=== PATIENT | female | born 1970 | race Caucasian/White ===

== ENCOUNTER → 2017-06-28 | Outpatient (CLI) | payer BC ==
[~2017-06-28] MED LIST: ASPCH81X PO; CETI10TA84 PO; HYZ/50125 PO; IBUP1CAP9; METO50TA7 PO; MULT-506 PO; NICO21DI35 TD; POTA10CA28 PO
[2017-06-28 15:00] VITALS: BP 147/83; PULSE 77; TEMP 36.7; O2SAT 100
--- NOTE | 2017-06-28 15:57 | Radiation Oncology Follow-Up ---
Radiation Oncology Follow-Up Date of Visit Jun 28, 2017. Reason For Visit One-month follow-up and cancer survivorship care plan Radiation Completion Date 05/19/17 Diagnosis (1) Intraductal carcinoma of left breast Status: Resolved Onset Date: 04/04/2017 Stage: 0 Permanent Comment: Abnormal left breast mammogram Status post stereotactic core needle biopsy 02/02/2017 Intraductal carcinoma Estrogen receptor positive and progesterone receptor positive Status post breast MRI 03/02/2017 Status post stereotactic core needle biopsy 03/02/2017 Focal sclerosing adenosis Status post left needle localization lumpectomy 03/16/2017 No residual carcinoma BRCA1 and 2 testing negative Status post completion of radiation therapy 05/19/2017. She received 5130 cGy utilizing hypo-fractionation. Last Edited By: Francheska Cody on May 27, 2017 14:31 History of Present Illness Ms. Bennett presented with an abnormal mammogram on 01/12/2017 which revealed a new group of calcifications in the left breast at the 9 o'clock position that measured 7 mm x 3 mm. The patient was brought back for a unilateral diagnostic mammogram on 01/20/2017 with spot compression which confirmed the presence of a group of calcifications in the upper-inner quadrant of the left breast. The patient underwent a stereotactic core biopsy of the left breast calcifications on 02/02/2017 which confirmed low-grade ductal carcinoma in situ without necrosis that was estrogen receptor positive and progesterone receptor positive. The patient underwent an MRI of the bilateral breasts on 03/02/2017 which revealed a small hematoma and biopsy marker at the site of the recent biopsy; there was a second area of calcifications in the upper inner quadrant of the left breast which were biopsied on 03/02/2017 and both areas were negative for cancer. The patient underwent a left breast lumpectomy on 2016 which revealed no residual ductal carcinoma in situ. We are now seeing the patient in consultation to discuss the role of adjuvant radiation therapy. The patient will also see Dr. Jaiden Barahona from medical oncology. She underwent a CT simulation. She was found to be a candidate for hypo- fractionation. Radiation was completed 05/19/2017. She received 5130 cGy. Interim History She's been doing well over this past month. She had minimal skin irritation following the end of treatment. She stated that there were a few blisters under the arm that healed without difficulty. She is noted no masses or tenderness and no changes of the axilla. She's had no swelling of her arm. She is already scheduled for mammography in August. She was seen by medical oncology and antiestrogen therapy was recommended. She has adamantly declined antiestrogen therapy. She states that she is concerned about potential side effects. Allergies Coded Allergies: Lisinopril (Verified Allergy, Unknown, Coughing, 04/05/17) Home Medications Scheduled Aspirin (Aspirin Chewable), 81 MG PO DAILY Cetirizine (Zyrtec), 10 MG PO DAILY Hctz/Losartan (Hyzaar 12.5MG/50MG), 1 TAB PO DAILY Metoprolol Succ (Toprol Xl) (Toprol-Xl), 1 TAB PO DAILY Multivitamin (Multivitamin), 1 TAB PO DAILY Potassium Chloride (Micro-K Ext Rel), 20 MEQ PO DAILY Miscellaneous Medications Ibuprofen (Ibuprofen) Review of Systems Gastrointestinal: Symptoms: WNL Oral: Symptoms: No Problems Respiratory: Symptoms: WNL Urinary: Symptoms: WNL Skin: Symptoms: No Problems Breast: Right Upper Arm Measurement: 23.5 Right Mid Arm Measurement: 21.0 Right Wrist Measurement: 15.0 Left Upper Arm Measurement: 23.0 Left Mid Arm Measurement: 20.0 Left Wrist Measurement: 14.5 Arm Dominence: Right Physical Exam Vital Signs Date Time Temp Pulse Resp B/P (MAP) Pulse Ox O2 Delivery O2 Flow Rate FiO2 06/28/17 15:00 36.7 77 18 147/83 100 Fatigue: None General Appearance: + thin Eyes: normal inspection, EOMI ENT: normal ENT inspection, hearing grossly normal Neck: no adenopathy, thyroid normal Respiratory/Chest: lungs clear, no respiratory distress, no accessory muscle use Breast: Breast examination reveals a well-healed incision of the left breast. There are no masses or tenderness and no axillary adenopathy. She has no skin retractions or nipple changes. There is slight hyperpigmentation. Using the Alvarado score cosmesis she has a good outcome. The right pressure no masses or tenderness and no axillary adenopathy. Cardiovascular: regular rate, rhythm, no gallop, no murmur Extremities: no pedal edema Neurologic/Psychiatric: no motor/sensory deficits, alert, normal mood/affect Skin: warm/dry Pain Management Patient Reports Pain: No Pain Location: None Patient Preferred Pain Scale: 0 - 10 Initial Pain Intensity: 0.0 Pain Management Plan She denies pain therefore requires no pain management. Laboratory Laboratory Results: not applicable Pathology Pathology Results: were reviewed, and pertinent findings noted in HPI Imaging Imaging Studies: were reviewed, and pertinent findings noted in HPI Assessment & Plan Plan: Patient cells seen today by Dr. Cedeno. Mammography is scheduled for August. She has declined antiestrogen therapy. She is scheduled for mammogram 08/24/2017 at [facility]. Continue follow-up with her primary care physician. Today we discussed smoke cessation. We had previously talked about weaning off of cigarettes. She was also given 1 800 quit line. She has been offered to participate in the smoke cessation classes here at the hospital. Today we completed a cancer survivorship care plan. A copy the document was given to the patient. She was given a survivorship booklet. We asked her to return to our office in 6 months. She may call if she has any questions or concerns in the interim. Assessment & Plan (Attending) ADDENDUM: I agree with note created by Francheska Cody PA-C. I reviewed the patient's chart and information with her. I have examined and evaluated the patient. I reviewed relevant clinical information and answered the patient's and /or family's questions. [employer] Total Time In Follow-Up I spent 20 minutes speaking to the patient and performing examination. I spent 20 minutes reviewing information, preparing the survivorship document, and completing this note. [place] Total Time (Attending) In Follow-Up I spent 15 minutes examining and counseling the patient. [employer] Copy To Denia Silva MD; Jaiden Barahona MD; Chau Reyna M.D.
== END | disposition home or self-care (01) ==
LOC: C.ONC 14:38
PROVIDERS: ATTEND Physician Assistant Medical
DX: Z08 Encounter for follow-up examination after completed treatment for malignant neoplasm (principal); Z92.3 Personal history of irradiation; Z85.3 Personal history of malignant neoplasm of breast

== ENCOUNTER 2024-01-23 18:33 | Inpatient (IN) ==
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
[2024-01-23] MEDS: OPTIRAY 320 100ml IV ONE (19:20)
[2024-01-23 19:21] LABS: iSTAT Creatinine 0.7 mg/dl (0.6-1.3); iSTAT Hemoglobin 15.6 g/dl (12.0-16.0); iSTAT Ionized Calcium 1.16 mmol/l (1.12-1.32); iSTAT Potassium 2.2 mmol/L (3.3-5.0)
[2024-01-23 19:25] LABS: Base Excess VBG 8.3 mEq/L; HCO3 VBG 33 mmol/L; Oxygen Saturation VBG < 60.0 %; PCO2 VBG 47 mmHg (38-50); PO2 VBG 26 mmHg; pH VBG 7.46 (7.36-7.41)
[2024-01-23] MEDS: SODIUM CHLORIDE 0.9% 500 ML IV SCH (19:43)
[2024-01-23 19:52] LABS: Albumin Globulin Ratio 1.6 (0.9-2); Albumin Level 4.6 gm/dl (3.4-5.0); BUN Creatinine Ratio 9.4 (10-20); Bilirubin,Total 0.9 mg/dl (0.2-1.0); Calcium 10.3 mg/dl (8.6-10.3); Creatinine Clr Calc Pharmacy 69.5 ml/min; Est GFR (African American) 118.9 ml/min; Est GFR (Non-African American) 102.6 ml/min; Globulin 2.9 gm/dl (2.5-4.0); Potassium 2.3 mmol/L (3.5-5.1); Total Protein 7.5 gm/dl (6.0-8.3)
[2024-01-23 19:56] LABS: Appearance Urine Clear (Clear); Bacteria Urine Automated None Seen (None Seen); Bilirubin Urine Negative (Negative); Blood Urine Negative (Negative); Cast Urine Automated 0-2 /lpf (0-2); Color Urine Yellow; Epithelial Cell Urine Auto 0-2 /hpf (0-2); Glucose Urine UA Negative (Negative); Ketones Urine Negative (Negative); Leukocyte Esterase Urine Negative (Negative); Nitrite Urine Negative (Negative); Protein Urine 2+ (Negative); RBC Urine Automated 0-2 /hpf (0-2); Specific Gravity Urine 1.016 (1.000-1.030); Urobilinogen Urine Negative (Negative); WBC Urine Automated 0-5 /hpf (0-5); pH Urine 7.5 (4.5-7.5)
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
[2024-01-23 20:36] LABS: Amphetamines+Metham, Urine Neg (Neg); Barbiturates, Urine Neg (Neg); Benzodiazepine, Urine Neg (Neg); Cocaine, Urine Neg (Neg); Fentanyl, Urine Neg (Neg); MDMA (Ecstacy), Urine Neg (Neg); Marijuana, Urine Neg (Neg); Methadone, Urine Neg (Neg); Opiate, Urine Neg (Neg); Phencyclidine, Urine Neg (Neg)
[2024-01-23] MEDS: POTASSIUM CHLORIDE / WTR 10 MEQ/100 ML PLCT IV SCH (20:36)
[2024-01-23] MEDS: MAGNESIUM SULFATE / D5W 1 GM/100 ML BAG IV STA (20:36)
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
[2024-01-23 20:54] LABS: Basophils # (auto) 0.05 K/uL (0.00-0.20); Basophils % (auto) 0.4 %; Eosinophils # (auto) 0.11 K/uL (0.00-0.50); Hematocrit (blood only) 37.7 % (37.0-47.0); Hemoglobin 14.5 g/dl (12.0-16.0); Immature Granulocytes # (auto) 0.04 K/uL (0.01-0.20); Immature Granulocytes % (auto) 0.3 %; Lymphocytes # (auto) 1.11 K/uL (1.20-3.40); Lymphocytes % (auto) 9.6 %; Mean Corpuscular Hemoglobin 33.3 pg (25.0-34.0); Mean Corpuscular Hgb Conc 35.4 g/dL (32.0-36.0); Mean Corpuscular Volume 92.4 fL (80.0-100.0); Mean Platelet Volume 8.6 fL (9.4-12.4); Monocytes # (auto) 0.76 K/uL (0.11-0.59); Monocytes % (auto) 6.6 %; Neutrophils # (auto) 9.47 K/uL (1.40-6.50); Neutrophils % (auto) 82.1 %; Platelet Count 216 K/uL (130-400); RDW Coefficient of Variation 12.5 % (11.5-14.5); RDW Standard Deviation 42.5 fL (36.4-46.3); Red Blood Count 4.08 M/uL (4.20-5.40); White Blood Count 11.54 K/ul (4.8-10.8)
--- NOTE | 2024-01-23 20:56 | CT Scan Report ---
Exam(s): CT CHEST With Contrast IV Amt: 93 ml optiray 320 EXAM: CT Chest With Intravenous Contrast CLINICAL HISTORY: Reason for exam: Trauma. TECHNIQUE: Axial computed tomography images of the chest with intravenous contrast. CTDI is 6.47 mGy and DLP is 289.58 mGy-cm. Automated exposure control was utilized for the study. A dose lowering technique was utilized adhering to the principles of ALARA. Mild to moderate breathing motion artifact. CONTRAST: Patient received 93 ml optiray 320 of IV contrast COMPARISON: Chest CT 05/11/23. FINDINGS: Lungs: Grossly clear, Limited by breathing motion artifact. No consolidation. Pulmonary arteries: No engorgement. Aorta: Atherosclerosis, predominantly in the upper abdomen. No dissection, pseudoaneurysm or aneurysm. Pleural space: No effusion. No pneumothorax. Heart: Mild, stable cardiomegaly. No significant pericardial effusion. Bones/joints: Chronic, healed sternal fracture. No acute fracture. Soft tissues: Collapsed esophagus, wall thickening may be artifact, difficult to rule out esophagitis, correlate clinically. Fatty liver. Lymph nodes: No enlarged lymph nodes. IMPRESSION: 1. Equivocal esophagitis. 2. Lungs are clear. No pneumothorax. Electronically signed by: Manyd Smith M.D. 01/23/24 20:55 PM
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
[2024-01-23] MEDS ORDERED: POLYETHYLENE (MIRALAX) 17 GM PACK PO PRN (23:57)
[2024-01-23] MEDS ORDERED: STAT IV/IM STA (23:57)
[2024-01-23] MEDS ORDERED: LORazepam 1 MG in SYRINGE 0.5 ML IV PRN (23:57)
[2024-01-23] MEDS ORDERED: Ativan IV Alcohol Withdrawal--Active Protocol IV PRN (23:57)
[2024-01-23] MEDS ORDERED: LORazepam 3 MG in SYRINGE 1.5 ML IV PRN (23:57)
[2024-01-23] MEDS ORDERED: LORazepam 2 MG in SYRINGE 1 ML IV PRN (23:57)
[2024-01-23] MEDS ORDERED: ONDANSETRON INJ 2 MG/ML 2 ML VIAL IV PRN (23:57)
[2024-01-24] MEDS: SODIUM CHLORIDE 3 % 50 ML IV ONE ×2 (00:29→06:27)
[2024-01-24 00:45] LABS: BUN Creatinine Ratio 10.7 (10-20); Calcium 9.6 mg/dl (8.6-10.3); Creatinine Clr Calc Pharmacy 72.4 ml/min; Est GFR (African American) 124.2 ml/min; Est GFR (Non-African American) 107.2 ml/min; Potassium 2.9 mmol/L (3.5-5.1)
[2024-01-24] MEDS: MAGNESIUM SULFATE / D5W 1 GM/100 ML BAG IV SCH (00:48)
[2024-01-24] MEDS: POTASSIUM CHLORIDE / WTR 10 MEQ/100 ML PLCT IV SCH ×2 (02:22→06:15)
[2024-01-24 04:09] LABS: BUN Creatinine Ratio 11.1 (10-20); Calcium 9.2 mg/dl (8.6-10.3); Est GFR (African American) 125.7 ml/min; Est GFR (Non-African American) 108.5 ml/min; Magnesium 2.5 mg/dl (1.7-2.4); Potassium 2.9 mmol/L (3.5-5.1)
--- OUTSIDE RECORDS SUMMARY | 2024-01-24 05:56 | External Medical Summary | Summary of Care ---
Author Name Unknown Organization [facility] Address [address] [place] [address] Phone [phone] Care Team Providers Care Owner Oral Surgeon Name Role Phone Reyna Cowan MARIBELL Primary Care Provider [phone] Encounter Details Date Type Department Care Team (Late st Contact Info) Description 07/14/2023 Orders Only Vascular Surg [facility] [address], [place] [id number] Tunde Delgado MD [address], [place] [phone] Allergies Active Allergy Reactions Criticality Noted Date Comments Lisinopril 01/09/2004 cough documented as of this encounter (statuses as of 01/11/2024) Medications Medication Sig Dispensed Refills Start Date End Date Status ZYRTEC 10 MG PO TABSIndications:C hronic rhinitis 1 tab by mouth daily for allergies 30 12 03/10/2007 Active ASPIRIN EC 81 MG PO TBECIndications:H TN, goal to be determined Take one pill daily 100 Tab 3 01/19/2010 Active Multiple Vitamin Tablet Take 1 Tablet by mouth in the morning. 11/02/2017 Active methIMAzole 5 MG Oral Tablet (Tapazole)Indicat ions:Hyperthyroid ism Take by mouth 1 Tablet in the morning. 30 Tablet 11 01/29/2022 Active Additional Information Patient not taking.Reported on 07/08/2022 diphenhydrAMINE HCl 25 MG Oral Capsule (Benadryl Allergy) Take 1 Capsule by mouth every 6 hours as needed for Itching. Active Azelastine HCl 0.15 % Nasal SolutionIndicatio ns:Chronic rhinitis Administer 1 Cherry into nostril in the morning and 1 Cherry before bedtime. 30 mL 12 12/13/2022 Active Trelegy Ellipta 100-62.5-25 MCG/ACT Aerosol Powder Breath Activated (Fluticasone-Umec lidinium-Vilanter ol)Indications:CO PD, moderate (HCC) Inhale 1 Puff by mouth in the morning. 60 Blister Dosing Unit 5 01/10/2023 Active amLODIPine Besylate 2.5 MG Oral Tablet (Norvasc) Take 1 Tablet by mouth in the morning. 90 Tablet 3 01/28/2023 Active Losartan Potassium 100 MG Oral Tablet (Cozaar) Take 1 Tablet by mouth in the morning. 90 Tablet 3 03/31/2023 Active Fluticasone-Salme terol 100-50 MCG/ACT Inhalation Aerosol Powder Breath Activated (Advair Diskus)Indication s:COPD, moderate (HCC) Inhale 1 Puff by mouth in the morning and 1 Puff before bedtime. 180 Each 5 06/27/2023 12/17/2028 Active documented as of this encounter (statuses as of 01/11/2024) Active Problems Problem Noted Date Diagnosed Date Hyperthyroidism 12/11/2021 History of breast cancer 07/04/2017 Dyslipidemia, goal to be determined 01/25/2014 CHRONIC NONALLERGIC RHINITIS 05/31/2003 Menstruation, irregular 04/25/2003 HTN, goal below 140/90 11/05/1997 Tobacco use disorder 11/05/1997 documented as of this encounter (statuses as of 01/11/2024) Resolved Problems Problem Noted Date Diagnosed Date Resolved Date Malignant neoplasm of left female breast 03/04/2017 07/04/2017 Benign neoplasm of soft tissue of arm 01/12/2012 03/04/2017 Mass of elbow region 12/06/2011 012 Bursitis of elbow 09/14/2011 01/12/2012 Family history of diabetes mellitus 01/19/2010 03/04/2017 ADVANCE DIRECTIVE INFORMATION 01/08/2005 03/04/2017 Overview: No, Advance Directive brochure given to patient. documented as of this encounter (statuses as of 01/11/2024) Immunizations Name Administration Dates Next Due COVID-19 mRNA, LNP-s, No Pre serve, 2-Dose Series (Moderna) 10/21/2020,09/23/2020 TD, Preservative Free 11/28/2020 TDAP, Age 7 and older, IM (Adacel) 07/24/2010 07/24/2020 documented as of this encounter Social History Tobacco Use Types Packs/Day Years Used Date Smoking Tobacco: Every Day Cigarettes 1 15 Smokeless Tobacco: Never Alcohol Use Standard Drinks/Week Comments Yes 0 (1 standard drink = 0.6 oz pur e alcohol) 2 times weekly PHQ-2 Answer Date Recorded PHQ Adult Total Score 0 12/13/2022 Hunger Vital Sign Answer Date Recorded Within the past 12 months, y ou worried that your food would run out before you got the money to buy more. Never true 12/14/19 23 Within the past 12 months, t he food you bought just didn't last and you didn't have money to get more. Never true 12/13/2022 Sex and Gender Information Value Date Recorded Sex Assigned at Female 12/28/2019 9:25 AM EDT Gender Identity Female 12/28/2019 9:25 AM EDT Sexual Orientation Straight 12/28/2019 9: 25 AM EDT Job Start Date Occupation Industry Not on file Not on file Not on file documented as of this encounter Plan of Treatment Upcoming Encounters Date Type Department Care Team (Late st Contact Info) Description 01/18/2024 1:30 PM EDT Office Visit Vascular Surgery, [facility] [address] [place] [address] Sadiq Esteves MD [address] [place] [address] Scheduled Procedures Name Priority Associated Diagnoses Date/Ti me COLONOSCOPY FLEXIBLE PROXIMA L DIAGNOSTIC Recall Screening for colon cancer Health Maintenance Due Date Last Done Comments Pneumococcal Vaccine: Pediatrics (0 to 5 Years) and At-Risk Patients (6 to 64 Years) (1 of 2 - PCV) 09/05/1977 Hepatitis B Vaccine (1 of 3 - 19+ 3-dose series) 09/05/1990 HPV/Co-Test 09/05/2001 Fecal Occult Blood Test 09/05/2016 09/28/2000 Sigmoidoscopy 09/05/2016 Zoster Vaccines (1 of 2) 09/05/2021 Cervical Cancer Screening 12/27/2022 Pap Smear 12/27/2022 12/28/2019, 08/12, 09/02/2015, Additional history exists COVID-19 Vaccine ( season) 2023 10/21/2020, 09/23/2020 GFR 07/15/2023 07/15/2022, 07/0 06/2021, 11/28/2020, Additional history exists Albumin/Creatinine Ratio 11/29/2023 021, 08/23/2019, 09/19/2018, Additional history exists Depression Screening 12/14/2023 12/13/2022 Mammogram 02/10/2024 02/09/2023, 01/12, 02/03/2021, Additional history exists Influenza Vaccine (FLU shot) (#1) 2024 Cologuard 01/08/2025 01/08/2022, 12/12, 12/30/2021 Colonoscopy 03/30/2025 03/30/2022, 03/30/2022 Colorectal Cancer Screening 03/30/2025 Lipid Panel 12/11/2026 12/11/2021, 11/11, 08/23/2019, Additional history exists DTaP,Tdap,and Td Vaccines (8 - Td or Tdap) 11/28/2030 11/28/2020, 07/24/2010, 03/08/2002, Additional history exists HIV Screening Completed 12/11/2021 Hepatitis C Screening Completed 12/11/2021 , 12/11/2021, 12/11/2021 HPV (Gardasil) Vaccine Aged Out No lo nger eligible based on patient's age to complete this topic MENINGOCOCCAL (MENACTRA/MENVEO) Aged Out No longer eligible based on patient's age to complete this topic documented as of this encounter Medical Devices Not on filedocumented as of this encounter Procedures Procedure Name Priority Date/Time Associated Diagnosis Comments RADIOLOGY EXAM - US (IMAGES ONLY, NO REPORT) Routine 07/14/2023 3:05 PM EST documented in this encounter Results * RADIOLOGY EXAM - US (IMAGES ONLY, NO REPORT) (07/14/2023 3:05 PM EST) 07/14/2023 3:04 PM EST Narrative Scheduling, Silent - 01/11/2024 12:00 PM EDT This is an imaging study not interpreted or resulted by a [employer] or [employer] contracted radiologist. Tunde Delgado MD RAD ULTRASOUND documented in this encounter Care Teams Owner Oral Surgeon Relationship Specialty Start Date End Date Reyna Cowan CRNP [address] [place] [address] PCP - General Nurse Practitioner 01/05/24 documented as of this encounter
--- OUTSIDE RECORDS SUMMARY | 2024-01-24 05:56 | External Medical Summary | Summary of Care ---
Author Name Unknown Organization [facility] Address [address] [place] [address] Phone [phone] Care Team Providers Care Disaster Recovery Consultant Name Role Phone Reyna Cowan MARIBELL Primary Care Provider [phone] Encounter Details Date Type Department Care Team (Late st Contact Info) Description 07/14/2023 Orders Only Vascular Surg [facility] [address], [place] [phone] Tunde Delgado MD [address], [place] [phone] Allergies Active Allergy Reactions Criticality Noted Date Comments Lisinopril 01/09/2004 cough documented as of this encounter (statuses as of 01/10/2024) Medications Medication Sig Dispensed Refills Start Date [...] % Nasal SolutionIndicatio ns:Chronic rhinitis Administer 1 [place] into nostril in the morning and 1 [place] before bedtime. 30 mL 12 12/13/2022 Active [...] as of this encounter (statuses as of 01/10/2024) Active Problems Problem Noted Date Diagnosed Date Hyperthyroidism 12/11/2021 History of breast cancer 07/04/2017 Dyslipidemia, goal to be determined 01/25/2014 CHRONIC NONALLERGIC RHINITIS 05/31/2003 Menstruation, irregular 04/25/2003 HTN, goal below 140/90 11/05/1997 Tobacco use disorder 11/05/1997 documented as of this encounter (statuses as of 01/10/2024) Resolved Problems Problem Noted Date Diagnosed Date [...] as of this encounter (statuses as of 01/10/2024) Immunizations Name Administration Dates Next Due COVID-19 [...] 1:30 PM EDT Office Visit Vascular Surgery, [facility] [address] [place] [address] Sadiq Esteves MD [address] [place] [address] Scheduled Procedures Name Priority Associated [...] 11/28/2030 11/28/2020, 07/24/2010, 03/08/2002, Additional history exists HPV (Gardasil) Vaccine Aged Out No lo [...] US (IMAGES ONLY, NO REPORT) Routine 07/14/2023 3:00 PM EST documented in this encounter Results * RADIOLOGY EXAM - US (IMAGES ONLY, NO REPORT) (07/14/2023 3:00 PM EST) 07/14/2023 3:00 PM EST Narrative Scheduling, Silent - 01/10/2024 11:31 AM EDT This is an imaging study not interpreted or resulted by a [facility] or [facility] contracted radiologist. Tunde Delgado MD RAD ULTRASOUND documented in this encounter Care Teams Disaster Recovery Consultant Relationship Specialty Start Date End Date Reyna Cowan CRNP [address] [place] [address] PCP - General Nurse Practitioner 01/05/24 documented as of this encounter
--- OUTSIDE RECORDS SUMMARY | 2024-01-24 05:56 | External Medical Summary | Summary of Care ---
Author Name Unknown Organization [facility] Address [address] [place] [address] Phone [phone] Care Team Providers Care Kennel Technician Name Role Phone Chau Reyna MD Primary Care Provider Encounter Details Date Type Department Care Team (Latest Contact Info) Description 07/14/2023 3:05 PM EST - 07/14/2023 11:59 PM EST Hospital Encounter Radiology Film File [address] [place] [address] Discharge Disposition: Home - Self Care Allergies Active Allergy Reactions Criticality Noted Date Comments Lisinopril 01/09/2004 cough documented as of this encounter (statuses as of 01/12/2024) Medications Medication Sig Dispensed Refills Start Date [...] % Nasal SolutionIndicatio ns:Chronic rhinitis Administer 1 [place] into nostril in the morning and 1 [place] before bedtime. 30 mL 12 12/13/2022 Active [...] as of this encounter (statuses as of 01/12/2024) Active Problems Problem Noted Date Diagnosed Date Hyperthyroidism 12/11/2021 History of breast cancer 07/04/2017 Dyslipidemia, goal to be determined 01/25/2014 CHRONIC NONALLERGIC RHINITIS 05/31/2003 Menstruation, irregular 04/25/2003 HTN, goal below 140/90 11/05/1997 Tobacco use disorder 11/05/1997 documented as of this encounter (statuses as of 01/12/2024) Resolved Problems Problem Noted Date Diagnosed Date [...] as of this encounter (statuses as of 01/12/2024) Immunizations Name Administration Dates Next Due COVID-19 [...] 1:30 PM EDT Office Visit Vascular Surgery, [facility] [address] [facility] [place] [address] Sadiq Esteves MD [address] [place] [address] Scheduled Procedures Name Priority Associated [...] interpreted or resulted by a [facility] or [facility] radiologist. Tunde Delgado MD RAD ULTRASOUND documented in this encounter Care Teams Kennel Technician Relationship Specialty Start Date End Date Chau Reyna MD [address] [place] [address] PCP - General 09/27/02 01/04/24 documented as of this encounter
--- OUTSIDE RECORDS SUMMARY | 2024-01-24 05:56 | External Medical Summary | Summary of Care ---
Author Name Unknown Organization [facility] Address [address] [place] [address] Phone [phone] Care Team Providers Care In Home Sales Consultant Name Role Phone Reyna Cowan MARIBELL Primary Care Provider [phone] Reason for Visit * Reason Onset Date Comments NEW PATIENT 01/05/2024 Encounter Details Date Type Department Care Team (Late st Contact Info) Description 01/05/2024 Telephone Access Center, [place] [facility] [address] [facility] *DO NOT REMOVE THIS DEPARTMENT* [place] [address] Services, Scheduling [address] [place] [address] NEW PATIENT Allergies Active Allergy Reactions Criticality Noted Date Comments Lisinopril 01/09/2004 cough documented as of this encounter (statuses as of 01/09/2024) Medications Medication Sig Dispensed Refills Start Date [...] % Nasal SolutionIndicatio ns:Chronic rhinitis Administer 1 [place] into nostril in the morning and 1 [place] before bedtime. 30 mL 12 12/13/2022 Active [...] bedtime. 180 Each 5 06/27/2023 12/17/2028 Active Potassium Chloride Chuyita ER 10 MEQ Oral Tablet Extended ReleaseIndication s:Hypokalemia TAKE 2 TABLETS BY MOUTH EVERY MORNING 180 Tablet 10/12/2023 Active hydroCHLOROthiazi de 25 MG Oral Tablet (Hydrodiuril)Miri cations:HTN, goal below 140/90 Take 1 Tablet by mouth in the morning. 90 Tablet 3 12/26/2023 Active Metoprolol Succinate ER 25 MG Oral Tablet Extended Release 24 Hour (toPROL XL)Indications:HT N, goal below 140/90,Hyperthyro idism Take 1 Tablet by mouth in the morning and 1 Tablet before bedtime. 180 Tablet 3 12/26/2023 Active documented as of this encounter (statuses as of 01/09/2024) Active Problems Problem Noted Date Diagnosed Date Hyperthyroidism 12/11/2021 History of breast cancer 07/04/2017 Dyslipidemia, goal to be determined 01/25/2014 CHRONIC NONALLERGIC RHINITIS 05/31/2003 Menstruation, irregular 04/25/2003 HTN, goal below 140/90 11/05/1997 Tobacco use disorder 11/05/1997 documented as of this encounter (statuses as of 01/09/2024) Resolved Problems Problem Noted Date Diagnosed Date [...] as of this encounter (statuses as of 01/09/2024) Immunizations Name Administration Dates Next Due COVID-19 mRNA, LNP-s, No Pre serve, 2-Dose Series (Moderna) 10/21/2020,09/23/2020 DT - Diptheria/Tetanus (PEDS) 04/22/1988 DTWP - Dipth/Tet/Whole Cell Pertussis 08/21/1974,07/01/1974,04/26/1974 Measles Vaccine 05/13/1974 Mumps Vaccine 06/25/1982 OPV - Polio Virus Vaccine (Oral) 10/18/1974,08/11,06/21/1974 TB Marta Test 09/10/1991, 9,05/10/1984,05/13 TD - Tetanus/Diptheria (ADULT) 03/08/2002 TD, Preservative Free 11/28/2020 TDAP, Age 8 [...] on file documented as of this encounter Miscellaneous Notes * Telephone Encounter - Gloria Costello OSA - 01/09/2024 10:46 AM EDT Images received in [employer], nominated to PACs * Telephone Encounter - Gloria Costello OSA - 01/06/2024 12:[address] images in [employer], nominated to PACs. No Carotid or renal duplex images yet. I spoke to Jania in [facility] imaging and she said they do not have duplex images for this patient. After further review, patient had these studies done at [facility]. Images requested. * Telephone Encounter - Jose David Carl OSA - 01/05/2024 3:47 PM EDT Images requested * Telephone Encounter - Rafa Yeboah PA-C - 01/05/2024 3:43 PM EDT Noted, thank you for requesting images * Telephone Encounter - Perla Campoverde LPN - 01/05/2024 2:48 PM EDT Images from the original note were not included. [address] received from [facility]. 08/09/23 CTA abd/ pelvis IMPRESSION: There is hemodynamically significant stenosis in the aorta near the diaphragm. Renal artery stenosis is seen on the right and there is approximately 50% narrowing of the common right iliac artery. Remaining great vessels are patent and patent flow is seen in the bilateral lower extremities. 07/14/23 Carotid Duplex IMPRESSION: There is hemodynamically significant stenosis in the aorta near the diaphragm. Renal artery stenosis is seen on the right and there is approximately 50% narrowing of the common right iliac artery. Remaining great vessels are patent and patent flow is seen in the bilateral lower extremities. 06/09/23 Renal artery duplex Pt is scheduled with Dr. Delgado in [facility] on 01/25/24. Secretaries, Please obtain images from [facility] in [place]. Perla Campoverde LPN 01/05/2024 3:05 PM * Telephone Encounter - Steven Rondon OSA - 01/05/2024 2:43 PM EDT Self ref new pt Pt dx Arterial Stenosis Was under care with Vasc at [facility] Last saw Dr Davis 12/26. Wants to have care with us closer to home Pt scheduled Dr Delgado in January Will need records. Told pt she may have to request them Thanks SHIRLEY Lucio documented in this encounter Plan of Treatment Upcoming Encounters Date Type Department Care Team (Late st Contact Info) Description 01/18/2024 1:30 PM EDT Office Visit Vascular Surgery, [facility] [address] [facility] [place] [address] Sadiq Esteves MD [address] [facility] [address] Scheduled Procedures Name Priority Associated Diagnoses [...] Not on filedocumented as of this encounter Care Teams In Home Sales Consultant Relationship Specialty Start Date End Date Reyna Cowan CRNP [address] [place] [address], [place] [address] PCP - General Nurse Practitioner 01/05/24 documented as of this encounter
--- OUTSIDE RECORDS SUMMARY | 2024-01-24 05:56 | External Medical Summary | Summary of Care ---
Author Name Unknown Organization [facility] Address [address] [facility] [place] [address] Phone [phone] Care Team Providers Care Annual Giving Director Name Role Phone Chau Reyna MD Primary Care Provider [phone] Encounter Details Date Type Department Care Team (Latest Contact Info) Description 06/09/2023 9:00 AM EST - 06/09/2023 9:14 AM [facility] Hospital Encounter Radiology Film File [address] [place] [address] Discharge Disposition: Home - Self [...] % Nasal SolutionIndicatio ns:Chronic rhinitis Administer 1 [place] into nostril in the morning and 1 [place] before bedtime. 30 mL 12 12/13/2022 Active [...] the morning. 90 Tablet 3 03/31/2023 Active documented as of this encounter (statuses [...] 1:30 PM EDT Office Visit Vascular Surgery, [facility] [address] [place] [address] Sadiq Esteves [facility] [address] [facility] [id number] Scheduled Procedures Name Priority Associated Diagnoses Date/Ti [...] season) 2023 10/21/2020, 09/23/2020 GFR 07/15/2023 07/15/2022, 0706/2021, 11/28/2020, Additional history exists Albumin/Creatinine Ratio 11/29/2023 [...] - US (IMAGES ONLY, NO REPORT) Routine 06/09/2023 9:00 AM EST documented in this encounter Results * RADIOLOGY EXAM - US (IMAGES ONLY, NO REPORT) (06/09/2023 9:00 AM EST) 06/09/2023 9:00 AM EST Narrative Scheduling, Silent - 01/10/2024 11:34 AM EDT This is an imaging study not interpreted or resulted by a [facility] or [facility] contracted radiologist. Tunde Delgado MD RAD ULTRASOUND documented in this encounter Care Teams Annual Giving Director Relationship Specialty Start Date End Date Chau Reyna MD [address] [place] [address] PCP - General 09/27/02 01/04/24 documented as of this encounter
--- OUTSIDE RECORDS SUMMARY | 2024-01-24 05:56 | External Medical Summary | Summary of Care ---
Author Name Unknown Organization [facility] Address [address] [place] [address] Phone [phone] Care Team Providers Care Wedding Cake Designer Name Role Phone Chau Reyna MD Primary Care Provider [phone] Encounter Details Date Type Department Care Team (Latest Contact Info) Description 07/14/2023 3:00 PM EST - 07/14/2023 11:59 PM EST Hospital Encounter Radiology Film File [address] [place] [address] Discharge Disposition: Home - Self [...] % Nasal SolutionIndicatio ns:Chronic rhinitis Administer 1 [place] into nostril in the morning and 1 [place] before bedtime. 30 mL 12 12/13/2022 Active [...] 1:30 PM EDT Office Visit Vascular Surgery, [facility] [address] [facility] [place] [address] Sadiq Esteves MD [address] [place] [address] Scheduled Procedures Name Priority Associated [...] interpreted or resulted by a [facility]. Tunde Delgado MD RAD ULTRASOUND documented in this encounter Care Teams Wedding Cake Designer Relationship Specialty Start Date End Date Chau Reyna MD [address] [place] [address] PCP - General 09/27/02 01/04/24 documented as of this encounter
--- OUTSIDE RECORDS SUMMARY | 2024-01-24 05:56 | External Medical Summary | Summary of Care ---
Author Name Unknown Organization [facility] Address [address] [facility] [place] [address] Phone [phone] Care Team Providers Care Sql Server Dba Name Role Phone Reyna Cowan MARIBELL Primary Care Provider [phone] Encounter Details Date Type Department Care Team (Late st Contact Info) Description 01/13/2024 Population Health External Data Unspecified Department Allergies Active Allergy Reactions Criticality Noted Date Comments Lisinopril 01/09/2004 cough documented as of this encounter (statuses as of 01/13/2024) Medications Medication Sig Dispensed Refills Start Date [...] % Nasal SolutionIndicatio ns:Chronic rhinitis Administer 1 [place] into nostril in the morning and 1 [place] before bedtime. 30 mL 12 12/13/2022 Active [...] as of this encounter (statuses as of 01/13/2024) Active Problems Problem Noted Date Diagnosed Date Hyperthyroidism 12/11/2021 History of breast cancer 07/04/2017 Dyslipidemia, goal to be determined 01/25/2014 CHRONIC NONALLERGIC RHINITIS 05/31/2003 Menstruation, irregular 04/25/2003 HTN, goal below 140/90 11/05/1997 Tobacco use disorder 11/05/1997 documented as of this encounter (statuses as of 01/13/2024) Resolved Problems Problem Noted Date Diagnosed Date [...] as of this encounter (statuses as of 01/13/2024) Immunizations Name Administration Dates Next Due COVID-19 [...] 1:30 PM EDT Office Visit Vascular Surgery, [facility] [address] [facility] [place] [address] Sadiq Esteves MD [address] [facility] [place] [address] Scheduled Procedures Name Priority Associated Diagnoses [...] 08/12, 09/02/2015, Additional history exists COVID-19 Vaccine (2022- season) 2023 10/21/2020, 09/23/2020 GFR 07/15/2023 07/15/2022, [...] filedocumented as of this encounter Care Teams Sql Server Dba Relationship Specialty Start Date End Date Reyna Cowan CRNP [address] [place] [address] PCP - General Nurse Practitioner 01/05/24 documented as of this encounter
--- OUTSIDE RECORDS SUMMARY | 2024-01-24 05:56 | External Medical Summary | Summary of Care ---
Author Name Unknown Organization [facility] Address [address] [place] [address] Phone [phone] Care Team Providers Care Rear Load Truck Driver Name Role Phone Chau Reyna MD Primary Care Provider [phone] Encounter Details Date Type Department Care Team (Latest Contact Info) Description 06/09/2023 9:15 AM EST - 06/09/2023 11:59 PM EST Hospital Encounter Radiology Film File [address] [place] [address] Discharge Disposition: Home - Self [...] % Nasal SolutionIndicatio ns:Chronic rhinitis Administer 1 [place] into nostril in the morning and 1 [place] before bedtime. 30 mL 12 12/13/2022 Active [...] 1:30 PM EDT Office Visit Vascular Surgery, [facility] [address] [place] [address] Sadiq Esteves MD [address] [facility] [id number] Scheduled Procedures Name Priority Associated Diagnoses Date/Ti [...] US (IMAGES ONLY, NO REPORT) Routine 06/09/2023 9:15 AM EST documented in this encounter Results * RADIOLOGY EXAM - US (IMAGES ONLY, NO REPORT) (06/09/2023 9:15 AM EST) 06/09/2023 9:13 AM EST Narrative Scheduling, Silent - 01/10/2024 11:37 AM EDT This is an imaging study not interpreted or resulted by a [facility] or [facility] contracted radiologist. Tunde Delgado MD RAD ULTRASOUND documented in this encounter Care Teams Rear Load Truck Driver Relationship Specialty Start Date End Date Chau Reyna MD [address] [place] [address] PCP - General 09/27/02 01/04/24 documented as of this encounter
--- OUTSIDE RECORDS SUMMARY | 2024-01-24 05:57 | External Medical Summary | Summary of Care ---
Author Name Unknown Organization [facility] Address [address] [place] [address] Phone [phone] Care Team Providers Care Ui Developer Name Role Phone Chau Reyna MD Primary Care Provider [phone] Encounter Details Date Type Department Care Team (Latest Contact Info) Description 08/09/2023 8:25 AM EST - 08/09/2023 11:59 PM EST Hospital Encounter Radiology Film File [address] [place] [address] Discharge Disposition: Home - Self Care Allergies Active Allergy Reactions Criticality Noted Date Comments Lisinopril 01/09/2004 cough documented as of this encounter (statuses as of 01/07/2024) Medications Medication Sig Dispensed Refills Start Date [...] % Nasal SolutionIndicatio ns:Chronic rhinitis Administer 1 [place] into nostril in the morning and 1 [place] before bedtime. 30 mL 12 12/13/2022 Active [...] as of this encounter (statuses as of 01/07/2024) Active Problems Problem Noted Date Diagnosed Date Hyperthyroidism 12/11/2021 History of breast cancer 07/04/2017 Dyslipidemia, goal to be determined 01/25/2014 CHRONIC NONALLERGIC RHINITIS 05/31/2003 Menstruation, irregular 04/25/2003 HTN, goal below 140/90 11/05/1997 Tobacco use disorder 11/05/1997 documented as of this encounter (statuses as of 01/07/2024) Resolved Problems Problem Noted Date Diagnosed Date [...] as of this encounter (statuses as of 01/07/2024) Immunizations Name Administration Dates Next Due COVID-19 [...] 1:30 PM EDT Office Visit Vascular Surgery, [facility] [address] [facility] [place] [address] Sadiq Esteves MD [address] [place] [address] Scheduled Procedures Name Priority Associated [...] 08/12, 09/02/2015, Additional history exists COVID-19 Vaccine (3 - season) 2023 10/21/2020, 09/23/2020 GFR 07/15/2023 07/15/2022, [...] Date/Time Associated Diagnosis Comments RADIOLOGY EXAM - CT (IMAGES ONLY, NO REPORT) Routine 08/09/2023 8:25 AM EST documented in this encounter Results * RADIOLOGY EXAM - CT (IMAGES ONLY, NO REPORT) (08/09/2023 8:25 AM EST) 08/09/2023 8:22 AM EST Narrative Scheduling, Silent - 01/06/2024 2:17 PM EDT This is an imaging study not interpreted or resulted by a [facility] radiologist. Tunde Delgado MD RAD CT documented in this encounter Care Teams Ui Developer Relationship Specialty Start Date End Date Chau Reyan MD [address] [place] [address] PCP - General 09/27/02 01/04/24 documented as of this encounter
--- OUTSIDE RECORDS SUMMARY | 2024-01-24 05:57 | External Medical Summary | Summary of Care ---
Author Name Unknown Organization [facility] Address [address] [place] [address] Phone [phone] Care Team Providers Care Blood Collector Name Role Phone Chau Reyna MD Primary Care Provider Reason for Visit * Reason Comments eRx-Medication Refill Encounter Details Date Type Department Care Team (Late st Contact Info) Description 10/11/2023 Refill [facility] [address] [place] [id number] Edi Nicolas, [address] [place], [place] [id number] Encounter for long-term (current) use of medications*; Hypokalemia Allergies Active Allergy Reactions Criticality Noted Date Comments Lisinopril 01/09/2004 cough documented as of this encounter (statuses as of 10/13/2023) Medications Medication Sig Dispensed Refills Start Date End Date Status ZYRTEC 10 MG PO TABSIndications :Chronic rhinitis 1 tab by mouth daily for allergies 30 12 03/10/2007 Active ASPIRIN EC 81 MG PO TBECIndications :HTN, goal to be determined Take one pill daily 100 Tab 3 01/19/2010 Active Multiple Vitamin Tablet Take 1 Tablet by mouth in the morning. 0 11/02/2017 Active methIMAzole 5 MG Oral Tablet (Tapazole)Indic ations:Hyperthy roidism Take by mouth 1 Tablet in the morning. 30 Tablet 11 01/29/2022 Active Additional Information Patient not taking.Reported on 07/08/2022 hydroCHLOROthia zide 25 MG Oral Tablet (Hydrodiuril)In dications:HTN, goal below 140/90 Take 1 Tablet by mouth in the morning. 90 Tablet 3 11/24/2022 Active diphenhydrAMINE HCl 25 MG Oral Capsule (Benadryl Allergy) Take 1 Capsule by mouth every 6 hours as needed for Itching. 0 Active Azelastine HCl 0.15 % Nasal SolutionIndicat ions:Chronic rhinitis Administer 1 [place] into nostril in the morning and 1 [place] before bedtime. 30 mL 12 12/13/2022 Active Trelegy Ellipta 100-62.5-25 MCG/ACT Aerosol Powder Breath Activated (Fluticasone-Um eclidinium-Lou nterol)Indicati ons:COPD, moderate (HCC) Inhale 1 Puff by mouth in the morning. 60 Blister Dosing Unit 5 01/10/2023 Active amLODIPine Besylate 2.5 MG Oral Tablet (Norvasc) Take 1 Tablet by mouth in the morning. 90 Tablet 3 01/28/2023 Active Losartan Potassium 100 MG Oral Tablet (Cozaar) Take 1 Tablet by mouth in the morning. 90 Tablet 3 03/31/2023 Active Metoprolol Succinate ER 25 MG Oral Tablet Extended Release 24 Hour (toPROL XL)Indications: HTN, goal below 140/90,Hyperthy roidism Take 1 Tablet by mouth in the morning and 1 Tablet before bedtime. 60 Tablet 5 05/16/2023 Active Fluticasone-Yasir meterol 100-50 MCG/ACT Inhalation Aerosol Powder Breath Activated (Advair Diskus)Indicati ons:COPD, moderate (HCC) Inhale 1 Puff by mouth in the morning and 1 Puff before bedtime. 180 Each 5 06/27/2023 9 Active Potassium Chloride Chuyita ER 10 MEQ Oral Tablet Extended ReleaseIndicati ons:Hypokalemia TAKE 2 TABLETS BY MOUTH EVERY MORNING 180 Tablet 0 10/12/2023 Active Potassium Chloride Chuyita ER 10 MEQ Oral Tablet Extended ReleaseIndicati ons:Hypokalemia Take 2 Tablets by mouth in the morning. 180 Tablet 1 04/15/2023 4 Discontinued Hospital, Clinic, or Other Facility Administered Medication Ordered Dose Route Frequency Start Date End Date Status Albuterol Sulfate (Proventil) (2.5 MG/3ML) 0.083% inhalation solution 2.5 mgIndications:Tobacco use disorder 2.5 mg NEBULIZER ONCE PRN 12/13/2022 12/13/2023 Active documented as of this encounter (statuses as of 10/13/2023) Active Problems Problem Noted Date Diagnosed Date Hyperthyroidism 12/11/2021 History of breast cancer 07/04/2017 Dyslipidemia, goal to be determined 01/25/2014 CHRONIC NONALLERGIC RHINITIS 05/31/2003 Menstruation, irregular 04/25/2003 HTN, goal below 140/90 11/05/1997 Tobacco use disorder 11/05/1997 documented as of this encounter (statuses as of 10/13/2023) Resolved Problems Problem Noted Date Diagnosed Date [...] as of this encounter (statuses as of 10/13/2023) Immunizations Name Administration Dates Next Due COVID-19 mRNA, LNP-s, No Pre serve, 2-Dose Series (Moderna) 10/21/2020,09/23/2020 DT - Diptheria/Tetanus (PEDS) 04/22/1988 DTWP - Dipth/Tet/Whole Cell Pertussis 08/21/1974,07/01/1974,04/26/1974 Measles Vaccine 05/13/1974 Mumps Vaccine 06/25/1982 OPV - Polio Virus Vaccine (Oral) 10/18/1974,08/11,06/21/1974 TB Marta Test 09/10/1991, 9,05/10/1984,05/13 TD - Tetanus/Diptheria (ADULT) 03/08/2002 TD, Preservative Free 11/28/2020 TDAP (age 11 and older)(Adacel) 07/24/2010 07/24/2020 documented as of this encounter [...] encounter Miscellaneous Notes * Telephone Encounter - Victorino Nichole - 10/13/2023 7:50 PM EDT Received message from [facility] regarding patient needing labs. Patient was notified. Successfully contacted patient and provided [facility] message. * Telephone Encounter - Mack Flanagan PHARM Tech - 10/13/2023 3:04 PM EDT Received message from [facility] regarding patient needing labs. Call Placed, Left message on voicemail advising of required labs Thank you, Mack Flanagan Scientific Illustrator Spectral Edgenolberto [facility] 10/13/2023, 3:04 PM * Telephone Encounter - Wolf Maharaj [facility] - 10/12/2023 12:16 PM EDTSigned Prescriptions: Disp Refills Potassium Chloride Chuyita ER 10 MEQ Oral Tab*180 Ta*0 Sig: TAKE 2 TABLETS BY MOUTH EVERY MORNING Authorizing Provider: EDI NICOLAS Ordering User: WOLF MAHARAJ * Telephone Encounter - Wolf Maharaj [facility] - 10/12/2023 12:15 PM EDT Provided 90 days supply with 0 refill(s). Per refill protocol patient should have BMP and albumin/creatinine ratio on file within past year. Reviewed AMP report, Care Gaps/Health Maintenance, medications list, and for any routine labs typically ordered for this patient. Lab orders placed. Please contact patient to advise of labs ordered for blood draw AND URINE specimen (patient will have to be able to void to provide sample). Fasting is not required. Advise to obtain labs before requesting the next refill. Thanks, Wolf Maharaj Clinical Pharmacist [facility] ([facility]) [phone] 10/12/2023, 12:15 PM documented in this encounter Plan of Treatment Scheduled Orders Name Type Priority Associated Diagnoses Orde r Schedule BASIC METABOLIC PANEL Lab Routine Encounter for long-term (current) use of medications Expected: 10/19/2023 (Approximate), Expires: 10/11/2024 ALBUMIN / CREATININE RATIO, URINE Lab Routine Encounter for long-term (current) use of medications Expected: 10/19/2023, Expires: 10/11/2024 Scheduled Procedures Name Priority Associated Diagnoses Date/Ti me COLONOSCOPY FLEXIBLE PROXIMA L DIAGNOSTIC Recall Screening for colon cancer Health Maintenance Due Date Last Done Comments Pneumococcal Vaccine: Pediatrics (0 to 5 Years) and At-Risk Patients (6 to 64 Years) (1 of 2 - PCV) [birth year]1977 Hepatitis B (1 of 3 - 19+ 3-dose series) [...] Additional history exists Influenza Vaccine (FLU shot) (Season Ended) 2024 Cologuard 01/08/2025 01/08/2022, 12/12, 12/30/2021 Colonoscopy 03/30/2025 03/30/2022, 03/30/2022 Colorectal Cancer Screening 03/30/2025 Lipid Panel 12/11/2026 12/11/2021, 11/11, 08/23/2019, Additional history exists DTaP,Tdap,and Td Vaccines (8 - Td or Tdap) 11/28/2030 11/28/2020, 07/24/2010, 03/08/2002, Additional history exists GARDASIL-HPV IMMUNIZATION SERIES Aged Out No longer eligible based on patient's age to complete this topic MENINGOCOCCAL (MENACTRA/MENVEO) Aged Out No longer eligible based on patient's age to complete this topic documented as of this encounter Medical Devices Not on filedocumented as of this encounter Visit Diagnoses Diagnosis Encounter for long-term (current) use of medications- Primary Encounter for long-term (current) use of other medications Hypokalemia Hypopotassemia documented in this encounter Care Teams Blood Collector Relationship Specialty Start Date End Date Chau Reyna MD [address] [place] [address] PCP - General 09/27/02 documented as of this encounter
--- OUTSIDE RECORDS SUMMARY | 2024-01-24 05:57 | External Medical Summary | Summary of Care ---
Author Name Unknown Organization [facility] Address [address] [facility] [place] [address] Phone [phone] Care Team Providers Care Typing Section Chief Name Role Phone Reyna Cowan MARIBELL Primary Care Provider [phone] Reason for Visit * Reason Onset Date Comments NEW PATIENT 01/05/2024 Encounter Details Date Type Department Care Team (Late st Contact Info) Description 01/05/2024 Telephone Access Center, [place] [facility] [address] [facility] *DO NOT REMOVE THIS DEPARTMENT* [place] [address] Services, Scheduling [address] [place] [address] NEW PATIENT Allergies Active Allergy Reactions Criticality Noted Date Comments Lisinopril 01/09/2004 cough documented as of this encounter (statuses as of 01/05/2024) Medications Medication Sig Dispensed Refills Start Date [...] % Nasal SolutionIndicatio ns:Chronic rhinitis Administer 1 Dale into nostril in the morning and 1 Dale before bedtime. 30 mL 12 12/13/2022 Active [...] as of this encounter (statuses as of 01/05/2024) Active Problems Problem Noted Date Diagnosed Date Hyperthyroidism 12/11/2021 History of breast cancer 07/04/2017 Dyslipidemia, goal to be determined 01/25/2014 CHRONIC NONALLERGIC RHINITIS 05/31/2003 Menstruation, irregular 04/25/2003 HTN, goal below 140/90 11/05/1997 Tobacco use disorder 11/05/1997 documented as of this encounter (statuses as of 01/05/2024) Resolved Problems Problem Noted Date Diagnosed Date [...] as of this encounter (statuses as of 01/05/2024) Immunizations Name Administration Dates Next Due COVID-19 [...] encounter Miscellaneous Notes * Telephone Encounter - Rafa Yeboah PA-C - 01/05/2024 3:43 PM EDT Noted, thank you for requesting images * Telephone Encounter - Perla Campoverde LPN - 01/05/2024 2:48 PM EDT Images from the original note were not included. 10 page scan received from [facility]. 08/09/23 CTA abd/ pelvis IMPRESSION: [...] Pt is scheduled with Dr. Delgado in [facility] on 01/25/24. Secretaries, Please obtain images from [facility] in [place]. Perla Campoverde LPN 01/05/2024 3:05 PM * Telephone Encounter - Steven Rondon OSA - 01/05/2024 2:43 PM EDT Self ref new pt Pt dx Arterial Stenosis Was under care with Vasc at [facility] Last saw Dr Davis 12/26. Wants to have care with us closer to home Pt scheduled Dr Delgado in January Will need records. Told pt she may have to request them Thanks SHIRLEY Lucio documented in this encounter Plan of Treatment Upcoming Encounters Date Type Department Care Team (Late st Contact Info) Description 01/25/2024 12:10 PM EDT Office Visit Vascular Surgery, [facility] [address] [facility] [place] [address] Tunde Delgado MD [address] [facility] [address] Scheduled Procedures Name Priority Associated Diagnoses [...] filedocumented as of this encounter Care Teams Typing Section Chief Relationship Specialty Start Date End Date Reyna Cowan CRNP [address] [place] [address] PCP - General Nurse Practitioner 01/05/24 documented as of this encounter
--- OUTSIDE RECORDS SUMMARY | 2024-01-24 05:57 | External Medical Summary | Continuity of Care Document ---
Author Name Unknown Organization [facility] [address] Address [address] [place] [address] [place] [id number] Care Team Providers Care Parking Lot Attendant Name Role Phone Reyna Cowan Primary Care Physician [phone] Encounter [facility] [id number] Date(s): 12/27/23 - 12/27/23 [facility] [address] [facility] [place] - [address], [address], [address] [place] [address] [phone] Encounter Diagnosis Body mass index [BMI] 19.9 or less, adult(Discharge Diagnosis) - 12/27/23 Peripheral arterial occlusive disease(Discharge Diagnosis) - 12/27/23 Bilateral renal artery stenosis(Discharge Diagnosis) - 12/27/23 CMI (chronic mesenteric ischemia)(Discharge Diagnosis) - 12/27/23 Discharge Disposition: Home or Self Care Attending Physician: MD Malave Faisal Referring Physician: SALMA Salguero Lynn Allergies, Adverse Reactions, Alerts Substance Criticality Severity Reaction Reaction Severity Status lisinopril cough Active Immunizations Given and Recorded Vaccine Date Status Refusal Reason tetanus toxoids-diphtheria, Td (Adult) 1 11/28/20 Recorded tetanus toxoids-diphtheria, Td (Adult) 2 03/08/02 Recorded SARS-CoV-2 (COVID-19) mRNA-1273 vaccine 3 10/21/20 Recorded SARS-CoV-2 (COVID-19) mRNA-1273 vaccine 4 09/23/20 Recorded tetanus/diphtheria/pertuss, acel (Tdap) 5 07/24/10 Recorded diphtheria-tetanus toxoids, DT (Ped) 6 04/22/88 Re corded mumps virus vaccine 7 06/25/82 Recorded poliovirus vaccine, live, trivalent 8 10/18/74 Rec orded poliovirus vaccine, live, trivalent 9 08/21/74 Rec orded poliovirus vaccine, live, trivalent 10 06/21/74 Re corded diphtheria/pertussis, whole cell/tetanus 11 08/21/74 Recorded diphtheria/pertussis, whole cell/tetanus 12 07/01/74 Recorded diphtheria/pertussis, whole cell/tetanus 13 04/26/74 Recorded measles virus vaccine 14 05/13/74 Recorded 1Result Comment: 2023-04-13: Historical information-source unspecified 2Result Comment: 2023-04-13: Historical information-source unspecified 3Result Comment: 2023-04-13: Historical information-source unspecified 4Result Comment: 2023-04-13: Historical information-source unspecified 5Result Comment: 2023-04-13: Historical information-source unspecified 6Result Comment: 2023-04-13: Historical information-source unspecified 7Result Comment: 2023-04-13: Historical information-source unspecified 8Result Comment: 2023-04-13: Historical information-source unspecified 9Result Comment: 2023-04-13: Historical information-source unspecified 10Result Comment: 2023-04-13: Historical information-source unspecified 11Result Comment: 2023-04-13: Historical information-source unspecified 12Result Comment: 2023-04-13: Historical information-source unspecified 13Result Comment: 2023-04-13: Historical information-source unspecified 14Result Comment: 2023-04-13: Historical information-source unspecified Medications amLODIPine 10 mg oral tablet Start: 09/12/23 4:57:00 PM EDT, 1 tab, PO, Daily, Disp# 30 tab, Refills: 11, Pharmacy: [id number] Start Date: 09/12/23 Status: Ordered azelastine 205.5 mcg/inh (0.15%) nasal spray Start: 04/13/23 4:54:00 PM EDT, 1 spray, each nostril, bid, PRN: allergy symptoms Start Date: 04/13/23 Status: Ordered Crestor 5 mg oral tablet Start: 07/06/23 4:55:00 PM EST, 1 tab, PO, qhs, Disp# 30 tab, Refills: 11, Pharmacy: [id number] Start Date: 07/06/23 Stop Date: 06/30/24 Status: Ordered diphenhydrAMINE 25 mg oral tablet Start: 04/13/23 4:56:00 PM EDT, 1 tab, PO, q6h, PRN: as needed for itching Start Date: 04/13/23 Status: Ordered fluticasone-salmeterol Diskus 100 mcg-50 mcg Start: 04/13/23 4:53:00 PM EDT, 1 puff, inhaled, bid Start Date: 04/13/23 Status: Ordered hydroCHLOROthiazide 25 mg oral tablet Start: 04/13/23 4:57:00 PM EDT, 1 tab, PO, Daily Start Date: 04/13/23 Status: Ordered losartan 100 mg oral tablet Start: 04/13/23 4:52:00 PM EDT, 1 tab, PO, Daily Start Date: 04/13/23 Status: Ordered metoprolol succinate 25 mg oral tablet, extended release Start: 04/13/23 5:00:00 PM EDT, 1 tab, PO, bid Start Date: 04/13/23 Status: Ordered multivitamin Start: 04/13/23 5:06:00 PM EDT, 1 tab, PO, Daily Start Date: 04/13/23 Status: Ordered Potassium Chloride (Eqv-K-Tab) Start: 04/13/23 4:58:00 PM EDT, 20 mEq =, PO, Daily Start Date: 04/13/23 Status: Ordered ZyrTEC 10 mg oral tablet Start: 04/13/23 5:10:00 PM EDT, 1 tab, PO, Daily, PRN: as needed for allergy symptoms Start Date: 04/13/23 Status: Ordered Mental Status 12/27/23 Barriers to Learning one year None evide nt Mandatory Health Literacy Documentation Yes Health Literacy Communication Barriers N ever Primary Language Bahraini Problem List Condition Confirmation Course Effective Dates Status H ealth Status Informant Atherosclerosis Confirmed Active Stenosis of aorta Confirmed Active HTN (hypertension) Confirmed Active Hyperthyroidism Confirmed Active Breast CA Confirmed Active Renal artery stenosis Confirmed Active Subclavian artery stenosis Confirmed Active Tobacco user Confirmed Active Diagnosis Diagnosis Type Effective Dates Health Status Clinical Service Informant Body mass index [BMI] 19.9 or less, adult Discharge Diagnosis 12/27/23 Non-Specified CMI (chronic mesenteric ischemia) Discharge Diagnosis 12/27/23 Non-Specified Peripheral arterial occlusive disease Discharge Diagnosis 12/27/23 Non-Specified Bilateral renal artery stenosis Discharge Diagnosis 12/27/23 Non-Specified Procedures Procedure Date Related Diagnosis Body Site Status Colonoscope 1, 2 03/30/22 Complete d Radioactive iodine uptake 3 06/17/21 Completed Mammogram 4 02/03/21 Completed Partial mastectomy of left breast 03/16/17 Completed Excision of lesion of breast 5 03/02/17 Completed EXCISION BREAST LESION 6 02/06/17 Completed EXC ARM/ELBOW LES SC 3 CM/> 12/30/11 Completed EX ARM/ELBOW TRAMAINE DEEP < 5 CM 10/27/11 Completed Closed fracture of right ankle 04/2002 Completed Cryocautery of cervix 7 01/2002 C ompleted Appendectomy Completed Radiation oncology AND/OR radiotherapy Completed 1repeat 3 years 2diverticula, no specimens 3i-123 homogenous activity both lobes. 4 hour 8% 24 hr 23% 4no mammographic evidence of malignancy 5left 6left 7Lap; Fulguration oviducts, Ligate/cut oviduct Vital Signs Most recent to oldest [Reference Range]: 1 Height 159 cm (12/27/23 2:30 PM) Patient Weight 44.4 kg (12/27/23 2:30 PM) Body Mass Index 17.56 kg/m2 (12/27/23 2:30 PM) Temperature [36.5-37.9 DegC] 35.9 DegC *LOW* (12/27/23 2:30 PM) Heart Rate 85 bpm (12/27/23 2:30 PM) Respiratory Rate 16 br/min (12/27/23 2:30 PM) Blood Pressure 120/62mmHg (12/27/23 2:30 PM) Cuff Pulse Pressure 58 mmHg (12/27/23 2:30 PM) BP Location # 1 Right Arm (12/27/23 2:30 PM) Social History Social History Type Response Tobacco Current every day sm oker, Cigarettes, 39 year(s). Smoking Status Current every day he jovanna smoker Sex Female Patient Care team information Care Team Personnel Name: MARIBELL Cowan Tara Position: Nurse Pract - Family Med Member Role: Primary Care Provider Address: Address: [address] [place] [id number] Name: SALMA Salguero Lynn Position: Physician [place] Former Machine Operator Exempt - Vasc Surg Member Role: Lifetime Relationship Address: Address: [address] [place] [address], [place] [address] [place] Care Team Related Persons Name: ELLY MAZARIEGOS Address: MD Address: home [address] [facility] [place] [id number]
--- OUTSIDE RECORDS SUMMARY | 2024-01-24 05:57 | External Medical Summary | Summary of Care ---
Author Name Unknown Organization [facility] Address [address] [place] [address] Phone [phone] Care Team Providers Care Charge Coordinator Name Role Phone Reyna Cowan MARIBELL Primary Care Provider [phone] Reason for Visit * Reason Onset Date Comments NEW PATIENT 01/05/2024 Encounter Details Date Type Department Care Team (Late st Contact Info) Description 01/05/2024 Telephone Access Center, [place] Region [address] [facility] *DO NOT REMOVE THIS DEPARTMENT* [place] [address] Services, Scheduling [address] [place] [address] NEW PATIENT Allergies Active Allergy Reactions Criticality [...] % Nasal SolutionIndicatio ns:Chronic rhinitis Administer 1 Cosby into nostril in the morning and 1 Cosby before bedtime. 30 mL 12 12/13/2022 Active [...] encounter Miscellaneous Notes * Telephone Encounter - Steven Rondon OSA - 01/05/2024 2:43 PM EDT Self ref new pt Pt dx Arterial Stenosis Was under care with Vasc at [facility] Last saw Dr Davis 12/26. Wants to have care with us closer to home Pt scheduled Dr Delgado in January Will need records. Told pt she may have to request them Thanks SHIRLEY Lucio documented in this encounter Plan of Treatment Upcoming Encounters Date Type Department Care Team (Late st Contact Info) Description 01/25/2024 12:10 PM EDT Office Visit Vascular Surgery, [facility] [address] [facility] [place] [address] Tunde Delgado MD [address] [facility] [place] [address] Scheduled Procedures Name Priority [...] filedocumented as of this encounter Care Teams Charge Coordinator Relationship Specialty Start Date End Date Reyna Cowan CRNP [address] [place] [address] PCP - General Nurse Practitioner 01/05/24 documented as of this encounter
--- OUTSIDE RECORDS SUMMARY | 2024-01-24 05:57 | External Medical Summary | Summary of Care ---
Author Name Unknown Organization [facility] Address [address] [facility] [place] [address] Phone [phone] Care Team Providers Care Manager Welding Name Role Phone Chau Reyna MD Primary Care Provider Encounter Details Date Type Department Care Team (Late st Contact Info) Description 10/14/2023 Orders Only PATIENT PORTAL DO NOT DELETE THIS DEPT USED BY [place] [id number] Allergies Active Allergy Reactions Criticality Noted Date Comments Lisinopril 01/09/2004 cough documented as of this encounter (statuses as of 10/14/2023) Medications Medication Sig Dispensed Refills Start Date [...] Additional Information Patient not taking.Reported on 07/08/2022 hydroCHLOROthiazi de 25 MG Oral Tablet (Hydrodiuril)Miri cations:HTN, goal below 140/90 Take 1 Tablet by mouth in the morning. 90 Tablet 3 11/24/2022 Active diphenhydrAMINE HCl 25 MG Oral Capsule (Benadryl Allergy) Take 1 Capsule by mouth every 6 hours as needed for Itching. 0 Active Azelastine HCl 0.15 % Nasal SolutionIndicatio ns:Chronic rhinitis Administer 1 Byers into nostril in the morning and 1 Byers before bedtime. 30 mL 12 12/13/2022 Active [...] before bedtime. 60 Tablet 5 05/16/2023 Active Fluticasone-Salme terol 100-50 MCG/ACT Inhalation Aerosol Powder Breath Activated (Advair Diskus)Indication s:COPD, moderate (HCC) Inhale 1 Puff by mouth in the morning and 1 Puff before bedtime. 180 Each 5 06/27/2023 12/17/2028 Active Potassium Chloride [place] ER 10 MEQ Oral Tablet Extended ReleaseIndication s:Hypokalemia TAKE 2 TABLETS BY MOUTH EVERY MORNING 180 Tablet 0 10/12/2023 Active Hospital, Clinic, or Other Facility Administered Medication Ordered Dose Route Frequency Start Date End Date Status Albuterol Sulfate (Proventil) (2.5 MG/3ML) 0.083% inhalation solution 2.5 mgIndications:Tobacco use disorder 2.5 mg NEBULIZER ONCE PRN 12/13/2022 12/13/2023 Active documented as of this encounter (statuses as of 10/14/2023) Active Problems Problem Noted Date Diagnosed Date Hyperthyroidism 12/11/2021 History of breast cancer 07/04/2017 Dyslipidemia, goal to be determined 01/25/2014 CHRONIC NONALLERGIC RHINITIS 05/31/2003 Menstruation, irregular 04/25/2003 HTN, goal below 140/90 11/05/1997 Tobacco use disorder 11/05/1997 documented as of this encounter (statuses as of 10/14/2023) Resolved Problems Problem Noted Date Diagnosed Date [...] as of this encounter (statuses as of 10/14/2023) Immunizations Name Administration Dates Next Due COVID-19 mRNA, LNP-s, No Pre serve, 2-Dose Series (Moderna) 10/21/2020,09/23/2020 TD, Preservative Free 11/28/2020 TDAP (age 12 [...] as of this encounter Plan of Treatment Scheduled Procedures Name Priority Associated Diagnoses Date/Ti [...] filedocumented as of this encounter Care Teams Manager Welding Relationship Specialty Start Date End Date Chau Reyna MD [address] [address] PCP - General 09/27/02 documented as of this encounter
--- OUTSIDE RECORDS SUMMARY | 2024-01-24 05:57 | External Medical Summary | Continuity of Care Document ---
Author Name Unknown Organization [address] [id number] Care Team Providers Care Impact Hammer Operator Name Role Phone Reyna Cowan Primary Care Physician [phone] Encounter [facility] [id number] Date(s): 12/30/23 - 12/30/[address] [address] [phone] Encounter Diagnosis Stenosis of aorta(Discharge Diagnosis) - 12/30/23 Hyperthyroidism(Discharge Diagnosis) - 12/30/23 HTN (hypertension)(Discharge Diagnosis) - 12/30/23 Subclavian artery stenosis(Discharge Diagnosis) - 12/30/23 Financial problems(Discharge Diagnosis) - 12/30/23 Chronic hyponatremia(Discharge Diagnosis) - 12/30/23 Atherosclerosis(Discharge Diagnosis) - 12/30/23 Body mass index [BMI] 19.9 or less, adult(Discharge Diagnosis) - 12/30/23 Tobacco user(Discharge Diagnosis) - 12/30/23 Grief(Discharge Diagnosis) - 12/30/23 Renal artery stenosis(Discharge Diagnosis) - 12/30/23 Discharge Disposition: Home or Self Care Attending Physician: MARIBELL Cowan Tara Referring Physician: MARIBELL Cowan Tara Allergies, Adverse Reactions, Alerts Substance Criticality Severity Reaction Reaction Severity Status lisinopril cough Active Assessment and Plan Extracted from: Title:follow up Author:MARIBELL Cowan Tara Date: 1.Grief Acute/Chronic: chronic Goal:Resolution/ control Status:stable/controlled Data: records/pt report Plan: Will start her on lexapro.She denies SI/HI. Discussed calling [phone] if needed. Follow up in 6 weeks. 2.Atherosclerosis # 3.Renal artery stenosis 4.Stenosis of aorta 5.Subclavian artery stenosis Acute/Chronic: chronic Goal:Resolution/ control Status:stable/controlled Data: records/pt report Plan: Will see if provider at local [facility] teresa can see here but would have to have surgery in [place]. Will give her handicap papers for pain if lower ext. 6.HTN (hypertension) Acute/Chronic: chronic Goal:Resolution/ control Status:stable/controlled Data: records/pt report Plan: BP is well controlled presently. Has chronic hyponatermiamost likely from HCTZ. She is asymptomatic. She is already on 4 medsfor bp and bp is just now well controlled. Once she has some of her vascular issue address, her bp may be better and possibly get her off hctz. 7.Hyperthyroidism Acute/Chronic: chronic Goal:Resolution/ control Status:stable/controlled Data: records/pt report Plan: Contd to follow with endo. 8.Tobacco user Acute/Chronic: chronic Goal:Resolution/ control Status:stable/controlled Data: records/pt report Plan: she is not in a good place mentally to try and quit but she wants to explore in the future. 9.Chronic hyponatremia Acute/Chronic: chronic Goal:Resolution/ control Status:stable/controlled Data: records/pt report Plan: See #6 10.Body mass index [BMI] 19.9 or less, adult Acute/Chronic: chronic Goal:Resolution/ control Status:stable/controlled Data: records/pt report Plan: weightstable. Recommend adding 1-2 snacks a day. 11.Financial problems Acute/Chronic: chronic Goal:Resolution/ control Status:stable/controlled Data: records/pt report Plan: Refer to day care provider. time spent reviewing chart, face to face visit, ordersand documentation:44 min Immunizations Given and Recorded Vaccine Date Status [...] Daily, Disp# 30 tab, Refills: 11, Pharmacy: [id number] Start Date: 09/12/23 Status: Ordered aspirin 81 mg oral delayed release tablet Start: 12/30/23 1:15:00 PM EDT, 1 tab, PO, Daily Start Date: 12/30/23 Status: Ordered azelastine 205.5 mcg/inh (0.15%) nasal spray Start: 04/13/23 4:54:00 PM EDT, 1 spray, each nostril, bid, PRN: allergy symptoms Start Date: 04/13/23 Status: Ordered Crestor 5 mg oral tablet Start: 07/06/23 4:55:00 PM EST, 1 tab, PO, qhs, Disp# 30 tab, Refills: 11, Pharmacy: [id number] Start Date: 07/06/23 Stop [...] PO, Daily Start Date: 04/13/23 Status: Ordered Lexapro 10 mg oral tablet Start: 12/30/23 1:49:00 PM EDT, 1 tab, PO, Daily, Disp# 30 tab, Refills: 3, Pharmacy: [id number] Start Date: 12/30/23 Stop Date: 04/28/24 Status: Ordered losartan 100 mg oral tablet [...] Start Date: 04/13/23 Status: Ordered Mental Status 12/30/23 Barriers to Learning one year None evide nt Mandatory Health Literacy Documentation Yes Health Literacy Communication Barriers N ever Primary Language Tanzanian Problem List Condition Confirmation Course Effective Dates Status H ealth Status Informant Atherosclerosis Confirmed Active Stenosis of aorta Confirmed Active HTN (hypertension) Confirmed Active Hyperthyroidism Confirmed Active Breast CA Confirmed Active Renal artery stenosis Confirmed Active Subclavian artery stenosis Confirmed Active Tobacco user Confirmed Active Diagnosis Diagnosis Type Effective Dates Health Status Clinical Service Informant Subclavian artery stenosis Discharge Diagnosis 12/30/23 Non-Specified Chronic hyponatremia Discharge Diagnosis 12/30/23 Non-Specified Body mass index [BMI] 19.9 or less, adult Discharge Diagnosis 12/30/23 Non-Specified Atherosclerosis Discharge Diagnosis 12/30/23 Non-Specified HTN (hypertension) Discharge Diagnosis 12/30/23 Non-Specified Renal artery stenosis Discharge Diagnosis 12/30/23 Non-Specified Stenosis of aorta Discharge Diagnosis 12/30/23 Non-Specified Financial problems Discharge Diagnosis 12/30/23 Non-Specified Hyperthyroidism Discharge Diagnosis 12/30/23 Non-Specified Tobacco user Discharge Diagnosis 12/30/23 Non-Specified Grief Discharge Diagnosis 12/30/23 Non-Specified Procedures Procedure Date Related Diagnosis Body [...] oldest [Reference Range]: 1 Height 159 cm (12/30/23 1:16 PM) Patient Weight 43.4 kg (12/30/23 1:16 PM) Body Mass Index 17.17 kg/m2 (12/30/23 1:16 PM) Heart Rate 87 bpm (12/30/23 1:16 PM) Respiratory Rate 20 br/min (12/30/23 1:16 PM) Blood Pressure 138/68mmHg (12/30/23 1:16 PM) Cuff Pulse Pressure 70 mmHg (12/30/23 1:16 PM) Social History Social History Type Response Tobacco Current every day sm dafne, Cigarettes, 39 year(s). Smoking Status Current every day he jovanna smoker Sex Female [facility]CM Outpt Note * MARIBELL Cowan Tara: PERFORM Event Display: [facility] Outpt Note Authored Date: Chief Complaint 3 month follow up HTN, arthersclerosis. Concerned with weight loss. Recently lost and really feeling stressed (anything we can give her short term). Is there another location she can bereferred to for the blockage due to the distance History of Present Illness Pt in October from pancreatic ca. She is grieving andfeeling depressed. She denies SI or HI. She is also having financial issues a she cannot go back to work due to pain in feet from vascular issues. She has seen vascular here in [place] and at [facility]. She is in the process of still undergoing workup to see what surgery she will need. She was restarted on baby asa. She has seen endo for her thryoid issues. She contd to have asymptomatic mild hyponatremia. Review of Systems Constitutional: No fever, chills, sweats EENT:No vision change, eye pain, rhinorrhea, sinus pain, epistaxis, dysphagia, change in hearing,tinnitus, vertigo, oral ulcers or lesions. Pulmonary: No shortness of breath, dyspnea with exertion, cough, hemoptysis, wheezing, chest pain. Cardiovascular: No chest pain, palpitations, syncope, edema, cyanosis, orthopnea. +claudication GI: No nausea, vomiting, diarrhea, melena, hematochezia, change in appetite, abdominal pain, changein bowel habits or stools : No dysuria, frequency, urgency, urinary incontinence, hematuria, nocturia. Musculoskeletal: No joint swelling or pain, muscle pain, back pain Neurologic: No headache, lightheadedness, dizziness. Burning in feet Psychiatric: See HPI Endocrine: No weight change, heat or cold intolerance, tremor, insomnia, polyuria, polydipsia, polyphagia, abnormal hair growth, change in nails Physical Exam Vitals & Measurements HR:87(Monitored) RR:20 BP:138/68 SpO2:95% HT:159cm WT:43.400kg(Dosing) WT:43.4kg BMI:17.17 PHQ2 Data(Data Documented on:12/30/2023 13:16) Emotional health assessment POSITIVE PHQ-9 Data(Data Documented on:12/30/2023 13:21) PHQ-9 Severity Score:18 Thoughts that you would be better off or of hurting yourself in some way?More than half the days Depression Risk:Elevated Suicide Risk Screening (Epworth/asQ): Epworth Suicide Risk:Low Risk head- normocephalic eyes- PERRLA , conjunctiva clear, sclera white, anicteric, ears- TM's non-injected, good light reflex, no protrusion or retraction nose -nares patent, no sinus pressure throat- pharynx non erythematous, no exudate, no masses mouth- buccal mucosa, moist and intact, dentition intact, neck-no lymphadenopathy, masses, or thyromegaly. Left and right bruit Pulmonary- chest expansion symmetric, CTA (clear to auscultation), eupnea, no adventitious sounds (rales, crackles, wheezes) CV (cardiovascular)- RRR no m/r/g (systolic ejection murmur, rubs, gallops), good peripheral perfusion abdomen- soft non-tender w/o masses, BS present, no hepatosplenomegaly extremitiestrace pedal edema skin-good turgor w/o lesions, redness nails- no clubbing or deformities w good cap refill Neuro:Alert, Oriented Psy:no homicidal or suicidal ideations. Assessment/Plan 1.Grief Acute/Chronic: chronic Goal:Resolution/ control Status:stable/controlled Data: records/pt report Plan:Will start her on lexapro.She denies SI/HI. Discussed calling [phone] if needed. Follow up in 6 weeks. 2.Atherosclerosis # 3.Renal artery stenosis 4.Stenosis of aorta 5.Subclavian artery stenosis Acute/Chronic: chronic Goal:Resolution/ control Status:stable/controlled Data: records/pt report Plan:Will see if provider at local [facility] teresa can see here but would have to have surgery in [place]. Will give her handicap papers for pain if lower ext. 6.HTN (hypertension) Acute/Chronic: chronic Goal:Resolution/ control Status:stable/controlled Data: records/pt report Plan:BP is well controlled presently. Has chronic hyponatermiamost likely from HCTZ. She is asymptomatic. She is already on 4 medsfor bp and bp is just now well controlled. Once she has some ofher vascular issue address, her bp may be better and possibly get her off hctz. 7.Hyperthyroidism Acute/Chronic: chronic Goal:Resolution/ control Status:stable/controlled Data: records/pt report Plan:Contd to follow with endo. 8.Tobacco user Acute/Chronic: chronic Goal:Resolution/ control Status:stable/controlled Data: records/pt report Plan:she is not in a good place mentally to try and quit but she wants to explore in the future. 9.Chronic hyponatremia Acute/Chronic: chronic Goal:Resolution/ control Status:stable/controlled Data: records/pt report Plan:See #6 10.Body mass index [BMI] 19.9 or less, adult Acute/Chronic: chronic Goal:Resolution/ control Status:stable/controlled Data: records/pt report Plan:weightstable. Recommend adding 1-2 snacks a day. 11.Financial problems Acute/Chronic: chronic Goal:Resolution/ control Status:stable/controlled Data: records/pt report Plan:Refer to day care provider. time spent reviewing chart, face to face visit, ordersand documentation:44 min Problem List/Past Medical History Ongoing Atherosclerosis Breast CA HTN (hypertension) Hyperthyroidism Renal artery stenosis Stenosis of aorta Subclavian artery stenosis Tobacco user Procedure/Surgical History Colonoscope| Service Date: 2Radioactive iodine uptake| Service Date: 06/17/2021Mammogram| Service Date: 1Partial mastectomy of left breast| Service Date: 03/16/2017Excision of lesion of breast| Service Date: 03/02/2017EXCISION BREAST LESION| Service Date: 02/06/2017 EXC ARM/ELBOW LES SC 3 CM/>| Service Date: 12/30/2011 EX ARM/ELBOW TRAMAINE DEEP < 5 CM| Service Date: 10/27/2011Closed fracture of right ankle| Service Date: 04/2002Cryocautery of cervix| Service Date: 01/2002Radiation oncology AND/OR radiotherapyAppendectomy Medications amLODIPine(amLODIPine 10 mg oral tablet), 1 tab, PO, Daily aspirin(aspirin 81 mg oral delayed release tablet), 81 mg= 1 tab, PO, Daily azelastine nasal(azelastine 205.5 mcg/inh (0.15%) nasal spray), 1 spray, each nostril, bid, PRN cetirizine(ZyrTEC 10 mg oral tablet), 10 mg= 1 tab, PO, Daily, PRN diphenhydrAMINE(diphenhydrAMINE 25 mg oral tablet), 25 mg= 1 tab, PO, q6h, PRN escitalopram(Lexapro 10 mg oral tablet), 10 mg= 1 tab, PO, Daily, 3 refills fluticasone-salmeterol(fluticasone-salmeterol Diskus 100 mcg-50 mcg), 1 puff, inhaled, bid hydroCHLOROthiazide(hydroCHLOROthiazide 25 mg oral tablet), 25 mg= 1 tab, PO, Daily losartan(losartan 100 mg oral tablet), 100 mg= 1 tab, PO, Daily metoprolol(metoprolol succinate 25 mg oral tablet, extended release), 25 mg= 1 tab, PO, bid multivitamin, 1 tab, PO, Daily potassium chloride(Potassium Chloride (Eqv-K-Tab)), 20 mEq, PO, Daily rosuvastatin(Crestor 5 mg oral tablet), 5 mg= 1 tab, PO, qhs, 11 refills Allergies lisinoprilcough Social History Smoking Status Current every day heavy smoker Alcohol Use:Current Type:Beer Frequency:Daily Employment/School Status:Employed Description:[employer] Exercise Times per week:5-6 times/week Self assessment:Poor condition Exercise type:Walking - Comments: 5 miles Home/Environment Lives with:Spouse Nutrition/Health Type of diet:Regular Sexual Sexually active:Yes Substance Abuse - Denies Substance Abuse Tobacco Use:Current every day smoker Type:Cigarettes Number of years:38 Family History Heart disease: Mother and Father. Hypertension: Father. Mitral valve disorder: Brother. Health Status Family Member(s) Immunizations Vaccine Date Status tetanus toxoids-diphtheria, Td (Adult) 11/28/2020 Recorded Comments : 2023-04-13: Historical information-source unspecified SARS-CoV-2 (COVID-19) mRNA-1273 vaccine 10/21/2020 Recorded Comments : 2023-04-13: Historical information-source unspecified SARS-CoV-2 (COVID-19) mRNA-1273 vaccine 09/23/2020 Recorded Comments : 2023-04-13: Historical information-source unspecified tetanus/diphtheria/pertuss, acel (Tdap) 07/24/2010 Recorded Comments : 2023-04-13: Historical information-source unspecified tetanus toxoids-diphtheria, Td (Adult) 03/08/2002 Recorded Comments : 2023-04-13: Historical information-source unspecified diphtheria-tetanus toxoids, DT (Ped) 04/22/1988 Recorded Comments : 2023-04-13: Historical information-source unspecified mumps virus vaccine 06/25/1982 Recorded Comments : 2023-04-13: Historical information-source unspecified poliovirus vaccine, live, trivalent 10/18/1974 Recorded Comments : 2023-04-13: Historical information-source unspecified poliovirus vaccine, live, trivalent 08/21/1974 Recorded Comments : 2023-04-13: Historical information-source unspecified diphtheria/pertussis, whole cell/tetanus 08/21/1974 Recorded Comments : 2023-04-13: Historical information-source unspecified diphtheria/pertussis, whole cell/tetanus 07/01/1974 Recorded Comments : 2023-04-13: Historical information-source unspecified poliovirus vaccine, live, trivalent 06/21/1974 Recorded Comments : 2023-04-13: Historical information-source unspecified measles virus vaccine 05/13/1974 Recorded Comments : 2023-04-13: Historical information-source unspecified diphtheria/pertussis, whole cell/tetanus 04/26/1974 Recorded Comments : 2023-04-13: Historical information-source unspecified Recommendations Health Maintenance Pending(in the next year) Due Adult Influenza Vaccine due12/11/23and every 1year Adult COVID-19 Vaccination due12/30/23Unknown Frequency Adult Social Determinants of Health Screening due12/30/23Unknown Frequency Cervical Cancer Screening due12/30/23Unknown Frequency Colorectal Cancer Screening due12/30/23Unknown Frequency Hepatitis C Screening due12/30/23One-time only Pneumococcal Vaccine Adults and Adolescents with Chronic Illness due12/30/23One-time only Shingles Vaccine due12/30/23One-time only Satisfied(in the past 1 year) Satisfied Body Mass Index on12/30/23.Satisfied by BOBY Green Bobbi Breast Cancer Screening on02/09/23.Satisfied by FRIEDA Loyola Lynnae Lipid Screening on04/14/23.Satisfied by Contributor_system, RedT Electronic Signature on File Electronically Reviewed/Signed by: MARIBELL Uribe Author Signature Dt/Tm:12/30/2023 02:21 PM Department of Family Medicine TB Patient Care team information Care Team Personnel Name: MARIBELL Cowan Tara Position: Nurse Pract - Family Med Member Role: Primary Care Provider Address: Address: [address] [place] [id number] [place] Name: SALMA Salguero Lynn Position: Physician Industrial Hygienist Exempt - Vasc Surg Member Role: Lifetime Relationship Address: Address: [address] [place] [address] [place] Care Team Related Persons Name: ELLY MAZARIEGOS Address: Savana DURON Address: home [address] [facility] [place] [id number]"
--- OUTSIDE RECORDS SUMMARY | 2024-01-24 05:57 | External Medical Summary | Summary of Care ---
Author Name Unknown Organization [facility] Address [address] [facility] [place] [address] Phone [phone] Care Team Providers Care [employer] Camping [employer] Manager Name Role Phone Reyna Cowan MARIBELL Primary Care Provider [phone] Reason for Visit * Reason Onset Date Comments NEW PATIENT 01/05/2024 Encounter Details Date Type Department Care Team (Late st Contact Info) Description 01/05/2024 Telephone Access Center, [place] [address] [facility] *DO NOT REMOVE THIS DEPARTMENT* [place] [address] Services, Scheduling [address] [place] [address] NEW PATIENT Allergies Active Allergy Reactions Criticality Noted Date Comments Lisinopril 01/09/2004 cough documented as of this encounter (statuses as of 01/06/2024) Medications Medication Sig Dispensed Refills Start Date [...] % Nasal SolutionIndicatio ns:Chronic rhinitis Administer 1 [place] into nostril in the morning and 1 [place] before bedtime. 30 mL 12 12/13/2022 Active [...] as of this encounter (statuses as of 01/06/2024) Active Problems Problem Noted Date Diagnosed Date Hyperthyroidism 12/11/2021 History of breast cancer 07/04/2017 Dyslipidemia, goal to be determined 01/25/2014 CHRONIC NONALLERGIC RHINITIS 05/31/2003 Menstruation, irregular 04/25/2003 HTN, goal below 140/90 11/05/1997 Tobacco use disorder 11/05/1997 documented as of this encounter (statuses as of 01/06/2024) Resolved Problems Problem Noted Date Diagnosed Date [...] as of this encounter (statuses as of 01/06/2024) Immunizations Name Administration Dates Next Due COVID-19 [...] in [employer], nominated to PACs. No Carotid duplex images yet. Re-requested. * Telephone Encounter - Jose David Carl OSA - 01/05/2024 3:47 PM EDT Images requested * Telephone Encounter - Rafa Yeboah PA-C - 01/05/2024 3:43 PM EDT Noted, thank you for requesting images * Telephone Encounter - Perla Campoverde LPN - 01/05/2024 2:48 PM EDT Images from the original note were not included. 10 page scan received from [facility] [employer]. 08/09/23 CTA abd/ pelvis IMPRESSION: There [...] Pt is scheduled with Dr. Delgado in [facility] on 01/25/24. Secretaries, Please obtain images from [facility] in [place]. Perla Campoverde LPN 01/05/2024 3:05 PM * Telephone Encounter - Steven Rondon OSA - 01/05/2024 2:43 PM EDT Self ref new pt Pt dx Arterial Stenosis Was under care with Vasc at [facility] Last saw Dr Davis 12/26. Wants to have care with us closer to home Pt scheduled Dr Delgado in January Will need records. Told pt she may have to request them Thanks SHIRLEY Lucio documented in this encounter Plan of Treatment Upcoming Encounters Date Type Department Care Team (Late st Contact Info) Description 01/25/2024 12:10 PM EDT Office Visit Vascular Surgery, [facility] [address] [facility] [place] [id number] Tunde Delgado MD [address] [facility] [place] [address] Scheduled Procedures Name [...] 09/02/2015, Additional history exists COVID-19 Vaccine ( - 2022- season) 2023 10/21/2020, 09/23/2020 GFR 07/15/2023 07/15/2022, [...] filedocumented as of this encounter Care Teams [employer] Manager Relationship Specialty Start Date End Date Reyna Cowan CRNP [address] [place] [address] PCP - General Nurse Practitioner 01/05/24 documented as of this encounter
--- OUTSIDE RECORDS SUMMARY | 2024-01-24 05:57 | External Medical Summary | Summary of Care ---
Author Name Unknown Organization [facility] Address [address] [place] [address] Phone [phone] Care Team Providers Care Development Assistant Name Role Phone Adina Reyna MD Primary Care Provider Encounter Details Date Type Department Care Team (Late st Contact Info) Description 12/26/2023 Refill [facility] [address] [place] [address] Adina Reyna MD [address] [place] [address] HTN, goal below 140/90; Hyperthyroidism Allergies Active Allergy Reactions Criticality Noted Date Comments Lisinopril 01/09/2004 cough documented as of this encounter (statuses as of 12/26/2023) Medications Medication Sig Dispensed Refills Start Date End Date Status ZYRTEC 10 MG PO TABSIndications :Chronic rhinitis 1 tab by mouth daily for allergies 30 12 7 Active ASPIRIN EC 81 MG PO TBECIndications :HTN, goal to be determined Take one pill daily 100 Tab 3 0 Active Multiple Vitamin Tablet Take 1 Tablet by mouth in the morning. 8 Active methIMAzole 5 MG Oral Tablet (Tapazole)Indic ations:Hyperthy roidism Take by mouth 1 Tablet in the morning. 30 Tablet 11 2 Active Additional Information Patient not taking.Reported on 07/08/2022 diphenhydrAMINE HCl 25 MG Oral Capsule (Benadryl Allergy) Take 1 Capsule by mouth every 6 hours as needed for Itching. Active Azelastine HCl 0.15 % Nasal SolutionIndicat ions:Chronic rhinitis Administer [address] nostril in the morning and [address] before bedtime. 30 mL 12 3 Active Trelegy Ellipta 100-62.5-25 MCG/ACT Aerosol Powder Breath Activated (Fluticasone-Um eclidinium-Lou nterol)Indicati ons:COPD, moderate (HCC) Inhale 1 Puff by mouth in the morning. 60 Blister Dosing Unit 5 3 Active amLODIPine Besylate 2.5 MG Oral Tablet (Norvasc) Take 1 Tablet by mouth in the morning. 90 Tablet 3 3 Active Losartan Potassium 100 MG Oral Tablet (Cozaar) Take 1 Tablet by mouth in the morning. 90 Tablet 3 3 Active Fluticasone-Yasir meterol 100-50 MCG/ACT Inhalation Aerosol Powder Breath Activated (Advair Diskus)Indicati ons:COPD, moderate (HCC) Inhale 1 Puff by mouth in the morning and 1 Puff before bedtime. 180 Each 5 4 12/18/19 29 Active Potassium Chloride Chuyita ER 10 MEQ Oral Tablet Extended ReleaseIndicati ons:Hypokalemia TAKE 2 TABLETS BY MOUTH EVERY MORNING 180 Tablet 4 Active hydroCHLOROthia zide 25 MG Oral Tablet (Hydrodiuril)In dications:HTN, goal below 140/90 Take 1 Tablet by mouth in the morning. 90 Tablet 3 4 Active Metoprolol Succinate ER 25 MG Oral Tablet Extended Release 24 Hour (toPROL XL)Indications: HTN, goal below 140/90,Hyperthy roidism Take 1 Tablet by mouth in the morning and 1 Tablet before bedtime. 180 Tablet 3 4 Active hydroCHLOROthia zide 25 MG Oral Tablet (Hydrodiuril)In dications:HTN, goal below 140/90 Take 1 Tablet by mouth in the morning. 90 Tablet 3 3 12/26/19 24 Discontinued(Ref ill) Metoprolol Succinate ER 25 MG Oral Tablet Extended Release 24 Hour (toPROL XL)Indications: HTN, goal below 140/90,Hyperthy roidism Take 1 Tablet by mouth in the morning and 1 Tablet before bedtime. 60 Tablet 5 3 12/26/19 24 Discontinued documented as of this encounter (statuses as of 12/26/2023) Active Problems Problem Noted Date Diagnosed Date Hyperthyroidism 12/11/2021 History of breast cancer 07/04/2017 Dyslipidemia, goal to be determined 01/25/2014 CHRONIC NONALLERGIC RHINITIS 05/31/2003 Menstruation, irregular 04/25/2003 HTN, goal below 140/90 11/05/1997 Tobacco use disorder 11/05/1997 documented as of this encounter (statuses as of 12/26/2023) Resolved Problems Problem Noted Date Diagnosed Date [...] as of this encounter (statuses as of 12/26/2023) Immunizations Name Administration Dates Next Due COVID-19 [...] encounter Miscellaneous Notes * Telephone Encounter - Adina Reyna MD - 12/26/2023 8:35 AM EDTSigned Prescriptions: Disp Refills hydroCHLOROthiazide 25 MG Oral Tablet (Hyd*90 Tab*3 Sig: Take 1Tablet by mouth in the morning.Authorizing Provider: ADINA REYNA Metoprolol Succinate ER 25 MG Oral Tablet *180 Ta*3 Sig: Take 1 Tablet by mouth in the morning and 1 Tablet before bedtime.Authorizing Provider: ADINA REYNA * Telephone Encounter - Shona Toro LPN - 12/26/2023 7:21 AM EDT Did you pend patient's preferred pharmacy and medication before forwarding?yes Pharmacy: [facility] [id number] [place] Pending Prescriptions: Disp Refills hydroCHLOROthiazide 25 MG Oral Tablet (Hy*90 Tab*3 Sig: Take 1 Tablet by mouth in the morning. Metoprolol Succinate ER 25 MG Oral Tablet*180 Ta*3 Sig: Take 1 Tablet by mouth in the morning and 1 Tablet before bedtime. Last Visit: 12/13/2022 (in office), Visit date not found (telemedicine) Next Visit: Visit date not found If no future appointments scheduled, and last appointment is greater than a year ago, please schedule patient for a follow-up appointment Last date the medication was ordered: 05/16/2023 Is this request for a controlled substance?No Urine Drug Screen:No results found for this or any previous visit. Patient Phone Numbers Labs: Lab Results Component Value Date/Time CREAT 0.5 07/15/2022 03:09 PM CREAT 0.6 08/23/2019 10:58 AM POTASSIUM 4.4 07/15/2022 03:09 PM POTASSIUM 4.4 08/23/2019 10:58 AM TSH 0.48 01/27/2023 12:53 PM TSH 1.65 08/07/2014 10:19 AM LDLCALC 96 12/11/2021 10:13 AM LDLCALC UNINTERPRETABLE RESULT 09/19/2018 08:54 AM LDLDIRECT 79 08/23/2019 10:58 AM ALT 23 01/27/2023 12:53 PM ALT 13 08/23/2019 10:58 AM documented in this encounter Plan of Treatment Scheduled Procedures [...] as of this encounter Visit Diagnoses Diagnosis HTN, goal below 140/90 Unspecified essential hypertension Hyperthyroidism Thyrotoxicosis without mention of goiter or other cause, without mention of thyrotoxic crisis or storm documented in this encounter Care Teams Development Assistant Relationship Specialty Start Date End Date Adina Reyna MD [address] [place] [address] PCP - General 09/27/02 documented as of this encounter
--- OUTSIDE RECORDS SUMMARY | 2024-01-24 05:57 | External Medical Summary | Summary of Care ---
Author Name Unknown Organization [facility] Address [address] [facility] [place] [address] Phone [phone] Care Team Providers Care Poultry Raiser Name Role Phone Reyna Cowan MARIBELL Primary Care Provider [phone] Reason for Visit * Reason Onset Date Comments NEW PATIENT 01/05/2024 Encounter Details Date Type Department Care Team (Late st Contact Info) Description 01/05/2024 Telephone Access Center, [facility] Region [address] [facility] *DO NOT REMOVE THIS DEPARTMENT* [place] [address] Services, Scheduling [address] [place] [address] NEW PATIENT Allergies Active Allergy Reactions Criticality [...] % Nasal SolutionIndicatio ns:Chronic rhinitis Administer 1 [place] into nostril in the morning and 1 [place] before bedtime. 30 mL 12 12/13/2022 Active [...] encounter Miscellaneous Notes * Telephone Encounter - Jose David Carl OSA - 01/05/2024 3:47 PM EDT Images requested * Telephone Encounter - Rafa Yeboah PA-C - 01/05/2024 3:43 PM EDT Noted, thank you for requesting images * Telephone Encounter - Perla Campoverde LPN - 01/05/2024 2:48 PM EDT Images from the original note were not included. 10 page scan received from [facility]. 08/09/23 CTA abd/ pelvis IMPRESSION: There is [...] Pt is scheduled with Dr. Delgado in [facility] on 01/25/24. Secretaries, Please obtain images from [facility] in [place]. Perla Campoverde LPN 01/05/2024 3:05 PM * Telephone Encounter - Steven Rondon OSA - 01/05/2024 2:43 PM EDT Self ref new pt Pt dx Arterial Stenosis Was under care with [facility] Last saw Dr Davis 12/26. Wants to have care with us closer to home Pt scheduled Dr Delgado in January Will need records. Told pt she may have to request them Thanks SHIRLEY Lucio documented in this encounter Plan of Treatment Upcoming Encounters Date Type Department Care Team (Late st Contact Info) Description 01/25/2024 12:10 PM EDT Office Visit Vascular Surgery, [facility] [address] [facility] [place] [address] Tunde Delgado MD [address] [facility] [address] Scheduled Procedures Name Priority Associated Diagnoses [...] filedocumented as of this encounter Care Teams Poultry Raiser Relationship Specialty Start Date End Date Reyna Cowan CRNP [address] [facility] [place] [address] PCP - General Nurse Practitioner 01/05/24 documented as of this encounter
--- OUTSIDE RECORDS SUMMARY | 2024-01-24 05:57 | External Medical Summary | Summary of Care ---
Author Name Unknown Organization [facility] Address [address] [facility] [place] [address] Phone [phone] Care Team Providers Care Holder Pile Driving Name Role Phone Reyna Cowan MARIBELL Primary Care Provider [phone] Reason for Visit * Reason Onset Date Comments NEW PATIENT 01/05/2024 Encounter Details Date Type Department Care Team (Late st Contact Info) Description 01/05/2024 Telephone Access Center, Central Region [address] [facility] *DO NOT REMOVE THIS DEPARTMENT* [place] [address] Services, Scheduling [address] [place] [address] NEW PATIENT Allergies Active Allergy Reactions Criticality [...] % Nasal SolutionIndicatio ns:Chronic rhinitis Administer 1 [place] into nostril in the morning and 1 [place] before bedtime. 30 mL 12 12/13/2022 Active [...] encounter Miscellaneous Notes * Telephone Encounter - Perla Campoverde LPN - 01/05/2024 2:48 PM EDT Images from the original note were not included. 10 page scan received from [facility]. 08/09/23 CTA abd/ pelvis IMPRESSION: There is [...] Pt is scheduled with Dr. Delgado in [facility] on 01/25/24. Secretaries, Please obtain images from [facility] in [place]. Perla Campoverde LPN 01/05/2024 3:05 PM * Telephone Encounter - Steven Rondon OSA - 01/05/2024 2:43 PM EDT Self ref new pt Pt dx Arterial Stenosis Was under care with Vasc at [facility] Last saw Dr Davis 12/26. Wants to have care with us closer to home Pt scheduled Dr Delgado in January Will need records. Told pt she may have to request them Thanks SHIRLEY Lucio documented in this encounter Plan of Treatment Upcoming Encounters Date Type Department Care Team (Late st Contact Info) Description 01/25/2024 12:10 PM EDT Office Visit Vascular Surgery, [facility] [address] [place] [address] Tunde Delgado MD [address] [place] [address] Scheduled Procedures Name Priority Associated [...] filedocumented as of this encounter Care Teams Holder Pile Driving Relationship Specialty Start Date End Date Reyna Cowan CRNP [address] [place] [address] PCP - General Nurse Practitioner 01/05/24 documented as of this encounter
--- OUTSIDE RECORDS SUMMARY | 2024-01-24 05:57 | External Medical Summary | Summary of Care ---
Author Name Unknown Organization [facility] Address [address] [facility] [place] [address] Phone [phone] Care Team Providers Care Launching Pad Mechanic Name Role Phone Reyna Cowan MARIBELL Primary Care Provider [phone] Reason for Visit * Reason Onset Date Comments NEW PATIENT 01/05/2024 Encounter Details Date Type Department Care Team (Late st Contact Info) Description 01/05/2024 Telephone Access Center, Central Region [address] [facility] *DO NOT REMOVE THIS DEPARTMENT* [place] [address] Services, Scheduling [address] [place] [address] NEW PATIENT Allergies Active Allergy Reactions Criticality [...] % Nasal SolutionIndicatio ns:Chronic rhinitis Administer 1 [place] into nostril in the morning and 1 [place] before bedtime. 30 mL 12 12/13/2022 Active [...] images yet. I spoke to Jania in [facility] imaging and she said they do not have duplex images for this patient. After further review, patient had these studies done at [facility]. Images requested. * Telephone Encounter - Jose David Carl OSA - 01/05/2024 3:47 PM EDT Images requested * Telephone Encounter - Rafa Yeboah PA-C - 01/05/2024 3:43 PM EDT Noted, thank you for requesting images * Telephone Encounter - Perla Campoverde LPN - 01/05/2024 2:48 PM EDT Images from the original note were not included. 10 page scan received from [facility]. 08/09/23 CTA abd/ pelvis [...] Pt is scheduled with Dr. Delgado in [facility] on 01/25/24. Secretaries, Please obtain images from [facility] in [place]. Perla Campoverde LPN 01/05/2024 3:05 PM * Telephone Encounter - Steven Rondon OSA - 01/05/2024 2:43 PM EDT Self ref new pt Pt dx Arterial Stenosis Was under care with Vasc at [facility] Last saw Dr Davis 12/26. Wants [...] [facility] [address] [facility] [address] Tunde Delgado MD [address] [place] [address] Scheduled Procedures Name Priority Associated [...] filedocumented as of this encounter Care Teams Launching Pad Mechanic Relationship Specialty Start Date End Date Reyna Cowan CRNP [address] [place] [address] PCP - General Nurse Practitioner 01/05/24 documented as of this encounter
--- OUTSIDE RECORDS SUMMARY | 2024-01-24 05:57 | External Medical Summary | Summary of Care ---
Author Name Unknown Organization [facility] Address [address] [place] [address] Phone [phone] Care Team Providers Care Engineering Associate Name Role Phone Reyna Cowan MARIBELL Primary Care Provider [phone] Encounter Details Date Type Department Care Team (Late st Contact Info) Description 08/09/2023 Orders Only Vascular Surg [facility] [address], [place] [id number] Tunde Delgado MD [address], [place] [id number] Allergies Active Allergy Reactions Criticality Noted Date [...] % Nasal SolutionIndicatio ns:Chronic rhinitis Administer 1 [place] into nostril in the morning and 1 [place] before bedtime. 30 mL 12 12/13/2022 Active [...] 1:30 PM EDT Office Visit Vascular Surgery, [facility] [address] [facility] [place] [address] Sadiq Esteves MD [address] [place] [address] Scheduled Procedures Name Priority Associated [...] interpreted or resulted by a [facility] or [facility] radiologist. Tunde Delgado MD RAD CT documented in this encounter Care Teams Engineering Associate Relationship Specialty Start Date End Date Reyna Cowan CRNP [address] [place] [address] PCP - General Nurse Practitioner 01/05/24 documented as of this encounter
--- OUTSIDE RECORDS SUMMARY | 2024-01-24 05:57 | External Medical Summary | Summary of Care ---
Author Name Unknown Organization [facility] Address [address] [place] [address] Phone [phone] Care Team Providers Care Lusterer Name Role Phone Chau Reyna MD Primary Care Provider [phone] Reason for Visit * Reason Comments eRx-Medication Refill Encounter Details Date Type Department Care Team (Late st Contact Info) Description 10/11/2023 Refill [facility] [address] [place] [id number] Edi Nicolas, [address], [place] [id number] Encounter for long-term (current) use of medications*; [...] % Nasal SolutionIndicat ions:Chronic rhinitis Administer 1 [place] into nostril in the morning and 1 [place] before bedtime. 30 mL 12 12/13/2022 Active [...] encounter Miscellaneous Notes * Telephone Encounter - Mack Flanagan PHARM Tech - 10/13/2023 3:04 PM EDT Received message from [facility] regarding patient needing labs. Call Placed, Left message on [employer] advising of required labs Thank you, Mack Flanagan Rheumatology Specialist [facility] 10/13/2023, 3:04 PM * Telephone Encounter - Wolf Maharaj [facility] - 10/12/2023 12:16 PM EDTSigned Prescriptions: Disp Refills Potassium Chloride Chuyita ER 10 MEQ Oral Tab*180 Ta*0 Sig: TAKE 2 TABLETS BY MOUTH EVERY MORNING Authorizing Provider: EDI NICOLAS Ordering User: WOLF MAHARAJ * Telephone Encounter - Wolf Maharaj [facility] - 10/12/2023 12:15 PM EDT Provided 90 [...] Pharmacist [facility] ([facility] [phone] 10/12/2023, 12:15 PM documented in this encounter [...] Hypopotassemia documented in this encounter Care Teams Lusterer Relationship Specialty Start Date End Date Chau Reyna MD [address] [place] [address] PCP - General 09/27/02 documented as of this encounter
[2024-01-24] MEDS ORDERED: STAT IV/IM STA (06:14)
--- NOTE | 2024-01-24 06:19 | Billing Data ---
Date of Service January 24, 2024 Coding Level of Care Code 07606 INT INP/OBS CARE
[2024-01-24 07:50] LABS: BUN Creatinine Ratio 9.6 (10-20); Calcium 8.8 mg/dl (8.6-10.3); Creatinine Clr Calc Pharmacy 78.7 ml/min; Est GFR (African American) 127.3 ml/min; Est GFR (Non-African American) 109.9 ml/min; Potassium 3.6 mmol/L (3.5-5.1)
[2024-01-24] MEDS: METOPROLOL SUCC 25MG EXT REL TAB PO SCH (09:38)
[2024-01-24] MEDS: ROSUVASTATIN CALCIUM 5 MG TAB PO SCH (09:38)
[2024-01-24] MEDS: POTASSIUM CHLORIDE CRTAB 20 MEQ TABCR PO SCH (09:39)
[2024-01-24] MEDS: FOLIC ACID 1 MG TAB PO SCH (09:39)
[2024-01-24] MEDS: THIAMINE HCL 100 MG TAB PO SCH (09:39)
--- NOTE | 2024-01-24 10:27 | Electrocardiogram Report ---
Test Reason : Blood Pressure : */* mmHG Vent. Rate : 85 BPM Atrial Rate : 85 BPM P-R Int : 114 ms QRS Dur : 88 ms QT Int : 418 ms P-R-T Axes : 74 90 82 degrees QTcB Int : 497 ms Sinus rhythm with Premature atrial complexes Rightward axis Prolonged QT Abnormal ECG No previous ECGs available Confirmed by Larry Sheppard ([id number]) on 01/24/2024 10:27:34 AM Referred By: REFERRED SELF Confirmed By: Larry Sheppard
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
[2024-01-24 16:27] LABS: BUN Creatinine Ratio 15.8 (10-20); Calcium 8.9 mg/dl (8.6-10.3); Creatinine Clr Calc Pharmacy 53.9 ml/min; Est GFR (African American) 104.5 ml/min; Est GFR (Non-African American) 90.2 ml/min; Potassium 3.6 mmol/L (3.5-5.1)
[2024-01-24] MEDS: amLODIPine BESYLATE 5 MG TAB PO SCH (16:49)
[2024-01-24] MEDS: SODIUM CHLORIDE 1 GM TABLET PO SCH (20:26)
[2024-01-25 07:01] LABS: BUN Creatinine Ratio 13.8 (10-20); Calcium 8.6 mg/dl (8.6-10.3); Creatinine Clr Calc Pharmacy 72.9 ml/min; Est GFR (African American) 122.8 ml/min
[2024-01-25] MEDS: POTASSIUM CHLORIDE CRTAB 20 MEQ TABCR PO STA (08:21)
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
[2024-01-25] MEDS: LOSARTAN POTASSIUM 50 MG TAB PO SCH (14:31)
[2024-01-25] MEDS: ACETAMINOPHEN 325 MG TAB PO PRN (19:51)
[2024-01-25 19:58] VITALS: RESP 18
[2024-01-26 07:30] LABS: BUN Creatinine Ratio 9.6 (10-20); Calcium 8.5 mg/dl (8.6-10.3); Creatinine Clr Calc Pharmacy 88.5 ml/min; Est GFR (African American) 127.3 ml/min; Est GFR (Non-African American) 109.9 ml/min; Potassium 3.4 mmol/L (3.5-5.1)
[2024-01-26 08:35] VITALS: BP 145/86; PULSE 80; TEMP 98.8; O2SAT 95
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
[2024-01-26] MEDS: POTASSIUM CHLORIDE CRTAB 20 MEQ TABCR PO STA (10:37)
--- NOTE | 2024-01-31 07:04 | Coding Query ---
CODING QUERY To promote full compliance with coding requirements relating to patient care, provider participation is requested in all cases of data modeling specialist uncertainty. Please assist us with the question(s) below: Coding Question(s): Reports list "Alcohol Use Disorder". Please clarify if this is "mild" or "moderate to severe". Physician's Response(s): Moderate Thank you Ginette Claus Principal Diagnosis: "that condition established after study, to be chiefly responsible for occasioning the admission of the patient to the hospital for care." Co-Existing Principal Diagnosis: "when two or more diagnoses equally meet the criteria for principal diagnosis as determined by the circumstances of admission, diagnostic work up, and/or therapy provided, and the Alphabetic Index, Tabular List, or another coding guideline does not provide sequencing direction, any one of the diagnoses may be sequenced first." "When the physician has documented what appears to be a current diagnosis in the body of the record, but has not included the diagnosis in the final diagnostic statement, the physician should be asked whether the diagnosis should be added." (Source Coding [facility] 2 QTR90. p3-4) RULA
== END 2024-01-26 12:00 | disposition home or self-care (01) | DRG 641 ==
LOC: ED 18:33 → 4W 22:10 → SUATTDRO 22:10 → 4W 23:35

== ENCOUNTER 2024-02-17 13:37 | Inpatient (IN) ==
--- NOTE | 2024-02-17 14:29 | Emergency Department Note ---
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 lungs. There is no airspace consolidation, pleural effusion, or pneumothorax. The trachea and central airways are clear. Scattered tree-in-bud opacities are likely inflammatory. A 3 mm right upper lobe pulmonary nodule on image #77 is unchanged from prior studies. Mediastinum: There is no mediastinal lymphadenopathy. Rukhsana: Not well assessed without IV contrast. Axillae: There is no axillary lymphadenopathy. Upper abdomen: There is likely high-grade stenosis of the proximal abdominal aorta. This is not well assessed laterally contrast. Partially visualized upper abdominal viscera is otherwise within normal limits. Skeletal structures: The skeletal structures are osteopenic. There is an acute subacute superior endplate compression fracture of T11 which is new from 01/23/2024. There is only minimal loss of height. No retropulsion of fragments is seen. A minimal acute to subacute compression fracture of T4 is also new from previous. Again, no retropulsion of fragments are identified. There is a subacute/healing fracture seen through the body of the sternum, as well as a subacute right anterior fourth rib fracture. These are unchanged from 01/23/2024. No lytic or blastic bony lesions are seen. IMPRESSION: 1. There are mild acute to subacute superior endplate compression fractures of T4 and T11. These are new from 01/23/2024. No retropulsion of fragments is seen. 2. There are subacute/healing fractures of the sternal body and the right anterior 4th rib. These are unchanged from previous. 3. There is no airspace consolidation, pleural effusion, or pneumothorax. 4. Emphysema. 5. Scattered tree-in-bud opacities throughout both lungs are likely inflammatory. 6. There is advanced atherosclerotic plaque and likely high-grade stenosis of the proximal abdominal aorta. This is not well assessed without IV contrast. 7. Additional findings as above. ACT 112: Negative or not required by law. Electronically signed by: Jermaine Mcintosh M.D. 02/17/2024 4:[address] 02/17/24 14:17 CT head/brain wo con CLINICAL HISTORY: 53 years-old Female with trauma. Acute head trauma TECHNIQUE: Multiple axial CT images of the head were obtained without contrast. A dose lowering technique was utilized adhering to the principles of ALARA. COMPARISON: 01/23/2024 FINDINGS: No acute intracranial hemorrhage, midline shift, intracranial mass, hydrocephalus, territorial ischemia or abnormal extra-axial collection. Unchanged 6 mm opacity within the left sylvian fissure on image 8 series 2. The calvarium is intact. The paranasal sinuses, mastoid air cells, and middle ear cavities are clear. IMPRESSION: 1. No acute intracranial abnormality. 2. Unchanged 6 mm opacity within the left sylvian fissure, 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 ACT 112: Negative or not required by law. The above report was generated using voice recognition software. It may contain grammatical, syntax or spelling errors. Electronically signed by: Rafa Laura M.D. 02/17/2024 4:24 PM Knee X-Ray 02/17/24 14:19 LEFT KNEE 2 VIEWS HISTORY: trauma COMPARISON: None. FINDINGS: There is no fracture or dislocation. Soft tissues are unremarkable. No radiopaque foreign bodies. No knee effusion. IMPRESSION: No fracture or dislocation within the left knee. ACT 112: Negative or not required by law. Electronically signed by: Mal Mooney M.D. 02/17/2024 3:48 PM Knee X-Ray 02/17/24 14:19 XR knee RT 1 or 2V routine HISTORY: 53 years-old Female trauma acute right knee pain status post fall COMPARISON: None TECHNIQUE: 2 views of the right knee FINDINGS: No acute fracture, dislocation or joint effusion. Demineralized appearance of the bones. The joint spaces are relatively well-preserved. IMPRESSION: No acute fracture or dislocation. ACT 112: Negative or not required by law. The above report was generated using voice recognition software. It may contain grammatical, syntax or spelling errors. Electronically signed by: Rafa Laura M.D. 02/17/2024 3:46 PM Discharge Plan Visit Data Chief Complaint: Fall Stated Complaint: WEAK, VOMITING, FALLING ED Provider: Lucero Garay Discharge Problem: Hypotension, Bilateral leg weakness, Multiple falls, CHI (closed head injury), Contusion of face, Contusion of lower extremity, Hyponatremia Patient Disposition: Admitted As Inpatient Discharge Instructions Interventions: ED Discharge Assessment Last Done: 02/17/24 18:56 Discharge Problem: Hypotension Qualifiers: Hypotension type: hypotension due to drug Qualified Code(s): I95.2 - Hypotension due to drugs
[2024-02-17] MEDS: SODIUM CHLORIDE 0.9% 500 ML IV ONE (14:40)
[2024-02-17] MEDS: MAGNESIUM SULFATE / D5W 1 GM/100 ML BAG IV STA (14:47)
[2024-02-17 14:57] LABS: Basophils # (auto) 0.01 K/uL (0.00-0.20); Basophils % (auto) 0.1 %; Eosinophils # (auto) 0.03 K/uL (0.00-0.50); Eosinophils % (auto) 0.3 %; Hematocrit (blood only) 39.2 % (37.0-47.0); Hemoglobin 14.5 g/dl (12.0-16.0); Immature Granulocytes # (auto) 0.06 K/uL (0.01-0.20); Immature Granulocytes % (auto) 0.5 %; Lymphocytes # (auto) 0.91 K/uL (1.20-3.40); Lymphocytes % (auto) 7.8 %; Mean Corpuscular Hemoglobin 34.5 pg (25.0-34.0); Mean Corpuscular Volume 93.3 fL (80.0-100.0); Mean Platelet Volume 8.6 fL (9.4-12.4); Monocytes # (auto) 0.74 K/uL (0.11-0.59); Monocytes % (auto) 6.3 %; Neutrophils # (auto) 9.97 K/uL (1.40-6.50); Platelet Count 176 K/uL (130-400); RDW Coefficient of Variation 12.1 % (11.5-14.5); RDW Standard Deviation 41.2 fL (36.4-46.3); White Blood Count 11.72 K/ul (4.8-10.8)
[2024-02-17] MEDS: PANTOprazole 40 MG in SYRINGE 0 ML IV ONE (15:20)
[2024-02-17 15:26] LABS: Albumin Globulin Ratio 1.7 (0.9-2); Albumin Level 4.3 gm/dl (3.4-5.0); BUN Creatinine Ratio 11.3 (10-20); Bilirubin,Total 1.5 mg/dl (0.2-1.0); Creatinine Clr Calc Pharmacy 20.2 ml/min; Est GFR (African American) 33.5 ml/min; Est GFR (Non-African American) 28.9 ml/min; Globulin 2.6 gm/dl (2.5-4.0); Magnesium 1.6 mg/dl (1.7-2.4); Total Protein 6.9 gm/dl (6.0-8.3); Troponin I High Sensitivity 64.8 pg/ml (0-14)
[2024-02-17 15:28] LABS: Thyroid Stimulating Hormone 6.174 uIu/ml (0.300-4.500)
[2024-02-17 15:32] LABS: INR 0.9 (0.9-1.1)
[2024-02-17] MEDS: SODIUM CHLORIDE 0.9% 1,000 ML IV SCH (15:33)
--- NOTE | 2024-02-17 15:33 | Electrocardiogram Report ---
Test Reason : Blood Pressure : */* mmHG Vent. Rate : 78 BPM Atrial Rate : 78 BPM P-R Int : 122 ms QRS Dur : 84 ms QT Int : 446 ms P-R-T Axes : 72 85 83 degrees QTcB Int : 508 ms Normal sinus rhythm Prolonged QT Abnormal ECG When compared with ECG of 23-Jan-2024 19:11, Premature atrial complexes are no longer Present Confirmed by Kirk Rhodes ([id number]) on 02/17/2024 3:33:17 PM Referred By: REFERRED SELF Confirmed By: Kirk Rhodes
[2024-02-17 15:44] LABS: Appearance Urine Cloudy (Clear); Bacteria Urine Automated 4+ (None Seen); Bilirubin Urine Negative (Negative); Blood Urine Negative (Negative); Cast Urine Automated >20 /lpf (0-2); Color Urine Dark Yellow; Glucose Urine UA Negative (Negative); Ketones Urine 1+ (Negative); Leukocyte Esterase Urine 1+ (Negative); Mucus Urine Present (None Prsent); Nitrite Urine Negative (Negative); Protein Urine 3+ (Negative); Specific Gravity Urine 1.018 (1.000-1.030); Urobilinogen Urine Negative (Negative); WBC Urine Automated 0-5 /hpf (0-5); pH Urine 5.5 (4.5-7.5)
--- NOTE | 2024-02-17 15:47 | XRay Report ---
XR knee RT 1 or 2V routine HISTORY: 53 years-old Female trauma acute right knee pain status post fall COMPARISON: None TECHNIQUE: 2 views of the right knee FINDINGS: No acute fracture, dislocation or joint effusion. Demineralized appearance of the bones. The joint sp aces are relatively well-preserved. IMPRESSION: No acute fracture or dislocation. ACT 112: Negative or not required by law. The above report was generated using voice recognition software. It may contain grammatical, syntax o r spelling errors. Electronically signed by: Rafa Laura M.D. 02/17/2024 3:46 PM
--- NOTE | 2024-02-17 15:50 | XRay Report ---
LEFT KNEE 2 VIEWS HISTORY: trauma COMPARISON: None. FINDINGS: There is no fracture or dislocation. Soft tissues are unremarkable. No radiopaque foreign b odies. No knee effusion. IMPRESSION: No fracture or dislocation within the left knee. ACT 112: Negative or not required by law. Electronically signed by: Mal Mooney M.D. 02/17/2024 3:48 PM
[2024-02-17] MEDS: MULTI-VITAMIN INFUSION 10 ML, THIAMINE HCL 100 MG, FOLIC ACID 1 MG in SODIUM CHLORIDE 0... IV ONE (16:06)
[2024-02-17 16:07] LABS: T4 Free Thyroxine 0.95 ng/dl (0.61-1.60)
--- NOTE | 2024-02-17 16:26 | CT Scan Report ---
CT SCAN OF THE CHEST WITHOUT IV CONTRAST CLINICAL HISTORY: Trauma. COMPARISON STUDY: Chest CT scans dated 01/23/2024 and 05/11/2023. TECHNIQUE: CT scan of the thorax was performed from the thoracic inlet to the upper abdomen. Images are reviewed in the axial, sagittal, and coronal planes. IV contrast was not administered for this ex amination as per the referring clinician. Note that the [facility] given history of trauma. A dose lowering technique was utilized adhering to the principles of ALARA. CT DOSE: 1298.15 mGy.cm FINDINGS: Thyroid: Normal in size and heterogeneous in attenuation. Thoracic aorta: There is atherosclerotic calcification of the thoracic aorta, which is normal in [place] and demonstrates standard 3-vessel arch anatomy. Heart: The heart is normal in size and without pericardial effusion. Lungs and pleural spaces: Intravenous changes observed. Foci of parenchymal scarring are seen through out both lungs. There is no airspace consolidation, pleural effusion, or pneumothorax. The trachea an d central airways are clear. Scattered tree-in-bud opacities are likely inflammatory. A 3 mm right up per lobe pulmonary nodule on image #77 is unchanged from prior studies. Mediastinum: There is no mediastinal lymphadenopathy. Rukhsana: Not well assessed without IV contrast. Axillae: There is no axillary lymphadenopathy. Upper abdomen: There is likely high-grade stenosis of the proximal abdominal aorta. This is not well assessed laterally contrast. Partially visualized upper abdominal viscera is otherwise within normal limits. Skeletal structures: The skeletal structures are osteopenic. There is an acute subacute superior endp late compression fracture of T11 which is new from 01/23/2024. There is only minimal loss of height. N o retropulsion of fragments is seen. A minimal acute to subacute compression fracture of T4 is also n ew from previous. Again, no retropulsion of fragments are identified. There is a subacute/healing fra cture seen through the body of the sternum, as well as a subacute right anterior fourth rib fracture. These are unchanged from 01/23/2024. No lytic or blastic bony lesions are seen. IMPRESSION: 1. There are mild acute to subacute superior endplate compression fractures of T4 and T11. These are new from 01/23/2024. No retropulsion of fragments is seen. 2. There are subacute/healing fractures of the sternal body and the right anterior 4th rib. These are unchanged from previous. 3. There is no airspace consolidation, pleural effusion, or pneumothorax. 4. Emphysema. 5. Scattered tree-in-bud opacities throughout both lungs are likely inflammatory. 6. There is advanced atherosclerotic plaque and likely high-grade stenosis of the proximal abdominal aorta. This is not well assessed without IV contrast. 7. Additional findings as above. ACT 112: Negative or not required by law. Electronically signed by: Jermaine Mcintosh M.D. 02/17/2024 4:25 PM
--- NOTE | 2024-02-17 16:26 | CT Scan Report ---
CT head/brain wo con CLINICAL HISTORY: 53 years-old Female with trauma. Acute head trauma TECHNIQUE: Multiple axial CT images of the head were obtained without contrast. A dose lowering tech nique was utilized adhering to the principles of ALARA. COMPARISON: 01/23/2024 FINDINGS: No acute intracranial hemorrhage, midline shift, intracranial mass, hydrocephalus, territorial ischem ia or abnormal extra-axial collection. Unchanged 6 mm opacity within the left sylvian fissure on imag e 8 series 2. The calvarium is intact. The paranasal sinuses, mastoid air cells, and middle ear cavities are clear . IMPRESSION: 1. No acute intracranial abnormality. 2. Unchanged 6 mm opacity within the left sylvian fissure, possibly a saccular aneurysm involving a b ranch of the left MCA. ACT 112: Negative or not required by law. The above report was generated using voice recognition software. It may contain grammatical, syntax o r spelling errors. Electronically signed by: Rafa Laura M.D. 02/17/2024 4:24 PM
--- NOTE | 2024-02-17 16:36 | CT Scan Report ---
ABDOMEN AND PELVIS CT WITHOUT CONTRAST HISTORY: Acute abdominal trauma with nausea and vomiting trauma, n/v TECHNIQUE: Multiaxial CT images of the abdomen and pelvis were performed without contrast. A dose lo wering technique was utilized adhering to the principles of ALARA. COMPARISON STUDY: 01/23/2024 FINDINGS: The lung bases appear clear. Mild left basilar mucous plugging. No free air. Unremarkable p ancreas, gallbladder, adrenal glands and liver. 4 mm nonobstructing calculus of the inferior pole rig ht kidney. The right kidney is mildly atrophic. Punctate parenchymal calcification of the posterior i nterpolar left kidney. No hydronephrosis or ureteral calculi. Unremarkable urinary bladder and uterus . Prominent atherosclerosis of the aorta with high-grade stenosis at the level of the renal arteries, image 74 series 9. There is additional is moderate luminal narrowing of the iliac bifurcation. No ly mphadenopathy. No bowel obstruction or bowel wall thickening. No free fluid. Unchanged metallic density focus sugges tive of an endoscopy clip within the cecum. Acute appearing mildly displaced L2, L3 and L4 left trans verse process fractures, new from prior. T11 superior endplate compression deformity without retropul nancy appears acute acute subtle fracturing involves the anterior cortex at S2-S3. IMPRESSION: 1. Mild acute superior endplate compression deformity of T11 without retropulsion. 2. Acute-appearing mildly displaced left L2, L3 and L4 transverse process fractures. 3. No acute solid organ injury. 4. Acute nondisplaced sacral fracture. 5. Right nephrolithiasis. 6. Additional findings as above. ACT 112: Negative or not required by law. The above report was generated using voice recognition software. It may contain grammatical, syntax o r spelling errors. Electronically signed by: Rafa Laura M.D. 02/17/2024 4:34 PM
--- NOTE | 2024-02-17 16:44 | CT Scan Report ---
CT cervical spine wo con CLINICAL HISTORY: 53 years-old Female with trauma. Acute neck injury status post trauma COMPARISON: CT cervical spine 01/23/2024 TECHNIQUE: Multiple axial CT images of the cervical spine were obtained without contrast. A dose low ering technique was utilized adhering to the principles of ALARA. FINDINGS: Multilevel degenerative changes are redemonstrated including moderate disc space narrowing and spondylotic spurring at C5-C6 and C6-C7. Sdva-[id number] multilevel facet arthrosis. No acute fr acture or subluxation identified. The cervical soft tissues appear unremarkable. Prominent calcified plaque of the left greater than ri ght carotid bulbs. The visualized lung apices appear clear. IMPRESSION: No acute cervical spine fracture or subluxation identified. ACT 112: Negative or not required by law. The above report was generated using voice recognition software. It may contain grammatical, syntax o r spelling errors. Electronically signed by: Rafa Laura M.D. 02/17/2024 4:41 PM
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
[2024-02-17] MEDS: PLASMA-LYTE A 500 ML IV ONE (18:05)
--- OUTSIDE RECORDS SUMMARY | 2024-02-17 18:16 | External Medical Summary | Summary of Care ---
Author Name Unknown Organization [facility] Address [address] [facility] [place] [address] Phone [phone] Care Team Providers Care Occupational Psychologist Name Role Phone Reyna Cowan Primary Care Provider [phone] Encounter Details Date Type Department Care Team (Late st Contact Info) Description 02/16/2024 Telephone [facility] [address] [place] [address] Chau Reyna MD [address] [place] [address] Allergies Active Allergy Reactions Criticality Noted Date Comments Lisinopril 01/09/2004 cough documented as of this encounter (statuses as of 02/16/2024) Medications Medication Sig Dispensed Refills Start Date [...] % Nasal SolutionIndicatio ns:Chronic rhinitis Administer 1 Highland into nostril in the morning and 1 Highland before bedtime. 30 mL 12 12/13/2022 Active Trelegy Ellipta 100-62.5-25 MCG/ACT Aerosol Powder Breath Activated (Fluticasone-Umec lidinium-Vilanter ol)Indications:CO PD, moderate (HCC) Inhale 1 Puff by mouth in the morning. 60 Blister Dosing Unit 5 01/10/2023 Active Additional Information Patient not taking.Reported on 02/01/2024 amLODIPine Besylate 2.5 MG Oral Tablet (Norvasc) [...] and 1 Puff before bedtime. 180 Each 06/27/2023 12/17/2028 Active Potassium Chloride Chuyita ER [...] before bedtime. 180 Tablet 3 12/26/2023 Active Folic Acid 1 MG Oral Tablet 01/26/2024 Active Lexapro 10 MG Oral Tablet 1 Tablet. 12/30/2023 04/28/2024 Active Vitamin B-1 100 MG Oral Tablet Take 1 Tablet by mouth in the morning. Active Sodium Chloride 1 GM Oral Tablet Take 1 Tablet by mouth in the morning. Active Atorvastatin Calcium 40 MG Oral Tablet (Lipitor) Take 1 Tablet by mouth in the morning. 90 Tablet 5 02/01/2024 Active documented as of this encounter (statuses as of 02/16/2024) Active Problems Problem Noted Date Diagnosed Date Hyperthyroidism 12/11/2021 History of breast cancer 07/04/2017 Dyslipidemia, goal to be determined 01/25/2014 CHRONIC NONALLERGIC RHINITIS 05/31/2003 Menstruation, irregular 04/25/2003 HTN, goal below 140/90 11/05/1997 Tobacco use disorder 11/05/1997 documented as of this encounter (statuses as of 02/16/2024) Resolved Problems Problem Noted Date Diagnosed Date [...] as of this encounter (statuses as of 02/16/2024) Immunizations Name Administration Dates Next Due COVID-19 mRNA, LNP-s, No Pre serve, 2-Dose Series (Moderna) 10/21/2020,09/23/2020 TD, Preservative Free 11/28/2020 TDAP, Age 7 and older, IM (Adacel) 07/24/2010 07/24/2020 documented as of this encounter Social History Tobacco Use Types Packs/Day Years Used Date Smoking Tobacco: Every Day Cigarettes 1 15 Smokeless Tobacco: Never Comments:02/01/2024 Smokes 1 pack per day, declines pamphlet. Alcohol Use Standard Drinks/Week Comments Yes 0 [...] encounter Miscellaneous Notes * Telephone Encounter - Shona Toro LPN - 02/16/2024 12:22 PM EDT Pt will need an appointment due to its been over a year since they were last seen in the office in order to get meds refilled. documented in this encounter Plan of Treatment Upcoming Encounters Date Type Department Care Team (Late st Contact Info) Description 02/24/2024 9:30 AM EDT Imaging Vascular Lab, [address] [place] [address] 02/24/2024 10:30 AM EDT Imaging V[facility] Lab, [address] [place] [address] 03/14/2024 2:30 PM EDT Office Visit Vascular Surgery, [address] [address] Sadiq Esteves MD [address] [place] [address] Scheduled Procedures Name Priority Associated Diagnoses Date/Ti [...] 12/27/2022 12/28/2019, 08/12, 09/02/2015, Additional history exists GFR 07/15/2023 07/15/2022, 07/0 06/2021, 11/28/2020, Additional history exists Albumin/Creatinine Ratio 11/29/2023 021, 08/23/2019, 09/19/2018, Additional history exists Depression Screening 12/14/2023 12/13/2022 Mammogram 02/10/2024 02/09/2023, 01/12, 02/03/2021, Additional history exists COVID-19 Vaccine ( season) 2024 10/21/2020, 09/23/2020 Influenza Vaccine (FLU shot) (#1) 2024 Cologuard 01/08/2025 01/08/2022, 12/12, 12/30/2021 Colonoscopy 03/30/2025 03/30/2022, 03/30/2022 Colorectal Cancer Screening 03/30/2025 Lipid Panel 12/11/2026 12/11/2021, 11/11, 08/23/2019, Additional history exists DTap/Tdap Vaccines (8 - Td or Tdap) 11/28/2030 11/28/2020, 07/24/2010, 03/08/2002, Additional history exists HPV (Gardasil) Vaccine Aged Out No lo nger eligible based on patient's age to complete this topic MENINGOCOCCAL (MENACTRA/MENVEO) Aged Out No longer eligible based on patient's age to complete this topic documented as of this encounter Medical Devices Not on filedocumented as of this encounter Care Teams Occupational Psychologist Relationship Specialty Start Date End Date Reyna Cowan CRNP [address] [facility], [place] [address] PCP - General Nurse Practitioner 01/05/24 documented as of this encounter
--- OUTSIDE RECORDS SUMMARY | 2024-02-17 18:16 | External Medical Summary | Summary of Care ---
Author Name Unknown Organization [facility] Address [address] [place] [address] Phone [phone] Care Team Providers Care Bank Operations Officer Name Role Phone Reyna Cowan Basil REYNA Primary Care Provider [phone] Reason for Visit * Reason Onset Date Comments Vascular Study 02/02/2024 Follow Up 02/02/2024 Encounter Details Date Type Department Care Team (Late st Contact Info) Description 02/02/2024 Telephone Vascular Surg [facility] [address] [place] [address] Sadiq Esteves MD [address] [place] [address] Vascular Study; Follow Up Allergies Active Allergy Reactions Criticality Noted Date Comments Lisinopril 01/09/2004 cough documented as of this encounter (statuses as of 02/03/2024) Medications Medication Sig Dispensed Refills Start Date [...] % Nasal SolutionIndicatio ns:Chronic rhinitis Administer 1 [place] into nostril in the morning and 1 [place] before bedtime. 30 mL 12 12/13/2022 Active [...] as of this encounter (statuses as of 02/03/2024) Active Problems Problem Noted Date Diagnosed Date Hyperthyroidism 12/11/2021 History of breast cancer 07/04/2017 Dyslipidemia, goal to be determined 01/25/2014 CHRONIC NONALLERGIC RHINITIS 05/31/2003 Menstruation, irregular 04/25/2003 HTN, goal below 140/90 11/05/1997 Tobacco use disorder 11/05/1997 documented as of this encounter (statuses as of 02/03/2024) Resolved Problems Problem Noted Date Diagnosed Date [...] as of this encounter (statuses as of 02/03/2024) Immunizations Name Administration Dates Next Due COVID-19 [...] Telephone Encounter - Rafa Yeboah PA-C - 02/03/2024 11:[address] Esteves has the following text in his part of this week's office note: Her CT scan from outside hospital has inadequate reconstructions then I would like to obtain a new CT scan for better evaluation Can office note be re-submitted, for re-consideration for CTA? Thank you Rafa Yeboah PA-C * Telephone Encounter - Cristina Yu OSA - 02/02/2024 2:26 PM EDT Please be advised clinical review is needed on cta. Please call . Please refer to tracking # [id number] to complete. Thank you This request for Abdomen and Pelvis CT Angiography was denied because clinical information needed to make a decision was not submitted by your physician. The following clinical notes were requested: doctor's notes that say why the test (Abdomen and Pelvis CTA (Computed Tomography Angiography)) thatyou already did on 08/09/23 is not enough to show your doctor how to treat you. documented in this encounter Plan of Treatment Upcoming Encounters Date Type Department Care Team (Late st Contact Info) Description 02/10/2024 10:45 AM EDT Imaging Radiology [address] [place] [address] 02/24/2024 9:30 AM EDT Imaging Vascular Lab, [facility] 2nd [facility] [address] [facility] [place] [address] 02/24/2024 10:30 AM EDT Imaging Vascular Lab, [facility] 2nd [facility], [address] [place] [address] 03/14/2024 2:30 PM EDT Office Visit Vascular Surgery, [address] [place] [address] Sadiq Esteves MD [address] [place] [address] Scheduled Procedures Name Priority Associated [...] filedocumented as of this encounter Care Teams Bank Operations Officer Relationship Specialty Start Date End Date Reyna Cowan CRNP [address] [place] [address] PCP - General Nurse Practitioner 01/05/24 documented as of this encounter
--- OUTSIDE RECORDS SUMMARY | 2024-02-17 18:16 | External Medical Summary | Summary of Care ---
Author Name Unknown Organization [facility] Address [address] [facility] [place] [address] Phone [phone] Care Team Providers Care Networking Administrator Name Role Phone Reyna Cowan Primary Care Provider [phone] Encounter Details Date Type Department Care Team (Late st Contact Info) Description 02/16/2024 Telephone [facility] [address] [place] [address] Chau Reyna MD [address] [place] [address] Allergies Active Allergy Reactions Criticality Noted Date Comments Lisinopril 01/09/2004 cough documented as of this encounter (statuses as of 02/17/2024) Medications Medication Sig Dispensed Refills Start Date [...] % Nasal SolutionIndicatio ns:Chronic rhinitis Administer 1 [place] into nostril in the morning and 1 [place] before bedtime. 30 mL 12 12/13/2022 Active [...] as of this encounter (statuses as of 02/17/2024) Active Problems Problem Noted Date Diagnosed Date Hyperthyroidism 12/11/2021 History of breast cancer 07/04/2017 Dyslipidemia, goal to be determined 01/25/2014 CHRONIC NONALLERGIC RHINITIS 05/31/2003 Menstruation, irregular 04/25/2003 HTN, goal below 140/90 11/05/1997 Tobacco use disorder 11/05/1997 documented as of this encounter (statuses as of 02/17/2024) Resolved Problems Problem Noted Date Diagnosed Date [...] as of this encounter (statuses as of 02/17/2024) Immunizations Name Administration Dates Next Due COVID-19 [...] encounter Miscellaneous Notes * Telephone Encounter - [place] Arevalo OSA - 02/17/2024 8:49 AM EDT Spoke to patient and she states that [facility]. She will call her PCP to get her meds. 02/17/2024 * Telephone Encounter - Shona Toro LPN [...] 02/24/2024 9:30 AM EDT Imaging Vascular Lab, [address] [place] [address] 02/24/2024 10:30 AM EDT Imaging Vascular Lab, [address] [place] [address] 03/14/2024 2:30 PM EDT Office Visit Vascular Surgery, [facility] [address] [place] [address] Sadiq Esteves MD [address] [facility] [place] [address] Scheduled Procedures Name [...] 01/12, 02/03/2021, Additional history exists COVID-19 Vaccine (2022- season) 2024 10/21/2020, 09/23/2020 Influenza Vaccine (FLU [...] filedocumented as of this encounter Care Teams Networking Administrator Relationship Specialty Start Date End Date Reyna Cowan CRNP [address] [place] [address] PCP - General Nurse Practitioner 01/05/24 documented as of this encounter
--- OUTSIDE RECORDS SUMMARY | 2024-02-17 18:16 | External Medical Summary | Summary of Care ---
Author Name Unknown Organization [facility] Address [address] [place] [address] Phone [phone] Care Team Providers Care Chief Wharfinger Name Role Phone Reyna Cowan MARIBELL Primary Care Provider [phone] Reason for Visit * Reason Onset Date Comments Vascular Study 02/09/2024 Encounter Details Date Type Department Care Team (Late st Contact Info) Description 02/09/2024 Telephone Vascular Surg [facility] [address] [place] [address] Rafa Yeboah PA-C [address] [place] [address] Vascular Study Allergies Active Allergy Reactions Criticality Noted Date Comments Lisinopril 01/09/2004 cough documented as of this encounter (statuses as of 02/09/2024) Medications Medication Sig Dispensed Refills Start Date [...] % Nasal SolutionIndicatio ns:Chronic rhinitis Administer 1 [place] into nostril in the morning and 1 [place] before bedtime. 30 mL 12 12/13/2022 Active [...] as of this encounter (statuses as of 02/09/2024) Active Problems Problem Noted Date Diagnosed Date Hyperthyroidism 12/11/2021 History of breast cancer 07/04/2017 Dyslipidemia, goal to be determined 01/25/2014 CHRONIC NONALLERGIC RHINITIS 05/31/2003 Menstruation, irregular 04/25/2003 HTN, goal below 140/90 11/05/1997 Tobacco use disorder 11/05/1997 documented as of this encounter (statuses as of 02/09/2024) Resolved Problems Problem Noted Date Diagnosed Date [...] as of this encounter (statuses as of 02/09/2024) Immunizations Name Administration Dates Next Due COVID-19 [...] Telephone Encounter - Rafa Yeboah PA-C - 02/09/2024 1:18 PM EDT I spoke with pt's insurance carrier. Apparently, they have 2 requests for CTA Abd/Pelvis. One with us, the other with [place] The [place] CTA was approved. Ours was not. I was then informed by insurance carrier that if the ptwanted to stick with us that she would need to call them back and asked that approval for [place] CTA to be voided & [place] CTA be approved I called the patient. She had already cancelled the [place] CTA. She then informed me that she no longer has Blue Cross/Blue Shield as she had recently come over to [facility] (BC/BS is still listed as her only insurance carrier) Regardless, in order for the patient to avoid being charged for tomorrow's [place] CTA, I told her to call [employer] back TODAY. I gave pt both the phone number and reference number. Patient then made the call. * Telephone Encounter - Cristina Yu OSA - 02/09/2024 9:05 AM EDT Please be advised last note sent; pt due in 02/09 and not approved. Please be advised clinical review is needed on cta. Please call . Please refer to tracking # [id number] to complete. Thank you documented in this encounter Plan of Treatment Upcoming Encounters Date Type Department Care Team (Late st Contact Info) Description 02/10/2024 10:45 AM EDT Imaging Radiology [facility] 1st [facility], [address] [place] [address] 02/24/2024 9:30 AM EDT Imaging Vascular Lab, [facility] 2nd Floor, [address] [place] [address] 02/24/2024 10:30 AM EDT Imaging Vascular Lab, [facility] 2nd Floor, [address] [place] [address] 03/14/2024 2:30 PM EDT Office Visit Vascular Surgery, [facility], [address] [place] [address] Sadiq Esteves MD [address] [place] [address] Scheduled Procedures Name Priority Associated [...] filedocumented as of this encounter Care Teams Chief Wharfinger Relationship Specialty Start Date End Date Reyna Cowan CRNP [address] [facility] [place] [address] PCP - General Nurse Practitioner 01/05/24 documented as of this encounter
--- OUTSIDE RECORDS SUMMARY | 2024-02-17 18:16 | External Medical Summary | Summary of Care ---
Author Name Unknown Organization [facility] Address [address] [place] [address] Phone [phone] Care Team Providers Care Supervisor Rice Milling Name Role Phone JaylinReyna pelayo Radha REYNA Primary Care Provider [phone] Reason for Referral * Precert (Within 10 days (routine)) - Pending Review Specialty Diagnoses / Procedures Referred By Luigi t Referred To Contact Radiology Diagnoses HTN, goal below 140/90 Tobacco use disorder Dyslipidemia, goal to be determined Calcification of aorta (HCC) Renal artery stenosis (HCC) PVD (peripheral vascular disease) (HCC) Carotid stenosis, non-symptomatic, bilateral Procedures CTA ABD/PELVIS Rafa Yeboah PA-C [address] [place] [address] Referral ID Status Reason Start Date Expiration Date Visits Requested Visits Authorized [id number] Pending Review Precert 02/01/2024 03/02/2024 999 1 Reason for Visit * Reason Comments NEW PATIENT Encounter Details Date Type Department Care Team (Latest Contact Info) Description 02/01/2024 1:50 PM EDT Office Visit Vascular Surgery, [facility] [address] [place] [address] Sadiq Esteves MD [address] [place] [address] Calcification of aorta (HCC)*; HTN, goal below 140/90; Tobacco use disorder; Dyslipidemia, goal to be determined; Renal artery stenosis (HCC); PVD (peripheral vascular disease) (HCC); Carotid stenosis, non-symptomatic, bilateral; Pre-op testing Allergies Active Allergy Reactions Criticality Noted Date Comments Lisinopril 01/09/2004 cough documented as of this encounter (statuses as of 02/02/2024) Medications Medication Sig Dispensed Refills Start Date [...] % Nasal SolutionIndicatio ns:Chronic rhinitis Administer 1 [place] into nostril in the morning and 1 [place] before bedtime. 30 mL 12 12/13/2022 Active [...] as of this encounter (statuses as of 02/02/2024) Active Problems Problem Noted Date Diagnosed Date Hyperthyroidism 12/11/2021 History of breast cancer 07/04/2017 Dyslipidemia, goal to be determined 01/25/2014 CHRONIC NONALLERGIC RHINITIS 05/31/2003 Menstruation, irregular 04/25/2003 HTN, goal below 140/90 11/05/1997 Tobacco use disorder 11/05/1997 documented as of this encounter (statuses as of 02/02/2024) Resolved Problems Problem Noted Date Diagnosed Date [...] as of this encounter (statuses as of 02/02/2024) Immunizations Name Administration Dates Next Due COVID-19 mRNA, LNP-s, No Pre serve, 2-Dose Series (Moderna) 10/21/2020,09/23/2020 TD, Preservative Free 11/28/2020 TDAP, Age 7 and older, IM (Adacel) 07/24/2010 07/24/2020 documented as of this encounter Social History Tobacco Use Types Packs/Day Years Used Date Smoking Tobacco: Every Day Cigarettes 1 15 Smokeless Tobacco: Never Tobacco Cessation:Ready to Q uit: No; Counseling Given: No Comments:02/01/2024 Smokes 1 pack per day, declines [...] on file documented as of this encounter Last Filed Vital Signs Vital Sign Reading Time Taken Comments Blood Pressure 140/62 02/01/2024 1:47 PM EDT Pulse 100 02/01/2024 1:47 PM EDT Temperature 37.1 C (98.8 F) 02/01/2024 1:47 PM ED T Respiratory Rate - - Oxygen Saturation - - Inhaled Oxygen Concentration - - Weight 40.9 kg (90 lb 3.2 oz) 02/01/2024 1:47 PM EDT Height 157.5 cm (5' 2") 02/01/2024 1:47 PM EDT Body Mass Index 16.5 02/01/2024 1:47 PM EDT documented in this encounter Progress Notes * Rafa Yeboah PA-C - 02/01/2024 1:50 PM EDT Date of Service: 02/01/2024 1:54 PM Edinson Bennett is a 53 year old female. Patient being seen in consultation at the request of MARIBELL Carmona Chief Complaint: New pt, previously seen [facility]. No prior vascular procedures/surgeries Presents with her cousin, Kamla (their mothers are sisters) HPI: Everyday smoker (1 ppd) with H/O HTN, Breast CA (s/p radiation, partial mastectomy), low BMI (under20) who has PVD Last seen 2022 for "stenosis of aorta, subclavian artery stenosis and renal artery stenosis" CAROTID/SUBCLAVIAN VASCULAR DISEASE No recent TIA, Stroke, Amaurosis Fugax No Arm fatigue/pain w/ arms above head RENAL ARTERY STENOSIS Patient reports HTN with BP readings today of 140/86. She checks her BPs @ home, 180/100s typically No ER visits/hospital admissions for HTN crisis or CHF Recent creatinine of 0.5, 07/15/2022 Current antihypertensives include Amlodipine 2.5 mg, HCTZ 25 mg, Losartan 100 mg and Toprol 25 mg. PVD: No claudication, rest pain or ulcers feet/toes Both legs are weak when she walks October 2023, Pancreatic Ca. Had a significant stroke years ago FAMILY HISTORY: Family history is noncontributory. Current Outpatient Medications Medication Sig Dispense Refill ZYRTEC 10 MG PO TABS 1 tab by mouth daily for allergies 30 12 ASPIRIN EC 81 MG PO TBEC Take one pill daily 100 Tab 3 Multiple Vitamin Tablet Take 1 Tablet by mouth in the morning. Azelastine HCl 0.15 % Nasal Solution Administer 1 [place] into nostril in the morning and 1 [place] before bedtime. 30 mL 12 amLODIPine Besylate 2.5 MG Oral Tablet (Norvasc) Take 1 Tablet by mouth in the morning. 90 Tablet 3 Losartan Potassium 100 MG Oral Tablet (Cozaar) Take 1 Tablet by mouth in the morning. 90 Tablet 3 Fluticasone-Salmeterol 100-50 MCG/ACT Inhalation Aerosol Powder Breath Activated (Advair Diskus) Inhale 1 Puff by mouth in the morning and 1 Puff before bedtime. 180 Each 5 Potassium Chloride Chuyita ER 10 MEQ Oral Tablet Extended Release TAKE 2 TABLETS BY MOUTH EVERY MORNING 180 Tablet 0 hydroCHLOROthiazide 25 MG Oral Tablet (Hydrodiuril) Take 1 Tablet by mouth in the morning. 90 Tablet 3 Metoprolol Succinate ER 25 MG Oral Tablet Extended Release 24 Hour (toPROL XL) Take 1 Tablet by mouth in the morning and 1 Tablet before bedtime. 180 Tablet 3 Folic Acid 1 MG Oral Tablet Lexapro 10 MG Oral Tablet 1 Tablet. Vitamin B-1 100 MG Oral Tablet Take 1 Tablet by mouth in the morning. Sodium Chloride 1 GM Oral Tablet Take 1 Tablet by mouth in the morning. methIMAzole 5 MG Oral Tablet (Tapazole) Take by mouth 1 Tablet in the morning. (Patient not taking:Reported on 07/08/2022) 30 Tablet 11 diphenhydrAMINE HCl 25 MG Oral Capsule (Benadryl Allergy) Take 1 Capsule by mouth every 6 hours as needed for Itching. Trelegy Ellipta 100-62.5-25 MCG/ACT Aerosol Powder Breath Activated (Izrtofsrlbn-Jgitemhcsxhh-Uretqqbfrs) Inhale 1 Puff by mouth in the morning. (Patient not taking: Reported on 02/01/2024) [address] 5 No current facility-administered medications for this visit. Review of patient's allergies indicates: Allergen Reactions Lisinopril cough Patient Active Problem List Diagnosis HTN, goal below 140/90 Tobacco use disorder Menstruation, irregular CHRONIC NONALLERGIC RHINITIS Dyslipidemia, goal to be determined History of breast cancer Hyperthyroidism Past Medical History: Diagnosis Date Allergic rhinitis followe tanmayy Dr. Chacon BRCA1 gene mutation negative 03/09/2017 CHEK2 gene negative as well BRCA2 gene mutation negative 03/09/2017 Breast cancer (HCC) 2017 Left breast DCIS Fracture of ulna, closed HTN, goal below 140/90 S/P radiation therapy 2017 Tobacco abuse Past Surgical History: Procedure Laterality Date ARM/ELBOW DEEP TUMOR REMOVAL, UNDER 5 CM 12/30/2011 EXCISION TUMOR UPPER ARM DEEP performed by Luis Alfredo Harris [place] [facility]/ELBOW SUBQ TUMOR REMOVAL, UNDER 3 CM 10/27/2011 EXCISION TUMOR UPPER ARM SUBCUTANEOUS performed by HUMA CRUZ at OR [facility] COLONOSCOPY, DIAGNOSTIC (RECTUM) 03/30/2022 diverticulosis sigmoid colon/recall 3 years/COLONOSCOPY FLEXIBLE PROXIMAL DIAGNOSTIC performed by Martha Freeman MD at ENDOSCOPY [facility] CRYOCAUTERY OF CERVIX LAP;FULGURATION OVIDUCTS 01/2002 LIGATE/CUT OVIDUCT(S) Tubal Ligation MAMMOGRAM BREAST NEEDLE BIOPSY CORE LEFT Left 02/02/2017 DCIS MAMMOGRAM BREAST NEEDLE BIOPSY CORE LEFT Left 03/02/2017 Benign MASTECTOMY, PARTIAL Left 03/16/2017 03/16/2017 MASTECTOMY PARTIAL performed by Denia Silva MD at OR [facility] MISCELLANEOUS ORDER 04/2002 fracture right ankle/ ORIF eventually plate removed RADIATION THERAPY Left 05/19/2017 5130 cGy REMOVAL OF APPENDIX Appendectomy REMOVE TONSILS & ADENOIDS, UNDER 12 Tonsillectomy/Adenoids,<12 Y/O Family History Problem Relation Name Age of Onset Heart Disorder Father Hypertension Father Heart Disorder Mother [place], age 63 Cancer Aunt (Unspecified) unknown type Heart Disorder Brother valvular defect Thyroid Disorder Aunt (Unspecified) hyper Thyroid Disorder Aunt (Unspecified) hyper Thyroid Disorder Aunt (Unspecified) hyper Other (Other) Other no breast/ovarian/colon cancer Social History Socioeconomic History Marital status: Spouse name: Josiah Number of children: 0 Years of education: Not on file Highest education level: Not on file Occupational History Occupation: [employer] Comment: [employer] Tobacco Use Smoking status: Every Day Current packs/day: 1.00 Average packs/day: 1 pack/day for 15.0 years (15.0 ttl pk-yrs) Types: Cigarettes Smokeless tobacco: Never Tobacco comments: 02/01/2024 Smokes 1 pack per day, declines pamphlet. Vaping Use Vaping status: Not on file Substance and Sexual Activity Alcohol use: Yes Comment: 2 times weekly Drug use: No Sexual activity: Yes Partners: Male control/protection: Surgical Comment: BTL Other Topics Concern Service Not Asked Blood Transfusions Not Asked Caffeine Concern Not Asked Occupational Exposure Not Asked Hobby Hazards Not Asked Sleep Concern Not Asked Stress Concern Not Asked Weight Concern Not Asked Special Diet Not Asked Back Care Not Asked Exercise Not Asked Bike Helmet Not Asked Seat Belt Not Asked Self-Exams Yes Comment: breast Social History Narrative Not on file Social Determinants of Health Financial Resource Strain: Not on file Food Insecurity: No Food Insecurity (12/13/2022) Hunger Vital Sign Worried About Running Out of Food in the Last Year: Never true Ran Out of Food in the Last Year: Never true Transportation Needs: Not on file Social Connections: Unknown (02/01/2024) Social Connections How often do you feel lonely or isolated from those around you? (Adult - for ages 18 years and over): Not on file Housing Stability: Not on file COMPLETE REVIEW OF SYSTEMS: Cardiovascular: Negative for chest pain, shortness of breath, palpitations, angina or [place] Neurological: Negative for stroke, TIA, amaurosis fugax All other systems negative except for those noted above and in the history of present illness (HPI). GENERAL MULTI-SYSTEM PHYSICAL EXAM: VITAL SIGNS: BP 140/62 (BP Site: Left Arm, BP Position: Sitting, BP Cuff Size: Regular) | Pulse 100 | Temp 37.1 C (98.8 F) (Tympanic) | Ht 1.575 m (5' 2") | Wt 40.9 kg (90 lb 3.2 oz) | BMI 16.50 kg/m | BSA 1.34 m GENERAL MULTI-SYSTEM PHYSICAL EXAM:GENERAL: Normal grooming habits, no acute distress, and appears older than stated age. NECK: No masses and Normal Thyroid. RESPIRATORY: respiratory effort normal and BS are distant. CARDIOVASCULAR: no heart murmurs, no edema, and no varicosities. GASTROINTESTINAL: no tenderness and abdominal aorta not palpable. SKIN: no ulcers, no rash, no induration, capillary refill normal, and no dependent rubor. PSYCHIATRIC: orientation to time, place and person normal and recent and remote memory normal. EYES: exophthalmos NEUROLOGIC: Cranial nerves intact, Motor function intact, and Sensory exam intact PULSE SCALE: Carotid Right:----Bruit: No Left:----Bruit: No Radial Right: 3 Left: 3 Femoral Right: 3 Left: 3 Popliteal Right: 3 Left: 3 Dorsalis Pedis Right: 3 Left: 3 Posterior Tibial Right: 0 Left: 0 PULSE SCALE: 4=Aneurysmal; 3=Normal; 2=Diminished; 1=Barely Palpable; 0=Absent DIAGNOSTIC STUDIES: 08/09/23 CTA Abd/Pelvis Runoff ([facility]): Significant calcified plaques of abd aorta (mostly heavily inarea BTW Celiac, SMA and renals), extending into RRA ostia and prox CIAs, patent CFAs/SFAs/Pops, B/L 2 vessel runoff 07/14/23 Carotid Duplex: HERI 108/34, LICA 126/33, Innominate Art 86, RSCA 230/162, LSCA 112, ante vert 06/09/23 Abd Aor Duplex: Ao Prox 1.7 cm (167 cm/s), Ao Mid 1.2 cm (249 cm/s), Ao Distal 1.4 cm (155cm/s), RRA 209/119, LRA 205/226 The above vascular lab and CT scan images were directly visualized and independently interpreted byme on 02/01/2024 with results as above. LABS: Lab Results Component Value Date/Time CREATININE - [facility] 0.5 07/15/2022 03:09 PM CREATININE - [facility] 0.6 12/11/2021 10:13 AM CREATININE - [facility] 0.7 11/28/2020 02:57 PM CREATININE - [facility] 0.6 08/23/2019 10:58 AM CREATININE - [facility] 0.7 09/19/2018 08:54 AM CREATININE - [facility] 0.8 07/27/2017 09:47 AM CREATININE, RANDOM URINE - [facility] 60 11/28/2020 02:57 PM CREATININE, RANDOM URINE - [facility] 27 08/23/2019 10:58 AM CREATININE, RANDOM URINE - [facility] 24 09/19/2018 08:55 AM CREATININE, RANDOM URINE - [facility] 168 07/27/2017 09:48 AM CREATININE, URINE 15 03/03/2023 11:08 AM CREATININE, URINE 24 HOUR 0.450 (L) 03/03/2023 11:08 AM Lab Results Component Value Date/Time LDL CHOLESTEROL (CALCULATED) - [facility] 96 12/11/2021 10:13 AM LDL CHOLESTEROL (CALCULATED) - [facility] UNINTERPRETABLE RESULT 09/19/2018 08:54 AM LDL CHOLESTEROL (DIRECT MEASURE) - [facility] 79 08/23/2019 10:58 AM No results found for: "HEMOGLOBIN A1C - [facility]" The above clinical labs were reviewed by me on 02/01/2024. IMPRESSIONS: Asymptomatic calcified plaques w/in abd aorta HTN, on 4 meds, less than 50% MICHAEL on duplex. Nl renal function, on most recent, yet dated, labs. BPreading today 140/62 Asymptomatic less than 50% SCA stenosis Asymptomatic less than 50% ICA stenosis Everyday smoker H/O breast CA, s/p radiation and partial lumpectomy Low BMI, under 20 Hyperthyroidism, has seen [facility] in past, last being 01/2023 PLAN: The patient was counseled regarding the pathophysiology and natural history of peripheral vascular disease, as well as the interventional and noninterventional therapeutic options. Continue ASA 81 mg for platelet inhibition/atherosclerosis/PAD Start Lipitor 40 mg for dyslipidemia/hyperlipidemia & pleiotropic benefits of statins The nature of nicotine addiction was discussed. The usefulness of behavioral therapy was discussed and recommended. The correct use, cost and side effects of the patch and other therapies were discussed. The quit rates were discussed RTC @ [facility] with Dr. Esteves following exercise PAUL, CTA Abd/Pelvis and renal vascular duplex Will get updated labs as well, including comprehensive metabolic panel Will message Endo to see if hyperthyroidism is contributing factor for pt's HTN Rafa Yeboah PA-C Section of Vascular [place] [address] [phone] I have reviewed the advanced practitioner's documentation on the date of service referenced in note, and I agree with, and take responsibility for the plan of care. 53-year-old female with leg weakness and unsteadiness and [address] scan she has a corneal reflex aorta in the perirenal segment with significant renal artery stenosis as well as aortic stenosis. While at face value this lesion could certainly cause these symptoms, she has strongly palpable popliteal pulses and her unsteadiness has not consistent with this exam. Additionally she has had primary hypertension for nearly her entire life, she was initially started on oral antihypertensives at the age of 14. Due to these can founders am not sure that aortic endarterectomy would significantly improve her quality of life. Additionally she is quite cachectic with a BMI of 16 and would require athoracoabdominal incision in order to perform this procedure given her heavily calcified aorta. In order to further work this up I would like to obtain an exercise PAUL, have her evaluated by Endocrinology given her history of Graves disease and her weakness/hypertension. I would like to get an echocardiogram in order to evaluate her cardiac function, get a baseline set of labs, obtain her vascular clinic notes from [facility]. Her CT scan from outside hospital has inadequate reconstructions then I would like to obtain a new CT scan for better evaluation. We will bring her back in a few weeks in order to synthesize this information. Sadiq Esteves MD Section of Vascular [place] [address] [phone] documented in this encounter Nursing Notes * Alyssa Valentine, [facility] [address] - 02/01/2024 1:49 PM EDT Reviewed the option of transferring scripts to [facility] pharmacy with patient and / or family. Patient was instructed to not get up on the exam table/exam chair until directed and assisted by their provider; patient is to remain seated in the chair/ wheelchair/ exam table/ exam chair for fall prevention and safety reasons. Patient is aware to have assistance to step down off exam table/exam chair with personnel. Patient voiced full comprehension of instructions. Alyssa Valentine CMA documented in this encounter Plan of Treatment Upcoming Encounters Date Type Department Care Team (Late st Contact Info) Description 02/10/2024 10:45 AM EDT Imaging Radiology [facility] 1st [facility], [address] [place] [address] 02/24/2024 9:30 AM EDT Imaging Vascular Lab, [facility] 2nd Floor, [address] [place] [address] 02/24/2024 10:30 AM EDT Imaging Vascular Lab, [facility] 2nd [facility], [address] [place] [address] 03/14/2024 2:30 PM EDT Office Visit Vascular Surgery, [address] [place] [address] Sadiq Esteves MD [address] [place] [address] Scheduled Orders Name Type Priority Associated Diagnoses Order Schedule [facility] RENAL VASCULAR SCAN-LMTD Medical Imaging Routine HTN, goal below 140/90 Tobacco use disorder Dyslipidemia, goal to be determined Calcification of aorta (HCC) Renal artery stenosis (HCC) PVD (peripheral vascular disease) (HCC) Carotid stenosis, non-symptomatic, bilateral Ordered: 02/01/2024 [facility] LEG ARTERY DOPPLER, BILAT, W/ EXERCISE Medical Imaging Routine HTN, goal below 140/90 Tobacco use disorder Dyslipidemia, goal to be determined Calcification of aorta (HCC) Renal artery stenosis (HCC) PVD (peripheral vascular disease) (HCC) Carotid stenosis, non-symptomatic, bilateral Ordered: 02/01/2024 CTA ABD/PELVIS Medical Imaging Routine HTN, goal below 140/90 Tobacco use disorder Dyslipidemia, goal to be determined Calcification of aorta (HCC) Renal artery stenosis (HCC) PVD (peripheral vascular disease) (HCC) Carotid stenosis, non-symptomatic, bilateral Ordered: 02/01/2024 CREATININE Lab Routine HTN, goal below 140/90 Tobacco use disorder Dyslipidemia, goal to be determined Calcification of aorta (HCC) Renal artery stenosis (HCC) PVD (peripheral vascular disease) (HCC) Carotid stenosis, non-symptomatic, bilateral 1 Occurrences starting 02/01/2024 until 01/31/2025 CBC WITH WBC DIFFERENTIAL Lab Routine HTN, goal below 140/90 Tobacco use disorder Dyslipidemia, goal to be determined Calcification of aorta (HCC) Renal artery stenosis (HCC) PVD (peripheral vascular disease) (HCC) Carotid stenosis, non-symptomatic, bilateral Pre-op testing 1 Occurrences starting 02/01/2024 until 01/31/2025 COMPREHENSIVE METABOLIC PANEL Lab Routine HTN, goal below 140/90 Tobacco use disorder Dyslipidemia, goal to be determined Calcification of aorta (HCC) Renal artery stenosis (HCC) PVD (peripheral vascular disease) (HCC) Carotid stenosis, non-symptomatic, bilateral Pre-op testing 1 Occurrences starting 02/01/2024 until 01/31/2025 Scheduled Procedures Name Priority Associated Diagnoses Date/Ti [...] as of this encounter Visit Diagnoses Diagnosis Calcification of aorta (HCC)- Primary Atherosclerosis of aorta HTN, goal below 140/90 Unspecified essential hypertension Tobacco use disorder Dyslipidemia, goal to be determined Other and unspecified hyperlipidemia Renal artery stenosis (HCC) Atherosclerosis of renal artery PVD (peripheral vascular disease) (HCC) Peripheral vascular disease, unspecified Carotid stenosis, non-symptomatic, bilateral Pre-op testing Preoperative examination, unspecified documented in this encounter Care Teams Supervisor Rice Milling Relationship Specialty Start Date End Date Reyna Cowan CRNP [address] [place] [address] PCP - General Nurse Practitioner 01/05/24 documented as of this encounter
[2024-02-17 18:22] LABS: BUN Creatinine Ratio 13.2 (10-20); Calcium 8.7 mg/dl (8.6-10.3); Creatinine Clr Calc Pharmacy 26.1 ml/min; Est GFR (African American) 45.6 ml/min; Est GFR (Non-African American) 39.3 ml/min; Phosphorus 2.6 mg/dl (2.5-4.9); Potassium 2.8 mmol/L (3.5-5.1)
[2024-02-17] MEDS: THIAMINE HCL 500 MG in SODIUM CHLORIDE 0.9% 50 ML IV STA (18:42)
[2024-02-17] MEDS ORDERED: ACETAMINOPHEN 325 MG TAB PO PRN (19:27)
[2024-02-17] MEDS: POTASSIUM CHLORIDE / WTR 10 MEQ/100 ML PLCT IV SCH ×2 (19:39→22:45)
[2024-02-17] MEDS ORDERED: LORazepam 2 MG/1 ML VIAL IV PRN (22:12)
[2024-02-17 23:49] LABS: BUN Creatinine Ratio 16.1 (10-20); Calcium 7.9 mg/dl (8.6-10.3); Est GFR (African American) 61.4 ml/min; Potassium 2.7 mmol/L (3.5-5.1); Troponin I High Sensitivity 47.8 pg/ml (0-14)
[2024-02-18] MEDS: POTASSIUM CHLORIDE / WTR 10 MEQ/100 ML PLCT IV SCH ×2 (01:04→12:40)
[2024-02-18 02:53] LABS: Calcium 8.2 mg/dl (8.6-10.3); Carbon Dioxide 26 mmol/L (21-32); Chloride 81 mmol/L (98-107)
[2024-02-18 03:00] LABS: BUN Creatinine Ratio 15.5 (10-20); Blood Urea Nitrogen 17 mg/dl (6-23); Creatinine Clr Calc Pharmacy 36.5 ml/min; Est GFR (African American) 66.8 ml/min; Est GFR (Non-African American) 57.7 ml/min; Glucose 127 mg/dl (70-99(Fasting))
[2024-02-18 04:18] LABS: Potassium 3.6 mmol/L (3.5-5.1)
[2024-02-18 07:33] LABS: BUN Creatinine Ratio 16.3 (10-20); Calcium 8.1 mg/dl (8.6-10.3); Creatinine Clr Calc Pharmacy 46.5 ml/min; Est GFR (Non-African American) 77.7 ml/min; Potassium 3.5 mmol/L (3.5-5.1)
--- NOTE | 2024-02-18 07:54 | Hospitalist Progress Note ---
Date of Service February 18, 2024 Assessment & Plan (1) Hyponatremia: (2) Multiple falls: (3) Hypotension: (4) Alcohol use disorder: (5) Hypokalemia: Plan Hyponatremia - poor po intake + alcohol use noted along with hx of HCTZ use - Similar symptoms with hyponatremia 121 admission in January - treated with good rate of increase with intermittent dosing of 50ml hypertonic saline then added NaCl 1g PO BID tabs therefore plan on the same - Na 113 on admission, now 119 - will continue to monitor and give IVF as needed for appropriate increase, will hold HCTZ this admission due to hyponatremia Multiple falls - Suspected due to hyponatremia and/or alcohol use - No one sided weakness to suspect stroke - CT head; no bleed, "Unchanged 6 mm opacity within the left sylvian fissure, 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 These are new from 01/23/2024. No retropulsion of fragments is see n...subacute/healing fractures of the sternal body and the right anterior 4th rib. Scattered tree-in-bud opacities throughout both lungs are likely inflammatory. Emphysema.... advanced atherosclerotic plaque and likely high- grade stenosis of the proximal abdominal aorta" - CT abd; "Mild acute superior endplate compression deformity of T11 without retropulsion. Acute-appearing mildly displaced left L2, L3 and L4 transverse process fractures. Acute nondisplaced sacral fracture." - PT/OT, Acetaminophen PRN, mobilize as able Alcohol use disorder -AWSS with lorazepam at risk dosing although did not go through withdrawal during her prior admission therefore low suspicion this will occur this admission Hypokalemia - K 3.0, repletion given as IV + PO Hypotension, resolved - AM cortisol normal last admission - Took all her anti-hypertensives morning of admission, improved with just ho lding these Admission and Anticipated Discharge Date Admission Date: February 17, 2024 Supervising Physician Co-Signing Physician Notes I personally examined the patient and verified levin points of history and exam, discussed case, and agree with decision making and plan documented by Dr. Garcia. Patient with acute on chronic hyponatremia with initial sodium 113 on admission, this has been slowly improving. Patient reports worsening symptoms t he past 3 days with increased falling at home. Patient reports decreased appetite as well. She does state that she has some chronic depression but feels that it has has been improving slightly lately. We reviewed her alcohol use and she reports no more than a sixpack of beer daily over the past few months and recently has been reducing daily consumption to about 2-3 beers. Will work to correct electrolytes, physical therapy and nutrition to evaluate. Patient also reporting some significant financial barriers to her seeking medical care. Subjective Today, pt states she is feeling okay. She comes from home where she was able to take care of herself. Her earlier this year and states that it has been really tough on her with his passing. She states she was drinking 5- 6 beers nightly for a good bit of time, but recently has started to cut back and as of Tuesday she cut back to 2 drinks a day. Tuesday she started to feel nausea, vomiting, and weakness. She states she also is a smoker and was having about 1 ppd but recently cut back to about 1 pack per every 3 days or so. She states Tuesday and she was feeling ill at home and weak, had a number of falls at home without presyncopal symptoms, then when talking to a friend/family member, decided to come in for evaluation of her weakness. Review of Systems Review of Systems: Per HPI. Physical Exam Physical Exam: General:Alert and oriented, no acute distress, HEENT: Normocephalic, moist oral mucosa, Cardio: Regular rate and rhythm, Resp:Diminished air movement noted throughout lung coto but no wheezing or rhonchi GI: Soft and nontender, nondistended, bowel sounds active Skin: Warm, pink, dry, Results & Data Results & Data Vital Signs (Past 12 Hours) Vital Signs Temp Pulse Pulse Resp BP Pulse Ox O2 Del Method 02/18/24 07:53 74 17 132/73 93 Room Air 02/18/24 07:26 65 02/18/24 02:08 36.7 C 76 16 107/75 94 Room Air 02/18/24 00:09 117/83 02/17/24 22:32 36.7 C 61 17 88/59 L 91 Room Air 02/17/24 21:57 64 02/17/24 20:15 Room Air Resident Activity Tracking Resident Involvement: Resident Care Provided Care Provided: Adult Hospital Medicine (3) Hypotension Hypotension type: hypotension due to drug Qualified Code(s): I95.2 - Hypotension due to drugs
[2024-02-18] MEDS: THIAMINE HCL 500 MG in SODIUM CHLORIDE 0.9% 50 ML IV SCH (08:13)
[2024-02-18 08:31] LABS: Basophils # (auto) 0.02 K/uL (0.00-0.20); Basophils % (auto) 0.2 %; Eosinophils # (auto) 0.05 K/uL (0.00-0.50); Eosinophils % (auto) 0.5 %; Hematocrit (blood only) 30.5 % (37.0-47.0); Hemoglobin 11.5 g/dl (12.0-16.0); Immature Granulocytes # (auto) 0.04 K/uL (0.01-0.20); Immature Granulocytes % (auto) 0.4 %; Lymphocytes # (auto) 1.02 K/uL (1.20-3.40); Lymphocytes % (auto) 9.5 %; Mean Corpuscular Hgb Conc 37.7 g/dL (32.0-36.0); Mean Corpuscular Volume 92.7 fL (80.0-100.0); Mean Platelet Volume 9.1 fL (9.4-12.4); Monocytes # (auto) 0.75 K/uL (0.11-0.59); Neutrophils # (auto) 8.85 K/uL (1.40-6.50); Neutrophils % (auto) 82.4 %; Platelet Count 154 K/uL (130-400); RDW Coefficient of Variation 11.9 % (11.5-14.5); RDW Standard Deviation 40.1 fL (36.4-46.3); Red Blood Count 3.29 M/uL (4.20-5.40); White Blood Count 10.73 K/ul (4.8-10.8)
[2024-02-18 09:08] LABS: Magnesium 1.8 mg/dl (1.7-2.4)
[2024-02-18 10:52] LABS: BUN Creatinine Ratio 16.7 (10-20); Calcium 7.9 mg/dl (8.6-10.3); Creatinine Clr Calc Pharmacy 51.3 ml/min; Est GFR (African American) 101.3 ml/min; Est GFR (Non-African American) 87.4 ml/min
[2024-02-18] MEDS: POTASSIUM CHLORIDE 20 MEQ/15 ML UDC PO STA (12:34)
[2024-02-18] MEDS: SODIUM CHLORIDE 0.9% 500 ML IV SCH (12:51)
[2024-02-18 15:56] LABS: BUN Creatinine Ratio 12.2 (10-20); Calcium 8.2 mg/dl (8.6-10.3); Creatinine Clr Calc Pharmacy 40.8 ml/min; Est GFR (African American) 76.9 ml/min; Est GFR (Non-African American) 66.3 ml/min
--- NOTE | 2024-02-19 06:42 | Hospitalist Progress Note ---
Date of Service February 19, 2024 Assessment & Plan (1) Hyponatremia: (2) Multiple falls: (3) Hypotension: (4) Alcohol use disorder: (5) Hypokalemia: Plan Hyponatremia - poor po intake + alcohol use noted along with hx of HCTZ use - Similar symptoms with hyponatremia 121 admission in January - treated with good rate of increase with intermittent dosing of 50ml hypertonic saline then added NaCl 1g PO BID tabs therefore plan on the same - Na 113 on admission, now 123 - will continue to monitor and give gentle IVF as needed for appropriate increase, will hold HCTZ this admission due to hyponatremia Multiple electrolyte abnormalities Hypokalemia Hypomagnesemia Hypophosphoremia - question refeeding syndrome with poor po intake at home and multiple electrolyte issues with initiation of diet here - will replete as needed - K 2.6 today, pt refused IV, so will do 40 mEq po q2h x 3 doses today Multiple falls - Suspected due to hyponatremia and/or alcohol use - No one sided weakness to suspect stroke - CT head; no bleed, "Unchanged 6 mm opacity within the left sylvian fissure, 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 These are new from 01/23/2024. No retropulsion of fragments is seen...subacute/healing fractures of the sternal body and the right anterior 4th rib. Scattered tree-in-bud opacities throughout both lungs are likely inflammatory. Emphysema.... advanced atherosclerotic plaque and likely high- grade stenosis of the proximal abdominal aorta" - CT abd; "Mild acute superior endplate compression deformity of T11 without retropulsion. Acute-appearing mildly displaced left L2, L3 and L4 transverse process fractures. 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 - follows with Dr. Mary already for vascular disease - head CTA pending; Alcohol use disorder -AWSS with lorazepam at risk dosing although did not go through withdrawal during her prior admission therefore low suspicion this will occur this admission Hypotension, resolved - AM cortisol normal last admission - Took all her anti-hypertensives morning of admission, improved with just holding these - BPs have been permissible Admission and Anticipated Discharge Date Admission Date: February 17, 2024 Supervising Physician Co-Signing Physician Notes I personally examined the patient and verified levin points of history and exam, discussed case, and agree with decision making and plan documented by Dr. Garcia. Patient presented with confusion and multiple falls with severe hyponatremia (Na 113) and is now endorsing symptomatic improvement. Multiple electrolyte abnormalities suggestive of refeeding syndrome, sodium, potassium, magnesium, and phosphorus being repleted slowly. Creatinine with mild increase today. Ordered CTA imaging for saccular aneurysm, patient known to vascular surgery for stenosis of proximal aorta, right ICA, right renal artery, and right subclavian artery. Continue efforts to recommend tobacco and alcohol cessation in addition to blood pressure control. Patient reports significant financial barriers, hopefully case management can assist with availability of social work therapist. Subjective Today, pt states she is feeling okay, no questions or complaints at this point in time. No chest pain or SOB. No abdominal pain. Review of Systems Review of Systems: Per HPI. Physical Exam Physical Exam: General:Alert and oriented, no acute distress, HEENT: Normocephalic, moist oral mucosa, Cardio: Regular rate and rhythm, Resp:Diminished air movement noted throughout lung coto, no wheezing or rhonchi GI: Soft and nontender, nondistended, bowel sounds active Skin: Warm, pink, dry, Results & Data Results & Data Vital Signs (Past 12 Hours) Vital Signs Temp Pulse Pulse Resp BP Pulse Ox O2 Del Method 02/19/24 03:12 36.6 C 97 H 17 159/95 H 96 Room Air 02/18/24 23:13 36.7 C 98 H 17 146/95 H 97 Room Air 02/18/24 21:51 87 02/18/24 19:23 36.6 C 78 16 146/80 H 97 Room Air Resident Activity Tracking Resident Involvement: Resident Care Provided Care Provided: Adult Hospital Medicine (3) Hypotension Hypotension type: hypotension due to drug Qualified Code(s): I95.2 - Hypotension due to drugs
[2024-02-19 07:52] LABS: Basophils # (auto) 0.04 K/uL (0.00-0.20); Basophils % (auto) 0.4 %; Eosinophils # (auto) 0.09 K/uL (0.00-0.50); Hemoglobin 12.6 g/dl (12.0-16.0); Immature Granulocytes # (auto) 0.04 K/uL (0.01-0.20); Immature Granulocytes % (auto) 0.4 %; Lymphocytes # (auto) 1.16 K/uL (1.20-3.40); Lymphocytes % (auto) 12.7 %; Mean Corpuscular Hemoglobin 34.7 pg (25.0-34.0); Mean Corpuscular Hgb Conc 37.1 g/dL (32.0-36.0); Mean Corpuscular Volume 93.7 fL (80.0-100.0); Mean Platelet Volume 9.4 fL (9.4-12.4); Monocytes # (auto) 0.88 K/uL (0.11-0.59); Monocytes % (auto) 9.6 %; Neutrophils # (auto) 6.93 K/uL (1.40-6.50); Neutrophils % (auto) 75.9 %; Platelet Count 170 K/uL (130-400); RDW Coefficient of Variation 11.7 % (11.5-14.5); RDW Standard Deviation 39.9 fL (36.4-46.3); Red Blood Count 3.63 M/uL (4.20-5.40); White Blood Count 9.14 K/ul (4.8-10.8)
[2024-02-19 08:03] LABS: Creatinine Clr Calc Pharmacy 64.5 ml/min; Est GFR (African American) 120.2 ml/min; Est GFR (Non-African American) 103.7 ml/min
[2024-02-19 09:43] LABS: BUN Creatinine Ratio 17.7 (10-20); Magnesium 1.3 mg/dl (1.7-2.4); Potassium 2.6 mmol/L (3.5-5.1)
[2024-02-19 10:42] LABS: Phosphorus 1.8 mg/dl (2.5-4.9)
[2024-02-19] MEDS: POTASSIUM CHLORIDE / WTR 10 MEQ/100 ML PLCT IV SCH (10:56)
[2024-02-19] MEDS: POTASSIUM CHLORIDE 20 MEQ/15 ML UDC PO STA (11:06)
[2024-02-19] MEDS: SODIUM CHLORIDE 0.9% 1,000 ML IV SCH (11:08)
[2024-02-19] MEDS: MAGNESIUM SULFATE / D5W 1 GM/100 ML BAG IV SCH (11:13)
[2024-02-19] MEDS: POTASSIUM CHLORIDE 20 MEQ/15 ML UDC PO SCH (12:43)
[2024-02-19 14:59] LABS: Calcium 7.7 mg/dl (8.6-10.3); Est GFR (African American) 57.3 ml/min; Est GFR (Non-African American) 49.4 ml/min; Phosphorus 1.2 mg/dl (2.5-4.9); Potassium 3.7 mmol/L (3.5-5.1)
[2024-02-19] MEDS: amLODIPine BESYLATE 5 MG TAB PO SCH (15:21)
[2024-02-19] MEDS ORDERED: POTASSIUM PHOS 3 MMOL/1 ML INFUSION IV STA (15:33)
[2024-02-19] MEDS: POTASSIUM PHOSPHATE 9 MMOL in SODIUM CHLORIDE 0.9% 250 ML IV ONE (16:25)
[2024-02-19 21:55] LABS: BUN Creatinine Ratio 9.2 (10-20); Calcium 7.4 mg/dl (8.6-10.3); Creatinine Clr Calc Pharmacy 33.3 ml/min; Est GFR (African American) 60.2 ml/min; Est GFR (Non-African American) 51.9 ml/min; Magnesium 2.1 mg/dl (1.7-2.4); Phosphorus 2.1 mg/dl (2.5-4.9); Potassium 2.8 mmol/L (3.5-5.1)
--- NOTE | 2024-02-20 06:47 | Hospitalist Progress Note ---
Date of Service February 20, 2024 Assessment & Plan (1) Hyponatremia: (2) Multiple falls: (3) Hypotension: (4) Alcohol use disorder: (5) Hypokalemia: Plan Hyponatremia - poor po intake + alcohol use noted along with hx of HCTZ use - Similar symptoms with hyponatremia 121 admission in January - treated with good rate of increase with intermittent dosing of 50ml hypertonic saline then added NaCl 1g PO BID tabs therefore plan on the same - Na 113 on admission, now 127 - will continue to monitor and give gentle IVF as needed for appropriate increase, will hold HCTZ this admission due to hyponatremia Multiple electrolyte abnormalities Hypokalemia Hypomagnesemia Hypophosphoremia - question refeeding syndrome with poor po intake at home and multiple electrolyte issues with initiation of diet here - will replete as needed - K 2.3 today, repleting along with phosph and mag Multiple falls - Suspected due to hyponatremia and/or alcohol use - No one sided weakness to suspect stroke - CT head; no bleed, "Unchanged 6 mm opacity within the left sylvian fissure, 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 These are new from 01/23/2024. No retropulsion of fragments is seen...subacute/healing fractures of the sternal body and the right anterior 4th rib. Scattered tree-in-bud opacities throughout both lungs are likely inflammatory. Emphysema.... advanced atherosclerotic plaque and likely high- grade stenosis of the proximal abdominal aorta" - CT abd; "Mild acute superior endplate compression deformity of T11 without retropulsion. Acute-appearing mildly displaced left L2, L3 and L4 transverse process fractures. 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 - follows with Dr. Mary already for vascular disease - head/neck CTA on hold since pt had a bump in Cr yesterday, these may be best done as an outpatient Alcohol use disorder -AWSS with lorazepam at risk dosing although did not go through withdrawal during her prior admission therefore low suspicion this will occur this admission Hypotension, resolved - AM cortisol normal last admission - BPs have been permissible - restarted home amlodipine yesterday, may end up adding OBDULIO/ARB as goal for her likely <130/90 alf Admission and Anticipated Discharge Date Admission Date: February 17, 2024 Supervising Physician Co-Signing Physician Notes I personally examined the patient and verified all levin points of history and exam, discussed case, and agree with decision making with Dr Garcia Feeling a good bit better. Able to get around some. He is afraid to move too much due to IV pole/etc.but notes she is more steady on her feet than she was. Vitals noted, in general she is awake and alert pleasant no distress. HEENT normocephalic atraumatic mucous membranes moist. Breathing unlabored no accessory muscle use good effort. Skin without rashes pallor or icterus. Neuro without focal deficits. Alcohol abuse/depressionsounds like it is coping for her grief. Tried to discuss other coping mechanisms/counseling/etc.she was receptive to family support, listening to music, doing housework, not necessarily very receptive to professional counseling. Does sound like she would like to abstain from alcohol Hyponatremiaalcohol plus poor p.o. intakeimproving on normal salinecontinue, follow closely. Hypokalemia/hypophosphatemia/hypomagnesemiapredominantly due to malnutrition and dilution effect from alcoholcontinue to replete osteoporosis with multiple spinal fracturesoutpatient bone health management DVT prophylaxisambulation otherwise as above Subjective Today, pt seen at bedside. She states she feels okay. No nausea or vomiting. No chest pain or SOB. She states that prior to coming in she had exceptionally poor po intake for a day or two but does note that overall her daily po intake consists of maybe 1-2 meals a day. She states most days she has one meal and sometimes may have 2 meals. She states she has never been much of a "big eater" so her meals are probably somewhere between a snack and a true meal and that she has struggled for a long time to consistently eat, thus leading to weight loss. Overall feeling well today. Review of Systems Review of Systems: Per HPI. Physical Exam Physical Exam: General:Alert and oriented, no acute distress, HEENT: Normocephalic, moist oral mucosa, Cardio: Regular rate and rhythm, Resp:Diminished air movement noted throughout lung coto, no wheezing or rhonchi GI: Soft and nontender, nondistended Skin: Warm, pink, dry, Results & Data Results & Data Vital Signs (Past 12 Hours) Vital Signs Temp Pulse Pulse Resp BP Pulse Ox Pulse Ox 02/20/24 02:01 36.6 C 99 H 21 152/85 H 100 02/20/24 00:00 91 H 02/19/24 23:40 147/89 H 02/19/24 22:06 36.9 C 93 H 19 168/99 H 97 02/19/24 20:20 02/19/24 19:44 36.8 C 90 21 143/91 H 98 02/19/24 19:00 91 O2 Del Method O2 Del Method 02/20/24 02:01 Room Air 02/20/24 00:00 02/19/24 23:40 02/19/24 22:06 Room Air 02/19/24 20:20 Room Air 02/19/24 19:44 Room Air 02/19/24 19:00 Room Air Resident Activity Tracking Resident Involvement: Resident Care Provided Care Provided: Adult Hospital Medicine (3) Hypotension Hypotension type: hypotension due to drug Qualified Code(s): I95.2 - Hypotension due to drugs
[2024-02-20 07:26] LABS: Albumin Globulin Ratio 1.7 (0.9-2); Albumin Level 3.6 gm/dl (3.4-5.0); BUN Creatinine Ratio 12.1 (10-20); Bilirubin,Total 0.5 mg/dl (0.2-1.0); Calcium 7.4 mg/dl (8.6-10.3); Creatinine Clr Calc Pharmacy 70.2 ml/min; Est GFR (African American) 122.8 ml/min; Globulin 2.1 gm/dl (2.5-4.0); Magnesium 1.5 mg/dl (1.7-2.4); Total Protein 5.7 gm/dl (6.0-8.3)
[2024-02-20] MEDS ORDERED: POTASSIUM PHOS 3 MMOL/1 ML INFUSION IV STA (07:36)
[2024-02-20 07:56] LABS: Potassium 2.3 mmol/L (3.5-5.1)
[2024-02-20] MEDS: POTASSIUM CHLORIDE 20 MEQ/15 ML UDC PO SCH (08:44)
[2024-02-20] MEDS: MAGNESIUM SULFATE / D5W 1 GM/100 ML BAG IV SCH (08:55)
[2024-02-20] MEDS: POTASSIUM PHOSPHATE 30 MMOL in SODIUM CHLORIDE 0.9% 500 ML IV ONE (08:55)
[2024-02-20] MEDS: THIAMINE HCL 250 MG in SODIUM CHLORIDE 0.9% 50 ML IV SCH (09:37)
[2024-02-20] MEDS: POTASSIUM CHLORIDE CRTAB 20 MEQ TABCR PO SCH (09:52)
[2024-02-20 13:04] LABS: BUN Creatinine Ratio 8.4 (10-20); Calcium 7.7 mg/dl (8.6-10.3); Creatinine Clr Calc Pharmacy 49.1 ml/min; Est GFR (Non-African American) 81.1 ml/min; Potassium 3.5 mmol/L (3.5-5.1)
--- NOTE | 2024-02-20 17:13 | Billing Data ---
Date of Service February 20, 2024 Coding Level of Care Code 31993 SUB INP/OBS CARE
[2024-02-20 19:09] LABS: BUN Creatinine Ratio 11.8 (10-20); Calcium 7.6 mg/dl (8.6-10.3); Creatinine Clr Calc Pharmacy 43.8 ml/min; Est GFR (African American) 81.9 ml/min; Est GFR (Non-African American) 70.7 ml/min; Phosphorus 2.8 mg/dl (2.5-4.9); Potassium 2.8 mmol/L (3.5-5.1)
[2024-02-20] MEDS: POTASSIUM CHLORIDE CRTAB 20 MEQ TABCR PO STA (21:04)
[2024-02-20] MEDS: POTASSIUM CHLORIDE 20 MEQ/15 ML UDC PO STA (21:05)
[2024-02-21 06:38] LABS: BUN Creatinine Ratio 14.6 (10-20); Calcium 8.3 mg/dl (8.6-10.3); Creatinine Clr Calc Pharmacy 86.5 ml/min; Est GFR (African American) 130.7 ml/min; Est GFR (Non-African American) 112.8 ml/min; Magnesium 1.8 mg/dl (1.7-2.4); Phosphorus 2.7 mg/dl (2.5-4.9); Potassium 2.7 mmol/L (3.5-5.1)
--- NOTE | 2024-02-21 06:39 | Hospitalist Progress Note ---
Date of Service February 21, 2024 Assessment & Plan (1) Hyponatremia: (2) Multiple falls: (3) Hypotension: (4) Alcohol use disorder: (5) Hypokalemia: Plan Hyponatremia - poor po intake + alcohol use noted along with hx of HCTZ use - Similar symptoms with hyponatremia 121 admission in January - treated with good rate of increase with intermittent dosing of 50ml hypertonic saline then added NaCl 1g PO BID tabs therefore plan on the same - Na 113 on admission, now 127 - will continue to monitor and give gentle IVF as needed for appropriate increase, will hold HCTZ this admission due to hyponatremia Multiple electrolyte abnormalities Hypokalemia Hypomagnesemia Hypophosphoremia - question refeeding syndrome with poor po intake at home and multiple electrolyte issues with initiation of diet here - will replete as needed - K 2.7 today, repleting Multiple falls - Suspected due to hyponatremia and/or alcohol use - No one sided weakness to suspect stroke - CT head; no bleed, "Unchanged 6 mm opacity within the left sylvian fissure, 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 These are new from 01/23/2024. No retropulsion of fragments is seen...subacute/healing fractures of the sternal body and the right anterior 4th rib. Scattered tree-in-bud opacities throughout both lungs are likely inflammatory. Emphysema.... advanced atherosclerotic plaque and likely high- grade stenosis of the proximal abdominal aorta" - CT abd; "Mild acute superior endplate compression deformity of T11 without retropulsion. Acute-appearing mildly displaced left L2, L3 and L4 transverse process fractures. 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 - follows with Dr. Mary already for vascular disease - head/neck CTA on hold since pt had a bump in Cr during this stay, these may be best done as an outpatient Alcohol use disorder -AWSS with lorazepam at risk dosing although did not go through withdrawal during her prior admission therefore low suspicion this will occur this admission Hypotension, resolved - AM cortisol normal last admission - BPs have been permissible - continue home amlodipine, may end up adding OBDULIO/ARB as goal for her likely <130/90 assisted Admission and Anticipated Discharge Date Admission Date: February 17, 2024 Supervising Physician Co-Signing Physician Notes I personally examined the patient and verified all levin points of history and exam, discussed case, and agree with decision making with Dr Garcia feels better still, walking around better, hopeful for home soon. Vitals noted, in general she is awake and alert pleasant no distress. HEENT normocephalic atraumatic mucous membranes moist. Breathing unlabored no accessory muscle use good effort. Skin without rashes pallor or icterus. Neuro without focal deficits. Alcohol abuse/depressionsounds like it is coping for her grief. Tried to discuss other coping mechanisms/counseling/etc.she was receptive to family support, listening to music, doing housework, not necessarily very receptive to professional counseling. Does sound like she would like to abstain from alcohol. ongoing encouragement in this regard Hyponatremiaalcohol plus poor p.o. intakeimproving on normal salinehold for now, continue to follow closely. Hypokalemia/hypophosphatemia/hypomagnesemiapredominantly due to malnutrition and dilution effect from alcoholcontinue to replete - improving osteoporosis with multiple spinal fracturesoutpatient bone health management DVT prophylaxisambulation otherwise as above Subjective Today, pt states she is feeling okay. No chest pain or SOB. No nausea or vomiting. Hoping to go home soon to her cat Wishbone when possible. Has been up moving around a bit and has felt okay. No questions or complaints at this point. Review of Systems Review of Systems: Per HPI. Physical Exam Physical Exam: General:Alert and oriented, no acute distress, HEENT: Normocephalic, moist oral mucosa, Cardio: Regular rate and rhythm, Resp:Diminished air movement noted throughout lung coto, no wheezing or rhonchi GI: Soft and nontender, nondistended Skin: Warm, pink, dry, Results & Data Results & Data Vital Signs (Past 12 Hours) Vital Signs Temp Pulse Pulse Resp BP Pulse Ox Pulse Ox 02/21/24 03:03 36.7 C 91 H 16 166/97 H 95 02/20/24 23:52 90 02/20/24 23:49 36.9 C 91 H 22 163/95 H 94 02/20/24 22:00 02/20/24 19:06 36.5 C 92 H 18 157/88 H 98 02/20/24 19:00 94 O2 Del Method O2 Del Method 02/21/24 03:03 Room Air 02/20/24 23:52 02/20/24 23:49 Room Air 02/20/24 22:00 Room Air 02/20/24 19:06 Room Air 02/20/24 19:00 Room Air Resident Activity Tracking Resident Involvement: Resident Care Provided Care Provided: Adult Hospital Medicine (3) Hypotension Hypotension type: hypotension due to drug Qualified Code(s): I95.2 - Hypotension due to drugs
[2024-02-21] MEDS: POTASSIUM CHLORIDE CRTAB 20 MEQ TABCR PO SCH (07:30)
[2024-02-21 12:55] LABS: BUN Creatinine Ratio 14.8 (10-20); Calcium 8.9 mg/dl (8.6-10.3); Creatinine Clr Calc Pharmacy 76.9 ml/min; Est GFR (African American) 125.7 ml/min; Est GFR (Non-African American) 108.5 ml/min
--- NOTE | 2024-02-21 16:54 | Billing Data ---
Date of Service February 21, 2024 Coding Level of Care Code 47110 SUB INP/OBS CARE MIN
[2024-02-22 08:34] VITALS: BP 165/83; PULSE 91; RESP 18; TEMP 97.3; O2SAT 100
[2024-02-22 08:42] LABS: Creatinine Clr Calc Pharmacy 92.3 ml/min; Est GFR (African American) 133.5 ml/min; Est GFR (Non-African American) 115.2 ml/min; Magnesium 1.4 mg/dl (1.7-2.4); Phosphorus 3.1 mg/dl (2.5-4.9); Potassium 2.8 mmol/L (3.5-5.1)
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
[2024-02-22] MEDS: MAGNESIUM OXIDE 400 MG TAB PO ONE (11:17)
[2024-02-22] MEDS: POTASSIUM CHLORIDE CRTAB 20 MEQ TABCR PO STA (11:17)
--- NOTE | 2024-02-22 18:12 | Billing Data ---
Date of Service February 22, 2024 Coding Level of Care Code 61907 IN/OBS DISCH 30 MIN/LESS
== END 2024-02-22 13:09 | disposition home or self-care (01) | DRG 640 ==
LOC: ED 13:37 → 2E 17:58 → SUATTDRO 17:58 → 2E 18:56 → 3N 02-21 20:20

== ENCOUNTER 2024-02-29 14:05 | Inpatient (IN) ==
--- NOTE | 2024-02-29 14:18 | ED Triage Note ---
Date of Service February 29, 2024 Provider in Triage Author: Rl Amaro History of Present Illness This patient was briefly evaluated while in triage. An abbreviated physical exam was performed. 53 year-old Female who presents to the ED for evaluation recent admission for severe hyponatremia last week called to come back by [facility]-had labs yesterday "sodium, potassium, chloride" mild leg weakness, but overall feeling better than when she was admitted last week Physical Exam GENERAL: NAD in wheelchair CARDIOVASCULAR: RRR RESPIRATORY: CTA ABDOMEN: BS x 4. Nontender to palpation. Initial orders for labs and / or imaging were placed and patient was placed in the waiting area until a bed is available. Please see further documentation for the full ED course.
[2024-02-29 15:43] LABS: Alanine Aminotransferase 18 U/L (7-52); Albumin Globulin Ratio 1.6 (0.9-2); Alkaline Phosphatase 173 U/L (34-104); Anion Gap 17 (3-11); BUN Creatinine Ratio 8.6 (10-20); Bilirubin,Total 0.9 mg/dl (0.2-1.0); Blood Urea Nitrogen 6 mg/dl (6-23); Carbon Dioxide 32 mmol/L (21-32); Chloride 67 mmol/L (98-107); Est GFR (African American) 115.5 ml/min; Est GFR (Non-African American) 99.6 ml/min; Globulin 3.2 gm/dl (2.5-4.0); Glucose 92 mg/dl (70-99(Fasting)); Magnesium 1.8 mg/dl (1.7-2.4); Phosphorus 3.2 mg/dl (2.5-4.9); Sodium 116 mmol/L (136-145); Total Protein 8.2 gm/dl (6.0-8.3)
[2024-02-29 15:50] LABS: Potassium 2.9 mmol/L (3.5-5.1)
[2024-02-29 16:08] LABS: Basophils # (auto) 0.04 K/uL (0.00-0.20); Basophils % (auto) 0.4 %; Eosinophils # (auto) 0.03 K/uL (0.00-0.50); Eosinophils % (auto) 0.3 %; Hematocrit (blood only) 37.1 % (37.0-47.0); Hemoglobin 14.5 g/dl (12.0-16.0); Immature Granulocytes # (auto) 0.03 K/uL (0.01-0.20); Immature Granulocytes % (auto) 0.3 %; Lymphocytes # (auto) 1.15 K/uL (1.20-3.40); Lymphocytes % (auto) 11.5 %; Mean Corpuscular Hemoglobin 35.4 pg (25.0-34.0); Mean Corpuscular Hgb Conc 39.7 g/dL (32.0-36.0); Mean Corpuscular Volume 88.5 fL (80.0-100.0); Mean Platelet Volume 9.2 fL (9.4-12.4); Monocytes # (auto) 0.55 K/uL (0.11-0.59); Monocytes % (auto) 5.5 %; Neutrophils # (auto) 8.17 K/uL (1.40-6.50); Platelet Count 332 K/uL (130-400); Polychromasia 1+; RDW Coefficient of Variation 11.5 % (11.5-14.5); RDW Standard Deviation 36.2 fL (36.4-46.3); Red Blood Count 4.19 M/uL (4.20-5.40); White Blood Count 9.97 K/ul (4.8-10.8)
[2024-02-29 17:28] LABS: Appearance Urine Clear (Clear); Bacteria Urine Automated None Seen (None Seen); Bilirubin Urine Negative (Negative); Blood Urine Negative (Negative); Cast Urine Automated 0-2 /lpf (0-2); Color Urine Yellow; Epithelial Cell Urine Auto 0-2 /hpf (0-2); Glucose Urine UA Negative (Negative); Ketones Urine Trace (Negative); Leukocyte Esterase Urine Negative (Negative); Nitrite Urine Negative (Negative); Protein Urine 3+ (Negative); RBC Urine Automated 0-2 /hpf (0-2); Specific Gravity Urine 1.009 (1.000-1.030); Urobilinogen Urine Negative (Negative); WBC Urine Automated 0-5 /hpf (0-5); pH Urine 7.5 (4.5-7.5)
[2024-02-29] MEDS: POTASSIUM CHLORIDE / WTR 10 MEQ/100 ML PLCT IV ONE (17:36)
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
[2024-02-29] MEDS: POTASSIUM CHLORIDE CRTAB 20 MEQ TABCR PO STA ×3 (18:16→22:35)
[2024-02-29] MEDS: SODIUM CHLORIDE 0.9% 1,000 ML IV SCH (19:00)
[2024-02-29] MEDS: MAGNESIUM OXIDE 400 MG TAB PO STA (21:50)
[2024-02-29 21:52] LABS: BUN Creatinine Ratio 11.3 (10-20); Calcium 9.5 mg/dl (8.6-10.3); Creatinine Clr Calc Pharmacy 72.3 ml/min; Est GFR (African American) 126.5 ml/min; Est GFR (Non-African American) 109.2 ml/min; Potassium 2.3 mmol/L (3.5-5.1)
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
[2024-02-29] MEDS: POTASSIUM CHLORIDE 40 MEQ in SODIUM CHLORIDE 0.9% 1,000 ML IV SCH (22:34)
[2024-02-29] MEDS ORDERED: CETIRIZINE HCL 10 MG TABLET PO PRN (23:40)
[2024-03-01 04:23] LABS: BUN Creatinine Ratio 9.7 (10-20); Calcium 9.7 mg/dl (8.6-10.3); Creatinine Clr Calc Pharmacy 61.8 ml/min; Est GFR (African American) 120.2 ml/min; Est GFR (Non-African American) 103.7 ml/min; Potassium 3.8 mmol/L (3.5-5.1)
--- OUTSIDE RECORDS SUMMARY | 2024-03-01 04:56 | External Medical Summary | Summary of Care ---
Author Name Unknown Organization [facility] Address [address] [facility] [place] [address] Phone [phone] Care Team Providers Care Distributor Operator Name Role Phone Reyna Cowan Primary Care Provider [phone] Encounter Details Date Type Department Care Team (Late st Contact Info) Description 02/27/2024 Population Health External Data Unspecified Department Allergies Active Allergy Reactions Criticality Noted Date Comments Lisinopril 01/09/2004 cough documented as of this encounter (statuses as of 02/27/2024) Medications Medication Sig Dispensed Refills Start Date [...] % Nasal SolutionIndicatio ns:Chronic rhinitis Administer 1 [place] into nostril in the morning and 1 [place] before bedtime. 30 mL 12 12/13/2022 Active [...] as of this encounter (statuses as of 02/27/2024) Active Problems Problem Noted Date Diagnosed Date Hyperthyroidism 12/11/2021 History of breast cancer 07/04/2017 Dyslipidemia, goal to be determined 01/25/2014 CHRONIC NONALLERGIC RHINITIS 05/31/2003 Menstruation, irregular 04/25/2003 HTN, goal below 140/90 11/05/1997 Tobacco use disorder 11/05/1997 documented as of this encounter (statuses as of 02/27/2024) Resolved Problems Problem Noted Date Diagnosed Date [...] as of this encounter (statuses as of 02/27/2024) Immunizations Name Administration Dates Next Due COVID-19 [...] Care Team (Late st Contact Info) Description 03/09/2024 2:00 PM EDT Imaging Vascular Lab, [address] [place] [address] 03/12/2024 7:30 AM EDT Imaging Vascular Lab, [address] [place] [address] 03/14/2024 2:30 PM EDT Office Visit Vascular Surgery, [address] [place] [address] Sadiq Esteves MD [address] [place] [address] Scheduled Procedures Name Priority Associated [...] filedocumented as of this encounter Care Teams Distributor Operator Relationship Specialty Start Date End Date Reyna Cowan CRNP [address] [facility] [place] [address] PCP - General Nurse Practitioner 01/05/24 documented as of this encounter
--- OUTSIDE RECORDS SUMMARY | 2024-03-01 04:56 | External Medical Summary | Continuity of Care Document ---
Author Name Unknown Organization [facility] [address] [address] [place] [phone] Care Team Providers Care Plaster Applicator Name Role Phone Reyna Cowan Primary Care Physician [phone] [id number] Date(s): 02/23/24 - 02/23/24 [facility] [address] [place] [address] Medical Group [address] [phone] Encounter Diagnosis Other disorders of electrolyte and fluid balance, not elsewhere classified (Final) - Hypokalemia(Final) - Hypomagnesemia(Final) - Discharge Disposition: Home or Self Care Attending [...] 06/21/74 Re corded diphtheria/pertussis, whole cell/tetanus 11 3/11/75 Recorded diphtheria/pertussis, whole cell/tetanus 12 07/01/74 Recorded [...] Daily, Disp# 30 tab, Refills: 11, Pharmacy: [id number] Start Date: 09/12/23 Status: Ordered aspirin 81 mg oral delayed release tablet Start: 12/30/23 1:15:00 PM EDT, 1 tab, PO, Daily Start Date: 12/30/23 Status: Ordered atorvastatin 40 mg oral tablet Start: 02/23/24 8:52:00 AM EDT, 1 tab, PO, Daily Start Date: 02/23/24 Status: Ordered azelastine 205.5 mcg/inh (0.15%) nasal spray Start: 04/13/23 4:54:00 PM EDT, 1 spray, each nostril, bid, PRN: allergy symptoms Start Date: 04/13/23 Status: Ordered diphenhydrAMINE 25 mg oral tablet Start: 04/13/23 4:56:00 PM EDT, 1 tab, PO, q6h, PRN: as needed for itching Start Date: 04/13/23 Status: Ordered fluticasone-salmeterol Diskus 100 mcg-50 mcg Start: 04/13/23 4:53:00 PM EDT, 1 puff, inhaled, bid Start Date: 04/13/23 Status: Ordered folic acid Start: 02/23/24 8:51:00 AM EDT Start Date: 02/23/24 Status: Ordered Mag-Ox 400 Start: 02/23/24 8:50:00 AM EDT Start Date: 02/23/24 Status: Ordered multivitamin Start: 04/13/23 5:06:00 PM EDT, 1 tab, PO, Daily Start Date: 04/13/23 Status: Ordered Potassium Chloride (Eqv-K-Tab) Start: 04/13/23 4:58:00 PM EDT, See Instructions, 40 mEq PO BID Start Date: 04/13/23 Status: Ordered ZyrTEC 10 mg oral tablet Start: 04/13/23 5:10:00 PM EDT, 1 tab, PO, Daily, PRN: as needed for allergy symptoms Start Date: 04/13/23 Status: Ordered Problem List Condition Confirmation Course Effective Dates Status H ealth Status Informant Atherosclerosis Confirmed Active Stenosis of aorta Confirmed Active HTN (hypertension) Confirmed Active Hyperthyroidism Confirmed Active Breast CA Confirmed Active Renal artery stenosis Confirmed Active Subclavian artery stenosis Confirmed Active Tobacco user Confirmed Active Procedures Procedure Date Related Diagnosis Body Site [...] 5left 6left 7Lap; Fulguration oviducts, Ligate/cut oviduct Results Laboratory List Name Date Basic Metabolic Panel (BASIC METAB PANEL ) 02/23/24 Magnesium Level (MAGNESIUM) 02/23/24 Most recent to oldest [Reference Range]: 1 eGFR CKD-EPI [>60 mL/min/1.73 m2] 62 mL/ min/1.73 m2 (02/23/24 2:03 PM) Estimated CrCl 38.19 mL/min (02/23/24 9:46 PM) Anion Gap [5-14 mmol/L] 12 mmol/L (02/23/24 2:03 PM) BUN [6-23 mg/dL] 21 mg/dL (02/23/24 2:03 PM) Ca [8.4-10.2 mg/dL] 9.6 mg/dL (02/23/24 2:03 PM) Cl- [98-107 mmol/L] 85 mmol/L *LOW* (02/23/24 2:03 PM) HCO3 [22-29 mmol/L] 28 mmol/L (02/23/24 2:03 PM) Cret [0.60-1.00 mg/dL] 1.08 mg/dL *HI* (02/23/24 2:03 PM) Glu [74-109 mg/dL] 94 mg/dL 1 (02/23/24 2:03 PM) K [3.5-5.1 mmol/L] 4.8 mmol/L (02/23/24 2:03 PM) Mg [1.6-2.6 mg/dL] 1.9 mg/dL (02/23/24 2:03 PM) Na [136-145 mmol/L] 125 mmol/L *LOW* (02/23/24 2:03 PM) 1Result Comment: ADA recommendation for FASTING Serum/Plasma Glucose: Normal: 70-100 mg/dL Prediabetes: 100-125 mg/dL Diabetes: 126 mg/dL or higher Social History Social History Type Response Tobacco Current every day sm oker, Cigarettes, 39 year(s). Smoking Status Current some day hea vy smoker Sex Female Sex Representation Female (finding) Patient Care team information Care Team Personnel Name: MARIBELL Cowan Tara Position: Nurse Pract - Family Med Member Role: Primary Care Provider Address: [address] [place] [address] [place] Name: SALMA Salguero Lynn Position: Physician Rapid Extractor Operator Exempt - Vasc Surg Member Role: Lifetime Relationship Address: [address] [place] [id number] Care Team Related Persons Name: ELLY MAZARIEGOS
--- OUTSIDE RECORDS SUMMARY | 2024-03-01 04:56 | External Medical Summary | Continuity of Care Document ---
Author Name Unknown Organization [facility] [id number] [address] [place] [address] [id number] Care Team Providers Care Plant Sprayer Name Role Phone Reyna Cowan Primary Care Physician [phone] Encounter [facility] [id number] Date(s): 02/23/24 - 02/23/24 [facility] [address] [facility] [address] [place] [id number] [place] [phone] Encounter Diagnosis Hyponatremia(Discharge Diagnosis) - 02/23/24 Hypokalemia(Discharge Diagnosis) - 02/23/24 Physical deconditioning(Discharge Diagnosis) - 02/23/24 Grief reaction with prolonged bereavement(Discharge Diagnosis) - 02/24/24 Alcohol dependency(Discharge Diagnosis) - 02/24/24 Discharge Disposition: Home or Self Care Attending Physician: DO Rhodes Gretchen Elizabeth Allergies, Adverse Reactions, Alerts Substance Criticality Severity Reaction Reaction Severity Status lisinopril cough Active Assessment and Plan Extracted from: Title:Office Visit Note Author:DO Beard Pa ige M Date:02/23/24 1.Hyponatremia Chronic condition not at goal/exacerbated/progressive/side effects of treatment Goal: Resolution Data:external notes including: _MNMCDischargeSummary Plan: Encouraged proper nutrition and adequate calorieintake as well as significant reduction in alcohol consumption to help stabilize electrolyte abnormalities. Plan for repeat BMP, Mag within the next day. 2.Hypokalemia Chronic condition not at goal/exacerbated/progressive/side effects of treatment Goal: Resolution Data:external notes including: _ Plan: Continue KCl 40mg BID, will recheck BMP within the next day. Plan for 2 week [address] up with [address]. Garcia. 3.Physical deconditioning Chronic condition not at goal/exacerbated/progressive/side effects of treatment Goal: Resolution Data: N/A Plan: Patient desires to go back to work (works at [employer]) but this requires standing for extended periods. Will send referral for PT to help build strength and endurance with the end goal of returning to work (will provide work note until March for now). Referral to care management associate placed due to patient having concerns for coverage of PT (home PT vs outpatient and what she qualifies for) as her insurance through [employer] will be expiring. 4.Grief reaction with prolonged bereavement Encouraged connection with her nearby cousin for support. Discussed changing around her living environment to help her adjust back to home more easily. 5.Alcohol dependency Chronic condition not at goal/exacerbated/progressive/side effects of treatment Goal: Resolution Data: N/A Plan: Heavy alcohol consumption since the of her earlier this year. Discussed extensivelyhow her alcohol consumption is contributing directly to her electrolyte issues/malnutrition and weakness. Immunizations Given and Recorded Vaccine Date Status [...] Daily, Disp# 30 tab, Refills: 11, Pharmacy: [id number] Start Date: 09/12/23 Status: [...] Start Date: 04/13/23 Status: Ordered Mental Status 02/23/24 Barriers to Learning one year None evide nt Mandatory Health Literacy Documentation Yes Health Literacy Communication Barriers N ever Primary Language Bangladeshi Problem List Condition Confirmation Course Effective Dates Status H ealth Status Informant Atherosclerosis Confirmed Active Stenosis of aorta Confirmed Active HTN (hypertension) Confirmed Active Hyperthyroidism Confirmed Active Breast CA Confirmed Active Renal artery stenosis Confirmed Active Subclavian artery stenosis Confirmed Active Tobacco user Confirmed Active Diagnosis Diagnosis Type Effective Dates Health Status Clinical Service Informant Hyponatremia Discharge Diagnosis 02/23/24 Non-Specified Hypokalemia Discharge Diagnosis 02/23/24 Non-Specified Physical deconditioning Discharge Diagnosis 02/23/24 Non-Specified Grief reaction with prolonged bereavement Discharge Diagnosis 02/24/24 Non-Specified Alcohol dependency Discharge Diagnosis 02/24/24 Non-Specified Procedures Procedure Date Related Diagnosis Body [...] Most recent to oldest [Reference Range]: 1 Patient Weight 39.7 kg (02/23/24 1:00 PM) Temperature [36.5-37.9 DegC] 36.7 DegC (02/23/24 1:00 PM) Blood Pressure 90/62mmHg (02/23/24 1:00 PM) BP Location # 1 Left Arm (02/23/24 1:00 PM) Social History Social History Type Response Tobacco Current every day sm oker, Cigarettes, 39 year(s). Smoking Status Current some day hea vy smoker Sex Female Sex Representation Female (finding) FCM Outpt Note * DO Edge Franklin J: MODIFY DO Edge Franklin J: MODIFY Event Display: FCM Outpt Note Authored Date: Chief Complaint Here for [facility] admission f/u. History of Present Illness Ramiro Mazariegos is a 53 year-old female who presents today for hospital discharge follow up. She was admitted to [facility] from 02/16-02/22/24 due to weakness/recurrent falls and significant electrolyteabnormalities due to malnutrition.She isaccompaniedby hercousin today. Electrolyte Abnormalities| Hypokalemia | Hyponatremia -Was prescribed to take supplements to maintain electrolyte levels at discharge, hasbeen taking daily magnesium oxide and KCl (40mg BID) -States she still hasn't felt very hungry, but has been doing her best to eat something at each meal. Had a cheese omelette for breakfast today Weakness -No falls at home since discharged yesterday, still feels very weak and can only stand/walk for shorter distances -However her cousin states she has noticed an improvement compared to before admission Grief - of 20+ years this May, has been struggling since his -Has been consuming alcohol to help cope with the pain/loss -No history of alcohol withdrawals -Has not had any alcohol since arriving home. Her cousin notes that she was tempted to throw away her alcohol but decided that Ramiro needs to makethis decision on her own. Physical Exam Vitals & Measurements T:36.7C BP:90/62 SpO2:96% WT:39.7kg WT:39.700kg(Dosing) PHQ2 Data(Data Documented on:02/23/2024 12:52) Emotional health assessment POSITIVE PHQ-9 Data(Data Documented on:02/23/2024 12:55) PHQ-9 Severity Score:16 Thoughts that you would be better off or of hurting yourself in some way?Not at All Depression Risk:Elevated General Anxiety Disorder Screening: JULIO-7 Score:3 JULIO-7 Problem Severity:Somewhat Difficult General:Alert and oriented, No acute distress. Frail appearing. HEENT:Normocephalic,Nl gross hearing, moist oral mucosa Cardiovascular:Normal rate, Regular rhythm, No murmur, No gallop. Respiratory:Lungs are clear to auscultation, Respirations are non-labored, Breath sounds are equal Musculoskeletal: Seated in wheelchair Integumentary:Warm, Dry, [place].Ecchymosis atbilateralupperextremities Psych:Mood-affect congruence. Tearful at times Assessment/Plan 1.Hyponatremia Chronic condition not at goal/exacerbated/progressive/side effects of treatment Goal: Resolution Data:external notes including: _MNMCDischargeSummary Plan: Encouraged proper nutrition and adequate calorieintake as well as significant reduction in alcohol consumption to help stabilize electrolyte abnormalities. Plan for repeat BMP, Mag within thenext day. 2.Hypokalemia Chronic condition not at goal/exacerbated/progressive/side effects of treatment Goal: Resolution Data:external notes including: _ Plan: Continue KCl 40mg BID, will recheck BMP within the next day. Plan for [address] up [address] Garcia. 3.Physical deconditioning Chronic condition not at goal/exacerbated/progressive/side effects of treatment Goal: Resolution Data: N/A Plan: Patient desires to go back to work (works at [employer]) but this requires standingfor extended periods. Will send referral for PT to help build strength and endurance with the end goal of returning to work (will provide work note until March for now). Referral to care management associate placed due to patient having concerns for coverage of PT (home PT vs outpatient and what she qualifiesfor) as her insurance through [employer] will be expiring. 4.Grief reaction with prolonged bereavement Encouraged connection with her nearby cousin for support. Discussed changing around her living environment to help her adjust back to home more easily. 5.Alcohol dependency Chronic condition not at goal/exacerbated/progressive/side effects of treatment Goal: Resolution Data: N/A Plan: Heavy alcohol consumption since the of her earlier this year. Discussed extensivelyhow her alcohol consumption is contributing directly to her electrolyte issues/malnutrition and weakness. Attestation I also saw the patient confirmed levin portions of the clinical history physical examination. I agree with the impression and plan as in the resident documentation above. Problem List/Past Medical History Ongoing Atherosclerosis Breast [...] tablet), 81 mg= 1 tab, PO, Daily atorvastatin(atorvastatin 40 mg oral tablet), 40 mg= 1 tab, PO, Daily azelastine nasal(azelastine 205.5 mcg/inh (0.15%) nasal spray), 1 spray, each nostril, bid, PRN cetirizine(ZyrTEC 10 mg oral tablet), 10 mg= 1 tab, PO, Daily, PRN diphenhydrAMINE(diphenhydrAMINE 25 mg oral tablet), 25 mg= 1 tab, PO, q6h, PRN fluticasone-salmeterol(fluticasone-salmeterol Diskus 100 mcg-50 mcg), 1 puff, inhaled, bid folic acid magnesium oxide(Mag-Ox 400) multivitamin, 1 tab, PO, Daily potassium chloride(Potassium Chloride (Eqv-K-Tab)), See Instructions Allergies lisinoprilcough Social History Smoking Status Current some day heavy smoker Alcohol Use:Current Type:Beer Frequency:Daily Employment/School Status:Employed Description:[employer] Exercise Times per week:5-6 times/week Self assessment:Poor [...] Recommendations Health Maintenance Pending(in the next year) OverDue Adult Influenza Vaccine due12/11/23and every 1year Due Adult COVID-19 Vaccination due02/24/24Unknown Frequency Adult Social Determinants of Health Screening due02/24/24Unknown Frequency Cervical Cancer Screening due02/24/24Unknown Frequency Colorectal Cancer Screening due02/24/24Unknown Frequency Hepatitis C Screening due02/24/24One-time only Pneumococcal Vaccine Adults and Adolescents with Chronic Illness due02/24/24One-time only Shingles Vaccine due02/24/24One-time only Due In Future Breast Cancer Screening not due until02/09/25and every 731day Satisfied(in the past 1 year) Satisfied Body Mass Index on12/30/23.Satisfied by BOBY Green Bobbi Depression Follow Up Plan on02/23/24.Satisfied by FRIEDA Julien Paula Lipid Screening on04/14/23.Satisfied by Contributor_system, [employer] Electronic Signature on File Electronically Reviewed/Signed by: Violetta Beard Author Signature Dt/Tm:02/24/2024 12:02 AM Resident Department of Family Medicine Electronically Reviewed/Signed by: DO Chelsie Tran Signature Dt/Tm: 02/24/2024 07:56AM Department of Family Medicine PMW Patient Care team information Care Team Personnel Name: MARIBLEL Cowan Tara Position: Nurse Pract - Family Med Member Role: Primary Care Provider Address: [address] [place] [id number] Name: SALMA Salguero Lynn Position: Physician Molded Goods Inspector Trimmer Exempt - Vasc Surg Member Role: Lifetime Relationship Address: [address] [place] [address] [address] [place] [address] [place] Care Team Related Persons Name: ELLY MAZARIEGOS"
--- NOTE | 2024-03-01 05:52 | Communication Note ---
Date of Service: March 01, 2024 Na 116-> 127 over the past 14 hours. Plan to give D5W x 500mL @ 80ml/hr. Repeat BMP once completed at 1200.
--- NOTE | 2024-03-01 06:42 | Electrocardiogram Report ---
Test Reason : Blood Pressure : */* mmHG Vent. Rate : 84 BPM Atrial Rate : 84 BPM P-R Int : 120 ms QRS Dur : 84 ms QT Int : 412 ms P-R-T Axes : -16 34 -26 degrees QTcB Int : 486 ms Normal sinus rhythm with sinus arrhythmia Abnormal QRS-T angle, consider primary T wave abnormality Prolonged QT Abnormal ECG When compared with ECG of 17-Feb-2024 14:14, ST no longer elevated in Inferior leads T wave inversion now evident in Inferior leads Confirmed by Cristhian Fofana ([id number]) on 03/01/2024 6:41:54 AM Referred By: Confirmed By: Cristhian Fofana
[2024-03-01] MEDS: DEXTROSE 5% 500 ML IV ONE (06:53)
--- NOTE | 2024-03-01 06:57 | XRay Report ---
XR shoulder RT min 2V routine HISTORY: 53 years-old Female right AC joint pain acute pain of the right shoulder COMPARISON: Chest CT 02/17/2024 TECHNIQUE: 3 views of the right shoulder FINDINGS: There is a subacute obliquely oriented extra-articular distal right clavicular fracture with approxim ately 6 mm superior displacement of the proximal fragment. There is separation of the fracture fragme nts measuring up to 7 mm without significant bony healing. The displacement appears to have worsened from the prior study. Normal appearance of the glenohumeral joint. IMPRESSION: Subacute displaced extra-articular distal clavicular fracture demonstrates no significant bony bridging and worsening displacement compared to the chest CT from 02/17/2024. ACT 112: Negative or not required by law. The above report was generated using voice recognition software. It may contain grammatical, syntax o r spelling errors. Electronically signed by: Rafa Laura M.D. 03/01/2024 6:56 AM
[2024-03-01] MEDS: FLUTICASONE/VILANTEROL 100/25MCG 14 PUFFS/INHALER INH SCH (08:08)
[2024-03-01] MEDS: POTASSIUM CHLORIDE CRTAB 20 MEQ TABCR PO STA (08:09)
[2024-03-01] MEDS: POTASSIUM CHLORIDE CRTAB 20 MEQ TABCR PO SCH (08:09)
[2024-03-01] MEDS: ASPIRIN 81 MG ECTAB PO SCH (08:10)
[2024-03-01] MEDS: MAGNESIUM OXIDE 400 MG TAB PO SCH (08:10)
[2024-03-01] MEDS: FOLIC ACID 1 MG TAB PO SCH (08:10)
[2024-03-01] MEDS: ATORVASTATIN 40 MG TAB PO SCH (08:10)
[2024-03-01] MEDS: amLODIPine BESYLATE 5 MG TAB PO SCH (08:10)
[2024-03-01] MEDS: MULTIVITAMIN TAB PO SCH (08:10)
[2024-03-01] MEDS: POTASSIUM CHLORIDE / WTR 10 MEQ/100 ML PLCT IV ONE (08:15)
[2024-03-01 08:52] LABS: Magnesium 1.8 mg/dl (1.7-2.4)
[2024-03-01] MEDS ORDERED: POTASSIUM CHLORIDE CRTAB 20 MEQ TABCR PO SCH ×2 (09:00)
[2024-03-01 09:10] LABS: BUN Creatinine Ratio 10.3 (10-20); Calcium 9.6 mg/dl (8.6-10.3); Creatinine Clr Calc Pharmacy 66.1 ml/min; Est GFR (African American) 122.8 ml/min; Potassium 4.2 mmol/L (3.5-5.1)
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
[2024-03-01 12:26] LABS: BUN Creatinine Ratio 13.3 (10-20); Creatinine Clr Calc Pharmacy 63.9 ml/min; Est GFR (African American) 121.5 ml/min; Est GFR (Non-African American) 104.8 ml/min; Potassium 3.6 mmol/L (3.5-5.1)
[2024-03-01 15:29] LABS: BUN Creatinine Ratio 11.1 (10-20); Calcium 8.6 mg/dl (8.6-10.3); Creatinine Clr Calc Pharmacy 38.7 ml/min; Est GFR (African American) 75.9 ml/min; Est GFR (Non-African American) 65.5 ml/min; Potassium 3.9 mmol/L (3.5-5.1)
--- NOTE | 2024-03-01 16:44 | Hospitalist Progress Note ---
Date of Service March 01, 2024 Assessment & Plan (1) Acute hyponatremia: Plan: Na: 121-->127-->124-->125. Asymptomatic. Plan: Fluid restriction Monitor Na. f/u labs Present on Admission?: Yes (2) Acute hypokalemia: Plan: K 2.3-->3.8-->4.2-->3.6 EKG NSR, no U waves. Plans: check AM labs Tele Present on Admission?: Yes (3) Arthralgia of right acromioclavicular joint: Plan: c/o right shoulder pain. Hx of fall in the past. No swelling, minimal restricted movements due to pain Xray report:Subacute displaced extra-articular distal clavicular fracture demonstrates no significant bony bridging and worsening displacement compared to the chest CT from 02/17/2024. Plan: Ortho on board Pain control prn (4) Hypertension: Plan: C/w Amlodipine Monitor Admission and Anticipated Discharge Date Admission Date: February 29, 2024 Supervising Physician Co-Signing Physician Notes Attending Physician Supervision Note: I independently interviewed and examined the patient and verified the levin history and physical, reviewed labs and image studies and agree with findings and care plan noted above. Severe Hyponatremia - Has cut down on alc intake since last admission. Possibly excess free water intake. -Reports not taking HCTZ anymore as directed since recent discharge. -Continue to limit water intake. -monitor BMP q6. sudden rise this am - received free water. -To add salt tablet on discharge Severe Hypokalemia - EKG normal. Repleted K. Levels normalized. -continue KCL 40meq TID for now. Right clavicle # -Ortho consulted - no intervention. AUD -No sign of withdrawal. Discussed Naltrexone - seems reluctant to any meds. -Will approach again in am. HTN - On amlodipine. Severe protein-calorie malnutrition, BMI 14.9 kg/m*m -consult Construction Coordinator Subjective Pt was seen and evaluated by the bedside this morning. Pt says she is feeling OK. AOx3. Patient denies headache,imbalance,confusion,tremors,swallowing or speech problems. Review of Systems Review of Systems: Constitutional: denies fever, chills. HEENT: denies congestion, sore throat Cardio: denies chest pain, palpitations Resp: denies shortness of breath, cough GI: denies abdominal pain, nausea, vomiting, constipation, diarrhea : denies pain with urination, change in urinary frequency Neuro: denies new numbness, tingling Physical Exam Physical Exam: General:Alert and oriented, no acute distress. HEENT: Normocephalic, moist oral mucosa, Cardio: Regular rate and rhythm, no murmur, Resp:Lungs clear to auscultation b/l, no wheezes or rhonchi, GI: Soft and nontender, nondistended, bowel sounds active Skin: Warm, pink, dry, Results & Data Results & Data Vital Signs (Past 12 Hours) Vital Signs Pulse Resp BP Pulse Ox O2 Del Method O2 Flow Rate 03/01/24 15:00 83 03/01/24 13:05 99 03/01/24 08:20 Nasal Cannula 3 03/01/24 08:05 90 15 162/100 H 92 Nasal Cannula 3 Resident Activity Tracking Resident Involvement: Resident Care Provided Care Provided: Adult Hospital Medicine (4) Hypertension Hypertension type: unspecified Qualified Code(s): I10 - Essential (primary) hypertension
[2024-03-02 01:11] LABS: Calcium 8.9 mg/dl (8.6-10.3); Creatinine Clr Calc Pharmacy 46.8 ml/min; Est GFR (African American) 95.4 ml/min; Est GFR (Non-African American) 82.3 ml/min; Potassium 2.8 mmol/L (3.5-5.1)
[2024-03-02] MEDS: POTASSIUM CHLORIDE CRTAB 20 MEQ TABCR PO STA ×2 (03:21→07:39)
[2024-03-02 06:29] LABS: Albumin Globulin Ratio 1.6 (0.9-2); Albumin Level 3.9 gm/dl (3.4-5.0); BUN Creatinine Ratio 18.3 (10-20); Bilirubin,Total 0.6 mg/dl (0.2-1.0); Calcium 9.1 mg/dl (8.6-10.3); Creatinine Clr Calc Pharmacy 63.9 ml/min; Est GFR (African American) 121.5 ml/min; Est GFR (Non-African American) 104.8 ml/min; Globulin 2.4 gm/dl (2.5-4.0); Potassium 3.1 mmol/L (3.5-5.1); Total Protein 6.3 gm/dl (6.0-8.3)
--- NOTE | 2024-03-02 07:07 | Hospitalist Progress Note ---
Date of Service March 02, 2024 Assessment & Plan (1) Acute hyponatremia: Plan: Pt responding well to treatment. Na: 121-->127-->124-->125-->126-->129-->128 Asymptomatic. Plan: c/w Fluid restriction Monitor Na. f/u labs q6h (2) Acute hypokalemia: Plan: Improving gradually. K 2.3-->3.8-->4.2-->3.6-->2.8-->3.1--4.9. Plans: check AM labs Tele (3) Arthralgia of right acromioclavicular joint: Plan: Pain bit better today c/o right shoulder pain. Hx of fall in the past. Xray report:Subacute displaced extra-articular distal clavicular fracture demonstrates no significant bony bridging and worsening displacement compared to the chest CT from 02/17/2024. Ortho r/tiffany - No intervention at this time. Pain control prn (4) Hypertension: Plan: C/w Amlodipine Monitor Admission and Anticipated Discharge Date Admission Date: February 29, 2024 Supervising Physician Co-Signing Physician Notes Attending Physician Supervision Note: I independently interviewed and examined the patient and verified the levin history and physical, reviewed labs and image studies and agree with findings and care plan noted above. Severe Hyponatremia - 116 on arrival. Has cut down on alc intake since last admission. Possibly excess free water intake. -Continue to limit water intake. -Levels fluctuating. Will add salt tablets now and monitor Na level -To continue salt tablet on discharge Severe Hypokalemia - On admission. K normalized. -continue KCL 40meq TID for now. Right clavicle # -Ortho consulted - no intervention. AUD -No sign of withdrawal. Discussed Naltrexone - Didn't resist the discussion today. -Will approach again in am. HTN - On amlodipine. Severe protein-calorie malnutrition, BMI 14.9 kg/m*m -Per Hydraulic Technician - added gelatin and crackers. continue MVI UA with 3+ protein - recheck. Subjective Pt was seen and evaluated by the bedside this morning. Pt says she is feeling OK. AOx3. Patient denies headache,imbalance,confusion,tremors,swallowing or speech problems. Interval history: Pt says that she takes her medications on her own and she has stopped taking HCTZ since last admission few weeks ago. Review of Systems Review of Systems: Constitutional: denies fever, chills. HEENT: denies congestion, sore throat Cardio: denies chest pain, palpitations Resp: denies shortness of breath, cough GI: denies abdominal pain, nausea, vomiting, constipation, diarrhea : denies pain with urination, change in urinary frequency Neuro: denies new numbness, tingling Physical Exam Physical Exam: General:Alert and oriented, no acute distress. HEENT: Normocephalic, moist oral mucosa, Cardio: Regular rate and rhythm, no murmur, Resp:Lungs clear to auscultation b/l, no wheezes or rhonchi, GI: Soft and nontender, nondistended, bowel sounds active Skin: Warm, pink, dry, Results & Data Results & Data Vital Signs (Past 12 Hours) Vital Signs Temp Pulse Pulse Resp BP Pulse Ox O2 Del Method 03/02/24 04:15 36.7 C 84 18 166/92 H 97 Room Air 03/01/24 23:14 36.9 C 85 19 166/87 H 94 Room Air 03/01/24 22:59 91 H 03/01/24 21:11 Room Air 03/01/24 20:18 37.2 C 92 H 18 153/90 H 95 Room Air Resident Activity Tracking Resident Involvement: Resident Care Provided Care Provided: Adult Hospital Medicine (4) Hypertension Hypertension type: unspecified Qualified Code(s): I10 - Essential (primary) hypertension
[2024-03-02 12:19] LABS: Albumin Level 3.9 gm/dl (3.4-5.0); Bilirubin,Total 0.5 mg/dl (0.2-1.0); Calcium 9.3 mg/dl (8.6-10.3); Magnesium 1.5 mg/dl (1.7-2.4); Potassium 4.9 mmol/L (3.5-5.1)
[2024-03-02 12:28] LABS: Albumin Globulin Ratio 1.7 (0.9-2); Creatinine Clr Calc Pharmacy 81.6 ml/min; Est GFR (African American) 131.6 ml/min; Est GFR (Non-African American) 113.6 ml/min; Globulin 2.3 gm/dl (2.5-4.0); Total Protein 6.2 gm/dl (6.0-8.3)
[2024-03-02] MEDS: MAGNESIUM SULFATE / D5W 1 GM/100 ML BAG IV ONE (17:19)
[2024-03-02 17:40] LABS: BUN Creatinine Ratio 18.4 (10-20); Calcium 9.5 mg/dl (8.6-10.3); Creatinine Clr Calc Pharmacy 44.1 ml/min; Est GFR (African American) 88.8 ml/min; Est GFR (Non-African American) 76.6 ml/min; Potassium 4.4 mmol/L (3.5-5.1)
[2024-03-02] MEDS: SODIUM CHLORIDE 1 GM TABLET PO SCH (20:53)
[2024-03-02 22:53] LABS: Appearance Urine Clear (Clear); Bacteria Urine Automated None Seen (None Seen); Bilirubin Urine Negative (Negative); Blood Urine Negative (Negative); Cast Urine Automated 0-2 /lpf (0-2); Color Urine Yellow; Epithelial Cell Urine Auto 0-2 /hpf (0-2); Glucose Urine UA 1+ (Negative); Ketones Urine Negative (Negative); Leukocyte Esterase Urine Negative (Negative); Nitrite Urine Negative (Negative); Protein Urine 2+ (Negative); RBC Urine Automated 0-2 /hpf (0-2); Urobilinogen Urine Negative (Negative); WBC Urine Automated 0-5 /hpf (0-5)
[2024-03-03 00:23] LABS: BUN Creatinine Ratio 24.2 (10-20); Calcium 8.8 mg/dl (8.6-10.3); Creatinine Clr Calc Pharmacy 42.1 ml/min; Est GFR (African American) 84.1 ml/min; Est GFR (Non-African American) 72.5 ml/min; Potassium 3.7 mmol/L (3.5-5.1)
[2024-03-03 06:28] LABS: BUN Creatinine Ratio 26.8 (10-20); Calcium 9.2 mg/dl (8.6-10.3); Creatinine Clr Calc Pharmacy 69.6 ml/min; Est GFR (African American) 124.2 ml/min; Est GFR (Non-African American) 107.2 ml/min; Magnesium 1.5 mg/dl (1.7-2.4); Potassium 2.8 mmol/L (3.5-5.1)
[2024-03-03] MEDS: POTASSIUM CHLORIDE CRTAB 20 MEQ TABCR PO STA (08:27)
[2024-03-03] MEDS: MAGNESIUM SULFATE / D5W 1 GM/100 ML BAG IV SCH (08:59)
--- NOTE | 2024-03-03 11:14 | Hospitalist Progress Note ---
Date of Service March 03, 2024 Assessment & Plan (1) Acute hyponatremia: Plan: Pt Na level showed improvement from 116 to around 128-129 but No further improvement. Na: 121-->127-->124-->125-->126-->129-->127-->128-->127 Asymptomatic. Plan: c/w Fluid restriction Nephro onboard. Added spironolactone 25mg OD Monitor labs f/u labs q12h (2) Acute hypokalemia: Plan: Improving gradually. K 2.3-->3.8-->4.2-->3.6-->2.8-->3.1--4.9-->3.7-->2.8-->3.8 Plans: check labs q12h Replete Tele (3) Arthralgia of right acromioclavicular joint: Plan: Pain under control with meds c/o right shoulder pain. Hx of fall in the past. Xray report:Subacute displaced extra-articular distal clavicular fracture demonstrates no significant bony bridging and worsening displacement compared to the chest CT from 02/17/2024. Ortho r/tiffany - No intervention at this time. Pain control prn (4) Hypertension: Plan: C/w Amlodipine added Spironolactone 25mg OD Monitor Admission and Anticipated Discharge Date Admission Date: February 29, 2024 Supervising Physician Co-Signing Physician Notes Attending Physician Supervision Note: I independently interviewed and examined the patient and verified the levin history and physical, reviewed labs and image studies and agree with findings and care plan noted above. Severe Hyponatremia - 116 on arrival. Repeated episodes of critical hypoNa. Has cut down on alc intake since last admission. + Excess free water intake since cutting down alc intake. Na level staying around 126-128. Nephro consulted -Add spironolactone 25mgs, increase as tolerated. -add urea sodium and if sodium improved then slowly decrease salt tab. -Continue to limit water intake - 1200ml. -BMP q12 -Improve nutrition. Severe Hypokalemia - On admission. K dropped again this am. -spironolactone added. -continue KCL 40meq TID for now. Mouth breathing - likely causing dry mouth leading to excess alc use. -Biotin mouth spray. Right clavicle # -Ortho consulted - no intervention. AUD -No sign of withdrawal. Discussed Naltrexone HTN - On amlodipine. Severe protein-calorie malnutrition, BMI 14.9 kg/m*m -Per Schedule Maker - added gelatin and crackers. continue MVI Ambulating in room. Subjective Pt was seen and evaluated by the bedside this morning. Pt says she is feeling OK. AOx3. Patient denies headache,imbalance,confusion,tremors,swallowing or speech problems. No acute events overnight. Review of Systems Review of Systems: Constitutional: denies fever, chills. HEENT: denies congestion, sore throat Cardio: denies chest pain, palpitations Resp: denies shortness of breath, cough GI: denies abdominal pain, nausea, vomiting, constipation, diarrhea : denies pain with urination, change in urinary frequency Neuro: denies new numbness, tingling Physical Exam Physical Exam: General:Alert and oriented, no acute distress. HEENT: Normocephalic, moist oral mucosa, Cardio: Regular rate and rhythm, no murmur, Resp:Lungs clear to auscultation b/l, no wheezes or rhonchi, GI: Soft and nontender, nondistended, bowel sounds active Skin: Warm, pink, dry, Results & Data Results & Data Vital Signs (Past 12 Hours) Vital Signs Temp Pulse Pulse Resp BP Pulse Ox O2 Del Method 03/03/24 10:31 36.8 C 93 H 16 159/83 H 94 Room Air 03/03/24 07:41 36.6 C 100 H 18 167/93 H 96 Room Air 03/03/24 02:35 36.8 C 93 H 18 171/91 H 96 Room Air 03/02/24 23:38 92 H 03/02/24 23:37 O2 Del Method 03/03/24 10:31 03/03/24 07:41 03/03/24 02:35 03/02/24 23:38 03/02/24 23:37 Room Air Resident Activity Tracking Resident Involvement: Resident Care Provided Care Provided: Adult Hospital Medicine (4) Hypertension Hypertension type: unspecified Qualified Code(s): I10 - Essential (primary) hypertension
[2024-03-03 12:03] LABS: BUN Creatinine Ratio 24.6 (10-20); Calcium 9.4 mg/dl (8.6-10.3); Creatinine Clr Calc Pharmacy 68.3 ml/min; Est GFR (African American) 123.5 ml/min; Est GFR (Non-African American) 106.6 ml/min; Potassium 3.8 mmol/L (3.5-5.1)
--- NOTE | 2024-03-03 12:15 | Nephrology Consultation ---
Date of Consultation March 03, 2024 Assessment & Plan (1) Acute hypokalemia: (2) Acute hyponatremia: (3) Bilateral leg weakness: (4) Hypomagnesemia: (5) Alcohol use disorder: (6) Tobacco use: Plan 53-year old female with normal kidney function, past medical history mainly significant for hypertension, previously was on hydrochlorothiazide, admitted to hospital with critical electrolyte abnormality including acute hyponatremia, hypomagnesemia and hypokalemia. Has history of repeated episodes of critical hyponatremia now for at least last 6 months. On admission sodium was 114 which slowly improved, staying around 126-128. Currently on salt tablet. Potassium has been low despite getting potassium supplement, magnesium also has been low on magnesium supplement. Electrolyte abnormality could be due to excessive alcohol and free water intake, poor p.o. intake in general. Unclear whether she has any underlying channelopathy and renal potassium wasting disorder. -- Start on spironolactone 25 mg daily and increase dose as tolerated -- Continue on oral salt tablet, start on urea sodium and if sodium improved, slowly decrease the salt tablet -- Continue free water restriction less than 12,00 mL/day -- Continue on current dose of potassium and magnesium supplement. -- Check electrolyte every 12 hours -- Encouraged to increase protein intake, discussed importance of quitting alcohol and smoking Thank you for allowing me to participate in your patient's care. It was a pleasure to see Edinson. History of Present Illness Reason for Consultation: Multiple critical electrolyte abnormality including hyponatremia, hypokalemia and hypomagnesemia. Attending Physician: Aurelia Ballesteros MD History of Present Illness Ms. Edinson Bennett is a 53-year-old female with past medical history significant for hypertension, alcohol and smoking history admitted to the hospital with generalized weakness and multiple falls and abnormal outpatient lab. Nephrology consult was requested for management of critical electrolyte abnormality. Electronic medical records are reviewed in detail during patient's visit. Simon was admitted to the hospital after outpatient lab showed multiple electrolyte abnormality including hyponatremia with serum sodium 124, potassium 2.3 and magnesium 1.2. She was recently admitted to the hospital with concern for multiple falls when she had the electrolyte abnormality which slightly improved on discharge on supplement. However outpatient lab monitoring showed electrolytes again worsened and she was admitted for further evaluation. Records available from September 2023 showed she had critical hyponatremia and hypokalemia over last 6 months although no prior record available. She has been having multiple oral and IV supplement and sodium improved from 114 on admission to 126. Urine osmolality was 2 62-280. Potassium has been variable, slightly improved to 3.5 but again dropped to 2.8 this morning. Magnesium has been low around 1.4-1.5 and magnesium supplement. Calcium normal. Has metabolic alkalosis. Has normal renal function. No proteinuria. She reports taking hydrochlorothiazide as an outpatient for hypertension but she has been off of weight since last admission. She used to drink heavily but recently has been trying to cut back on drinking and she replaced that with free water which she has been drinking excessive. She also smokes about 1 pack/day. No history of diabetes or coronary artery disease. No personal history of malignancy. Chest x-ray, CT abdomen pelvis CT head unremarkable. She denies any significant pain. No history of hypothyroidism or adrenal insufficiency, TSH was just mildly elevated during this admission but with last month TSH was normal. In fact, her blood pressure has been running high. She is not aware of any family history of CKD, ESKD or any critical electrolyte abnormality. She reports otherwise feeling well this morning, denies shortness of breath, chest pain, palpitation. Allergies Allergy/AdvReac Type Severity Reaction Status Date / Time lisinopril AdvReac Unknown Coughing Verified 01/24/24 06:01 Home Medications Medication Instructions Recorded Confirmed Type amlodipine 10 mg tablet 10 mg PO DAILY 09/30/23 02/29/24 History aspirin 81 mg tablet,delayed 81 mg PO DAILY 09/30/23 02/29/24 History release (Adult Low Dose Aspirin) cetirizine 10 mg capsule (Zyrtec) 10 mg PO DAILY PRN allergies 09/30/23 02/29/24 History fluticasone 100 mcg-salmeterol 50 0 inh inhalation BID 09/30/23 02/29/24 History mcg/dose blistr powdr for inhalation multivitamin 1 tab PO DAILY 09/30/23 02/29/24 History atorvastatin 40 mg tablet 40 mg PO QAM 02/17/24 02/29/24 History magnesium oxide 400 mg PO BID 30 days #60 caps 02/22/24 02/29/24 Rx folic acid 1 mg tablet 1 mg PO QAM 02/29/24 02/29/24 History potassium chloride 20 mEq 40 meq PO QAM 02/29/24 02/29/24 History tablet,extended release(part/cryst) Patient History Medical History Hypertension Surgical History History of tonsillectomy History of tubal ligation History of appendectomy Social History Smoking Status: Current every day smoker Tobacco Type: Cigarettes Cigarettes Per Day: 20; Second Hand Exposure: Yes; Do You Dip or Chew Tobacco: No; Hx Alcohol Use: Yes Alcohol type: beer Hx Substance Use: No Preferred Language: Montenegrin Communication Ability: Sleeping Busboy Required: No Beliefs That Will Affect Care: None Current Living Situation: Alone Feels Safe at Home: Yes Assistive Devices: Cane, Walker and Wheelchair Review of Systems Review of Systems: Detailed review of system was done and pertinent positives and negatives are mentioned above. Physical Exam Constitutional: WD/WN, vitals as above no acute distress Eyes: + anicteric sclerae Respiratory: Auscultation: lungs clear to auscultation bilaterally Cardiovascular: RRR, no murmur, no edema Gastrointestinal (Abdomen): Inspection/Auscultation: abdomen normal to inspection Musculoskeletal: Extremities: extremities normal to inspection Skin: no rashes, warm and dry Neurologic: no focal motor deficits and not confused Psychiatric: Orientation: alert and oriented x 3 Affect: euthymic affect Results & Data Vital Signs (Past 12 Hours) Vital Signs Temp Pulse Resp BP Pulse Ox O2 Del Method 03/03/24 10:31 36.8 C 93 H 16 159/83 H 94 Room Air 03/03/24 07:41 36.6 C 100 H 18 167/93 H 96 Room Air 03/03/24 02:35 36.8 C 93 H 18 171/91 H 96 Room Air PG Care Time/CCT Total # of Minutes Spent Total Time Spent with Patient: Total time spent is greater than 50% in coordination of care (as documented) at patient's floor/unit and/or counseling patient: Coding Level of Care Code 87671 INT INP/OBS CARE 3/75MIN Diagnoses Acute hypokalemia E87.6 Acute hyponatremia E87.1 Bilateral leg weakness R29.898 Hypomagnesemia E83.42 Alcohol use disorder F10.90 Tobacco use Z72.0
[2024-03-03] MEDS: SPIRONOLACTONE 25 MG TAB PO SCH (14:31)
[2024-03-03] MEDS: UREA (UREA-NA) 15 GM PACK PO SCH (14:31)
[2024-03-03 17:38] LABS: BUN Creatinine Ratio 65.7 (10-20); Calcium 9.1 mg/dl (8.6-10.3); Creatinine Clr Calc Pharmacy 55.7 ml/min; Est GFR (African American) 115.5 ml/min; Est GFR (Non-African American) 99.6 ml/min; Magnesium 2.2 mg/dl (1.7-2.4); Potassium 4.4 mmol/L (3.5-5.1)
[2024-03-04 07:11] LABS: BUN Creatinine Ratio 52.8 (10-20); Calcium 9.7 mg/dl (8.6-10.3); Creatinine Clr Calc Pharmacy 75.3 ml/min; Est GFR (African American) 126.5 ml/min; Est GFR (Non-African American) 109.2 ml/min; Magnesium 1.8 mg/dl (1.7-2.4)
--- NOTE | 2024-03-04 07:21 | Hospitalist Progress Note ---
Date of Service March 04, 2024 Assessment & Plan (1) Acute hyponatremia: Plan: Pt Na level showed improvement from 116 to around 128-129 but No further improvement. Na: 121-->127-->124-->125-->126-->129-->127-->128-->127-->125-->129 Asymptomatic. Plan: c/w Fluid restriction 1200ml/d Nephro onboard. increased spironolactone from 25mg to 50mg OD c/w Urea-Na c/w Salt tabs Monitor labs f/u labs q12h (2) Acute hypokalemia: Plan: Improving gradually. K 2.3-->3.8-->4.2-->3.6-->2.8-->3.1--4.9-->3.7-->2.8-->3.8-->3.0 Plans: check labs q12h Replete Tele (3) Arthralgia of right acromioclavicular joint: Plan: Pain under control with meds c/o right shoulder pain. Hx of fall in the past. Xray report:Subacute displaced extra-articular distal clavicular fracture demonstrates no significant bony bridging and worsening displacement compared to the chest CT from 02/17/2024. Ortho r/tiffany - No intervention at this time. Pain control prn (4) Hypertension: Plan: C/w Amlodipine c/w Spironolactone Monitor Admission and Anticipated Discharge Date Admission Date: February 29, 2024 Supervising Physician Co-Signing Physician Notes Attending Physician Supervision Note: I independently interviewed and examined the patient and verified the levin history and physical, reviewed labs and image studies and agree with findings and care plan noted above. Severe Hyponatremia - 116 on arrival. Repeated episodes of critical hypoNa. Has cut down on alc intake since last admission. + Excess free water intake since cutting down alc intake. Na level staying around 126-129. Nephro consulted -added urea sodium and if sodium improved then slowly decrease salt tab. -Continue to limit water intake - 1200ml. -BMP q12 -Improve nutrition - has had adequate PO intake here. Severe Hypokalemia - On admission. K fluctuating -spironolactone dose increased to 50mgs. -continue KCL 40meq TID for now. Mouth breathing - likely causing dry mouth leading to excess alc use. -Biotin mouth spray. Right clavicle # -Ortho consulted - no intervention. AUD -No sign of withdrawal. Discussed Naltrexone HTN - On amlodipine. Severe protein-calorie malnutrition, BMI 14.9 kg/m*m -Per Counter Sales Representative - added gelatin and crackers. continue MVI Ambulating in room. Subjective Pt was seen and evaluated by the bedside this morning. Pt says she is feeling OK. AOx3. Patient denies headache,imbalance,confusion,tremors,swallowing or speech problems. No acute events overnight. Review of Systems Review of Systems: Constitutional: denies fever, chills. HEENT: denies congestion, sore throat Cardio: denies chest pain, palpitations Resp: denies shortness of breath, cough GI: denies abdominal pain, nausea, vomiting, constipation, diarrhea : denies pain with urination, change in urinary frequency Neuro: denies new numbness, tingling Physical Exam Physical Exam: General:Alert and oriented, no acute distress. HEENT: Normocephalic, moist oral mucosa, Cardio: Regular rate and rhythm, no murmur, Resp:Lungs clear to auscultation b/l, no wheezes or rhonchi, GI: Soft and nontender, nondistended, bowel sounds active Skin: Warm, pink, dry, Results & Data Results & Data Vital Signs (Past 12 Hours) Vital Signs Temp Pulse Pulse Resp BP Pulse Ox O2 Del Method 03/04/24 03:30 36.9 C 98 H 14 171/84 H 98 Room Air 03/03/24 23:37 85 03/03/24 23:25 36.7 C 80 16 178/90 H 98 Room Air 03/03/24 23:00 O2 Del Method 03/04/24 03:30 03/03/24 23:37 03/03/24 23:25 03/03/24 23:00 Room Air Resident Activity Tracking Resident Involvement: Resident Care Provided Care Provided: Adult Hospital Medicine (4) Hypertension Hypertension type: unspecified Qualified Code(s): I10 - Essential (primary) hypertension
[2024-03-04] MEDS: POTASSIUM CHLORIDE / WTR 10 MEQ/100 ML PLCT IV SCH (08:06)
[2024-03-04] MEDS: SPIRONOLACTONE 25 MG TAB PO SCH (08:10)
--- NOTE | 2024-03-04 10:19 | Nephrology Progress Note ---
Date of Service March 04, 2024 Assessment & Plan (1) Acute hypokalemia: (2) Acute hyponatremia: (3) Bilateral leg weakness: (4) Hypomagnesemia: (5) Alcohol use disorder: (6) Tobacco use: Plan 53-year old female with normal kidney function, past medical history mainly si gnificant for hypertension, previously was on hydrochlorothiazide, admitted to hospital with critical electrolyte abnormality including acute hyponatremia, hypomagnesemia and hypokalemia. Has history of repeated episodes of critical hyponatremia now for at least last 6 months. On admission sodium was 114 which slowly improved, staying around 126-128. Currently on salt tablet. Potassium has been low despite getting potassium supplement, magnesium also has been low on magnesium supplement. Electrolyte abnormality could be due to excessive alcohol and free water intake, poor p.o. intake in general. Unclear whether she has any underlying channelopathy and renal potassium wasting disorder. -- spironolactone 50 mg daily, dose was just increased this morning, continue to increase dose as tolerated -- Continue on oral salt tablet, urea sodium and if sodium improved, slowly decrease the salt tablet -- Continue free water restriction less than 12,00 mL/day -- Continue on current dose of potassium and magnesium supplement. Okay to just continue on oral potassium supplement if potassium stays 3 or higher. -- Check electrolyte every 12 hours Admission and Anticipated Discharge Date Admission Date: February 29, 2024 Jillian Neves was seen and evaluated this morning. She reports feeling well, appetite improved and had full breakfast this morning. Complaining of some burning at IV site as potassium chloride IV is running. Potassium again dropped to 3.0 this morning, sodium remained low but stable around 128-129. Magnesium normal. Blood pressure remain elevated. Review of Systems Review of Systems: Detailed review of system was done and pertinent positives and negatives are mentioned above. Physical Exam Constitutional: WD/WN, vitals as above no acute distress Eyes: + anicteric sclerae Respiratory: Auscultation: lungs clear to auscultation bilaterally Cardiovascular: RRR, no murmur, no edema Musculoskeletal: Extremities: extremities normal to inspection Skin: no rashes, warm and dry Neurologic: no focal motor deficits and not confused Psychiatric: Orientation: alert and oriented x 3 Affect: euthymic affect Results & Data Vital Signs (Past 12 Hours) Vital Signs Temp Pulse Pulse Resp BP Pulse Ox O2 Del Method 03/04/24 07:00 36.9 C 86 18 185/95 H 98 Room Air 03/04/24 03:30 36.9 C 98 H 14 171/84 H 98 Room Air 03/03/24 23:37 85 03/03/24 23:25 36.7 C 80 16 178/90 H 98 Room Air 03/03/24 23:00 O2 Del Method 03/04/24 07:00 03/04/24 03:30 03/03/24 23:37 03/03/24 23:25 03/03/24 23:00 Room Air PG Care Time/CCT Total # of Minutes Spent Total Time Spent with Patient: Total time spent is greater than 50% in coordination of care (as documented) at patient's floor/unit and/or counseling patient: Coding Level of Care Code 81886 SUB INP/OBS CARE 2/35MIN Diagnoses Acute hypokalemia E87.6 Acute hyponatremia E87.1 Bilateral leg weakness R29.898 Hypomagnesemia E83.42 Alcohol use disorder F10.90 Tobacco use Z72.0
[2024-03-04 16:35] LABS: BUN Creatinine Ratio 27.6 (10-20); Creatinine Clr Calc Pharmacy 32.4 ml/min; Est GFR (African American) 58.4 ml/min; Est GFR (Non-African American) 50.4 ml/min; Magnesium 1.6 mg/dl (1.7-2.4); Phosphorus 2.9 mg/dl (2.5-4.9); Potassium 4.6 mmol/L (3.5-5.1)
[2024-03-04] MEDS: MAGNESIUM SULFATE / D5W 1 GM/100 ML BAG IV SCH (18:06)
[2024-03-05 01:51] LABS: BUN Creatinine Ratio 55.1 (10-20); Calcium 9.3 mg/dl (8.6-10.3); Creatinine Clr Calc Pharmacy 51.1 ml/min; Est GFR (African American) 101.3 ml/min; Est GFR (Non-African American) 87.4 ml/min; Magnesium 2.3 mg/dl (1.7-2.4); Phosphorus 3.2 mg/dl (2.5-4.9); Potassium 3.2 mmol/L (3.5-5.1)
[2024-03-05] MEDS: POTASSIUM CHLORIDE CRTAB 20 MEQ TABCR PO STA ×2 (02:32→09:12)
[2024-03-05] MEDS ORDERED: CARBOHYDRATES FOR HYPOGLYCEMIA PO PRN (04:54)
[2024-03-05] MEDS ORDERED: DEXTROSE 50% 50 ML SYRINGE IV PRN (04:54)
[2024-03-05] MEDS ORDERED: GLUCOSE 40% GEL 15 GM TUBE PO PRN (04:54)
[2024-03-05] MEDS ORDERED: GLUCAGON FOR INJ 1 MG VIAL SQ PRN (04:54)
[2024-03-05] MEDS ORDERED: GLUCOSE 10 TAB/TUBE PO PRN (04:54)
[2024-03-05 06:31] LABS: BUN Creatinine Ratio 43.9 (10-20); Calcium 9.3 mg/dl (8.6-10.3); Creatinine Clr Calc Pharmacy 70.2 ml/min; Est GFR (African American) 123.5 ml/min; Est GFR (Non-African American) 106.6 ml/min; Phosphorus 3.8 mg/dl (2.5-4.9); Potassium 3.3 mmol/L (3.5-5.1)
[2024-03-05 07:16] VITALS: PULSE 86
[2024-03-05] MEDS: SPIRONOLACTONE 100 MG TAB PO SCH (09:15)
--- NOTE | 2024-03-05 09:19 | Nephrology Progress Note ---
Date of Service March 05, 2024 Assessment & Plan (1) Acute hypokalemia: (2) Acute hyponatremia: (3) Hypomagnesemia: (4) Alcohol use disorder: (5) Tobacco use: Plan 53-year old female with normal kidney function, past medical history mainly significant for hypertension, previously was on hydrochlorothiazide, admitted to hospital with critical electrolyte abnormality including acute hyponatremia, hypomagnesemia and hypokalemia. Has history of repeated episodes of critical hyponatremia now for at least last 6 months. On admission sodium was 114 which slowly improved, staying around 126-128. Currently on salt tablet. Potassium has been low despite getting potassium supplement, magnesium also has been low on magnesium supplement. Electrolyte abnormality could be due to excessive alcohol and free water intake, poor p.o. intake in general. Unclear whether she has any underlying channelopathy and renal potassium wasting disorder. BP has been running high on amlodipine and spironolactone. Has history of significant atherosclerotic disease involving aorta and major branch vessels including right renal artery narrowing at the origin. Previously evaluated by vascular surgery at [facility] and recommended aortic endarterectomy but patient lost to follow-up. Electrolyte abnormality slightly improved, sodium 139 potassium 3.3, other electrolyte acceptable. --Increase spironolactone to 100 mg daily, dose was just increased this morning, continue to increase dose as tolerated --Continue on oral salt tablet, urea sodium and if sodium improved, slowly decrease the salt tablet, free water restriction less than 12,00 mL/day --Continue on current dose of oral potassium and magnesium supplement. --Check electrolyte in the afternoon --recommended to follow with vascular as out patient. Admission and Anticipated Discharge Date Admission Date: February 29, 2024 Jillian Neves was seen and evaluated this morning. She reports feeling well but very emotional and eager to go home. Electrolytes improved slightly, Na 129, Potassium 3.3. Magnesium normal. Blood pressure remain elevated. Review of Systems Review of Systems: Detailed review of system was done and pertinent positives and negatives are mentioned above. Physical Exam Constitutional: WD/WN, vitals as above no acute distress Eyes: + anicteric sclerae Respiratory: Auscultation: lungs clear to auscultation bilaterally Cardiovascular: RRR, no murmur, no edema Musculoskeletal: Extremities: extremities normal to inspection Skin: no rashes, warm and dry Neurologic: no focal motor deficits and not confused Psychiatric: Orientation: alert and oriented x 3 Affect: euthymic affect Results & Data Vital Signs (Past 12 Hours) Vital Signs Temp Pulse Pulse Resp BP Pulse Ox O2 Del Method 03/05/24 07:15 36.7 C 86 16 179/90 H 97 Room Air 03/05/24 03:50 36.8 C 91 H 14 173/89 H 98 Room Air 03/04/24 23:32 86 03/04/24 22:35 36.8 C 95 H 16 169/79 H 94 Room Air PG Care Time/CCT Total # of Minutes Spent Total Time Spent with Patient: Total time spent is greater than 50% in coordination of care (as documented) at patient's floor/unit and/or counseling patient: Coding Level of Care Code 42065 SUB INP/OBS CARE 2/35MIN Diagnoses Acute hypokalemia E87.6 Acute hyponatremia E87.1 Hypomagnesemia E83.42 Alcohol use disorder F10.90 Tobacco use Z72.0
[2024-03-05 11:34] VITALS: RESP 18; TEMP 98.6; O2SAT 98
[2024-03-05 13:54] LABS: Potassium 4.3 mmol/L (3.5-5.1)
[2024-03-05 15:00] VITALS: BP 179/90
--- NOTE | 2024-03-05 17:45 | Billing Data ---
Date of Service March 05, 2024 Coding Level of Care Code 84734 IN/OBS DISCH 30 MIN/LESS
--- NOTE | 2024-03-05 17:50 | Discharge Summary ---
Date of Service March 05, 2024 Admission HPI Per Admitting Provider Edinson Bennett is a 53 year old female who presents to the ER with low sodium. She had routine lab work done yesterday. Called later in the afternoon but she was only able to call the office back earlier today and was advised to come to the ER. She denies any symptoms such as nausea, vomiting, headache, loss of balance, dizziness, tremors or muscle cramps. She has had no falls since her prior admission. She has cut back her beer drinking significantly to 1-2 beers /day although she reports drinking 4 bottles of water a day to make up for the less beer drinking. She reports eating and drinking better since her last admission. She was recently admitted in January and earlier this month for hyponatremia suspected secondary to beer potomania with tea and toast diet. She required hypertonic saline during her first admission however the second admission her sodium slowly improved with normal saline. Admission Exam Per Admitting Provider well developed; + not well nourished and no acute distress Eyes: PERRL, conjunctivae normal, anicteric sclerae EOM intact bilaterally ENMT: external ear and nose normal, oropharynx normal Respiratory: normal respiratory effort, lungs clear to auscultation Cardiovascular: Rate/Rhythm: regular rate and regular rhythm Heart Sounds: no murmur Extremities: normal capillary refill; no calf tenderness and no pedal edema Gastrointestinal (Abdomen): normal bowel sounds, soft, nontender, no hepatosplenomegaly Musculoskeletal: Right AC joint tenderness Skin: no rashes, warm and dry Neurologic: moves all extremities and awake; not confused Psychiatric: A+Ox3, euthymic affect Genitourinary: no CVA tenderness Principal Diagnosis Hyponatremia Discharge Exam General:Alert and oriented, no acute distress. HEENT: Normocephalic, moist oral mucosa, Cardio: Regular rate and rhythm, no murmur, Resp:Lungs clear to auscultation b/l, no wheezes or rhonchi, GI: Soft and nontender, nondistended, bowel sounds active Skin: Warm, pink, dry, Discharge Data Allergies Allergy/AdvReac Type Severity Reaction Status Date / Time lisinopril AdvReac Unknown Coughing Verified 01/24/24 06:01 Consultations 02/29/24 17:43 ED Decision to Admit Stat 03/01/24 07:16 Consult Orthopedic Surgery Routine 03/03/24 08:15 Consult Nephrology Routine Hospital Course (1) Acute hyponatremia: Na 116, generalized weakness. evaluated and plan reviewed by Nephro. Na improved and symptoms resolved. Asymptomatic. continue Fluid restriction 1200ml/d continue spironolactone 100mg daily continue Urea-Na 15mg power packet BID consider repeating electrolytes twice a week , initially and review the medications. (2) Acute hypokalemia: Improving gradually K 2.3 to 4.4 continue KCL 40mEq tablets TID. consider checking twice weekly initially. (3) Arthralgia of right acromioclavicular joint: evaluated by ortho. continue with Pain control prn (4) Hypertension: C/w Amlodipine c/w Spironolactone Monitor (5) Mood disorder: continue Mirtazapine 15mg HS and review. Recommended grief counselling. recommended to cut down on alcohol. Total Time Total Time Spent Total Time Spent (In Minutes): <30 Discharge Plan Discharge Items Patient Disposition: Home - Self-Care Reason For Visit: HYPONATREMIA Discharge Diagnosis: Hyponatremia (improved) Activity: Per Instructions section Non-emergency contact: Primary Care Provider Call non-emergency contact if: you have any medication questions and your symptoms worsen Follow-up/Referrals: Reyna Cowan [Primary Care Provider] - (PCP follow up appt: 03/09 @11:05) Dietitian Info: High protein ans high salt diet. Diet: Regular and Other - See Diet Comment Addtl Attending Provider Instructions: You were found to have very low sodium levels and your PCP sent you here for correction. You also had generalized weakness, especially in your legs was likely due to very low sodium levels. On evaluation you were also found to have Low potassium and magnesium. You were evaluated by nephrology specialist who made adjustment to your medications and added few other mediations to help you abnormal electrolyte levels. After monitoring and treating your eletrolyte levels are optimized en ough to discharge you home safely. We have made following changes to your medication regime : Potassium chloride 40mEq tablets increased and now needs to be taken three times a day and continue. you were started on following new medications - Urea-Na 15mg power packet twice a day and continue. This is to help to maintain your sodium levels in your blood. Spironolactone 100mg tablet top be taken daily and continue. this is to help to maintains your potassium in your blood. Mirtazapine 15mg one tablet at night before bed, daily and continue. this is to improve your mood & appetite and for good sleep. Continue rest of your regular medications as usual. Please follow up with your PCP 2 times a week initially and get your electrolytes blood test checked. Please try to avoid alcohol. make an appointment with Grief counselling specialist. we will send a detailed summary of your hospital course soon to your PCP. Pending Studies at Discharge: No Stand-Alone Forms: My [facility], Smoking Cessation Medications and DC Order Prescriptions: New spironolactone 100 mg Tablet 100 mg PO DAILY 30 Days Qty: 30 2RF potassium chloride 20 mEq Tablet,Er Particles/Crystals 40 meq PO TIDM 30 Days Qty: 90 1RF Ure-Na 15 gram Powder In Packet 15 g PO BID 30 Days Qty: 60 1RF mirtazapine 15 mg tablet 15 mg PO HS 30 Days Qty: 30 3RF Continued amlodipine 10 mg tablet 10 mg PO DAILY fluticasone propion-salmeterol 100-50 mcg/dose blister with device 0 inh inhalation BID Rx Instructions: Unable to verify med w/ pharmacy at this date/time. Original Directions: 1 inhalation twice daily aspirin [Adult Low Dose Aspirin] 81 mg tablet,delayed release (DR/EC) 81 mg PO DAILY Rx Instructions: Unable to verify OTC meds at this date/time. multivitamin Tablet 1 tab PO DAILY Rx Instructions: Unable to verify OTC meds at this date/time. Zyrtec 10 mg capsule 10 mg PO DAILY PRN (Reason: allergies) Rx Instructions: Unable to verify OTC meds at this date/time. atorvastatin 40 mg tablet 40 mg PO QAM magnesium oxide 400 mg magnesium capsule 400 mg PO BID 30 Days Qty: 60 1RF folic acid 1 mg tablet 1 mg PO QAM Discontinued potassium chloride 20 mEq tablet,ER particles/crystals 40 meq PO QAM Discharge Orders: Discharge Order (Routine); Ordered 03/05/24 Ordered By: Erica Gee Admission Data Admit Date/Time: 02/29/24 17:56 Attending Provider: Juarez Ulloa Admit Provider: Jorge Garcias Primary Care Provider: Reyna Cowan Other Providers: Jorge Garcias; Sp Zelaya; Justina Velez Other Interventions: Discharge Summary Assessment (RN) Last Done: 03/05/24 14:57 Supervising Physician Co-Signing Physician Notes I personally examined the patient and verified all levin points of history and exam, discussed case, and agree with decision making with Dr Candelario Gee feeling well really wants to go home, unfortunately only marginally more insightful to depression causing her to fail vitals noted nad heent nc at mmm breathing unlabored no accessory muscles good effort severe hyponatremia - depression/poor PO intake/EtOH -doing better safe for home high risk for failure again doens't want to change much as outpt, close f/u otherwise as above
[2024-03-05 18:34] LABS: Albumin Level 3.7 gm/dl (3.4-5.0); BUN Creatinine Ratio 34.7 (10-20); Calcium 9.2 mg/dl (8.6-10.3); Creatinine Clr Calc Pharmacy 32.3 ml/min; Est GFR (African American) 57.8 ml/min; Est GFR (Non-African American) 49.9 ml/min; Phosphorus 3.2 mg/dl (2.5-4.9)
== END 2024-03-05 15:30 | disposition home or self-care (01) | DRG 640 ==
LOC: ED 14:05 → EDINP 17:56 → SUATTDRO 17:56 → 2E 23:37

== ENCOUNTER 2024-03-19 17:18 | Inpatient (IN) ==
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
[2024-03-19 18:56] LABS: Basophils # (auto) 0.07 K/uL (0.00-0.20); Basophils % (auto) 0.8 %; Eosinophils # (auto) 0.21 K/uL (0.00-0.50); Eosinophils % (auto) 2.3 %; Hematocrit (blood only) 35.8 % (37.0-47.0); Hemoglobin 12.9 g/dl (12.0-16.0); Immature Granulocytes # (auto) 0.06 K/uL (0.01-0.20); Immature Granulocytes % (auto) 0.7 %; Lymphocytes # (auto) 1.54 K/uL (1.20-3.40); Lymphocytes % (auto) 17.1 %; Mean Corpuscular Hemoglobin 33.7 pg (25.0-34.0); Mean Corpuscular Volume 93.5 fL (80.0-100.0); Mean Platelet Volume 10.2 fL (9.4-12.4); Monocytes # (auto) 0.72 K/uL (0.11-0.59); Neutrophils # (auto) 6.41 K/uL (1.40-6.50); Neutrophils % (auto) 71.1 %; Platelet Count 260 K/uL (130-400); RDW Coefficient of Variation 12.9 % (11.5-14.5); RDW Standard Deviation 43.9 fL (36.4-46.3); Red Blood Count 3.83 M/uL (4.20-5.40); White Blood Count 9.01 K/ul (4.8-10.8)
[2024-03-19 19:03] LABS: Appearance Urine Clear (Clear); Bacteria Urine Automated None Seen (None Seen); Bilirubin Urine Negative (Negative); Blood Urine Negative (Negative); Cast Urine Automated 0-2 /lpf (0-2); Color Urine Yellow; Epithelial Cell Urine Auto 0-2 /hpf (0-2); Glucose Urine UA Negative (Negative); Ketones Urine Negative (Negative); Leukocyte Esterase Urine Negative (Negative); Nitrite Urine Negative (Negative); Protein Urine 3+ (Negative); RBC Urine Automated 0-2 /hpf (0-2); Specific Gravity Urine 1.008 (1.000-1.030); Urobilinogen Urine Negative (Negative); WBC Urine Automated 0-5 /hpf (0-5)
[2024-03-19 19:19] LABS: Albumin Globulin Ratio 1.4 (0.9-2); BUN Creatinine Ratio 9.8 (10-20); Bilirubin,Total 0.3 mg/dl (0.2-1.0); Calcium 9.3 mg/dl (8.6-10.3); Creatinine Clr Calc Pharmacy 72.6 ml/min; Globulin 2.8 gm/dl (2.5-4.0); Potassium 4.6 mmol/L (3.5-5.1); Total Protein 6.8 gm/dl (6.0-8.3)
[2024-03-19 19:28] LABS: Urine Potassium 45.3 mmol/L
[2024-03-19 19:35] LABS: Thyroid Stimulating Hormone 3.469 uIu/ml (0.300-4.500)
[2024-03-19] MEDS ORDERED: STAT IV/IM STA ×2 (20:17→23:35)
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
[2024-03-19] MEDS ORDERED: Ativan IV Alcohol Withdrawal--Active Protocol IV PRN (20:33)
[2024-03-19] MEDS ORDERED: LORazepam 2 MG/1 ML VIAL IV PRN ×3 (20:33)
[2024-03-19] MEDS: SODIUM CHLORIDE 3 % 100 ML IV ONE (21:04)
[2024-03-19] MEDS: dilTIAZem HCL 30 MG TAB PO SCH (21:09)
[2024-03-19] MEDS: SODIUM CHLORIDE 1 GM TABLET PO STA (21:10)
[2024-03-19] MEDS ORDERED: ONDANSETRON INJ 2 MG/ML 2 ML VIAL IV PRN (22:34)
[2024-03-19] MEDS: MAGNESIUM OXIDE 400 MG TAB PO SCH (23:15)
[2024-03-19] MEDS: MIRTAZAPINE TAB 15 MG TAB PO SCH (23:15)
[2024-03-19] MEDS: ACETAMINOPHEN 325 MG TAB PO PRN (23:20)
[2024-03-19] MEDS: HEPARIN SOD 5,000 UNIT/0.5 ML VIAL SQ SCH (23:20)
[2024-03-19] MEDS: UREA (UREA-NA) 15 GM PACK PO SCH (23:21)
[2024-03-19 23:27] LABS: BUN Creatinine Ratio 11.1 (10-20); Potassium 4.2 mmol/L (3.5-5.1)
[2024-03-20] MEDS: SODIUM CHLORIDE 3 % 100 ML IV ONE ×5 (00:07→17:01)
[2024-03-20] MEDS: dilTIAZem HCL 30 MG TAB PO ONE (00:07)
[2024-03-20 02:29] LABS: Basophils # (auto) 0.05 K/uL (0.00-0.20); Basophils % (auto) 0.6 %; Eosinophils # (auto) 0.15 K/uL (0.00-0.50); Eosinophils % (auto) 1.7 %; Hematocrit (blood only) 32.5 % (37.0-47.0); Immature Granulocytes # (auto) 0.04 K/uL (0.01-0.20); Immature Granulocytes % (auto) 0.4 %; Lymphocytes # (auto) 1.24 K/uL (1.20-3.40); Lymphocytes % (auto) 13.8 %; Mean Corpuscular Hemoglobin 33.6 pg (25.0-34.0); Mean Corpuscular Hgb Conc 36.9 g/dL (32.0-36.0); Mean Platelet Volume 8.7 fL (9.4-12.4); Monocytes # (auto) 0.63 K/uL (0.11-0.59); Neutrophils # (auto) 6.86 K/uL (1.40-6.50); Neutrophils % (auto) 76.5 %; Platelet Count 255 K/uL (130-400); RDW Coefficient of Variation 12.4 % (11.5-14.5); RDW Standard Deviation 41.2 fL (36.4-46.3); Red Blood Count 3.57 M/uL (4.20-5.40); White Blood Count 8.97 K/ul (4.8-10.8)
[2024-03-20 02:48] LABS: BUN Creatinine Ratio 63.3 (10-20); Calcium 8.5 mg/dl (8.6-10.3); Creatinine Clr Calc Pharmacy 82.7 ml/min; Potassium 3.3 mmol/L (3.5-5.1)
[2024-03-20] MEDS ORDERED: STAT IV/IM STA ×5 (04:29→22:14)
--- OUTSIDE RECORDS SUMMARY | 2024-03-20 04:42 | External Medical Summary | Continuity of Care Document ---
Author Name Unknown Organization [facility] [id number] [address] [place] [id number] Care Team Providers Care Mushroom Picker Name Role Phone Reyna Cowan Primary Care Physician [phone] [id number] Date(s): 03/09/24 - 03/09/24 [facility] [address] [facility] [address] [phone] Encounter Diagnosis Electrolyte abnormality(Discharge Diagnosis) - 03/09/24 Hypertension(Discharge Diagnosis) - 03/09/24 Discharge Disposition: Home or Self Care Attending [...] Daily, Disp# 30 tab, Refills: 11, Pharmacy: [id number] Start Date: 09/12/23 Status: [...] AM EDT Start Date: 02/23/24 Status: Ordered mirtazapine 15 mg oral tablet Start: 03/09/24 11:23:00 AM EDT Start Date: 03/09/24 Status: Ordered multivitamin Start: 04/13/23 5:06:00 PM EDT, 1 tab, PO, Daily Start Date: 04/13/23 Status: Ordered Potassium Chloride (Eqv-K-Tab) Start: 04/13/23 4:58:00 PM EDT, See Instructions, 40 mEq PO BID Start Date: 04/13/23 Status: Ordered Sodium Chloride 1 g oral tablet Start: 03/09/24 11:23:00 AM EDT Start Date: 03/09/24 Status: Ordered spironolactone 100 mg oral tablet Start: 03/09/24 11:22:00 AM EDT Start Date: 03/09/24 Status: Ordered ZyrTEC 10 mg oral tablet Start: 04/13/23 5:10:00 PM EDT, 1 tab, PO, Daily, PRN: as needed for allergy symptoms Start Date: 04/13/23 Status: Ordered Mental Status 03/09/24 Barriers to Learning one year None evide nt Mandatory Health Literacy Documentation Yes Health Literacy Communication Barriers N ever Primary Language Belgian Problem List Condition Confirmation Course Effective Dates Status H ealth Status Informant Alcohol dependence Confirmed Active Atherosclerosis Confirmed Active Fracture of vertebra, compression Confirmed Active Stenosis of aorta Confirmed Active HTN (hypertension) Confirmed Active Hyperthyroidism Confirmed Active Brain aneurysm Confirmed Active Breast CA Confirmed Active Renal artery stenosis Confirmed Active Subclavian artery stenosis Confirmed Active Tobacco user Confirmed Active Diagnosis Diagnosis Type Effective Dates Health Status Clinical Service Informant Electrolyte abnormality Discharge Diagnosis 03/09/24 Non-Specified Hypertension Discharge Diagnosis 03/09/24 Non-Specified Procedures Procedure Date Related Diagnosis Body [...] to oldest [Reference Range]: 1 Patient Weight 39.6 kg (03/09/24 11:24 AM) Heart Rate 73 bpm (03/09/24 11:24 AM) Blood Pressure 200/104mmHg (03/09/24 11:24 AM) Cuff Pulse Pressure 96 mmHg (03/09/24 11:24 AM) Social History Social History Type Response Tobacco Current every day sm oker, Cigarettes, 39 year(s). Smoking Status Current some day hea vy smoker Sex Female Sex Representation Female (finding) Patient Care team information Care Team Personnel Name: MARIBELL Cowan Tara Position: Nurse Pract - Family Med Member Role: Primary Care Provider Address: [address] [place] [id number] [place] Name: SALMA Salguero Lynn Position: Physician Rn Access Exempt - Vasc Surg Member Role: Lifetime Relationship [address]: [address] [place] [id number] Care Team Related Persons Name: CHIOMA VILLANUEVA
[2024-03-20] MEDS: POTASSIUM CHLORIDE CRTAB 20 MEQ TABCR PO STA ×2 (05:14→08:33)
[2024-03-20 06:35] LABS: BUN Creatinine Ratio 43.8 (10-20); Calcium 8.6 mg/dl (8.6-10.3); Creatinine Clr Calc Pharmacy 84.6 ml/min
[2024-03-20] MEDS: THIAMINE HCL 100 MG TAB PO SCH (08:30)
[2024-03-20] MEDS: ATORVASTATIN 40 MG TAB PO SCH (08:30)
[2024-03-20] MEDS: MULTIVITAMIN TAB PO SCH (08:30)
[2024-03-20] MEDS: SPIRONOLACTONE 100 MG TAB PO SCH (08:30)
[2024-03-20] MEDS: ASPIRIN 81 MG ECTAB PO SCH (08:30)
[2024-03-20] MEDS: FOLIC ACID 1 MG TAB PO SCH (08:30)
[2024-03-20] MEDS: SODIUM CHLORIDE 1 GM TABLET PO SCH ×2 (08:30→23:00)
[2024-03-20] MEDS: FLUTICASONE/VILANTEROL 100/25MCG 14 PUFFS/INHALER INH SCH (08:32)
--- NOTE | 2024-03-20 08:44 | Electrocardiogram Report ---
Test Reason : Blood Pressure : */* mmHG Vent. Rate : 83 BPM Atrial Rate : 83 BPM P-R Int : 110 ms QRS Dur : 80 ms QT Int : 380 ms P-R-T Axes : 70 83 77 degrees QTcB Int : 446 ms Sinus rhythm with short [place] Possible Left atrial enlargement Borderline ECG When compared with ECG of 09-Mar-2024 12:26, Premature atrial complexes are no longer Present Confirmed by Larry Sheppard ([id number]) on 03/20/2024 8:44:32 AM Referred By: REFERRED SELF Confirmed By: Laryr Sheppard
[2024-03-20] MEDS: carvediloL 3.125 MG TAB PO ONE (09:40)
[2024-03-20] MEDS: LOSARTAN POTASSIUM 25 MG TAB PO SCH (09:40)
[2024-03-20] MEDS: amLODIPine BESYLATE 5 MG TAB PO SCH (09:40)
--- NOTE | 2024-03-20 10:36 | Nephrology Consultation ---
Date of Consultation March 20, 2024 Assessment & Plan (1) Hyponatremia: * Hypoosmolar hyponatremia * Urine osmolality is appropriately suppressed * Spot urine sodium is elevated arguing against prerenal condition * Clinically suspect beer potomania * Will provide 100 cc 3% NaCl and recheck BMP * Target rate of correction is 6-8 mmol/L/day * Patient could not afford urea tablets following last hospitalization * Continue NaCl 1 g po BID (2) Hypokalemia: * Corrected * Serum K 3.8 this am (3) Hypomagnesemia: * Serum Mg 1.5. Will provide 2 g MgSO4 IV x 1 this am * Recheck Mg in am * Will likely benefit from MgCl as outpatient (4) Hypertension: * BP remains elevated * Current regimen consists of amlodipine, carvedilol, losartan and spironolactone * 08/09/23 CTA of abdomen & pelvis: There is hemodynamically significant stenosis in the aorta near the diaphragm. Renal artery stenosis is seen on the right and there is approximately 50% narrowing of the common right iliac artery. Remaining great vessels are patent and patent flow is seen in the bilateral lower extremities. * Patient did undergo [facility] vascular surgery evaluation for aortic stenosis and intervention was recommended but she was lost to follow up (5) Alcohol use: * Agree w/ providing MVI and folic acid * Patient requires alcohol and smoking cessation education * Question whether office of aging could help patient following discharge due to patient's repeated hospitalization for alcohol related electrolyte imbalance and frequent falls History of Present Illness Reason for Consultation: Hyponatremia Attending Physician: Quentin Peralta MD History of Present Illness Ms. Bennett is a 53 year old white female who is seen at the request of the [facility] hospitalist service for evaluation of hyponatremia. Information for the HPI is obtained from direct patient interview and review of the EMR. HPI is summarized as follows: Ms. Bennett has a long standing h/o alcohol use and remains a current every day smoker. She estimates that she drinks 6 cans of beer daily and smokes at least 1 ppd. Ms. Bennett reports a h/o Graves disease, hypothyroidism, breast cancer s/p lumpectomy w/ radiation therapy and HTN. In the past she had been on a thiazide diuretic and SSRI but indicates that these have been stopped over 1 month ago due to recurrent hyponatremia. Ms. Bennett was hospitalized 02/29/24-03/05/24 due to hyponatremia. Evaluation by Dr. Velez was negative for underlying malignancy. TSH was wnl. Patient had no evidence of cirrhosis, CHF or nephrosis. She was managed w/ fluid restriction and oral urea. Serum sodium had risen from 116 on admission to 128 mmol/L at the time of discharge. Ms. Bennett reports that she could not afford the oral urea tablets and did not keep her outpatient nephrology follow up. She was in 11/03 ( of pancreatic cancer). Ms. Bennett fixes her own meals but readily acknowledges a limited diet and at least 2 cans of beer/day. Ms. Bennett presented to [facility] last evening at 17:40 hrs w/ generalized weakness. Laboratory studies revealed Na 119 mmol/L, K 4.2, Cr 0.61. She received 100 cc 3% NaCl x3 overnight and was started on NaCl 1g po BID. Serum Na at 05:41 am was only 120 mmol/L w/ Uosm 192 and urine Na 32. Ms. Bennett currently denies GARCIA, visual change, focal weakness, night sweats, hemoptysis, unintentional weight loss. Allergies Allergy/AdvReac Type Severity Reaction Status Date / Time lisinopril AdvReac Unknown Coughing Verified 03/19/24 19:00 Home Medications Medication Instructions Recorded Confirmed Type amlodipine 10 mg tablet 10 mg PO QAM 09/30/23 03/19/24 History aspirin 81 mg tablet,delayed 81 mg PO QAM 09/30/23 03/19/24 History release (Adult Low Dose Aspirin) cetirizine 10 mg capsule (Zyrtec) 10 mg PO DAILY PRN allergies 09/30/23 03/19/24 History fluticasone 100 mcg-salmeterol 50 1 inh inhalation AMHS 09/30/23 03/19/24 History mcg/dose blistr powdr for inhalation multivitamin 1 tab PO QAM 09/30/23 03/19/24 History atorvastatin 40 mg tablet 40 mg PO QAM 02/17/24 03/19/24 History magnesium oxide 400 mg PO BID 30 days #60 caps 02/22/24 03/19/24 Rx folic acid 1 mg tablet 1 mg PO QAM 02/29/24 03/19/24 History mirtazapine 15 mg tablet 15 mg PO HS 30 days #30 tabs 03/05/24 03/19/24 Rx potassium chloride 20 mEq 40 meq (2 x 20 mEq) PO TIDM 30 03/05/24 03/19/24 Rx tablet,extended release(part/cryst) days #90 tabs azelastine 205.5 mcg (0.15 %) 2 spray intranasal QAM 03/19/24 03/19/24 History nasal spray diphenhydramine HCl 25 mg tablet 25 mg PO TID PRN Allergy Symptoms 03/19/24 03/19/24 History (Benadryl Allergy) losartan 25 mg tablet 25 mg PO QAM 03/19/24 03/19/24 History spironolactone 100 mg tablet 100 mg PO QAM 03/19/24 03/19/24 History Patient History Medical History Hypertension Surgical History History of tonsillectomy History of tubal ligation History of appendectomy Social History Smoking Status: Current every day smoker Tobacco Type: Cigarettes Cigarettes Per Day: 1/2PPD; Second Hand Exposure: Yes; Do You Dip or Chew Tobacco: No; Tobacco Cessation Education Requested by Patient: No Hx Alcohol Use: Yes Alcohol type: beer Hx Substance Use: No Preferred Language: Icelandic Communication Ability: Effective Hospice Office Coordinator Required: No Beliefs That Will Affect Care: None Current Living Situation: Alone Other Information That Helps Us Care for You: No Feels Safe at Home: Yes Assistive Devices: Glasses Review of Systems Constitutional: no fever Eyes: no problem reported Ear, Nose, Mouth, Throat: no problem reported Respiratory: no cough, no dyspnea and no hemoptysis Cardiovascular: no chest pain Gastrointestinal: no abdominal pain, no nausea, no vomiting and no diarrhea/loose stools Genitourinary: no dysuria, no urinary frequency and no hematuria Integumentary: no rash Neurologic: + falls; no localized weakness Physical Exam Constitutional: + disheveled; not in distress Eyes: PERRL, conjunctivae normal, anicteric sclerae ENMT: Mouth: + dry oral mucous membranes Neck: trachea midline, no thyromegaly Respiratory: normal respiratory effort, lungs clear to auscultation Cardiovascular: RRR, no murmur, no edema Gastrointestinal (Abdomen): normal bowel sounds, soft, nontender, no hepatosplenomegaly Skin: no rashes, warm and dry Neurologic: Speech / Cognition: normal speech and normal cognition Psychiatric: Affect: + depressed affect Results & Data Vital Signs (Past 12 Hours) Vital Signs Temp Pulse Pulse Resp BP BP Pulse Ox 03/20/24 07:55 37.2 C 76 18 198/86 H 95 03/20/24 05:57 74 03/20/24 03:57 36.4 C L 70 18 174/84 H 95 03/19/24 22:44 03/19/24 22:34 36.6 C 88 17 188/95 H 98 03/19/24 22:30 86 O2 Del Method 03/20/24 07:55 Room Air 03/20/24 05:57 03/20/24 03:57 Room Air 03/19/24 22:44 Room Air 03/19/24 22:34 Room Air 03/19/24 22:30 Laboratory Results Laboratory Results WBC 8.97 K/ul (4.8-10.8) 03/20/24 02:03 RBC 3.57 M/uL (4.20-5.40) L 03/20/24 02:03 Hgb 12.0 g/dl (12.0-16.0) 03/20/24 02:03 Hct 32.5 % (37.0-47.0) L 03/20/24 02:03 MCV 91.0 fL (80.0-100.0) 03/20/24 02:03 MCH 33.6 pg (25.0-34.0) 03/20/24 02:03 MCHC 36.9 g/dL (32.0-36.0) H 03/20/24 02:03 RDW Std Deviation 41.2 fL (36.4-46.3) 03/20/24 02:03 RDW Coeff of [place] 12.4 % (11.5-14.5) 03/20/24 02:03 Plt Count 255 K/uL (130-400) 03/20/24 02:03 MPV 8.7 fL (9.4-12.4) L 03/20/24 02:03 Immature Gran % (Auto) 0.4 % 03/20/24 02:03 Neut % (Auto) 76.5 % 03/20/24 02:03 Lymph % (Auto) 13.8 % 03/20/24 02:03 [place] % (Auto) 7.0 % 03/20/24 02:03 Eos % (Auto) 1.7 % 03/20/24 02:03 Baso % (Auto) 0.6 % 03/20/24 02:03 Neut # (Auto) 6.86 K/uL (1.40-6.50) H 03/20/24 02:03 Lymph # (Auto) 1.24 K/uL (1.20-3.40) 03/20/24 02:03 [place] # (Auto) 0.63 K/uL (0.11-0.59) H 03/20/24 02:03 Eos # (Auto) 0.15 K/uL (0.00-0.50) 03/20/24 02:03 Baso # (Auto) 0.05 K/uL (0.00-0.20) 03/20/24 02:03 Immature Gran # (Auto) 0.04 K/uL (0.01-0.20) 03/20/24 02:03 Sodium 121 mmol/L (136-145) L 03/20/24 10:03 Potassium 3.8 mmol/L (3.5-5.1) D 03/20/24 10:03 Chloride 86 mmol/L (98-107) L 03/20/24 10:03 Carbon Dioxide 28 mmol/L (21-32) 03/20/24 10:03 Anion Gap 7 (3-11) 03/20/24 10:03 BUN 42 mg/dl (6-23) H D 03/20/24 10:03 Creatinine 0.61 mg/dl (0.6-1.2) 03/20/24 10:03 Est Cr Clr Drug Dosing 66.6 ml/min 03/20/24 10:03 eGFR 107.50 03/20/24 10:03 BUN/Creatinine Ratio 68.9 (10-20) H 03/20/24 10:03 Glucose 198 mg/dl (70-99(Fasting)) H 03/20/24 10:03 Osmolality 249 mOsm/kg (280-300) L 03/19/24 17:40 Calcium 8.9 mg/dl (8.6-10.3) 03/20/24 10:03 Magnesium 1.5 mg/dl (1.7-2.4) L 03/20/24 10:03 Total Bilirubin 0.3 mg/dl (0.2-1.0) 03/19/24 17:40 AST 17 U/L (13-39) 03/19/24 17:40 ALT 14 U/L (7-52) 03/19/24 17:40 Alkaline Phosphatase 105 U/L (34-104) H 03/19/24 17:40 Total Protein 6.8 gm/dl (6.0-8.3) 03/19/24 17:40 Albumin 4.0 gm/dl (3.4-5.0) 03/19/24 17:40 Globulin 2.8 gm/dl (2.5-4.0) 03/19/24 17:40 Albumin/Globulin Ratio 1.4 (0.9-2) 03/19/24 17:40 TSH 3.469 uIu/ml (0.300-4.500) 03/19/24 17:40 Urine Color Yellow 03/19/24 18:27 Urine Appearance Clear (Clear) 03/19/24 18: Urine pH 7.0 (4.5-7.5) 03/19/24 18:27 Ur Specific [place] 1.008 (1.000-1.030) 03/19/24 18:27 Urine Protein 3+ (Negative) H 03/19/24 18:27 Urine Glucose (UA) Negative (Negative) 03/19/24 18: Urine Ketones Negative (Negative) 03/19/24 18: Urine Blood Negative (Negative) 03/19/24 18: Urine Nitrite Negative (Negative) 03/19/24 18: Urine Bilirubin Negative (Negative) 03/19/24 18: Urine Urobilinogen Negative (Negative) 03/19/24 18: Ur Leukocyte Esterase Negative (Negative) 03/19/24 18:27 Urine WBC (Auto) 0-5 /hpf (0-5) 03/19/24 18:27 Urine RBC (Auto) 0-2 /hpf (0-2) 03/19/24 18:27 U Hyaline Cast (Auto) 0-2 /lpf (0-2) 03/19/24 18:27 U Epithel Cells (Auto) 0-2 /hpf (0-2) 03/19/24 18:27 Urine Bacteria (Auto) None Seen (None Seen) 03/19/24 18:27 Urine Osmolality 192 mOsm/kg (500-800) L 03/19/24 18:27 Urine Sodium 32 mmol/L 03/19/24 18:27 Urine Potassium 45.3 mmol/L 03/19/24 18:27 Urine Chloride 53 mmol/L 03/19/24 18:27 Ethyl Alcohol mg/dL < 10.0 mg/dl (<10.0) 03/19/24 20:57 PG Care Time/CCT Total # of Minutes Spent Total Time Spent with Patient: Total time spent is greater than 50% in coordination of care (as documented) at patient's floor/unit and/or counseling patient: Coding Level of Care Code 58241 IN/OBS CONSULT LVL 5,80M Diagnoses Hyponatremia E87.1 Hypokalemia E87.6 Hypomagnesemia E83.42 Hypertension I10 Hypertension type: unspecified Alcohol use Z78.9 (4) Hypertension Hypertension type: unspecified Qualified Code(s): I10 - Essential (primary) hypertension
[2024-03-20 10:44] LABS: BUN Creatinine Ratio 68.9 (10-20); Calcium 8.9 mg/dl (8.6-10.3); Creatinine Clr Calc Pharmacy 66.6 ml/min; Magnesium 1.5 mg/dl (1.7-2.4); Potassium 3.8 mmol/L (3.5-5.1)
[2024-03-20] MEDS: MAGNESIUM SULFATE / D5W 1 GM/100 ML BAG IV SCH (11:22)
--- NOTE | 2024-03-20 12:44 | Hospitalist Progress Note ---
Date of Service March 20, 2024 Assessment & Plan (1) Hyponatremia: (2) Hypokalemia: (3) Hypomagnesemia: (4) Hypertension: (5) Abdominal aortic stenosis: (6) Right renal artery stenosis: (7) Tobacco use: (8) Alcohol use disorder: Plan 53-year-old female with past medical history of chronic hyponatremia, hypokalemia on spironolactone, alcohol use disorder, tobacco use disorder, history of Graves' disease, hypothyroidism, history of breast cancer status postlumpectomy with radiation therapy, essential hypertension who was recently hospitalized from 02/29/2024 to 03/05/2024 due to hyponatremia, was seen by dramatic reader Dr. Velez, was managed with fluid restriction and oral urea and sodium on discharge was up to 124. Patient went for routine labs yesterday which showed a sodium of 118 and she was sent to the ED. Patient has been drinking 2 beers a day and has not been compliant with her fluid restriction due to dry mouth #Hyponatremia #Hypokalemia #Hypomagnesemia TSH is 3.469 Nephrology saw the patient Nephrology believes patient has hypoosmolar hyponatremia suspect beer potomania Nephrology is planning on giving patient 100 mL of 3% normal saline with target correction of 6 to 8 mmol/L/day Patient apparently could not afford urea tablets following last hospitalization Continue sodium chloride 1 g p.o. twice daily Potassium replacement Magnesium replacement Monitor renal function and electrolytes Discussed with nephrology: Okay to continue spironolactone for now given hypokalemia 1200 mL fluid restriction #Essential hypertension #Abdominal aortic stenosis #Right renal artery stenosis CT of the abdomen pelvis from 08/09/2023 shows hemodynamically significant stenosis in the aorta near the diaphragm. Renal artery stenosis seen on the right and there is approximately 50% narrowing of the common right iliac artery. Remaining great vessels are patent and patent flow is seen in the bilateral lower extremities. I spoke with nephrology team: They are recommending vascular surgery consult I spoke with Dr. Mary from vascular surgery: Patient has no abdominal pain and no claudication symptoms. She was referred to [facility] where she was evaluated by vascular surgery and intervention was recommended but patient was lost to follow-up. Patient acknowledges that she has not followed up with [facility]. Vascular surgery is recommended the patient is to follow-up with [facility] for surgical intervention upon discharge. As discussed with Dr. Mary via telephone chat: Patient does not need urgent transfer to [facility] as she is asymptomatic. He has recommended she follow-up with [facility]. No baseline echo on file Continue amlodipine 10 mg p.o. daily Hold losartan for now in light of right renal artery stenosis Continue aspirin 81 mg daily plus Lipitor 40 mg daily Patient is also on spironolactone and on fluid restriction Monitor orthostatic vital signs Check 2D echo #Alcohol use disorder Alcohol cessation counseling provided Continue thiamine plus folic acid plus multivitamins Patient does not appear to be in withdrawal at this point #Tobacco use disorder Smoking cessation counseling provided Patient declined nicotine replacement CODE STATUS: Full code DVT prophylaxis: Heparin subcutaneous twice daily PT/OT consults for discharge planning Discharge planning based on PT/OT recommendations, nephrology recommendations Care plan discussed with patient, nursing staff Admission and Anticipated Discharge Date Admission Date: March 19, 2024 Subjective Patient seen and examined H&P reviewed Labs reviewed Radiology reviewed Vital signs reviewed Patient denies any headache, dizziness, lightheadedness, chest pain, shortness of breath, nausea, vomiting, diarrhea, abdominal pain, claudication symptoms. Patient states she has a wheelchair, cane and walker at home. She smokes half a pack of cigarettes a day and drinks up to 2 beers a day. Patient tells me she is cut down drinking from 6 beers a day to 2 beers a day. Her last drink was yesterday where she had half a beer Patient lives by herself Review of Systems Review of Systems: As per HPI Physical Exam Physical Exam: General: No acute distress, cachectic in appearance Psych: Awake and alert HEENT: Anicteric sclera, moist oral mucosa CVS: Regular rate and rhythm Lungs: Bilateral air entry, no wheezing noted Abdomen: Soft, nontender, no rebound, no guarding Ext: No lower extremity edema, no calf tenderness Neuro: No focal motor deficits noted, able to move all 4 extremities Results & Data Results & Data Vital Signs (Past 12 Hours) Vital Signs Temp Pulse Pulse Resp BP BP Pulse Ox 03/20/24 11:20 36.9 C 79 16 163/80 H 96 03/20/24 07:55 37.2 C 76 18 198/86 H 95 03/20/24 05:57 74 03/20/24 03:57 36.4 C L 70 18 174/84 H 95 O2 Del Method 03/20/24 11:20 Room Air 03/20/24 07:55 Room Air 03/20/24 05:57 03/20/24 03:57 Room Air Laboratory Results Laboratory Results - last 24 hr 03/19/24 03/19/24 03/19/24 17:40 18:27 20:57 WBC 9.01 RBC 3.83 L Hgb 12.9 Hct 35.8 L MCV 93.5 MCH 33.7 MCHC 36.0 RDW Std Deviation 43.9 RDW Coeff of [place] 12.9 Plt Count 260 MPV 10.2 Immature Gran % (Auto) 0.7 Neut % (Auto) 71.1 Lymph % (Auto) 17.1 [place] % (Auto) 8.0 Eos % (Auto) 2.3 Baso % (Auto) 0.8 Neut # (Auto) 6.41 Lymph # (Auto) 1.54 [place] # (Auto) 0.72 H Eos # (Auto) 0.21 Baso # (Auto) 0.07 Immature Gran # (Auto) 0.06 Sodium 119 L* Potassium 4.6 Chloride 85 L Carbon Dioxide 27 Anion Gap 7 BUN 6 Creatinine 0.61 Est Cr Clr Drug Dosing 72.6 eGFR 107.50 BUN/Creatinine Ratio 9.8 L Glucose 80 Osmolality 249 L Calcium 9.3 Magnesium Total Bilirubin 0.3 AST 17 ALT 14 Alkaline Phosphatase 105 H Total Protein 6.8 Albumin 4.0 Globulin 2.8 Albumin/Globulin Ratio 1.4 TSH 3.469 Urine Color Yellow Urine Appearance Clear Urine pH 7.0 Ur Specific [place] 1.008 Urine Protein 3+ H Urine Glucose (UA) Negative Urine Ketones Negative Urine Blood Negative Urine Nitrite Negative Urine Bilirubin Negative Urine Urobilinogen Negative Ur Leukocyte Esterase Negative Urine WBC (Auto) 0-5 Urine RBC (Auto) 0-2 U Hyaline Cast (Auto) 0-2 U Epithel Cells (Auto) 0-2 Urine Bacteria (Auto) None Seen Urine Osmolality 192 L Urine Sodium 32 Urine Potassium 45.3 Urine Chloride 53 Ethyl Alcohol mg/dL < 10.0 03/19/24 03/20/24 03/20/24 21:00 02:03 05:41 WBC 8.97 RBC 3.57 L Hgb 12.0 Hct 32.5 L MCV 91.0 MCH 33.6 MCHC 36.9 H RDW Std Deviation 41.2 RDW Coeff of [place] 12.4 Plt Count 255 MPV 8.7 L Immature Gran % (Auto) 0.4 Neut % (Auto) 76.5 Lymph % (Auto) 13.8 [place] % (Auto) 7.0 Eos % (Auto) 1.7 Baso % (Auto) 0.6 Neut # (Auto) 6.86 H Lymph # (Auto) 1.24 [place] # (Auto) 0.63 H Eos # (Auto) 0.15 Baso # (Auto) 0.05 Immature Gran # (Auto) 0.04 Sodium 119 L* 120 L 120 L Potassium 4.2 3.3 L D 3.0 L Chloride 87 L 87 L 86 L Carbon Dioxide 24 26 26 Anion Gap 8 7 8 BUN 6 31 H D 21 Creatinine 0.54 L 0.49 L 0.48 L Est Cr Clr Drug Dosing 75.0 82.7 84.6 eGFR 110.71 113.33 113.90 BUN/Creatinine Ratio 11.1 63.3 H 43.8 H Glucose 98 72 106 H Osmolality Calcium 9.0 8.5 L 8.6 Magnesium Total Bilirubin AST ALT Alkaline Phosphatase Total Protein Albumin Globulin Albumin/Globulin Ratio TSH Urine Color Urine Appearance Urine pH Ur Specific [place] Urine Protein Urine Glucose (UA) Urine Ketones Urine Blood Urine Nitrite Urine Bilirubin Urine Urobilinogen Ur Leukocyte Esterase Urine WBC (Auto) Urine RBC (Auto) U Hyaline Cast (Auto) U Epithel Cells (Auto) Urine Bacteria (Auto) Urine Osmolality Urine Sodium Urine Potassium Urine Chloride Ethyl Alcohol mg/dL 03/20/24 03/20/24 10:03 12:21 WBC RBC Hgb Hct MCV MCH MCHC RDW Std Deviation RDW Coeff of [place] Plt Count MPV Immature Gran % (Auto) Neut % (Auto) Lymph % (Auto) [place] % (Auto) Eos % (Auto) Baso % (Auto) Neut # (Auto) Lymph # (Auto) [place] # (Auto) Eos # (Auto) Baso # (Auto) Immature Gran # (Auto) Sodium 121 L Pending Potassium 3.8 D Pending Chloride 86 L Pending Carbon Dioxide 28 Pending Anion Gap 7 Pending BUN 42 H D Pending Creatinine 0.61 Pending Est Cr Clr Drug Dosing 66.6 Pending eGFR 107.50 Pending BUN/Creatinine Ratio 68.9 H Pending Glucose 198 H Pending Osmolality Calcium 8.9 Pending Magnesium 1.5 L Total Bilirubin AST ALT Alkaline Phosphatase Total Protein Albumin Globulin Albumin/Globulin Ratio TSH Urine Color Urine Appearance Urine pH Ur Specific [place] Urine Protein Urine Glucose (UA) Urine Ketones Urine Blood Urine Nitrite Urine Bilirubin Urine Urobilinogen Ur Leukocyte Esterase Urine WBC (Auto) Urine RBC (Auto) U Hyaline Cast (Auto) U Epithel Cells (Auto) Urine Bacteria (Auto) Urine Osmolality Urine Sodium Urine Potassium Urine Chloride Ethyl Alcohol mg/dL PG Care Time/CCT Total # of Minutes Spent Total Time Spent with Patient: Total time spent is greater than 50% in coordination of care (as documented) at patient's floor/unit and/or counseling patient: Coding Level of Care Code 34550 SUB INP/OBS CARE 350MIN Diagnoses Hyponatremia E87.1 Hypokalemia E87.6 Hypomagnesemia E83.42 Hypertension, unspecified type I10 Hypertension type: unspecified Abdominal aortic stenosis Q25.1 Right renal artery stenosis I70.1 Tobacco use Z72.0 Alcohol use disorder F10.90 (4) Hypertension Hypertension type: unspecified Qualified Code(s): I10 - Essential (primary) hypertension
[2024-03-20 12:50] LABS: BUN Creatinine Ratio 73.5 (10-20); Calcium 8.2 mg/dl (8.6-10.3); Creatinine Clr Calc Pharmacy 82.9 ml/min; Potassium 4.3 mmol/L (3.5-5.1)
--- NOTE | 2024-03-20 14:31 | Communication Note ---
Date of Service: March 20, 2024 Patient known to us for renal artery and aortic stenosis. Was sent to [facility] for eval for open repair. She was to have further studies and follow up after the studies. She will need an open procedure for her occlusive disease at a tertiary care center. If she is asymptomatic from her aortic and renal disease at this time, she needs to follow up at [facility] as her surgery that is required can not be done here.
[2024-03-20] MEDS: POTASSIUM CHLORIDE CRTAB 20 MEQ TABCR PO ONE (15:45)
[2024-03-20] MEDS ORDERED: carvediloL 3.125 MG TAB PO SCH (17:00)
[2024-03-20 18:01] LABS: BUN Creatinine Ratio 47.4 (10-20); Calcium 8.4 mg/dl (8.6-10.3); Creatinine Clr Calc Pharmacy 53.4 ml/min; Potassium 5.9 mmol/L (3.5-5.1)
[2024-03-20] MEDS: FUROSEMIDE 20 MG TAB PO ONE (23:00)
[2024-03-20] MEDS: SODIUM CHLORIDE 3 % 150 ML IV ONE (23:01)
[2024-03-21 06:50] LABS: Basophils # (auto) 0.05 K/uL (0.00-0.20); Basophils % (auto) 0.7 %; Eosinophils # (auto) 0.25 K/uL (0.00-0.50); Eosinophils % (auto) 3.7 %; Hematocrit (blood only) 32.1 % (37.0-47.0); Hemoglobin 11.3 g/dl (12.0-16.0); Immature Granulocytes # (auto) 0.03 K/uL (0.01-0.20); Immature Granulocytes % (auto) 0.4 %; Lymphocytes # (auto) 1.56 K/uL (1.20-3.40); Mean Corpuscular Hemoglobin 33.1 pg (25.0-34.0); Mean Corpuscular Hgb Conc 35.2 g/dL (32.0-36.0); Mean Corpuscular Volume 94.1 fL (80.0-100.0); Mean Platelet Volume 9.4 fL (9.4-12.4); Monocytes # (auto) 0.63 K/uL (0.11-0.59); Monocytes % (auto) 9.3 %; Neutrophils # (auto) 4.26 K/uL (1.40-6.50); Neutrophils % (auto) 62.9 %; Platelet Count 248 K/uL (130-400); RDW Coefficient of Variation 12.8 % (11.5-14.5); RDW Standard Deviation 44.5 fL (36.4-46.3); Red Blood Count 3.41 M/uL (4.20-5.40); White Blood Count 6.78 K/ul (4.8-10.8)
[2024-03-21 07:25] LABS: BUN Creatinine Ratio 23.4 (10-20); Calcium 8.6 mg/dl (8.6-10.3); Creatinine Clr Calc Pharmacy 55.5 ml/min; Magnesium 1.8 mg/dl (1.7-2.4); Potassium 3.9 mmol/L (3.5-5.1)
--- NOTE | 2024-03-21 09:01 | Nephrology Progress Note ---
Date of Service March 21, 2024 Assessment & Plan (1) Hyponatremia: Plan: * Hypoosmolar hyponatremia * Urine osmolality is appropriately suppressed * Spot urine sodium is elevated arguing against prerenal condition * 03/19/24 TSH wnl, 02/03 & 03/[address] negative for malignancy * Clinically suspect beer potomania * Serum Na improved to 124 mmol/L this am * Target rate of correction remains 6-8 mmol/L/day * Patient could not afford urea tablets following last hospitalization * Increase NaCl to 2 g po BID * Monitor BMP, Uosm (2) Hypokalemia: Plan: * Corrected * Serum K 3.9 this am (3) Hypomagnesemia: Plan: * 2 g MgSO4 IV administered yesterday. Serum Mg 1.8 this am * Will likely benefit from MgCl as outpatient (4) Hypertension: Plan: * BP remains elevated * 08/09/23 CTA of abdomen & pelvis: There is hemodynamically significant stenosis in the aorta near the diaphragm. Renal artery stenosis is seen on the right and there is approximately 50% narrowing of the common right iliac artery. Remaining great vessels are patent and patent flow is seen in the bilateral lower extremities. * [place] [facility] [place] for aortic stenosis and intervention was recommended but she was lost to follow up. She is now scheduled to be evaluated w/ [facility] vascular surgery * R kidney is atrophic (~6 cm) and likely minimally functional * Continue current regimen of amlodipine and spironolactone * Recommend adding losartan and titrating dose while monitoring kidney function, potassium (5) Alcohol use: Plan: * Agree w/ providing MVI and folic acid * Patient requires alcohol and smoking cessation education * Question whether office of aging could help patient following discharge due to patient's repeated hospitalization for alcohol related electrolyte imbalance and frequent falls Admission and Anticipated Discharge Date Admission Date: March 19, 2024 Subjective Ms. Bennett was evaluated in her hospital room this morning. She denies GARCIA, focal neurologic weakness. She is tolerating NaCl tablets without GI upset Review of Systems Constitutional: no fever Eyes: no problem reported Ear, Nose, Mouth, Throat: no problem reported Respiratory: no cough, no dyspnea and no hemoptysis Cardiovascular: no chest pain Gastrointestinal: no abdominal pain, no nausea, no vomiting and no diarrhea/loose stools Genitourinary: no dysuria, no urinary frequency and no hematuria Integumentary: no rash Neurologic: + falls; no localized weakness Physical Exam Constitutional: + disheveled; not in distress Eyes: PERRL, conjunctivae normal, anicteric sclerae ENMT: Mouth: + dry oral mucous membranes Neck: trachea midline, no thyromegaly Respiratory: normal respiratory effort, lungs clear to auscultation Cardiovascular: RRR, no murmur, no edema Gastrointestinal (Abdomen): normal bowel sounds, soft, nontender, no hepatosplenomegaly Skin: no rashes, warm and dry Neurologic: Speech / Cognition: normal speech and normal cognition Psychiatric: Affect: + depressed affect Results & Data Vital Signs (Past 12 Hours) Vital Signs Temp Pulse Pulse Resp BP Pulse Ox O2 Del Method 03/21/24 07:33 36.8 C 78 16 192/92 H 94 Room Air 03/21/24 07:23 75 03/21/24 02:17 36.8 C 87 16 178/92 H 97 Room Air 03/20/24 22:12 36.7 C 74 18 154/80 H 93 Room Air 03/20/24 21:55 72 Laboratory Results Laboratory Results - last 24 hr 03/20/24 03/20/24 03/20/24 10:03 12:21 17:21 WBC RBC Hgb Hct MCV MCH MCHC RDW Std Deviation RDW Coeff of [place] Plt Count MPV Immature Gran % (Auto) Neut % (Auto) Lymph % (Auto) [place] % (Auto) Eos % (Auto) Baso % (Auto) Neut # (Auto) Lymph # (Auto) [place] # (Auto) Eos # (Auto) Baso # (Auto) Immature Gran # (Auto) Sodium 121 L 121 L 117 L* Potassium 3.8 D 4.3 5.9 H D Chloride 86 L 90 L 89 L Carbon Dioxide 28 26 25 Anion Gap 7 5 3 BUN 42 H D 36 H 36 H Creatinine 0.61 0.49 L 0.76 Est Cr Clr Drug Dosing 66.6 82.9 53.4 eGFR 107.50 113.33 94.22 BUN/Creatinine Ratio 68.9 H 73.5 H 47.4 H Glucose 198 H 108 H 77 Calcium 8.9 8.2 L 8.4 L Magnesium 1.5 L Urine Osmolality 03/21/24 03/21/24 05:57 07:48 WBC 6.78 RBC 3.41 L Hgb 11.3 L Hct 32.1 L MCV 94.1 MCH 33.1 MCHC 35.2 RDW Std Deviation 44.5 RDW Coeff of [place] 12.8 Plt Count 248 MPV 9.4 Immature Gran % (Auto) 0.4 Neut % (Auto) 62.9 Lymph % (Auto) 23.0 [place] % (Auto) 9.3 Eos % (Auto) 3.7 Baso % (Auto) 0.7 Neut # (Auto) 4.26 Lymph # (Auto) 1.56 [place] # (Auto) 0.63 H Eos # (Auto) 0.25 Baso # (Auto) 0.05 Immature Gran # (Auto) 0.03 Sodium 124 L Potassium 3.9 D Chloride 94 L Carbon Dioxide 25 Anion Gap 5 BUN 18 Creatinine 0.77 Est Cr Clr Drug Dosing 55.5 eGFR 92.76 BUN/Creatinine Ratio 23.4 H Glucose 90 Calcium 8.6 Magnesium 1.8 Urine Osmolality 377 L Diagnostic Findings 02/17/[address]: 1. There are mild acute to subacute superior endplate compression fractures of T4 and T11. These are new from 01/23/2024. No retropulsion of fragments is seen. 2. There are subacute/healing fractures of the sternal body and the right anterior 4th rib. These are unchanged from previous. 3. There is no airspace consolidation, pleural effusion, or pneumothorax. 4. Emphysema. 5. Scattered tree-in-bud opacities throughout both lungs are likely inflammatory. 6. There is advanced atherosclerotic plaque and likely high-grade stenosis of the proximal abdominal aorta. This is not well assessed without IV contrast. 01/23/[address]: Liver: No injury. Fatty infiltration. Gallbladder and bile ducts: Normal gallbladder. No ductal dilation. Pancreas: No ductal dilation. Spleen: No laceration. Adrenals: Unremarkable. No mass. Kidneys and ureters: Right kidney smaller than the left, chronic, measuring 6.2 cm in length, while the left measures 10.4 cm in length. No injury. Tiny cortical cysts. No pyelonephritis or hydronephrosis. Stomach and bowel: Diverticulosis and moderate fecal loading of the colon. No obstruction. Intraperitoneal space: No free air or fluid. Bones/joints: No acute fracture. Soft tissues: Unremarkable. Vasculature: Severe atherosclerotic calcification, stable No abdominal aortic aneurysm. Lymph nodes: No enlarged lymph nodes. Bladder: No injury. 08/09/23 Abdominal CTA: There is hemodynamically significant stenosis in the aorta near the diaphragm. Renal artery stenosis is seen on the right and there is approximately 50% narrowing of the common right iliac artery. Remaining great vessels are patent and patent flow is seen in the bilateral lower extremities. PG Care Time/CCT Total # of Minutes Spent Total Time Spent with Patient: Total time spent is greater than 50% in coordination of care (as documented) at patient's floor/unit and/or counseling patient: Coding Level of Care Code 30196 SUB INP/OBS CARE 3/50MIN Diagnoses Hyponatremia E87.1 Hypokalemia E87.6 Hypomagnesemia E83.42 Hypertension I10 Hypertension type: unspecified Alcohol use Z78.9 (4) Hypertension Hypertension type: unspecified Qualified Code(s): I10 - Essential (primary) hypertension
--- NOTE | 2024-03-21 10:00 | Hospitalist Progress Note ---
Date of Service March 21, 2024 Assessment & Plan (1) Hyponatremia: (2) Hypokalemia: (3) Hypomagnesemia: (4) Hypertension: (5) Abdominal aortic stenosis: (6) Right renal artery stenosis: (7) Tobacco use: (8) Alcohol use disorder: Plan 53-year-old female with past medical history of chronic hyponatremia, hypokalemia on spironolactone, alcohol use disorder, tobacco use disorder, history of Graves' disease, hypothyroidism, history of breast cancer status postlumpectomy with radiation therapy, essential hypertension who was recently hospitalized from 02/29/2024 to 03/05/2024 due to hyponatremia, was seen by webbing inspector Dr. Velez, was managed with fluid restriction and oral urea and sodium on discharge was up to 124. Patient went for routine labs yesterday which showed a sodium of 118 and she was sent to the ED. Patient has been drinking 2 beers a day and has not been compliant with her fluid restriction due to dry mouth #Hyponatremia #Hypokalemia #Hypomagnesemia TSH is 3.469 Nephrology saw the patient Nephrology believes patient has hypoosmolar hyponatremia suspect beer potomania Nephrology gave patient 100 mL of 3% normal saline yesterday with target correction of 6 to 8 mmol/L/day Patient apparently could not afford urea tablets following last hospitalization Salt tabs have been increased to 2 g p.o. twice daily Potassium and magnesium levels have improved with replacement Monitor renal function and electrolytes 1200 mL fluid restriction #Essential hypertension #Abdominal aortic stenosis #Right renal artery stenosis #Orthostatic vital signs CT of the abdomen pelvis from 08/09/2023 shows hemodynamically significant stenosis in the aorta near the diaphragm. Renal artery stenosis seen on the right and there is approximately 50% narrowing of the common right iliac artery. Remaining great vessels are patent and patent flow is seen in the bilateral lower extremities. I spoke with nephrology team: They are recommending vascular surgery consult I spoke with Dr. Mary from vascular surgery on 03/20/24: Patient has no abdominal pain and no claudication symptoms. She was referred to [facility] where she was evaluated by vascular surgery and intervention was recommended but patient was lost to follow-up. Patient acknowledges that she has not followed up with [facility]. Vascular surgery is recommended the patient is to follow-up with [facility] for surgical intervention upon discharge. As discussed with Dr. Mary via telephone chat: Patient does not need urgent transfer to [facility] as she is asymptomatic. He has recommended she follow-up with [facility]. Patient tells me she has an appointment with Dr. Sadiq Esteves vascular surgeon at [facility] through [employer] on 03/28/2024 at 1:30 PM Echo done: Results pending Continue amlodipine 10 mg p.o. daily and spironolactone 100 mg p.o. daily Continue aspirin 81 mg daily plus Lipitor 40 mg daily Patient's blood pressure dropped from 189/97 to 146/94 this morning on orthostatic vital signs. Nephrology is recommending adding losartan 25 mg daily for better blood pressure control Will add losartan 25 mg daily with hold parameters for orthostatic vital signs Monitor orthostatic vital signs Follow-up echo results when available #Alcohol use disorder Alcohol cessation counseling provided Continue thiamine plus folic acid plus multivitamins Patient does not appear to be in withdrawal at this point #Tobacco use disorder Smoking cessation counseling provided Patient declined nicotine replacement CODE STATUS: Full code DVT prophylaxis: Heparin subcutaneous twice daily Discharge planning based on nephrology recommendations hopefully in the next 24 to 48 hours Care plan discussed with patient, nursing staff Admission and Anticipated Discharge Date Admission Date: March 19, 2024 Subjective Patient seen and examined Sodium levels have improved to 124 Labs and vital signs reviewed Patient denies any chest pain or shortness of breath She is adhering to the fluid restriction and tolerating oral diet without any issues health care sanitary technician just finished echo Patient states she lost her to pancreatic cancer in October 2023 Physical Exam Physical Exam: General: No acute distress, cachectic in appearance Psych: Awake and alert HEENT: Anicteric sclera, moist oral mucosa CVS: Regular rate and rhythm Lungs: Bilateral air entry, no wheezing noted Abdomen: Soft, nontender, no rebound, no guarding Ext: No lower extremity edema, no calf tenderness Neuro: No focal motor deficits noted, able to move all 4 extremities Results & Data Results & Data Vital Signs (Past 12 Hours) Vital Signs Temp Pulse Pulse Resp BP Pulse Ox O2 Del Method 03/21/24 07:33 36.8 C 78 16 192/92 H 94 Room Air 03/21/24 07:23 75 03/21/24 02:17 36.8 C 87 16 178/92 H 97 Room Air 03/20/24 22:12 36.7 C 74 18 154/80 H 93 Room Air Laboratory Results Laboratory Results - last 24 hr 03/20/24 03/20/24 03/20/24 10:03 12:21 17:21 WBC RBC Hgb Hct MCV MCH MCHC RDW Std Deviation RDW Coeff of [place] Plt Count MPV Immature Gran % (Auto) Neut % (Auto) Lymph % (Auto) [place] % (Auto) Eos % (Auto) Baso % (Auto) Neut # (Auto) Lymph # (Auto) [place] # (Auto) Eos # (Auto) Baso # (Auto) Immature Gran # (Auto) Sodium 121 L 121 L 117 L* Potassium 3.8 D 4.3 5.9 H D Chloride 86 L 90 L 89 L Carbon Dioxide 28 26 25 Anion Gap 7 5 3 BUN 42 H D 36 H 36 H Creatinine 0.61 0.49 L 0.76 Est Cr Clr Drug Dosing 66.6 82.9 53.4 eGFR 107.50 113.33 94.22 BUN/Creatinine Ratio 68.9 H 73.5 H 47.4 H Glucose 198 H 108 H 77 Calcium 8.9 8.2 L 8.4 L Magnesium 1.5 L Urine Osmolality 03/21/24 03/21/24 05:57 07:48 WBC 6.78 RBC 3.41 L Hgb 11.3 L Hct 32.1 L MCV 94.1 MCH 33.1 MCHC 35.2 RDW Std Deviation 44.5 RDW Coeff of [place] 12.8 Plt Count 248 MPV 9.4 Immature Gran % (Auto) 0.4 Neut % (Auto) 62.9 Lymph % (Auto) 23.0 [place] % (Auto) 9.3 Eos % (Auto) 3.7 Baso % (Auto) 0.7 Neut # (Auto) 4.26 Lymph # (Auto) 1.56 [place] # (Auto) 0.63 H Eos # (Auto) 0.25 Baso # (Auto) 0.05 Immature Gran # (Auto) 0.03 Sodium 124 L Potassium 3.9 D Chloride 94 L Carbon Dioxide 25 Anion Gap 5 BUN 18 Creatinine 0.77 Est Cr Clr Drug Dosing 55.5 eGFR 92.76 BUN/Creatinine Ratio 23.4 H Glucose 90 Calcium 8.6 Magnesium 1.8 Urine Osmolality 377 L PG Care Time/CCT Total # of Minutes Spent Total Time Spent with Patient: Total time spent is greater than 50% in coordination of care (as documented) at patient's floor/unit and/or counseling patient: Coding Level of Care Code 59717 SUB INP/OBS CARE 2/35MIN Diagnoses Hyponatremia E87.1 Hypokalemia E87.6 Hypomagnesemia E83.42 Hypertension, unspecified type I10 Hypertension type: unspecified Abdominal aortic stenosis Q25.1 Right renal artery stenosis I70.1 Tobacco use Z72.0 Alcohol use disorder F10.90 (4) Hypertension Hypertension type: unspecified Qualified Code(s): I10 - Essential (primary) hypertension
--- NOTE | 2024-03-21 14:46 | XCELERA ---
[id number]
[2024-03-21 16:10] LABS: Calcium 8.3 mg/dl (8.6-10.3); Creatinine Clr Calc Pharmacy 35.9 ml/min; Potassium 4.3 mmol/L (3.5-5.1)
[2024-03-21] MEDS: FUROSEMIDE 20 MG TAB PO ONE (17:37)
[2024-03-21] MEDS ORDERED: LOSARTAN POTASSIUM 25 MG TAB PO SCH (21:00)
[2024-03-22 06:57] LABS: Basophils # (auto) 0.05 K/uL (0.00-0.20); Basophils % (auto) 0.6 %; Eosinophils # (auto) 0.25 K/uL (0.00-0.50); Eosinophils % (auto) 2.8 %; Hematocrit (blood only) 33.9 % (37.0-47.0); Hemoglobin 12.1 g/dl (12.0-16.0); Immature Granulocytes # (auto) 0.03 K/uL (0.01-0.20); Immature Granulocytes % (auto) 0.3 %; Lymphocytes # (auto) 1.19 K/uL (1.20-3.40); Lymphocytes % (auto) 13.5 %; Mean Corpuscular Hemoglobin 33.1 pg (25.0-34.0); Mean Corpuscular Hgb Conc 35.7 g/dL (32.0-36.0); Mean Corpuscular Volume 92.6 fL (80.0-100.0); Mean Platelet Volume 10.6 fL (9.4-12.4); Monocytes # (auto) 0.71 K/uL (0.11-0.59); Monocytes % (auto) 8.1 %; Neutrophils # (auto) 6.56 K/uL (1.40-6.50); Neutrophils % (auto) 74.7 %; Platelet Count 193 K/uL (130-400); RDW Coefficient of Variation 12.3 % (11.5-14.5); RDW Standard Deviation 41.8 fL (36.4-46.3); Red Blood Count 3.66 M/uL (4.20-5.40); White Blood Count 8.79 K/ul (4.8-10.8)
[2024-03-22 07:13] LABS: Albumin Globulin Ratio 1.3 (0.9-2); Albumin Level 3.4 gm/dl (3.4-5.0); BUN Creatinine Ratio 18.8 (10-20); Bilirubin,Total 0.4 mg/dl (0.2-1.0); Calcium 8.8 mg/dl (8.6-10.3); Globulin 2.6 gm/dl (2.5-4.0); Magnesium 1.3 mg/dl (1.7-2.4); Potassium 2.8 mmol/L (3.5-5.1)
--- NOTE | 2024-03-22 07:13 | Hospitalist Progress Note ---
Date of Service March 22, 2024 Assessment & Plan (1) Hyponatremia: Plan: history of chronic hyponatremia, alcohol use disorder, tobacco use disorder, history of Graves' disease, hypothyroidism, history of breast cancer status postlumpectomy with radiation therapy, recently hospitalized from 02/29/2024 to 03/05/2024 due to hyponatremia, was seen by spring upholsterer Dr. Velez, was managed with fluid restriction and oral urea and sodium on discharge was up to 124. Patient went for routine labs as outpt which showed a sodium of 118 and she was sent to the ED. Patient has been drinking 2 beers a day and has not been compliant with her fluid restriction due to dry mouth Hyponatremia TSH is 3.469 Nephrology believes patient has hypoosmolar hyponatremia suspect beer potomania Nephrology gave patient 100 mL of 3% normal saline 03/20 with target correction of 6 to 8 mmol/L/day Patient apparently could not afford urea tablets following last hospitalization Salt tabs have been increased to 2 g p.o. twice daily, fluid restriction to 1 200ml hypokalemia and hypomagnesemia are very low 03/22 and will be replete (2) Abdominal aortic stenosis: Plan: CT of the abdomen pelvis from 08/09/2023 shows hemodynamically significant stenosis in the aorta near the diaphragm. Renal artery stenosis seen on the right and there is approximately 50% narrowing of the common right iliac artery. Remaining great vessels are patent and patent flow is seen in the bilateral lower extremities. vascular surgery consult, Dr. Mary from vascular surgery on 03/20/24: Patient has no abdominal pain and no claudication symptoms. She was referred to [facility] where she was evaluated by vascular surgery and intervention , is recommended the patient is to follow-up with [facility] for surgical intervention upon discharge. Patient relates she has an appointment with Dr. Sadiq Esteves vascular surgeon at [facility] through [employer] on 03/28/2024 at 1:30 PM Echo done:normal EF no RWMA no sig valvular changed, borderline LVH for hypertension control, amlodipine 10 mg p.o. daily and spironolactone 100 mg p.o. daily, Nephrology is recommending adding losartan 25 mg daily started Continue aspirin 81 mg daily plus Lipitor 40 mg daily Plan Alcohol use disorder Alcohol cessation counseling provided Continue thiamine plus folic acid plus multivitamins Patient does not appear to be in withdrawal at this point Tobacco use disorder Smoking cessation counseling provided Patient declined nicotine replacement Severe protein-calorie malnutrition CODE STATUS: Full code DVT prophylaxis: Heparin subcutaneous twice daily Admission and Anticipated Discharge Date Admission Date: March 19, 2024 Subjective pt wants to leave, when asked cannot remember if she had been taking salt tablets at home no new issues, cannot commit to stopping drinking alcohol Results & Data Results & Data Vital Signs (Past 12 Hours) Vital Signs Temp Pulse Pulse Resp BP Pulse Ox O2 Del Method 03/22/24 02:40 97.9 F 80 16 179/86 H 94 Room Air 03/21/24 23:12 98.2 F 88 18 182/92 H 96 Room Air 03/21/24 21:38 88 03/21/24 19:23 98.2 F 88 18 164/81 H 95 Room Air Laboratory Results review cbc review chemistry low mag replete iv PG Care Time/CCT Total # of Minutes Spent Total Time Spent with Patient: Total time spent is greater than 50% in coordination of care (as documented) at patient's floor/unit and/or counseling patient: Coding Level of Care Code 29569 SUB INP/OBS CARE 2/35MIN Diagnoses Hyponatremia E87.1 Abdominal aortic stenosis Q25.1
[2024-03-22] MEDS: MAGNESIUM SULFATE / D5W 1 GM/100 ML BAG IV SCH (08:06)
[2024-03-22] MEDS: LOSARTAN POTASSIUM 25 MG TAB PO SCH (08:08)
[2024-03-22] MEDS: POTASSIUM CHLORIDE CRTAB 20 MEQ TABCR PO SCH (08:12)
--- NOTE | 2024-03-22 09:07 | Nephrology Progress Note ---
Date of Service March 22, 2024 Assessment & Plan (1) Hyponatremia: Plan: * Hypoosmolar hyponatremia * Urine osmolality has risen despite hyponatremia and low dose loop diuretic * Spot urine sodium is elevated arguing against prerenal condition * 03/19/24 TSH wnl * 02/03 & 03/[address] negative for malignancy * Clinically suspect beer potomania * Serum Na is slow to correct while on NaCl tablets * Continue NaCl at 1 g po BID * LFT's are normal. Will provide trial of Tolvaptan 15 mg po x1 this am * Monitor BMP, Uosm (2) Hypokalemia: Plan: * Hypokalemia. Patient is on oral supplementation (3) Hypomagnesemia: Plan: * Mg 1.3 this am. 3 g MgSO4 IV ordered by primary service * Will likely benefit from MgCl as outpatient (4) Hypertension: Plan: * BP remains elevated * 08/09/23 CTA of abdomen & pelvis: There is hemodynamically significant stenosis in the aorta near the diaphragm. Renal artery stenosis is seen on the right and there is approximately 50% narrowing of the common right iliac artery. Remaining great vessels are patent and patent flow is seen in the bilateral lower extremities. * Patient did undergo [facility] [place] vascular [place] evaluation for aortic stenosis and intervention was recommended but she was lost to follow up. She is now scheduled to be evaluated w/ [facility] vascular surgery * R kidney is atrophic (~6 cm) and likely minimally functional * Continue current regimen of amlodipine and spironolactone * Will increase Losartan to 50 mg daily (5) Alcohol use: Plan: * Agree w/ providing MVI and folic acid * Patient requires alcohol and smoking cessation education * Question whether office of aging could help patient following discharge due to patient's repeated hospitalization for alcohol related electrolyte imbalance and frequent falls Admission and Anticipated Discharge Date Admission Date: March 19, 2024 Subjective Ms. Bennett was evaluated in her hospital room this morning. She reports that she slept poorly last night. Ms. Bennett denies GARCIA, focal neurologic weakness. She is tolerating NaCl tablets without GI upset. Review of Systems Constitutional: no fever Eyes: no problem reported Ear, Nose, Mouth, Throat: no problem reported Respiratory: no cough, no dyspnea and no hemoptysis Cardiovascular: no chest pain Gastrointestinal: no abdominal pain, no nausea, no vomiting and no diarrhea/loose stools Genitourinary: no dysuria, no urinary frequency and no hematuria Integumentary: no rash Neurologic: + falls; no localized weakness Physical Exam Constitutional: + disheveled; not in distress Eyes: PERRL, conjunctivae normal, anicteric sclerae ENMT: Mouth: + dry oral mucous membranes Neck: trachea midline, no thyromegaly Respiratory: normal respiratory effort, lungs clear to auscultation Cardiovascular: RRR, no murmur, no edema Gastrointestinal (Abdomen): normal bowel sounds, soft, nontender, no hepatosplenomegaly Skin: no rashes, warm and dry Neurologic: Speech / Cognition: normal speech and normal cognition Psychiatric: Affect: + depressed affect Results & Data Vital Signs (Past 12 Hours) Vital Signs Temp Pulse Pulse Resp BP BP Pulse Ox 03/22/24 07:43 36.7 C 73 16 179/88 H 95 03/22/24 07:10 74 03/22/24 02:40 36.6 C 80 16 179/86 H 94 03/21/24 23:12 36.8 C 88 18 182/92 H 96 03/21/24 21:38 88 O2 Del Method 03/22/24 07:43 Room Air 03/22/24 07:10 03/22/24 02:40 Room Air 03/21/24 23:12 Room Air 03/21/24 21:38 Laboratory Results Laboratory Results - last 24 hr 03/21/24 03/22/24 03/22/24 15:24 06:02 Unknown WBC 8.79 RBC 3.66 L Hgb 12.1 Hct 33.9 L MCV 92.6 MCH 33.1 MCHC 35.7 RDW Std Deviation 41.8 RDW Coeff of [place] 12.3 Plt Count 193 MPV 10.6 Immature Gran % (Auto) 0.3 Neut % (Auto) 74.7 Lymph % (Auto) 13.5 [place] % (Auto) 8.1 Eos % (Auto) 2.8 Baso % (Auto) 0.6 Neut # (Auto) 6.56 H Lymph # (Auto) 1.19 L [place] # (Auto) 0.71 H Eos # (Auto) 0.25 Baso # (Auto) 0.05 Immature Gran # (Auto) 0.03 Sodium 125 L 123 L Potassium 4.3 2.8 L D Chloride 92 L 88 L Carbon Dioxide 30 25 Anion Gap 3 10 BUN 19 12 Creatinine 1.19 D 0.64 D Est Cr Clr Drug Dosing 35.9 62.0 eGFR 55.01 106.27 BUN/Creatinine Ratio 16.0 18.8 Glucose 83 136 H Calcium 8.3 L 8.8 Magnesium 1.3 L Total Bilirubin 0.4 AST 16 ALT 12 Alkaline Phosphatase 84 Total Protein 6.0 Albumin 3.4 Globulin 2.6 Albumin/Globulin Ratio 1.3 Urine Osmolality 384 L PG Care Time/CCT Total # of Minutes Spent Total Time Spent with Patient: Total time spent is greater than 50% in coordination of care (as documented) at patient's floor/unit and/or counseling patient: Coding Level of Care Code 53702 SUB INP/OBS CARE 3/50MIN Diagnoses Hyponatremia E87.1 Hypokalemia E87.6 Hypomagnesemia E83.42 Hypertension I10 Hypertension type: unspecified Alcohol use Z78.9 (4) Hypertension Hypertension type: unspecified Qualified Code(s): I10 - Essential (primary) hypertension
[2024-03-22] MEDS: TOLVAPTAN 15 MG TABLET PO SCH (10:11)
[2024-03-22] MEDS: LOSARTAN POTASSIUM 50 MG TAB PO SCH (12:15)
[2024-03-22 15:44] LABS: Calcium 8.8 mg/dl (8.6-10.3); Potassium 4.7 mmol/L (3.5-5.1)
[2024-03-22 15:50] LABS: BUN Creatinine Ratio 25.3 (10-20); Creatinine Clr Calc Pharmacy 40.1 ml/min
[2024-03-22] MEDS: SODIUM CHLORIDE 1 GM TABLET PO SCH (20:56)
[2024-03-23 07:32] LABS: Albumin Globulin Ratio 1.2 (0.9-2); Albumin Level 3.2 gm/dl (3.4-5.0); BUN Creatinine Ratio 25.6 (10-20); Bilirubin,Total 0.3 mg/dl (0.2-1.0); Creatinine Clr Calc Pharmacy 47.1 ml/min; Globulin 2.6 gm/dl (2.5-4.0); Total Protein 5.8 gm/dl (6.0-8.3)
[2024-03-23 07:55] VITALS: O2SAT 97
[2024-03-23] MEDS: LOSARTAN POTASSIUM 25 MG TAB PO SCH (08:11)
--- NOTE | 2024-03-23 08:56 | Nephrology Progress Note ---
Date of Service March 23, 2024 Assessment & Plan (1) Hyponatremia: Plan: * Hypoosmolar hyponatremia * Urine osmolality has risen despite hyponatremia and low dose loop diuretic * Spot urine sodium is elevated arguing against prerenal condition * 03/19/24 TSH wnl * 02/03 & 03/[address] negative for malignancy * Clinically suspect beer potomania, poor solute intake * Serum Na has been slow to correct while on NaCl tablets * Continue NaCl at 1 g po BID * Increase Tolvaptan to 30 mg po this am * Monitor BMP, Uosm (2) Hypokalemia: Plan: * Corrected. KCl supplement stopped (3) Hypomagnesemia: Plan: * Will obtain serum Mg w/ next lab draw * Will likely benefit from MgCl as outpatient (4) Hypertension: Plan: * BP remains elevated * 08/09/23 CTA of abdomen & pelvis: There is hemodynamically significant stenosis in the aorta near the diaphragm. Renal artery stenosis is seen on the right and there is approximately 50% narrowing of the common right iliac artery. Remaining great vessels are patent and patent flow is seen in the bilateral lower extremities. * Patient did undergo [facility] vascular surgery evaluation for aortic stenosis and intervention was recommended but she was lost to follow up. She is now scheduled to be evaluated w/ [facility] vascular surgery * R kidney is atrophic (~6 cm) and likely minimally functional * Continue current regimen of amlodipine and spironolactone * Will increase Losartan to 50 mg daily (5) Alcohol use: Plan: * Agree w/ providing MVI and folic acid * Patient requires alcohol and smoking cessation education * Question whether office of aging could help patient following discharge due to patient's repeated hospitalization for alcohol related electrolyte imbalance and frequent falls Admission and Anticipated Discharge Date Admission Date: March 19, 2024 Subjective Ms. Bennett was evaluated in her hospital room this morning. She denies GARCIA, focal neurologic weakness. Ms. Bennett is tolerating NaCl tablets without GI upset. She is discouraged over continued hospitalization Review of Systems Constitutional: no fever Eyes: no problem reported Ear, Nose, Mouth, Throat: no problem reported Respiratory: no cough, no dyspnea and no hemoptysis Cardiovascular: no chest pain Gastrointestinal: no abdominal pain, no nausea, no vomiting and no diarrhea/loose stools Genitourinary: no dysuria, no urinary frequency and no hematuria Integumentary: no rash Neurologic: + falls; no localized weakness Physical Exam Constitutional: + disheveled; not in distress Eyes: PERRL, conjunctivae normal, anicteric sclerae ENMT: Mouth: + dry oral mucous membranes Neck: trachea midline, no thyromegaly Respiratory: normal respiratory effort, lungs clear to auscultation Cardiovascular: RRR, no murmur, no edema Gastrointestinal (Abdomen): normal bowel sounds, soft, nontender, no hepato splenomegaly Skin: no rashes, warm and dry Neurologic: Speech / Cognition: normal speech and normal cognition Psychiatric: Affect: + depressed affect Results & Data Vital Signs (Past 12 Hours) Vital Signs Temp Pulse Pulse Pulse Resp BP BP 03/23/24 07:54 36.8 C 78 18 171/81 H 03/23/24 04:02 36.8 C 79 18 128/63 03/22/24 23:09 37.0 C 84 18 153/71 H 03/22/24 21:43 79 Pulse Ox O2 Del Method 03/23/24 07:54 97 Room Air 03/23/24 04:02 96 Room Air 03/22/24 23:09 95 Room Air 03/22/24 21:43 Laboratory Results Laboratory Results - last 24 hr 03/22/24 03/22/24 03/23/24 15:00 15:20 05:12 Sodium 122 L Potassium 4.7 D Chloride 89 L Carbon Dioxide 27 Anion Gap 6 BUN 25 H Creatinine 0.99 D Est Cr Clr Drug Dosing 40.1 eGFR 68.61 BUN/Creatinine Ratio 25.3 H Glucose 98 Calcium 8.8 Total Bilirubin AST ALT Alkaline Phosphatase Total Protein Albumin Globulin Albumin/Globulin Ratio Urine Osmolality 255 L 346 L 03/23/24 06:38 Sodium 125 L Potassium 5.0 Chloride 96 L Carbon Dioxide 25 Anion Gap 4 BUN 22 Creatinine 0.86 Est Cr Clr Drug Dosing 47.1 eGFR 81.23 BUN/Creatinine Ratio 25.6 H Glucose 95 Calcium 9.0 Total Bilirubin 0.3 AST 16 ALT 16 Alkaline Phosphatase 75 Total Protein 5.8 L Albumin 3.2 L Globulin 2.6 Albumin/Globulin Ratio 1.2 Urine Osmolality PG Care Time/CCT Total # of Minutes Spent Total Time Spent with Patient: Total time spent is greater than 50% in coordination of care (as documented) at patient's floor/unit and/or counseling patient: Coding Level of Care Code 67984 SUB INP/OBS CARE 50MIN Diagnoses Hyponatremia E87.1 Hypokalemia E87.6 Hypomagnesemia E83.42 Hypertension I10 Hypertension type: unspecified Alcohol use Z78.9 (4) Hypertension Hypertension type: unspecified Qualified Code(s): I10 - Essential (primary) hypertension
[2024-03-23] MEDS: TOLVAPTAN 15 MG TABLET PO SCH (09:48)
[2024-03-23 11:42] VITALS: PULSE 79; RESP 16; TEMP 98.1
[2024-03-23 12:46] VITALS: BP 171/81
--- NOTE | 2024-03-23 15:01 | Discharge Summary ---
Discharge Summary Date of Service March 23, 2024 Principal Dx & Hospital Course #1 = Principal Diagnosis (1) Hyponatremia: history of chronic hyponatremia, alcohol use disorder, tobacco use disorder, history of Graves' disease, hypothyroidism, history of breast cancer status postlumpectomy with radiation therapy, recently hospitalized from 02/29/2024 to 03/05/2024 due to hyponatremia, was seen by dental office manager Dr. Velez, was managed with fluid restriction and oral urea and sodium on discharge was up to 124. Patient went for routine labs as outpt which showed a sodium of 118 and she was sent to the ED. Patient has been drinking 2 beers a day and has not been compliant with her fluid restriction due to dry mouth Hyponatremia, pt state she cannot affort urea and likley not tolvaptan, given education on using salt talblets and to refreain from alcohol and water use, will have labs in 3 days with short follow up with pcp TSH is 3.469 Nephrology believes patient has hypoosmolar hyponatremia suspect beer potomania Nephrology gave patient 100 mL of 3% normal saline 03/20 with target correction of 6 to 8 mmol/L/day Patient apparently could not afford urea tablets following last hospitalization replete electrolytes educated on drinking Gatorade and or power aide (2) Abdominal aortic stenosis: CT of the abdomen pelvis from 08/09/2023 shows hemodynamically significant stenosis in the aorta near the diaphragm. Renal artery stenosis seen on the right and there is approximately 50% narrowing of the common right iliac artery. Remaining great vessels are patent and patent flow is seen in the bilateral lower extremities. vascular surgery consult, Dr. Mary from vascular surgery on 03/20/24: Patient has no abdominal pain and no claudication symptoms. She was referred to [facility] where she was evaluated by vascular surgery and intervention , is recommended the patient is to follow-up with [facility] for surgical intervention upon discharge. Patient relates she has an appointment with Dr. Sdaiq Esteves vascular surgeon at [facility] through [facility] on 03/28/2024 at 1:30 PM Echo done:normal EF no RWMA no sig valvular changed, borderline LVH for hypertension control, amlodipine 10 mg p.o. daily and spironolactone 100 mg p.o. daily, Nephrology is recommending adding losartan 25 mg daily started Continue aspirin 81 mg daily plus Lipitor 40 mg daily Plan Alcohol use disorder Alcohol cessation counseling provided Continue thiamine plus folic acid plus multivitamins Patient does not appear to be in withdrawal at this point Tobacco use disorder Smoking cessation counseling provided Patient declined nicotine replacement Severe protein-calorie malnutrition CODE STATUS: Full code DVT prophylaxis: Heparin subcutaneous twice daily Notes For Next Care Provider closely follow sodium as out pt, discuss alcohol use Admission HPI Per Admitting Provider The patient is a 53-year-old female with a past medical history including hyponatremia, hypertension, mood disorder, thoracic and lumbar compression fracture, sacral fracture, history of closed head injury, multiple falls, alcohol use disorder, tobacco use, Graves' disease, and intraductal carcinoma of the left breast. Her sodium was 119 on admission. Her most recent hospitalization for hyponatremia was from 02/28-03/05/2024, when sodium was 116 on admission, and was improved to 128 on the day of discharge. Upon questioning, patient reports that her mouth is always dry, and she cannot help but drinking more liquids today and she was advised to. Discharge Exam awake and alert, no neurological deficits Discharge Plan Discharge Items Patient Disposition: Home - Self-Care Reason For Visit: HYPONATREMIA, XEROSTOMIA Discharge Diagnosis: low blood salt level that will make you unwell and confused Activity: Resume your previous activity Non-emergency contact: Primary Care Provider Call non-emergency contact if: your symptoms worsen Follow-up/Referrals: Reyna Cowan [Primary Care Provider] - 03/29/24 10:05 am (with Dr Jerez- [facility] d/c paperwork with you to appt) Diet: Regular Ambulatory Orders: Basic Metabolic Panel (Routine) Timeframe: 3 Days Location: Determined by Patient Ordered By: Luis Alfredo Gonzalez Attending Provider Instructions: It is very important that you limit the amount of fluid you drink in a day, avoid drinking alcohol of any kind and take your salt pills twice a day, otherwise your body salt level will go down and you will likely need to come back to the hospital you may consider keeping track of your fluid intake and should always be less than 2 liters or just about 2 quarts a day have a blood level checked at your follow up doctors appointment Pending Studies at Discharge: No Stand-Alone Forms: My [employer], Smoking Cessation Medications and DC Order Prescriptions: New spironolactone 100 mg Tablet 100 mg PO DAILY Qty: 30 5RF sodium chloride 1,000 mg Tablet,Soluble 1,000 mg PO BID Qty: 60 2RF Continued amlodipine 10 mg tablet 10 mg PO QAM fluticasone propion-salmeterol 100-50 mcg/dose blister with device 1 inh inhalation [facility] aspirin [Adult Low Dose Aspirin] 81 mg tablet,delayed release (DR/EC) 81 mg PO QAM multivitamin Tablet 1 tab PO QAM Zyrtec 10 mg capsule 10 mg PO DAILY PRN (Reason: allergies) atorvastatin 40 mg tablet 40 mg PO QAM magnesium oxide 400 mg magnesium capsule 400 mg PO BID 30 Days Qty: 60 1RF folic acid 1 mg tablet 1 mg PO QAM potassium chloride 20 mEq Tablet,Er Particles/Crystals 40 meq PO TIDM 30 Days Qty: 90 1RF mirtazapine 15 mg tablet 15 mg PO HS 30 Days Qty: 30 3RF losartan 25 mg tablet 25 mg PO QAM diphenhydramine HCl [Benadryl Allergy] 25 mg Tablet 25 mg PO TID PRN (Reason: Allergy Symptoms) azelastine 205.5 mcg (0.15 %) [place],Non-Aerosol 2 spray INTRANASAL QAM Rx Instructions: administer into each nostril spironolactone 100 mg tablet 100 mg PO QAM Discharge Orders: Discharge Order (Routine); Ordered 03/23/24 Ordered By: Luis Alfredo Singh Admission Data Admit Date/Time: 03/19/24 20:31 Attending Provider: Luis Alfredo Singh Admit Provider: Eugene Manuel Primary Care Provider: Reyna Cowan Other Providers: Eugene Manuel; Dameon Bay; Esteban Mary Other Interventions: Discharge Summary Assessment (RN) Last Done: 03/23/24 12:45 Hospital Stay Data Consultations 03/19/24 19:33 ED Decision to Admit Stat 03/20/24 08:13 Consult Nephrology Routine 03/20/24 12:47 Consult Vascular Surgery Routine Pending Results Patient Have Any Pending Studies at Discharge: No Discharge Instructions Given to Patient (Per Discharging Provider) It is very important that you limit the amount of fluid you drink in a day, avoid drinking alcohol of any kind and take your salt pills twice a day, otherwise your body salt level will go down and you will likely need to come back to the hospital you may consider keeping track of your fluid intake and should always be less than 2 liters or just about 2 quarts a day have a blood level checked at your follow up doctors appointment Total Time Total Time Spent Total Time Spent (In Minutes): greater than 20 minutes required to complete Coding Level of Care Code 73620 INP/OBS DISCH >30 MIN Diagnoses Hyponatremia E87.1 Abdominal aortic stenosis Q25.1
== END 2024-03-23 14:35 | disposition home or self-care (01) | DRG 640 ==
LOC: ED 17:18 → SUATTDRO 20:31 → 2N 20:31

== ENCOUNTER 2024-11-29 15:15 | Inpatient (IN) ==
[2024-11-29] MEDS: SODIUM CHLORIDE 0.9% 1,000 ML IV ONE (15:56)
[2024-11-29] MEDS: SODIUM CHLORIDE 0.9% 2,000 ML IV ONE (15:56)
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
[2024-11-29 17:10] LABS: Alanine Aminotransferase 19 U/L (7-52); Albumin Level 3.4 gm/dl (3.4-5.0); Alkaline Phosphatase 115 U/L (34-104); Anion Gap 12 (3-11); Aspartate Aminotransferase 24 U/L (13-39); BUN Creatinine Ratio 7.8 (10-20); Blood Urea Nitrogen 7 mg/dl (6-23); Calcium 8.6 mg/dl (8.6-10.3); Carbon Dioxide 28 mmol/L (21-32); Chloride 83 mmol/L (98-107); Glucose 187 mg/dl (70-99(Fasting)); Magnesium 1.3 mg/dl (1.7-2.4); Potassium 2.6 mmol/L (3.5-5.1); Sodium 123 mmol/L (136-145)
[2024-11-29 17:16] LABS: Troponin I High Sensitivity 36.6 pg/ml (0-14)
--- NOTE | 2024-11-29 17:17 | XRay Report ---
Clinical History: Sepsis Technique: A frontal view of the chest was obtained Comparison is made to the prior examination dated 03/09/2024 Findings: There are no confluent pulmonary infiltrates. The heart size is within normal limits. No pleural effusion or pneumothorax is seen. There is no definite pulmonary nodule. No fracture is noted. No foreign body is seen Impression: No active disease Electronically signed by Calos Nicholas 11-29-2024 5:17 PM
[2024-11-29 17:20] LABS: Albumin Globulin Ratio 1.4 (0.9-2); Bilirubin,Total 1.1 mg/dl (0.2-1.0); Globulin 2.4 gm/dl (2.5-4.0); Total Protein 5.8 gm/dl (6.0-8.3)
[2024-11-29 17:25] LABS: Partial Thromboplastin Ratio 0.9; Partial Thromboplastin Time 25 Seconds (21-31); Prothrombin Time 10.6 Seconds (9.0-12.0)
[2024-11-29] MEDS: MAGNESIUM SULFATE / D5W 1 GM/100 ML BAG IV SCH (17:25)
[2024-11-29] MEDS: POTASSIUM CHLORIDE / WTR 10 MEQ/100 ML PLCT IV SCH (17:25)
[2024-11-29 17:32] LABS: Basophils # (auto) 0.03 K/uL (0.00-0.20); Basophils % (auto) 0.4 %; Hematocrit (blood only) 40.7 % (37.0-47.0); Hemoglobin 14.7 g/dl (12.0-16.0); Immature Granulocytes # (auto) 0.03 K/uL (0.01-0.20); Immature Granulocytes % (auto) 0.4 %; Lymphocytes # (auto) 0.67 K/uL (1.20-3.40); Lymphocytes % (auto) 7.9 %; Mean Corpuscular Hemoglobin 33.6 pg (25.0-34.0); Mean Corpuscular Hgb Conc 36.1 g/dL (32.0-36.0); Mean Corpuscular Volume 93.1 fL (80.0-100.0); Mean Platelet Volume 8.9 fL (9.4-12.4); Monocytes # (auto) 0.58 K/uL (0.11-0.59); Monocytes % (auto) 6.9 %; Neutrophils # (auto) 7.15 K/uL (1.40-6.50); Neutrophils % (auto) 84.4 %; Platelet Count 250 K/uL (130-400); RDW Coefficient of Variation 13.4 % (11.5-14.5); RDW Standard Deviation 45.8 fL (36.4-46.3); Red Blood Count 4.37 M/uL (4.20-5.40); White Blood Count 8.46 K/ul (4.8-10.8)
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
[2024-11-29 18:55] LABS: Troponin I High Sensitivity 40.1 pg/ml (0-14)
[2024-11-29 19:05] LABS: Thyroid Stimulating Hormone 3.846 uIu/ml (0.300-4.500)
[2024-11-29 19:07] LABS: T4 Free Thyroxine 0.87 ng/dl (0.61-1.60)
[2024-11-29] MEDS: POTASSIUM CHLORIDE 10 MEQ TABCR PO STA (19:57)
[2024-11-29] MEDS: MAGNESIUM SULFATE / D5W 1 GM/100 ML BAG IV STA (19:58)
[2024-11-29 22:45] LABS: Appearance Urine Clear (Clear); Bacteria Urine Automated None Seen (None Seen); Bilirubin Urine Negative (Negative); Blood Urine Negative (Negative); Color Urine Yellow; Glucose Urine UA Trace (Negative); Ketones Urine Trace (Negative); Leukocyte Esterase Urine Negative (Negative); Nitrite Urine Negative (Negative); Protein Urine 3+ (Negative); RBC Urine Automated 0-2 /hpf (0-2); Specific Gravity Urine 1.012 (1.000-1.030); Urobilinogen Urine Negative (Negative); WBC Urine Automated 0-5 /hpf (0-5)
[2024-11-29] MEDS: Patient's HEIGHT &/or WEIGHT Needed SCH (23:08)
[2024-11-29] MEDS ORDERED: diphenhydrAMINE Capsule 25 MG CAP PO PRN (23:17)
[2024-11-29] MEDS ORDERED: CETIRIZINE HCL 10 MG TABLET PO PRN (23:17)
[2024-11-29] MEDS: MAGNESIUM OXIDE 400 MG TAB PO SCH (23:46)
[2024-11-29] MEDS: MIRTAZAPINE TAB 15 MG TAB PO SCH (23:46)
[2024-11-29] MEDS: SODIUM CHLORIDE 1 GM TABLET PO SCH (23:46)
[2024-11-29] MEDS: levETIRAcetam 250 MG TAB PO SCH (23:47)
[2024-11-30 00:34] LABS: Albumin Globulin Ratio 1.3 (0.9-2); Albumin Level 3.1 gm/dl (3.4-5.0); BUN Creatinine Ratio 10.1 (10-20); Bilirubin,Total 0.6 mg/dl (0.2-1.0); Calcium 8.4 mg/dl (8.6-10.3); Creatinine Clr Calc Pharmacy 83.5 ml/min; Globulin 2.3 gm/dl (2.5-4.0); Magnesium 2.7 mg/dl (1.7-2.4); Total Protein 5.4 gm/dl (6.0-8.3)
--- NOTE | 2024-11-30 06:30 | Electrocardiogram Report ---
Test Reason : Blood Pressure : */* mmHG Vent. Rate : 111 BPM Atrial Rate : 111 BPM P-R Int : 128 ms QRS Dur : 80 ms QT Int : 366 ms P-R-T Axes : 79 88 91 degrees QTcB Int : 497 ms Sinus tachycardia Biatrial enlargement Nonspecific ST abnormality Prolonged QT When compared with ECG of 12-Nov-2024 16:48, QT has lengthened Confirmed by Ace Villanueva ([id number]) on 11/30/2024 6:29:43 AM Referred By: Confirmed By: Ace Villanueva
--- NOTE | 2024-11-30 06:58 | Billing Data ---
Date of Service November 29, 2024 Coding Level of Care Code 91779 INT INP/OBS CARE
[2024-11-30 08:28] LABS: Basophils # (auto) 0.03 K/uL (0.00-0.20); Basophils % (auto) 0.3 %; Eosinophils # (auto) 0.09 K/uL (0.00-0.50); Hemoglobin 13.5 g/dl (12.0-16.0); Immature Granulocytes # (auto) 0.02 K/uL (0.01-0.20); Immature Granulocytes % (auto) 0.2 %; Lymphocytes # (auto) 1.33 K/uL (1.20-3.40); Lymphocytes % (auto) 14.8 %; Mean Corpuscular Hemoglobin 34.4 pg (25.0-34.0); Mean Corpuscular Hgb Conc 36.5 g/dL (32.0-36.0); Mean Corpuscular Volume 94.4 fL (80.0-100.0); Mean Platelet Volume 9.8 fL (9.4-12.4); Monocytes # (auto) 0.65 K/uL (0.11-0.59); Monocytes % (auto) 7.3 %; Neutrophils # (auto) 6.84 K/uL (1.40-6.50); Neutrophils % (auto) 76.4 %; Platelet Count 220 K/uL (130-400); RDW Coefficient of Variation 13.2 % (11.5-14.5); RDW Standard Deviation 45.4 fL (36.4-46.3); Red Blood Count 3.92 M/uL (4.20-5.40); White Blood Count 8.96 K/ul (4.8-10.8)
[2024-11-30 08:36] LABS: Albumin Level 3.3 gm/dl (3.4-5.0); Bilirubin,Total 0.8 mg/dl (0.2-1.0); Calcium 8.5 mg/dl (8.6-10.3); Magnesium 2.2 mg/dl (1.7-2.4); Potassium 3.7 mmol/L (3.5-5.1)
[2024-11-30 08:42] LABS: Albumin Globulin Ratio 1.4 (0.9-2); BUN Creatinine Ratio 11.9 (10-20); Creatinine Clr Calc Pharmacy 98.4 ml/min; Globulin 2.3 gm/dl (2.5-4.0); Total Protein 5.6 gm/dl (6.0-8.3)
--- NOTE | 2024-11-30 08:58 | CT Scan Report ---
CT head/brain wo con CLINICAL HISTORY: recent clip or coil L aneurysm; weakness legs. TECHNIQUE: Multiple axial CT images of the head were obtained without contrast. A dose lowering tech nique was utilized adhering to the principles of ALARA. CT DOSE: 547.75 mGy.cm COMPARISON: 04/25/2024 and 03/09/2024 FINDINGS: There are interval surgical clips adjacent to the anterior lateral left temporal lobe consi stent with treated left MCA aneurysm. There is an overlying left craniotomy with mild underlying dura l thickening/scarring. No intracranial hemorrhage seen. No mass effect, midline shift, or hydrocephal us. No skull fracture seen. Visualized paranasal sinuses and mastoid air cells are clear. IMPRESSION: No acute findings. ACT 112: Negative or not required by law. The above report was generated using voice recognition software. It may contain grammatical, syntax o r spelling errors. Electronically signed by: Josiah Meek M.D. 11/30/2024 8:57 AM
[2024-11-30] MEDS ORDERED: ENOXAPARIN INJ 40 MG/0.4 ML SYR SQ SCH (09:00)
[2024-11-30] MEDS: ESCITALOPRAM OXALATE 10 MG TAB PO SCH (09:08)
[2024-11-30] MEDS: ATORVASTATIN 40 MG TAB PO SCH (09:08)
[2024-11-30] MEDS: ASPIRIN 81 MG ECTAB PO SCH (09:09)
[2024-11-30] MEDS: FLUTICASONE/VILANTEROL 100/25MCG 14 PUFFS/INHALER INH SCH (09:09)
[2024-11-30 09:13] LABS: Folate (Folic Acid),Ser orPlas > 22.30 ng/ml (>5.38)
[2024-11-30 09:14] LABS: Vitamin B12 646 pg/ml (180-914)
--- NOTE | 2024-11-30 10:05 | Hospitalist Progress Note ---
Date of Service November 30, 2024 Assessment & Plan (1) Acute hypotension: (2) Acute hyponatremia: (3) Hypomagnesemia: (4) Hypokalemia: Plan Edinson Bennett is a 54 Y O Female with PMH of Hyperlipidemia, Hypertension, Mood disorder, Thoracic and lumbar compression fracture, sacral fracture, post craniotomy for ruptured aneurysm multiple falls, alcohol use disorder, tobacco use, Graves disease and intraductal carcinoma of the left breast presented to ER today with on and off weakness for a month. Hypotensive on presentation. BP improved after 3 bolus of Nacl . She is being admitted for monitoring of Blood Pressure and management of electrolyte abnormalities #Weakness Likely due to hypotension, electrolyte abnormalities, deconditioning No acute findings on head CT PT/OT ordered #Hypotension -improved following fluid resuscitation -continue to hold home antihypertensives, reintroduce as appropriate #Hyponatremia -Seems to be chronic due to alcohol intake and free water intake -[id number] -Takes salt tab 2 gm BID at home. Continue same -Follows with nephrology - consulted inpatient Continue home salt tabs Add low dose Lasix -Follow BMP #Hypokalemia -Improving -Replete as indicated -Follow BMP #Hypomagnesemia -Resolved following repletion -Continue magnesium oxide 400mg PO BID. -Follow mag level #Seizure -Had some episodes concerning for seizure after her aneurysm repair surgery. -On Keppra 750mg BID. Plan is to continue Keppra until her next aneurysm repair surgery. -Continue Keppra 750mg BID Chronic conditions: Mood Disorder: Continue Escitalopram and Mirtazapine Subclavian artery stenosis: Continue ASA and statin COPD: Continue home inhalers DVT prophylaxis: Lovenox Code:Fill code Disposition: Med/Surg Admission and Anticipated Discharge Date Admission Date: November 29, 2024 Supervising Physician Co-Signing Physician Notes I personally examined the patient and verified all levin points of history and exam, discussed case, and agree with decision making with Dr Randhawa feeling ok acutely. less weak, but does feel very weak overall. reviewed diet - fairly low overall calorie intake at home. she guesses she's probably lost at least 20lbs recently as well vitals noted thin and frail but no acute distress. muscle wasting noted. no focal neuro deficits severe acute on chronic protein/calorie malnutrition - poor PO intake - failure to thrive and poor self care/depression/EtOH abuse. encourage PO intake. discussed adequate nutrition (used BEE as a "calorie budget" analogy) and consulted singing telegram performer. weakness likely acutely hypotension which was likely from med effect bigger since nutritional status/weight have declined, and chronically from deconditioning / malnutrition. PT/OT eval and treat, hold meds, given risks/benefits would tolerate permissive HTN for now depression/EtOH abuse - no EtOH since ~11/25, no s/s withdrawal at this time. replace thiamine/folate. await labs DVT proph - lovenox Subjective Patient seen and evaluated at bedside this morning. No acute events overnight. Patient sitting in bed eating breakfast. States she is feeling improved since admission. No acute complaints. VSS. Labs improving. Review of Systems Review of Systems: reviewed, per HPI Physical Exam Physical Exam: Constitutional: chronically ill- appearing, no acute distress HEENT: NCAT, no conjunctival injection CV: extremities well-perfused, no LE edema Resp: no increased work of breathing GI: nondistended MSK: no gross deformities appreciated Skin: warm, dry, no rash appreciated Neuro: alert, oriented, no focal neurologic deficit appreciated Results & Data Results & Data Vital Signs (Past 12 Hours) Vital Signs Temp Pulse Resp BP Pulse Ox O2 Del Method 11/30/24 08:36 36.9 C 71 18 148/82 H 98 Room Air 11/29/24 23:10 Room Air 11/29/24 23:10 36.7 C 88 18 157/80 H 96 Room Air 11/29/24 22:20 Room Air 11/29/24 22:12 91 H 18 107/70 97 Room Air Resident Activity Tracking Resident Involvement: Resident Care Provided Care Provided: Adult Hospital Medicine
--- NOTE | 2024-11-30 12:00 | Nephrology Consultation ---
Date of Consultation November 30, 2024 Assessment & Plan (1) Chronic hyponatremia: * Chronic hyponatremia, asymptomatic * Patient is euvolemic to volume contracted * No evidence of CHF, cirrhosis. TSH wnl on admission * Longstanding h/o EtOH and tobacco use * 03/[address] without evidence of lung CA * Uosm 290 * Continue home regimen of NaCl 1000 mg two tablets BID * Will add low dose furosemide to promote free water excretion * Monitor daily BMP, Uosm (2) Hypertension: * Initially hypotensive. BP has been steadily trending up * Monitor BP * Consider adding back lisinopril, spironolactone in am * Add low dose furosemide as outlined above * Monitor serum K, Mg closely * Continue Mg-Ox supplement History of Present Illness Reason for Consultation: Chronic hyponatremia Attending Physician: Juarez Ulloa DO History of Present Illness Ms. Bennett is a 54 year old white female who is seen at the request of [facility] hospitalist service for evaluation of chronic hyponatremia. Information for the HPI is obtained from patient interview and review of the EMR. HPI is summarized as follows: Ms. Bennett has chronic hyponatremia w/ serum Na 113-128 mmol/L dating back to at least 10/04 in the EMR. She has undergone evaluation by Dr. Velez as outpatient and noted to have several chronic electrolyte imbalances including hyponatremia, hypokalemia and hypomagnesemia. Ms. Bennett has a h/o alcohol abuse disorder and tobacco abuse. She has reduced her alcohol intake but not drinks 2-3 L free water daily. She prepares her own meals and reports a balanced diet. Admission CXR was clear. Chest CT 03/06 was negative for pulmonary malignancy. Ms. Bennett is not taking a thiazide diuretic but is chronically on SSRI (Escitalopram) for management of a mood disorder. Ms. Bennett presented to [facility] EMD last evening for evaluation of weakness. Admission labs revealed Na 123, K 2.6, Mg 1.3, Cr 0.79, Uosm 290. Initial BP recorded was 62 systolic. BP medications have been held. She is now hypertensive Allergies Allergy/AdvReac Type Severity Reaction Status Date / Time lisinopril AdvReac Unknown Coughing Verified 08/15/24 11:00 Home Medications Medication Instructions Recorded Confirmed Type amlodipine 10 mg tablet 10 mg PO QAM 09/30/23 11/29/24 History aspirin 81 mg tablet,delayed 81 mg PO QAM 09/30/23 11/29/24 History release (Adult Low Dose Aspirin) cetirizine 10 mg capsule (Zyrtec) 10 mg PO DAILY PRN allergies 09/30/23 11/29/24 History fluticasone 100 mcg-salmeterol 50 1 inh inhalation AMHS 09/30/23 11/29/24 History mcg/dose blistr powdr for inhalation multivitamin 1 tab PO QAM 09/30/23 11/29/24 History atorvastatin 40 mg tablet 40 mg PO QAM 02/17/24 11/29/24 History magnesium oxide 400 mg PO BID 30 days #60 caps 02/22/24 11/29/24 Rx folic acid 1 mg tablet 1 mg PO QAM 02/29/24 11/29/24 History mirtazapine 15 mg tablet 15 mg PO HS 30 days #30 tabs 03/05/24 11/29/24 Rx azelastine 205.5 mcg (0.15 %) 2 spray intranasal QAM 03/19/24 11/29/24 History nasal spray diphenhydramine HCl 25 mg tablet 25 mg PO TID PRN Allergy Symptoms 03/19/24 11/29/24 History (Benadryl Allergy) losartan 25 mg tablet 50 mg PO QAM 03/19/24 11/29/24 History escitalopram oxalate 10 mg tablet 10 mg PO UD 04/26/24 11/29/24 History (Lexapro) sodium chloride 1,000 mg soluble 2,000 mg (2 x 1,000 mg) PO BID 07/04/24 11/29/24 Rx tablet #120 tabs levetiracetam 750 mg tablet 750 mg PO BID 11/29/24 11/29/24 History (Keppra) spironolactone 50 mg tablet 100 mg PO DAILY 11/29/24 11/29/24 History Patient History Medical History Acute hyponatremia Hypertension Surgical History History of tonsillectomy History of tubal ligation History of appendectomy Social History Smoking Status: Current every day smoker Tobacco Type: Cigarettes Cigarettes Per Day: 1/2PPD; Second Hand Exposure: Yes; Do You Dip or Chew Tobacco: No; Hx Alcohol Use: Yes Alcohol type: beer Hx Substance Use: No Preferred Language: Bulgarian Communication Ability: Effective Cnc Service Technician Required: No Beliefs That Will Affect Care: None Current Living Situation: Alone Feels Safe at Home: Yes Assistive Devices: Cane, Crutches, Walker and Wheelchair Review of Systems Constitutional: no fever Eyes: no problem reported Ear, Nose, Mouth, Throat: no problem reported Respiratory: no cough and no dyspnea Cardiovascular: no chest pain Gastrointestinal: no abdominal pain, no nausea, no vomiting and no diarrhea/loose stools Genitourinary: no dysuria Integumentary: no rash Physical Exam Constitutional: + ill appearing and + frail appearing Eyes: PERRL, conjunctivae normal, anicteric sclerae ENMT: external ear and nose normal, oropharynx normal Neck: trachea midline, no thyromegaly Respiratory: normal respiratory effort, lungs clear to auscultation Cardiovascular: RRR, no murmur, no edema Gastrointestinal (Abdomen): normal bowel sounds, soft, nontender, no hepatosplenomegaly Skin: no rashes, warm and dry Neurologic: Speech / Cognition: normal speech and normal cognition Results & Data Vital Signs (Past 12 Hours) Vital Signs Temp Pulse Resp BP Pulse Ox O2 Del Method 11/30/24 08:36 36.9 C 71 18 148/82 H 98 Room Air Laboratory Results Laboratory Results WBC 8.96 K/ul (4.8-10.8) 11/30/24 07:52 RBC 3.92 M/uL (4.20-5.40) L 11/30/24 07:52 Hgb 13.5 g/dl (12.0-16.0) 11/30/24 07:52 Hct 37.0 % (37.0-47.0) 11/30/24 07:52 MCV 94.4 fL (80.0-100.0) 11/30/24 07:52 MCH 34.4 pg (25.0-34.0) H 11/30/24 07:52 MCHC 36.5 g/dL (32.0-36.0) H 11/30/24 07:52 RDW Std Deviation 45.4 fL (36.4-46.3) 11/30/24 07:52 RDW Coeff of [place] 13.2 % (11.5-14.5) 11/30/24 07:52 Plt Count 220 K/uL (130-400) 11/30/24 07:52 MPV 9.8 fL (9.4-12.4) 11/30/24 07:52 Immature Gran % (Auto) 0.2 % 11/30/24 07:52 Neut % (Auto) 76.4 % 11/30/24 07:52 Lymph % (Auto) 14.8 % 11/30/24 07:52 [place] % (Auto) 7.3 % 11/30/24 07:52 Eos % (Auto) 1.0 % 11/30/24 07:52 Baso % (Auto) 0.3 % 11/30/24 07:52 Neut # (Auto) 6.84 K/uL (1.40-6.50) H 11/30/24 07:52 Lymph # (Auto) 1.33 K/uL (1.20-3.40) 11/30/24 07:52 [place] # (Auto) 0.65 K/uL (0.11-0.59) H 11/30/24 07:52 Eos # (Auto) 0.09 K/uL (0.00-0.50) 11/30/24 07:52 Baso # (Auto) 0.03 K/uL (0.00-0.20) 11/30/24 07:52 Immature Gran # (Auto) 0.02 K/uL (0.01-0.20) 11/30/24 07:52 PT 10.6 Seconds (9.0-12.0) 11/29/24 16:30 INR 1.0 (0.9-1.1) 11/29/24 16:30 APTT 25 Seconds (21-31) 11/29/24 16:30 PTT Ratio 0.9 11/29/24 16:30 Sodium 123 mmol/L (136-145) L 11/30/24 07:52 Potassium 3.7 mmol/L (3.5-5.1) 11/30/24 07:52 Chloride 88 mmol/L (98-107) L 11/30/24 07:52 Carbon Dioxide 28 mmol/L (21-32) 11/30/24 07:52 Anion Gap 7 (3-11) 11/30/24 07:52 BUN 8 mg/dl (6-23) 11/30/24 07:52 Creatinine 0.67 mg/dl (0.6-1.2) 11/30/24 07:52 Est Cr Clr Drug Dosing 98.4 ml/min 11/30/24 07:52 eGFR 104.45 11/30/24 07:52 BUN/Creatinine Ratio 11.9 (10-20) 11/30/24 07:52 Glucose 96 mg/dl (70-99(Fasting)) 11/30/24 07:52 Osmolality 250 mOsm/kg (280-300) L 11/29/24 17:15 Lactate 1.2 mmol/L (0.4-2.0) 11/29/24 19:52 Calcium 8.5 mg/dl (8.6-10.3) L 11/30/24 07:52 Magnesium 2.2 mg/dl (1.7-2.4) 11/30/24 07:52 Total Bilirubin 0.8 mg/dl (0.2-1.0) 11/30/24 07:52 AST 33 U/L (13-39) 11/30/24 07:52 ALT 19 U/L (7-52) 11/30/24 07:52 Alkaline Phosphatase 115 U/L (34-104) H 11/30/24 07:52 Troponin I High Sens 40.1 pg/ml (0-14) H 11/29/24 17:21 Total Protein 5.6 gm/dl (6.0-8.3) L 11/30/24 07:52 Albumin 3.3 gm/dl (3.4-5.0) L 11/30/24 07:52 Globulin 2.3 gm/dl (2.5-4.0) L 11/30/24 07:52 Albumin/Globulin Ratio 1.4 (0.9-2) 11/30/24 07:52 Vitamin B12 646 pg/ml (180-914) 11/30/24 07:52 Folate > 22.30 ng/ml (>5.38) 11/30/24 07:52 Procalcitonin 0.09 ng/ml (0-0.5) 11/29/24 17:15 TSH 3.846 uIu/ml (0.300-4.500) 11/29/24 17:21 Free T4 0.87 ng/dl (0.61-1.60) 11/29/24 17:21 Random Cortisol 16.38 mcg/dl 11/29/24 19:52 Urine Color Yellow 11/29/24 22:15 Urine Appearance Clear (Clear) 11/29/24 22:15 Urine pH 7.0 (4.5-7.5) 11/29/24 22:15 Ur Specific [place] 1.012 (1.000-1.030) 11/29/24 22:15 Urine Protein 3+ (Negative) H 11/29/24 22:15 Urine Glucose (UA) Trace (Negative) H 11/29/24 22:15 Urine Ketones Trace (Negative) H 11/29/24 22:15 Urine Blood Negative (Negative) 11/29/24 22:15 Urine Nitrite Negative (Negative) 11/29/24 22:15 Urine Bilirubin Negative (Negative) 11/29/24 22:15 Urine Urobilinogen Negative (Negative) 11/29/24 22:15 Ur Leukocyte Esterase Negative (Negative) 11/29/24 22:15 Urine WBC (Auto) 0-5 /hpf (0-5) 11/29/24 22:15 Urine RBC (Auto) 0-2 /hpf (0-2) 11/29/24 22:15 U Hyaline Cast (Auto) 3-5 /lpf (0-2) H 11/29/24 22:15 U Epithel Cells (Auto) 3-5 /hpf (0-2) H 11/29/24 22:15 Urine Bacteria (Auto) None Seen (None Seen) 11/29/24 22:15 Urine Yeast Present (None Prsent) A 11/29/24 22:15 Urine Osmolality 290 mOsm/kg (500-800) L 11/29/24 22:15 Ur Random Sodium 50 mmol/L 11/29/24 22:15 Urine Comment 11/29/24 22:15 Impressions Chest X-Ray 11/29/24 15:33 Clinical History: Sepsis Technique: A frontal view of the chest was obtained Comparison is made to the prior examination dated 03/09/2024 Findings: There are no confluent pulmonary infiltrates. The heart size is within normal limits. No pleural effusion or pneumothorax is seen. There is no definite pulmonary nodule. No fracture is noted. No foreign body is seen Impression: No active disease Electronically signed by Calos Nicholas 11-29-2024 5:[address] 11/30/24 06:37 CT head/brain wo con CLINICAL HISTORY: recent clip or coil L aneurysm; weakness legs. TECHNIQUE: Multiple axial CT images of the head were obtained without contrast. A dose lowering technique was utilized adhering to the principles of ALARA. CT DOSE: 547.75 mGy.cm COMPARISON: 04/25/2024 and 03/09/2024 FINDINGS: There are interval surgical clips adjacent to the anterior lateral left temporal lobe consistent with treated left MCA aneurysm. There is an overlying left craniotomy with mild underlying dural thickening/scarring. No intracranial hemorrhage seen. No mass effect, midline shift, or hydrocephalus. No skull fracture seen. Visualized paranasal sinuses and mastoid air cells are clear. IMPRESSION: No acute findings. ACT 112: Negative or not required by law. The above report was generated using voice recognition software. It may contain grammatical, syntax or spelling errors. Electronically signed by: Josiah Meek M.D. 11/30/2024 8:57 AM PG Care Time/CCT Total # of Minutes Spent Total Time Spent with Patient: Total time spent is greater than 50% in coordination of care (as documented) at patient's floor/unit and/or counseling patient: Coding Level of Care Code 97776 IN/OBS CONSULT LVL 5,80M Diagnoses Chronic hyponatremia E87.1 Hypertension, unspecified type I10 Hypertension type: unspecified (2) Hypertension Hypertension type: unspecified Qualified Code(s): I10 - Essential (primary) hypertension
[2024-11-30] MEDS: FUROSEMIDE 20 MG TAB PO SCH (12:42)
--- NOTE | 2024-11-30 17:08 | Billing Data ---
Date of Service November 30, 2024 Coding Level of Care Code 19221 SUB INP/OBS CARE MIN
--- NOTE | 2024-12-01 07:03 | Hospitalist Progress Note ---
Date of Service December 01, 2024 Assessment & Plan (1) Acute hypotension: (2) Acute hyponatremia: (3) Hypomagnesemia: (4) Hypokalemia: Plan Patient is a 54yo F with PMH of Hyperlipidemia, Hypertension, Mood disorder, Thoracic and lumbar compression fracture, sacral fracture, post craniotomy for ruptured aneurysm multiple falls, alcohol use disorder, tobacco use, Graves disease and intraductal carcinoma of the left breast presented to ER today with on and off weakness for a month. Hypotensive on presentation. BP improved after 3 bolus of Nacl . She was admitted for management of hypotension and electrolyte abnormalities. #Weakness Likely due to hypotension, electrolyte abnormalities, deconditioning No acute findings on head CT Evaluated by PT: scored 24 on 6 clicks, no further PT indicated Encourage PO intake. Started protonix and pepcid BID to aid with meals #Hypotension -improved following fluid resuscitation -continue to hold home antihypertensives, reintroduce as appropriate #Hyponatremia Seems to be chronic due to alcohol intake and free water intake Chronically 124-127 Takes salt tab 2 gm BID at home. Continue same Follows with nephrology - consulted inpatient Continue home salt tabs Add low dose Lasix Follow BMP #Hypokalemia Improving Replete as indicated Follow BMP #Hypomagnesemia Resolved following repletion Continue magnesium oxide 400mg PO BID. Follow mag level #Seizure Had some episodes concerning for seizure after her aneurysm repair surgery. On Keppra 750mg BID. Plan is to continue Keppra until her next aneurysm repair surgery. Continue Keppra 750mg BID Mood Disorder: Continue Escitalopram and Mirtazapine Subclavian artery stenosis: Continue ASA and statin COPD: Continue home inhalers DVT prophylaxis: Lovenox Code: Full code Disposition: Med/Surg Admission and Anticipated Discharge Date Admission Date: November 29, 2024 Supervising Physician Co-Signing Physician Notes I personally examined the patient and verified all levin points of history and exam, discussed case, and agree with decision making with Dr Trujillo feeling ok acutely. doing a little better eating, still not likely near ~1400 calorie BEE goal vitals noted thin and frail but no acute distress. muscle wasting noted. no focal neuro deficits severe acute on chronic protein/calorie malnutrition - poor PO intake - failure to thrive and poor self care/depression/EtOH abuse. encourage PO intake. continuing to discuss adequate nutrition (used BEE as a "calorie budget" analogy) and consulted canceling and cutting control clerk. she is expressing better understanding. weakness likely acutely hypotension which was likely from med effect bigger since nutritional status/weight have declined, and chronically from deconditioning / malnutrition. PT/OT eval and treat, hold meds, given risks/benefits would tolerate permissive HTN for now hyponatremia- seems combination of solute deficient and beer potomania. salt tabs, consider urea, appreciate urology assistance. continue to follow depression/EtOH abuse - no EtOH since ~11/25, no s/s withdrawal at this time. replace thiamine/folate. DVT proph - lovenox Subjective Tried breakfast. Queasy after a few bites. [place] better after sipping some sprite. Would like nausea medicine prior to attempting next meal. Otherwise doing well. Met w/ PT, was able to ambulate normally and they did not feel the need to follow. She denies GARCIA, CP, SOB, abd pain, emesis, dizziness, or weakness. Review of Systems Review of Systems: reviewed, per HPI Physical Exam Physical Exam: Gen: Well-appearing, NAD HEENT: NCAT, MMM, normal conjunctiva CV: RRR, no m/r/g, no LE edema Resp: CTAB, no increased work of breathing Abd: Soft, NT/ND, +BS, no HSM MSK: Full ROM, normal str, no gross deformities Skin: Warm, dry, well-perfused Neuro: A&Ox3, no focal deficits Results & Data Results & Data Vital Signs (Past 12 Hours) Vital Signs Temp Pulse Resp BP Pulse Ox O2 Del Method 11/30/24 21:28 159/83 H 11/30/24 19:06 37.1 C 105 H 16 170/100 H 96 Room Air Resident Activity Tracking Resident Involvement: Resident Care Provided Care Provided: Adult Hospital Medicine
[2024-12-01 07:04] LABS: BUN Creatinine Ratio 9.8 (10-20); Calcium 7.9 mg/dl (8.6-10.3); Creatinine Clr Calc Pharmacy 65.2 ml/min; Magnesium 1.3 mg/dl (1.7-2.4); Potassium 2.7 mmol/L (3.5-5.1)
[2024-12-01] MEDS: THIAMINE HCL 100 MG TAB PO SCH (08:22)
[2024-12-01] MEDS: FOLIC ACID 1 MG TAB PO SCH (08:22)
[2024-12-01] MEDS: POTASSIUM CHLORIDE / WTR 10 MEQ/100 ML PLCT IV SCH (08:23)
[2024-12-01] MEDS: POTASSIUM CHLORIDE CRTAB 20 MEQ TABCR PO SCH (08:37)
[2024-12-01] MEDS: MAGNESIUM SULFATE / D5W 1 GM/100 ML BAG IV SCH (08:38)
--- NOTE | 2024-12-01 11:15 | Nephrology Progress Note ---
Date of Service December 01, 2024 Assessment & Plan (1) Acute hyponatremia: (2) Hypokalemia: (3) Hypomagnesemia: (4) Acute hypotension: (5) Sinus tachycardia: (6) Generalized weakness: Plan 54 year old with history of chronic hyponatremia serum sodium around 124 125 most of the time female admitted to the hospital with generalized weakness. On admission she was noted to be quite hypotensive and clinically , volume depleted. Serum sodium was 123, urine osmolality 290, potassium was 2.9. Magnesium was 1.3. Kidney function is normal creatinine 0.8 mg/dl. Has history of chronic hyponatremia with excessive alcohol intake, smoking and decreased oral intake. She has been on oral salt tablets. She has also been on losartan and spironolactone previously for history of hypokalemia. Sodium remained low at 123 but potassium initially improved then dropped again to 2.7 this morning. Blood pressure improved. She reports trying to increase her protein intake. --Continue on oral salt tablet, liberalize salt in diet. Clinically she does not have any sign of volume overload, discontinue Lasix and avoid fluid restriction for now. Repeat serum sodium and potassium this afternoon. If her volume status improves and sodium still low, will consider tolvaptan Admission and Anticipated Discharge Date Admission Date: November 29, 2024 Jillian Neves was seen and evaluated this morning. She denies any specific symptoms, but overall feels poorly. She reports feeling thirsty. Sodium remained low at 123, potassium dropped to 2.7 this morning. Blood pressure acceptable. Review of Systems Review of Systems: Detailed review of system was done and pertinent positives and negatives mentioned above. Physical Exam Constitutional: WD/WN, vitals as above + ill appearing and + thin; no acute distress Eyes: + anicteric sclerae Neck: normal visual inspection Respiratory: no respiratory distress Auscultation: lungs clear to auscultation bilaterally Cardiovascular: RRR, no murmur, no edema Skin: no rashes, warm and dry Neurologic: no focal motor deficits Psychiatric: Orientation: alert and oriented x 3 Results & Data Vital Signs (Past 12 Hours) Vital Signs Temp Pulse Resp BP Pulse Ox O2 Del Method 12/01/24 10:14 Room Air 12/01/24 07:22 37.0 C 96 H 16 148/88 H 93 Room Air PG Care Time/CCT Total # of Minutes Spent Total Time Spent with Patient: Total time spent is greater than 50% in coordination of care (as documented) at patient's floor/unit and/or counseling patient: Coding Level of Care Code 28776 SUB INP/OBS CARE 2/35MIN Diagnoses Acute hyponatremia E87.1 Hypokalemia E87.6 Hypomagnesemia E83.42 Acute hypotension I95.9 Sinus tachycardia R00.0 Generalized weakness R53.1
[2024-12-01] MEDS: FAMOTIDINE 10 MG TABLET PO SCH (12:47)
[2024-12-01] MEDS: PANTOprazole 40 MG TAB PO SCH (12:47)
[2024-12-01 16:13] LABS: Albumin Level 2.8 gm/dl (3.4-5.0); BUN Creatinine Ratio 16.7 (10-20); Calcium 7.9 mg/dl (8.6-10.3); Creatinine Clr Calc Pharmacy 82.9 ml/min; Phosphorus 1.9 mg/dl (2.5-4.9); Potassium 3.4 mmol/L (3.5-5.1)
[2024-12-01] MEDS ORDERED: STAT IV/IM STA (17:46)
--- NOTE | 2024-12-01 18:05 | Billing Data ---
Date of Service December 01, 2024 Coding Level of Care Code 21293 SUB INP/OBS CARE MIN
[2024-12-01] MEDS: SODIUM CHLORIDE 3 % 150 ML IV ONE (18:16)
[2024-12-02 08:14] LABS: BUN Creatinine Ratio 10.4 (10-20); Calcium 8.1 mg/dl (8.6-10.3); Creatinine Clr Calc Pharmacy 82.9 ml/min
[2024-12-02] MEDS: POTASSIUM CHLORIDE CRTAB 20 MEQ TABCR PO ONE (08:46)
[2024-12-02] MEDS: MAGNESIUM SULFATE / D5W 1 GM/100 ML BAG IV ONE (10:43)
--- NOTE | 2024-12-02 11:00 | Nephrology Progress Note ---
Date of Service December 02, 2024 Assessment & Plan (1) Acute hyponatremia: (2) Hypokalemia: (3) Hypomagnesemia: (4) Acute hypotension: (5) Sinus tachycardia: (6) Generalized weakness: Plan 54 year old with history of chronic hyponatremia serum sodium around 124 125 most of the time female admitted to the hospital with generalized weakness. On admission she was noted to be quite hypotensive and clinically , volume depleted. Serum sodium was 123, urine osmolality 290, potassium was 2.9. Magnesium was 1.3. Kidney function is normal creatinine 0.8 mg/dl. Has history of chronic hyponatremia with excessive alcohol intake, smoking and decreased oral intake. She has been on oral salt tablets. She has also been on losartan and spironolactone previously for history of hypokalemia. Sodium improved to 127 but continues to have multiple electrolyte abnormality including hypokalemia, hypophosphatemia and hypomagnesemia. --Continue on oral salt tablet, liberalize salt in diet. --Encouraged to continue to increase p.o. intake, focus on increase protein intake. Admission and Anticipated Discharge Date Admission Date: November 29, 2024 Jillian Neves was seen and evaluated this morning. She reports overall feeling much better, appetite improved and she is eating better. Sodium again dropped to 120 yesterday afternoon and received 150 mL of hypertonic saline and sodium this morning improved to 127. Magnesium slightly low but improved. Potassium again dropped to 3.0, received replacement this morning. Review of Systems Review of Systems: Detailed review of system was done and pertinent positives and negatives mentioned above. Physical Exam Constitutional: WD/WN, vitals as above + ill appearing and + thin; no acute distress Eyes: + anicteric sclerae Neck: normal visual inspection Respiratory: no respiratory distress Auscultation: lungs clear to auscultation bilaterally Cardiovascular: RRR, no murmur, no edema Skin: no rashes, warm and dry Neurologic: no focal motor deficits Psychiatric: Orientation: alert and oriented x 3 Results & Data Vital Signs (Past 12 Hours) Vital Signs Temp Pulse Resp BP Pulse Ox O2 Del Method 12/02/24 09:06 Room Air 12/02/24 07:18 36.7 C 96 H 16 164/92 H 93 Room Air PG Care Time/CCT Total # of Minutes Spent Total Time Spent with Patient: Total time spent is greater than 50% in coordination of care (as documented) at patient's floor/unit and/or counseling patient: Coding Level of Care Code 10278 SUB INP/OBS CARE 2/35MIN Diagnoses Acute hyponatremia E87.1 Hypokalemia E87.6 Hypomagnesemia E83.42 Acute hypotension I95.9 Sinus tachycardia R00.0 Generalized weakness R53.1
[2024-12-02] MEDS ORDERED: POTASSIUM PHOS 3 MMOL/1 ML INFUSION IV STA (12:26)
--- NOTE | 2024-12-02 12:29 | Hospitalist Progress Note ---
Date of Service December 02, 2024 Assessment & Plan (1) Generalized weakness: (2) Acute hypotension: (3) Acute hyponatremia: (4) Hypomagnesemia: (5) Hypokalemia: Plan Patient is a 54yo F with PMH of Hyperlipidemia, Hypertension, Mood disorder, Thoracic and lumbar compression fracture, sacral fracture, post craniotomy for ruptured aneurysm multiple falls, alcohol use disorder, tobacco use, Graves disease and intraductal carcinoma of the left breast presented to ER today with on and off weakness for a month. Hypotensive on presentation. BP improved after 3 bolus of Nacl . She was admitted for management of hypotension and electrolyte abnormalities. #Weakness/poor po intake - Likely due to hypotension, electrolyte abnormalities, deconditioning. No acute findings on head CT. - Evaluated by PT: scored 24 on 6 clicks, no further PT indicated - Encourage PO intake - chauffeur motorbus consulted - trial gelatein supplement and snacks - Started protonix and pepcid BID to aid with meals - multivitamin ordered #Hypotension - improved following fluid resuscitation - continue to hold home antihypertensives, reintroduce as appropriate - consider restarting 12/03 if pressure remain elevated overnight #Hyponatremia - Seems to be chronic due to alcohol intake and free water intake. Chronically 124-127. - Takes salt tab 2 gm BID at home - continue - Follows with nephrology - consulted inpatient - Continue home salt tabs, liberalize salt in diet - Follow BMP #Hypokalemia - K+ 3.0. - additional 40 meq PO KCl am 12/02 as well as Kphos - continue KCl 20meq tid - Follow BMP #Hypomagnesemia - mag 1.5 - additional 1g IV mag 12/02 - Continue magnesium oxide 400mg PO BID - Follow mag level #Hypophosphatemia - phos 1.9 - 15 mmol IV K Phos ordered 12/02 - trend phosphorus #Seizure disorder - Had some episodes concerning for seizure after her aneurysm repair surgery. - On Keppra 750mg BID. Plan is to continue Keppra until her next aneurysm repair surgery. - Continue Keppra 750mg BID #Mood Disorder - Continue Escitalopram and Mirtazapine #Subclavian artery stenosis - Continue ASA and statin #COPD - Continue home inhalers DVT prophylaxis: Lovenox Disposition: Med/Surg repeat mag and renal panel 1500 12/02 - will replete electrolytes as indicated. Admission and Anticipated Discharge Date Admission Date: November 29, 2024 Supervising Physician Co-Signing Physician Notes The patient was not seen by me. The chart was reviewed. Case discussed with CHAUNCEY Gardiner. Agree with assessment and plan Subjective Patient seen at bedside. She stated that she is doing well. She denies any di zziness dizziness, lightheadedness, weakness, chest pain, shortness of breath, muscle cramps. She does have a cough however stated it is chronic. Review of Systems Review of Systems: see HPI Physical Exam Physical Exam: The patient is awake, alert and oriented 3, frail, normocephalic and atraumatic, in no acute distress. Non-toxic appearing. HEENT- EOMI, mucous membranes moist. Hearing grossly intact. Heart-normal S1 and S2. No murmurs, rubs or gallops. Lungs-clear bilaterally, no respiratory distress, no accessory muscle use. Abdomen-normal bowel sounds and soft. No ascites noted. Non-tender. Extremities- no clubbing, cyanosis, or edema. Rheumatologic-normal range of motion. Psychiatric-normal affect. Results & Data Results & Data Vital Signs (Past 12 Hours) Vital Signs Temp Pulse Resp BP Pulse Ox O2 Del Method 12/02/24 09:06 Room Air 12/02/24 07:18 36.7 C 96 H 16 164/92 H 93 Room Air Laboratory Results reviewed bmp, mag, phosphorus Medications Administered 40 mq Po Kcl 1g iv mag 15 mmol k phos IV PG Care Time/CCT Total # of Minutes Spent Total Time Spent with Patient: Total time spent is greater than 50% in coordination of care (as documented) at patient's floor/unit and/or counseling patient: Coding Level of Care Code 61324 SUB INP/OBS CARE 3/50MIN Diagnoses Generalized weakness R53.1 Acute hypotension I95.9 Acute hyponatremia E87.1 Hypomagnesemia E83.42 Hypokalemia E87.6
[2024-12-02] MEDS: POTASSIUM PHOSPHATE 15 MMOL in SODIUM CHLORIDE 0.9% 250 ML IV ONE (13:36)
[2024-12-02 15:52] LABS: Albumin Level 2.8 gm/dl (3.4-5.0); BUN Creatinine Ratio 6.4 (10-20); Calcium 7.5 mg/dl (8.6-10.3); Creatinine Clr Calc Pharmacy 36.2 ml/min; Magnesium 1.9 mg/dl (1.7-2.4); Phosphorus 3.2 mg/dl (2.5-4.9); Potassium 3.4 mmol/L (3.5-5.1)
--- NOTE | 2024-12-03 07:52 | Hospitalist Progress Note ---
Date of Service December 03, 2024 Assessment & Plan (1) Acute hypotension: (2) Acute hyponatremia: (3) Hypomagnesemia: (4) Hypokalemia: Plan Patient is a 54yo F with PMH of Hyperlipidemia, Hypertension, Mood disorder, Thoracic and lumbar compression fracture, sacral fracture, post craniotomy for aneurysm s/p multiple falls, alcohol use disorder, tobacco use, Graves disease and intraductal carcinoma of the left breast presented to ER today with on and off weakness for a month. Hypotensive on presentation. BP improved after 3 bolus of Nacl in the ER . She was admitted for management of hypotension and electrolyte abnormalities. #Weakness Likely due to hypotension, electrolyte abnormalities, deconditioning No acute findings on head CT Evaluated by PT: scored 24 on 6 clicks, no further PT indicated Encourage PO intake. Started Protonix and Pepcid BID to aid with meals #Hypotension(Resolved) -improved following fluid resuscitation -Will start Spironolactone 25mg daily. Hold other antihypertensives #Hyponatremia Seems to be chronic due to alcohol intake and free water intake Na:129 Chronically 124-127 Takes salt tab 2 gm BID at home. Continue same Follows with nephrology - consulted inpatient Continue home salt tabs Add low dose Lasix Follow BMP #Hypokalemia Improving Replete as indicated Follow BMP #Hypomagnesemia Magnesium today: 1.5 ; Replete Magnesium 1gm Continue magnesium oxide 400mg PO BID. Follow mag level tomorrow AM #Seizure Had some episodes concerning for seizure after her aneurysm repair surgery. On Keppra 750mg BID. Plan is to continue Keppra until her next aneurysm repair surgery. Continue Keppra 750mg BID Mood Disorder: Continue Escitalopram and Mirtazapine Subclavian artery stenosis: Continue ASA and statin COPD: Continue home inhalers DVT prophylaxis: Lovenox Code: Full code Disposition: Med/Surg Admission and Anticipated Discharge Date Admission Date: November 29, 2024 Supervising Physician Co-Signing Physician Notes I personally examined the patient and verified levin points of history and exam, discussed case, and agree with decision making and plan documented by Dr. Holman. Electrolyte derangement slowly improving. Patient states she quit drinking alcohol last week but had 1 drink when she learned of a in her family on 11/25/2024. Encouraged continued efforts to maintain cessation. Patient refusing medications for alcohol use disorder. Blood pressures remain elevated, reinitiation of spironolactone 25 mg daily, suspect patient will need up titration and likely additional antihypertensive. Subjective Overnight events: No any slept well Ongoing symptoms: She denied any weakness, dizziness or light headed ness and her appetite is improved New concerns: Denied any new concerns today Review of Systems Review of Systems: reviewed, per HPI Physical Exam Physical Exam: Constitutional: Well appearing, No acute distress, PILCCOD: Negative HEENT: Atraumatic, Normocephalic, No conjunctival injection CVS: S1 S2 Tachycardia no murmur, , no LE edema Respiratory: BL equal air entry with NVBS. No rhonchi, wheezes, or crackles. No increased work of breathing GI: Soft, Nondistended, Nontender, Normal Bowel sounds + MSK: No gross deformities noted Skin: Warm, Dry, No rashes Neuro: Alert, Oriented to TPP, No Focal deficit Psych: Mood and Affect congruent, Cooperative on exam Resident Activity Tracking Resident Involvement: Resident Care Provided Care Provided: Adult Hospital Medicine
[2024-12-03 08:26] LABS: BUN Creatinine Ratio 12.1 (10-20); Calcium 8.2 mg/dl (8.6-10.3); Creatinine Clr Calc Pharmacy 68.6 ml/min; Magnesium 1.5 mg/dl (1.7-2.4); Phosphorus 2.7 mg/dl (2.5-4.9); Potassium 3.6 mmol/L (3.5-5.1)
[2024-12-03] MEDS: MULTIVITAMIN TAB PO SCH (08:39)
--- NOTE | 2024-12-03 10:14 | Nephrology Progress Note ---
Date of Service December 03, 2024 Assessment & Plan (1) Acute hyponatremia: (2) Hypokalemia: (3) Hypomagnesemia: (4) Acute hypotension: (5) Sinus tachycardia: (6) Generalized weakness: Plan 54 year old with history of chronic hyponatremia serum sodium around 124 125 most of the time female admitted to the hospital with generalized weakness. On admission she was noted to be quite hypotensive and clinically , volume depleted. Serum sodium was 123, urine osmolality 290, potassium was 2.9. Magnesium was 1.3. Kidney function is normal creatinine 0.8 mg/dl. Has history of chronic hyponatremia with excessive alcohol intake, smoking and decreased oral intake. She has been on oral salt tablets. She has also been on losartan and spironolactone previously for history of hypokalemia. Sodium improved to 129 and other electrolyte also improved on supplement. --Continue on oral salt tablet, liberalize salt in diet. --Encouraged to continue to increase p.o. intake, focus on increase protein intake. --Discussed importance of quitting drinking alcohol altogether. -- Continue on current dose of magnesium and potassium supplement on discharge. -- Start on spironolactone 25 mg daily -- Okay to be discharged from nephrology standpoint, if discharge later today, she should have labs done Tuesday and then weekly ( order entered in EMR) . Will arrange outpatient follow-up in 3 to 4 weeks. Admission and Anticipated Discharge Date Admission Date: November 29, 2024 Jillian Neves was seen and evaluated this morning. She reports overall feeling well, appetite improved and she is eating better. Sodium improved to 129 other electrolyte including magnesium and potassium improved on supplement, potassium was 3.6 this morning. Blood pressure has been elevated. Review of Systems Review of Systems: Detailed review of system was done and pertinent positives and negatives mentioned above. Physical Exam Constitutional: WD/WN, vitals as above + ill appearing and + thin; no acute distress Eyes: + anicteric sclerae Neck: normal visual inspection Respiratory: no respiratory distress Auscultation: lungs clear to auscultation bilaterally Cardiovascular: RRR, no murmur, no edema Skin: no rashes, warm and dry Neurologic: no focal motor deficits Psychiatric: Orientation: alert and oriented x 3 Results & Data Vital Signs (Past 12 Hours) Vital Signs Temp Pulse Resp BP Pulse Ox O2 Del Method 12/03/24 08:10 36.6 C 96 H 16 172/82 H 95 Room Air PG Care Time/CCT Total # of Minutes Spent Total Time Spent with Patient: Total time spent is greater than 50% in coordination of care (as documented) at patient's floor/unit and/or counseling patient: Coding Level of Care Code 00624 SUB INP/OBS CARE 2/35MIN Diagnoses Acute hyponatremia E87.1 Hypokalemia E87.6 Hypomagnesemia E83.42 Acute hypotension I95.9 Sinus tachycardia R00.0 Generalized weakness R53.1
[2024-12-03] MEDS: SPIRONOLACTONE 25 MG TAB PO SCH (11:10)
[2024-12-03] MEDS: MAGNESIUM SULFATE / D5W 1 GM/100 ML BAG IV ONE (18:15)
[2024-12-03] MEDS: amLODIPine BESYLATE 5 MG TAB PO SCH (19:40)
[2024-12-04 06:25] LABS: Calcium 8.3 mg/dl (8.6-10.3); Magnesium 1.4 mg/dl (1.7-2.4); Potassium 2.9 mmol/L (3.5-5.1)
[2024-12-04 06:31] LABS: Creatinine Clr Calc Pharmacy 79.6 ml/min; Phosphorus 2.6 mg/dl (2.5-4.9)
--- NOTE | 2024-12-04 06:55 | Hospitalist Progress Note ---
Date of Service December 04, 2024 Assessment & Plan (1) Acute hypotension: (2) Acute hyponatremia: (3) Hypomagnesemia: (4) Hypokalemia: Plan Patient is a 54yo F with PMH of Hyperlipidemia, Hypertension, Mood disorder, Thoracic and lumbar compression fracture, sacral fracture, post craniotomy for aneurysm s/p multiple falls, alcohol use disorder, tobacco use, Graves disease and intraductal carcinoma of the left breast presented to ER today with on and off weakness for a month. Hypotensive on presentation. BP improved after 3 bolus of Nacl in the ER . She was admitted for management of hypotension and electrolyte abnormalities. #Weakness Likely due to hypotension, electrolyte abnormalities, deconditioning No acute findings on head CT Evaluated by PT: scored 24 on 6 clicks, no further PT indicated Encourage PO intake. Started Protonix and Pepcid BID to aid with meals #Hypertension -improved following fluid resuscitation -Will increase Spironolactone to 50mg daily. Add Amlodipine 5 mg #Hyponatremia Seems to be chronic due to alcohol intake and free water intake Na:127 Chronically 124-127 Takes salt tab 2 gm BID at home. Continue same Follows with nephrology - consulted inpatient Continue home salt tabs Add low dose Lasix Follow BMP #Hypokalemia Potassium this morning 2.2. Supplemented Kcl. Repeat was 4.1 Follow BMP tomorrow morning. If stable, plan to discharge tomorrow #Hypomagnesemia Magnesium today: 1.4 ; Replete Magnesium 2gm today Continue magnesium oxide 400mg PO BID. Follow mag level tomorrow AM #Seizure Had some episodes concerning for seizure after her aneurysm repair surgery. On Keppra 750mg BID. Plan is to continue Keppra until her next aneurysm repair surgery. Continue Keppra 750mg BID Mood Disorder: Continue Escitalopram and Mirtazapine Subclavian artery stenosis: Continue ASA and statin COPD: Continue home inhalers DVT prophylaxis: Lovenox Code: Full code Disposition: Med/Surg Admission and Anticipated Discharge Date Admission Date: November 29, 2024 Supervising Physician Co-Signing Physician Notes I personally examined the patient and verified levin points of history and exam, discussed case, and agree with decision making and plan documented by Dr. Holman. Spironolactone increased to 50 mg. BP improved. Monitoring potassium. Anticipate discharge tomorrow with continued clinical improvement. Subjective Overnight events: No any slept well Ongoing symptoms: She denied any weakness, dizziness or light headed ness and her appetite is improved New concerns: Denied any new concerns today Review of Systems Review of Systems: reviewed, per HPI Physical Exam Physical Exam: Constitutional: Well appearing, No acute distress, PILCCOD: Negative HEENT: Atraumatic, Normocephalic, No conjunctival injection CVS: S1 S2 Tachycardia no murmur, , no LE edema Respiratory: BL equal air entry with NVBS. No rhonchi, wheezes, or crackles. No increased work of breathing GI: Soft, Nondistended, Nontender, Normal Bowel sounds + MSK: No gross deformities noted Skin: Warm, Dry, No rashes Neuro: Alert, Oriented to TPP, No Focal deficit Psych: Mood and Affect congruent, Cooperative on exam Results & Data Results & Data Vital Signs (Past 12 Hours) Vital Signs Temp Pulse Resp BP Pulse Ox O2 Del Method 12/03/24 19:35 36.9 C 74 18 166/69 H 97 Room Air
[2024-12-04] MEDS ORDERED: POTASSIUM CHLORIDE 20 MEQ/15 ML UDC PO SCH (07:15)
[2024-12-04] MEDS: MAGNESIUM SULFATE / D5W 1 GM/100 ML BAG IV SCH (07:42)
[2024-12-04] MEDS: POTASSIUM CHLORIDE 20 MEQ/15 ML UDC PO STA (07:43)
[2024-12-04] MEDS: ONDANSETRON 4 MG OD TAB PO PRN (08:14)
[2024-12-04] MEDS: SPIRONOLACTONE 25 MG TAB PO SCH (09:04)
--- NOTE | 2024-12-04 10:02 | Nephrology Progress Note ---
Date of Service December 04, 2024 Assessment & Plan (1) Acute hyponatremia: (2) Hypokalemia: (3) Hypomagnesemia: (4) Acute hypotension: (5) Sinus tachycardia: (6) Generalized weakness: Plan 54 year old with history of chronic hyponatremia serum sodium around 124 /125 most of the time, admitted to the hospital with generalized weakness. On admission she was noted to be quite hypotensive and clinically , volume depleted. Serum sodium was 123, urine osmolality 290, potassium was 2.9. Magnesium was 1.3. Kidney function is normal creatinine 0.8 mg/dl. Has history of chronic hyponatremia with excessive alcohol intake, smoking and decreased oral intake. She has been on oral salt tablets. She has also been on losartan and spironolactone previously for history of hypokalemia. Sodium staying relatively stable but potassium dropped again this morning to 2.9 despite getting oral potassium supplement. She denies any significant diarrhea. Sodium improved to 12 and other electrolyte also improved on supplement. --Increase spironolactone to 50 mg daily. Recommend holding discharge and monitor for next 24 hours to make sure potassium stays at a safe level. --continue on oral salt tablet, liberalize salt in diet. --Encouraged to continue to increase p.o. intake, focus on increase protein intake. --Discussed importance of quitting drinking alcohol altogether. --Continue on current dose of magnesium and potassium supplement on discharge. Admission and Anticipated Discharge Date Admission Date: November 29, 2024 Jillian Neves was seen and evaluated this morning. She had some nausea after receiving KCl and exit this morning but felt better after getting Zofran. Potassium dropped to 2.9 this morning while getting oral potassium supplement 3 times a day. Magnesium again dropped to 1.4 and sodium this morning was 128. Blood pressure slightly improved spironolactone. Review of Systems Review of Systems: Detailed review of system was done and pertinent positives and negatives mentioned above. Physical Exam Constitutional: WD/WN, vitals as above + ill appearing and + thin; no acute distress Eyes: + anicteric sclerae Neck: normal visual inspection Respiratory: no respiratory distress Auscultation: lungs clear to auscu ltation bilaterally Cardiovascular: RRR, no murmur, no edema Skin: no rashes, warm and dry Neurologic: no focal motor deficits Psychiatric: Orientation: alert and oriented x 3 Results & Data Vital Signs (Past 12 Hours) Vital Signs Temp Pulse Resp BP Pulse Ox O2 Del Method 12/04/24 08:44 36.7 C 85 16 149/82 H 97 Room Air PG Care Time/CCT Total # of Minutes Spent Total Time Spent with Patient: Total time spent is greater than 50% in coordination of care (as documented) at patient's floor/unit and/or counseling patient: Coding Level of Care Code 72908 SUB INP/OBS CARE 2/35MIN Diagnoses Acute hyponatremia E87.1 Hypokalemia E87.6 Hypomagnesemia E83.42 Acute hypotension I95.9 Sinus tachycardia R00.0 Generalized weakness R53.1
[2024-12-04] MEDS: POTASSIUM CHLORIDE CRTAB 20 MEQ TABCR PO ONE (11:17)
[2024-12-04 13:49] LABS: BUN Creatinine Ratio 9.5 (10-20); Calcium 8.1 mg/dl (8.6-10.3); Creatinine Clr Calc Pharmacy 63.2 ml/min; Potassium 4.1 mmol/L (3.5-5.1)
[2024-12-05 05:12] LABS: BUN Creatinine Ratio 16.7 (10-20); Calcium 8.5 mg/dl (8.6-10.3); Creatinine Clr Calc Pharmacy 60.3 ml/min; Magnesium 1.7 mg/dl (1.7-2.4); Potassium 4.7 mmol/L (3.5-5.1)
[2024-12-05 08:09] VITALS: BP 175/87; PULSE 81; RESP 18; TEMP 97.7; O2SAT 95
--- NOTE | 2024-12-05 10:04 | Nephrology Progress Note ---
Date of Service December 05, 2024 Assessment & Plan (1) Acute hyponatremia: (2) Hypokalemia: (3) Hypomagnesemia: (4) Acute hypotension: (5) Sinus tachycardia: (6) Generalized weakness: Plan 54 year old with history of chronic hyponatremia serum sodium around 124 /125 most of the time, admitted to the hospital with generalized weakness. On admission she was noted to be quite hypotensive and clinically , volume depleted. Serum sodium was 123, urine osmolality 290, potassium was 2.9. Magnesium was 1.3. Kidney function is normal creatinine 0.8 mg/dl. Has history of chronic hyponatremia with excessive alcohol intake, smoking and decreased oral intake. She has been on oral salt tablets. She has also been on losartan and spironolactone previously for history of hypokalemia. Sodium improved to 131 and other electrolyte abnormality resolved, on multiple supplements and spironolactone. --Continue on spironolactone 50 mg daily. Decrease potassium supplement to only 20 mEq daily on discharge. --continue on oral salt tablet, liberalize salt in diet. --Encouraged to continue to increase p.o. intake, focus on increase protein intake. --Discussed importance of quitting drinking alcohol altogether. --Continue on current dose of magnesium supplement on discharge. --OK to be discharged, lab in a day or 2 and then weekly, will arrange for outpatient follow-up at the clinic. Admission and Anticipated Discharge Date Admission Date: November 29, 2024 Jillian Neves was seen and evaluated this morning. She reports overall feeling better, maintaining p.o. intake. Sodium improved to 132, potassium normalized, magnesium improved to 1.7. Blood pressure remains slightly elevated although variable. Review of Systems Review of Systems: Detailed review of system was done and pertinent positives and negatives mentioned above. Physical Exam Constitutional: WD/WN, vitals as above + thin; no acute distress Eyes: + anicteric sclerae Neck: normal visual inspection Respiratory: no respiratory distress Auscultation: lungs clear to aus cultation bilaterally Cardiovascular: RRR, no murmur, no edema Skin: no rashes, warm and dry Neurologic: no focal motor deficits Psychiatric: Orientation: alert and oriented x 3 Results & Data Vital Signs (Past 12 Hours) Vital Signs Temp Pulse Resp BP Pulse Ox O2 Del Method 12/05/24 08:08 36.5 C 81 18 175/87 H 95 Room Air PG Care Time/CCT Total # of Minutes Spent Total Time Spent with Patient: Total time spent is greater than 50% in coordination of care (as documented) at patient's floor/unit and/or counseling patient: Coding Level of Care Code 67553 SUB INP/OBS CARE 2/35MIN Diagnoses Acute hyponatremia E87.1 Hypokalemia E87.6 Hypomagnesemia E83.42 Acute hypotension I95.9 Sinus tachycardia R00.0 Generalized weakness R53.1
--- NOTE | 2024-12-05 16:48 | Discharge Summary ---
Date of Service December 05, 2024 Admission HPI Per Admitting Provider DonaldEdinson is a 54 Y O Female with PMH of Hyperlipidemia, Hypertension, Mood disorder, Thoracic and lumbar compression fracture, sacral fracture, post craniotomy for ruptured aneurysm multiple falls, Carotid Artery Stenosis alcohol use disorder, tobacco use, Graves disease and intraductal carcinoma of the left breast presented to ER today with weakness which has been on and off for a month, increased in severity for last couple of days . She has home health nurse set up and she was found to have elevated heart rate but normal Blood Pressure. Her home health nurse called PCP and was set up appointment with PCP. On clinic she was found to be hypotensive and tachycardic and was referred to ER. She feels like her legs are so weak and ready to give out or she is going to fall She denies any light headness, dizziness,fever, cough,nausea, vomiting ,diarrhea, chest pain ,abdominal pain, shortness of breath, dysuria and hematuria . She reports that there is no change in eating habit and her appetite. She had fall and hit her head and had aneurysm repair 1 year ago at [place]. She is scheduled for another aneurysm repair in January. She consumes half a pack of smoking per day and consumes 6 to 12 bottles per day Admission Exam Per Admitting Provider Constitutional: Well appearing, No acute distress, PILCCOD: Negative HEENT: Atraumatic, Normocephalic, No conjunctival injection CVS: S1 S2 Tachycardia no murmur, , no LE edema Respiratory: BL equal air entry with NVBS. No rhonchi, wheezes, or crackles. No increased work of breathing GI: Soft, Nondistended, Nontender, Normal Bowel sounds + MSK: No gross deformities noted Skin: Warm, Dry, No rashes Neuro: Alert, Oriented to TPP, No Focal deficit Psych: Mood and Affect congruent, Cooperative on exam Principal Diagnosis 1. Chronic Hyponatremia 2. Hypokalemia(Resolved) 3. Hypomagnesemia Discharge Exam Constitutional: Well appearing, No acute distress, PILCCOD: Negative HEENT: Atraumatic, Normocephalic, No conjunctival injection CVS: S1 S2 Tachycardia no murmur, , no LE edema Respiratory: BL equal air entry with NVBS. No rhonchi, wheezes, or crackles. No increased work of breathing GI: Soft, Nondistended, Nontender, Normal Bowel sounds + MSK: No gross deformities noted Skin: Warm, Dry, No rashes Neuro: Alert, Oriented to TPP, No Focal deficit Psych: Mood and Affect congruent, Cooperative on exam Discharge Data Allergies Allergy/AdvReac Type Severity Reaction Status Date / Time lisinopril AdvReac Unknown Coughing Verified 08/15/24 11:00 Consultations 11/29/24 18:15 ED Decision to Admit Stat 11/30/24 00:40 Consult Nephrology Routine Ordered Studies 11/30/24 06:37 CT head/brain wo con Routine Hospital Course (1) Acute hypotension: (2) Hypokalemia: (3) Hypomagnesemia: Plan Patient is a 54yo F with PMH of Hyperlipidemia, Hypertension, Mood disorder, Thoracic and lumbar compression fracture, sacral fracture, post craniotomy for aneurysm s/p multiple falls, alcohol use disorder, tobacco use, Graves disease and intraductal carcinoma of the left breast presented to ER today with on and off weakness for a month. Hypotensive on presentation. BP improved after 3 bolus of Nacl in the ER . She was admitted for management of hypotension and electrolyte abnormalities. #Weakness Likely due to hypotension, electrolyte abnormalities, deconditioning No acute findings on head CT Evaluated by PT: scored 24 on 6 clicks, no further PT indicated Encourage PO intake. Started Protonix and Pepcid BID to aid with meals #Hypertension -improved following fluid resuscitation -Will increase Spironolactone to 50mg daily. Add Amlodipine 5 mg #Hyponatremia Seems to be chronic due to alcohol intake and free water intake Na:127 Chronically 124-127 Takes salt tab 2 gm BID at home. Continue same Follows with nephrology - consulted inpatient Continue home salt tabs Repeat BMP on followup #Hypokalemia(Repleted) Potassium this morning 4.5 -Repeat BMP on followup -Take KCL 20meq BID at home #Hypomagnesemia Magnesium today: 1.4 ; Replete Magnesium 2gm today Continue magnesium oxide 400mg PO BID. Follow mag level tomorrow AM #Seizure Had some episodes concerning for seizure after her aneurysm repair surgery. On Keppra 750mg BID. Plan is to continue Keppra until her next aneurysm repair surgery. Continue Keppra 750mg BID Mood Disorder: Continue Escitalopram and Mirtazapine Subclavian artery stenosis: Continue ASA and statin COPD: Continue home inhalers DVT prophylaxis: Lovenox Code: Full code Disposition: Med/Surg Total Time Total Time Spent Total Time Spent (In Minutes): See attending attestation Discharge Plan Discharge Items Patient Disposition: Home - Self-Care Reason For Visit: WEAKNESS Discharge Diagnosis: 1. Chronic Hyponatremia 2. Hypokalemia(Resolved) 3. Hypomagnesemia Condition on Discharge: Serious Activity: Resume your previous activity Non-emergency contact: Primary Care Provider and [employer] Trouble [employer]ooter Call non-emergency contact if: you have any medication questions and your symptoms worsen Follow-up/Referrals: Reyna Cowan [Primary Care Provider] - 12/12/24 3:25 pm Addtl Attending Provider Instructions: You were admitted to the hospital for Acute decrease in your blood pressure and electrolyte abnormalities. You were treated with Intravenous fluids, and electrolytes repletion. Your sodium is in the baseline and Potassium is back to normal. We initially held your hypertension medication while you were at hospital because of drop in blood pressure. Later we started your medication for hypertension as your blood pressure was elevated A discharge summary will be sent to your primary care physician to ensure continuity of care. Please bring this discharge summary with you to your next office appointment so that your provider can review it at that time. Follow-up appointments: We have requested a follow-up appointment with Reyna Cowan on December 12 at [facility] on 3:25 PM Keep all your follow-up appointments as already scheduled. If you cannot make an appointment, notify your provider. Medications: We have reduced the dose of Spironolactone from 100 to 50. Take Spironolactone 50 Mg daily We have reduced the dose of Amlodipine from 10 to 5. Take Amlodipine 5mg daily If you have any issues filling these prescriptions, please call [phone] and ask to leave a message for Dr. Mimi Holman Take your medications as instructed; do not skip a dose of your medicines. Make sure all of your doctors know every medicine you are taking (including [id number] medicines, vitamins, and supplements). Call your primary care provider before taking any new medicines (including overthe- counter medicines, vitamins, and supplements), because some of these may int eract with your current medications, or may make your symptoms worse. Tell your primary care provider if you cannot afford your medications. CONTACT YOUR PRIMARY CARE PROVIDER if you experience any of the following: Weakness, dizziness or confusion Difficulty following your treatment plan, or difficulty taking medications CALL 911 OR GO TO THE EMERGENCY DEPARTMENT if you experience any of the following: Sudden, severe abdominal pain or nausea/vomiting Severe chest pain, or chest pain that radiates (moves) to your jaw or arm Sudden, severe shortness of breath or difficulty breathing Thank you for allowing us to participate in your care. . Pending Studies at Discharge: No Stand-Alone Forms: [facility], Smoking Cessation Medications and DC Order Prescriptions: New amlodipine [Norvasc] 5 mg Tablet 5 mg PO QAM 30 Days Qty: 30 0RF spironolactone 25 mg Tablet 50 mg PO QAM 30 Days Qty: 60 0RF Continued escitalopram oxalate [Lexapro] 10 mg tablet 10 mg PO UD Rx Instructions: original:10mg po daily. 11/29-per family, pt still takes. last filled 12/30/23 30 day supply fluticasone propion-salmeterol 100-50 mcg/dose blister with device 1 inh inhalation [facility] aspirin [Adult Low Dose Aspirin] 81 mg tablet,delayed release (DR/EC) 81 mg PO QAM multivitamin Tablet 1 tab PO QAM Zyrtec 10 mg capsule 10 mg PO DAILY PRN (Reason: allergies) sodium chloride 1,000 mg tablet,soluble 2,000 mg PO BID Qty: 120 3RF atorvastatin 40 mg tablet 40 mg PO QAM folic acid 1 mg tablet 1 mg PO QAM mirtazapine 15 mg tablet 15 mg PO HS 30 Days Qty: 30 3RF losartan 25 mg tablet 50 mg PO QAM diphenhydramine HCl [Benadryl Allergy] 25 mg Tablet 25 mg PO TID PRN (Reason: Allergy Symptoms) azelastine 205.5 mcg (0.15 %) [place],Non-Aerosol 2 spray INTRANASAL QAM Rx Instructions: administer into each nostril levetiracetam [Keppra] 750 mg tablet 750 mg PO BID magnesium oxide 400 mg magnesium capsule 400 mg PO BID 30 Days Qty: 60 1RF Discontinued amlodipine 10 mg tablet 10 mg PO QAM spironolactone 50 mg tablet 100 mg PO DAILY Discharge Orders: Discharge Order (Routine); Ordered 12/05/24 Ordered By: Mimi Bermuen/Other Patient Handouts: ED Low Blood Pressure, All Causes Admission Data Admit Date/Time: 11/29/24 20:01 Attending Provider: Abbie Rhodes Admit Provider: Mimi Holman Primary Care Provider: Reyna Cowan Other Providers: Jorge Chatterjee Stephen M. Other Interventions: Discharge Summary Assessment (RN) Last Done: 12/05/24 11:48 Supervising Physician Co-Signing Physician Notes I personally examined the patient and verified levin points of history and exam, discussed case, and agree with decision making and plan documented by Dr. Holman. Patient is a 54-year-old woman with past medical history pertinent for alcohol use disorder on admission for weakness in the setting of hypotension and electrolyte abnormalities. Electrolyte derangement slowly improved during admission. Patient states she quit drinking alcohol 1 week prior to admission but had 1 drink when she learned of a in her family on 11/25/2024. Blood pressure started improving during hospitalization, patient was restarted on her spironolactone 50 mg daily, was advised to restart amlodipine, will need follow- up to assess for additional anti-hypertensive need. Patient was seen by nutrition and discussed approach to dietary intake to improve overall malnutrition. Patient discharged on salt tabs, magnesium oxide, and potassium chloride in addition to thiamine and folic acid. Patient will follow-up with PCP as scheduled 12/12/2024, will need labs repeated. Encouraged continued efforts to maintain alcohol cessation. Patient refusing medications for alcohol use disorder at present but offered discussion at any point in future. Resident Activity Tracking Resident Involvement: Resident Care Provided Care Provided: Adult Hospital Medicine
[2024-12-06] MEDS ORDERED: POTASSIUM CHLORIDE CRTAB 20 MEQ TABCR PO SCH (09:00)
== END 2024-12-05 13:06 | disposition home health service (06) | DRG 315 ==
LOC: ED 15:15 → SUATTDRO 20:01 → 3W 20:01
DX: Z79.82 Long term (current) use of aspirin; E46 Unspecified protein-calorie malnutrition; E83.42 Hypomagnesemia; G40.909 Epilepsy, unspecified, not intractable, without status epilepticus; R79.89 Other specified abnormal findings of blood chemistry; I95.89 Other hypotension; E86.0 Dehydration; F10.10 Alcohol abuse, uncomplicated; I67.1 Cerebral aneurysm, nonruptured; F17.210 Nicotine dependence, cigarettes, uncomplicated; F39 Unspecified mood [affective] disorder; R29.6 Repeated falls; I10 Essential (primary) hypertension; E87.6 Hypokalemia; E87.1 Hypo-osmolality and hyponatremia; R00.0 Tachycardia, unspecified; Z98.890 Other specified postprocedural states; E78.5 Hyperlipidemia, unspecified; Z85.3 Personal history of malignant neoplasm of breast; I95.9 Hypotension, unspecified